=== PATIENT | male | born 1940 | race Caucasian/White ===

== ENCOUNTER 2021-11-23 08:56 | Outpatient (CLI) | payer MEDICARE, BC, SELFPAY ==
--- OUTSIDE RECORDS SUMMARY | 2021-11-23 08:58 | XMS_ITS | Clinical Summary ---
:1940 Author Organization [facility] Address [address] [place] [address] Care Team Providers Name Role Phone Unavailable Primary Care Provider Unavailable Source Comments You are receiving this document as you are listed as the primary care provider,follow-up provider, or the patient has been referred to you for consultation.This is in compliance with the Medicare and Medicaid EHR Incentive Program,which states Providers who transition their patient to another setting of careor provider of care or refers their patient to another provider of care shouldprovide summarycare record for each transition of care or referral. [facility] Resolved Problems Problem Noted Date Resolved Date Chronic low back pain 11/10/2020 05/02/2021 Muscular deconditioning 11/10/2020 05/02/2021 Immunizations Name Administration Dates Next Due DT Ped 08/21/1985 Social History Tobacco Use Types Packs/Day Years Used Date Smoking Tobacco: Never Assessed Sex Assigned at Date Recorded Not on file Plan of Treatment Health Maintenance Due Date Last Done Comments Hep C Screening (Preventive 1940 Services) Medicare Annual Wellness 1940 Visit COVID-19 Vaccine (#1) 05/11/1941 Zoster/Shingles (2 of 3) 11/05/2011 09/10/2011 Influenza (#1) 2021 01/03/2021, 12/28/2019, 12/31/2018, Additional history exists DTaP/Tdap/Td (4 - Tdap) 03/13/2022 03/13/2012, 09/20/2009, 08/21/1985 Pneumococcal 65+ Yrs Completed 03/03/2015, 09/20/2009 HepA Aged Out No longer eligib le based on patient 's age to complete this topic HepB Aged Out No longer eligib le based on patient 's age to complete this topic Hib Aged Out No longer eligib le based on patient 's age to complete this topic IPV (Polio) Aged Out No longer eligib le based on patient 's age to complete this topic MCV4 Aged Out No longer eligib le based on patient 's age to complete this topic Insurance Payer Benefit Plan / Subscriber ID Effective Dates Phone Addre ss Type Group MEDICARE MEDICARE [id number] 2007-[place] [phone] M taniahumberto [facility] CARE t 67 BCBS BCBS BCBS [place] [id number] 2020-[place] [phone] [address] [address] Medicare BLUE t [address] [place] [address] Amanda Angel Personal/Family Self 1940 [address] (Home) [address] [place] [address]
--- OUTSIDE RECORDS SUMMARY | 2021-11-23 08:58 | XMS_ITS | Encounter Summary ---
:1940 Author Organization [facility] Address [address] [place] [address] Care Team Providers Name Role Phone Unavailable Primary Care Provider Unavailable Reason for Visit Reason Comments BACK PAIN, LOW Consult/Transfer Care (Routine) - Authorized Specialty Diagnoses / Procedures Referred By Contact Refer red To Contact Physical Therapy Diagnoses Low back pain (HRC) Vilma Lawler MD [facility] [address] [address] [place] [address] [address] [place], [address] [place] [address] Phone: Fax: Referral ID Status Reason Start Date Expiration Date Visits V isits Requested Authorized [id number] Authorized 10/20/2020 01/19/2022 999 [id number] Encounter Details Date Type Department Care Team Description 01/11/2021 Therapy Physicians Neck and Stan Wynn, Rudi onic low back pain, unspecified back pain laterality, unspecified whether sciatica present (HRC) (Primary Dx); Back [facility] Muscular deconditioning [id number] [facility], [address] [address] , [address] [place] [address] [place], [place] [phone] (Wo rk) Social History Tobacco Use Types Packs/Day Years Used Date Smoking Tobacco: Never Assessed Sex Assigned at Date Recorded Not on file documented as of this encounter Progress Notes Stan Wynn, GAYE - 01/11/2021 10:15 AM CDT 01/11/2021 Visit # 15 Protocol: Back Start: 1009a End: 1047a (LOAD MANAGER Visit # 3 Subjective: Pt reports doing well and ready for discharge, no complaints of today. Cervical Not performed today. Objective Tests & Measures: Tests performed today (see reviewfloweet for score and outcomes): : Oswestry Oswestry completed today at 6 % compared to 15.55 % on initial visit. Warm Up: Movement Specific Training: Not Completed Bike: Minutes 5 Intensity mod ICE: NA Lumbar Lumbar & Torso 01/11/2021 Set 1 Ext % Max 100% Set 1 Ext ROM 0-48 Set 1 Ext Wgt 120 Set 1 Ext Reps 20 Set 1 Ext Tul 63 Set 1 Ext Rufus RPE 5 Set 2 Ext % Max 100% Set 2 Ext ROM 0-48 Set 2 Ext Wgt 120 Set 2 Ext Reps 20 Set 2 Ext Tul 75 Set 2 Rufus RPE 5 Left Rot % Max 60% Left Rot ROM 45 Left Rot Wgt 40 Left Rot Reps 25 Left Rot Betsy RPE 4 Right Rot % Max 60% Right Rot ROM 45 Right Rot Wgt 40 Right Rot Reps 25 Right Rot Rufus RPE 4 Therapeutic Exercise (28 min): Patient performed isolated lumbar extension exercise and auxillary exercises to improve muscle strength, to improve muscle endurance, increase strength and endurance levels of supporting spinal muscle groups and to strengthen postural muscles to decrease stresses on the spine to increase tolerance forstanding, lifting and work activities Verbal cues needed for proper form and control on Lumbar Extension machine with instruction to avoidsubstitution with other muscle groups and to facilitate correct muscle firing sequence and to avoid momentum, improper form and too fast with reps. Neuromuscular Re-Education (10 min): Patient performed isolated torso rotation to decrease substitution patterns present with chronic pain, to retrain muscles for proper sequencing and improve muscle recruitment patterns to increase tolerance for standing, lifting and work activities. Verbal cues for proper form and control on Thoracic Rotation with instruction on which shoulder to push with to avoid substitution on the wrong side of muscle groups. Instructed in slow reps to avoid momentum and improper form. Auxillary Auxillary 01/11/2021 Abs Wgt Set 1 85 Abs Reps Set 1 20 Abs Wgt Set 2 85 Abs Reps Set 2 20 Glute Wgt Set 1 130 Glute Reps Set 1 25 Glute Wgt Set 2 130 Glute Reps Set 2 25 Leg Press Wgt Set 1 170 Leg Press Reps Set 1 20 Leg Press Wgt Set 2 170 Leg Press Reps Set 2 20 Lats Wgt Set 1 70 Lats Reps Set 1 25 Lats Wgt Set 2 70 Lats Reps Set 2 25 Other TA with 40# crate HEP Independent Therapeutic Activities (5 min): Therapeutic Activities 01/11/2021 SITTING POSTURE - STANDING POSTURE - BASE OF SUPPORT Independent WEIGHT SHIFT Independent PIVOT VS TWIST Independent PUSH VS PULL - SQUAT Independent LIFT FROM FLOOR Independent OTHER ACTIVITY Therapeutic activities instructed in lifting, bending, squatting with 40# crate with a wide stance. Instructed the difference with pivoting vs.twisting. Coached proper form, technique and coordination for proper lifting at home. Patient Education: Patient was instructed in correlation of strength and function to increase their understanding of the benefits related to completing the [facility] Rehab program Measureful printed and reviewed. Therapeutic activities with 40# crate. See above. Pt independent. Independent with leonid chair. Assessment: Amanda Angel tolerated treatment well with increased weight on auxiliary machines and lumbar extension today. Checked ROM and unable to change today. Observed form and speed on all reps to avoid substitution, proper positioning and cues given as needed with speed and form. Gives good effort in machines. Goals: Short Term Goals (4-6 weeks): (At Eval:??4/10??pain) *1. Pt will??stand 45 min for household tasks (cooking, doing dishes etc.)??with Sx < or = to??2/10??MET 12/28/20 *2. Pt will??be able to do work in the community garden??with Sx <??or = to 2/10??MET 12/28/20 3. Pt will decrease morning stiffness by 50%??MET 12/28/20 ?? Shelter Goals (>6 weeks): 1. Patient will be independent with home exercise program after discontinued from Physical Therapy. MET 01/11/21 *1. Pt will??stand??>1 hr??for household tasks (cooking, doing dishes etc.)??with Sx < or = to??0/10 MET 01/09/21 *2. Pt will??be able to do work in the community garden??with Sx <??or = to 0/10 MET 01/09/21 3. Pt will decrease morning stiffness by 75% MET 01/09/21 4. Pt will demo independence with proper body mechanics with lift and carry of??40 lbs??from floor without increased Sx??(pt declines to test that amount of wt ) demonstrates body mechanics with some cues lifting from the floor to waist using the crate. MET 01/11/21 Initial certification period:??11/10/20 - 02/08/21 ?? Precautions/Other Information:??Direct Referral,??Follow up with??Vilma Lawler MD:??PRN, Directional Preference:??Flexion, Hx:??L achilles rupture 30 yrs ago, still some L achilles pain when walks too long,??L-Ext:??#125, [facility],??Leonid Chair or samoan ball, body weight auxs, and resistance bands at home,??11/10/20:??Recommended 8-12 weeks of therapy 2x per week (16-24 visits) Recommendations/Communication: DC to HEP with leonid chair and bands. Total timed code min: 38 Total treatment time: 38 Stan Wynn PTA 01/11/2021, 10:52 AM Vega Beltre, PT - 01/11/2021 10:15 AM CDT Physical Therapy Discharge Summary Discharge Date: 05/02/2021 Discharge type: formal Patient completed 15 sessions of physical therapy from 11/10/2020 to 01/11/2021. Goals: ?? Short Term Goals (4-6 weeks): (At Eval:??4/10??pain) *1. Pt will??stand 45 min for household tasks (cooking, doing dishes etc.)??with Sx < or = to??2/10??MET 12/28/20 *2. Pt will??be able to do work in the community garden??with Sx <??or = to 10??MET 12/28/20 3. Pt will decrease morning stiffness by 50%??MET 12/28/20 ?? Winding Lathe Operator Goals (>6 weeks): 1. Patient will be independent with home exercise program after discontinued from Physical Therapy. MET 01/11/21 *1. Pt will??stand??>1 hr??for household tasks (cooking, doing dishes etc.)??with Sx < or = to??0/10??MET 01/09/21 *2. Pt will??be able to do work in the community garden??with Sx <??or = to 0/10??MET 01/09/21 3. Pt will decrease morning stiffness by 75%?MET 01/09/21 4. Pt will demo independence with proper body mechanics with lift and carry of??40 lbs??from floor without increased Sx??(pt declines to test that amount of wt ) demonstrates body mechanics with some cues lifting from the floor to waist using the crate. MET 01/11/21 Patient has been instructed in and demonstrated proficiency and safe body mechanics with the following tasks: Neutral sitting position Standing posture Full and partial squat/half kneel/golfer's lift Wide base of support Weight shift Pivot vs twist Hold object close vs away Floor <> waist lift Lifting and reachintg overhead Push vs Pull Other status update/follow up recommendations: Patient is to F/U with his PCP regarding any additional care Discharge Plans: HEP Leonid Chair T-bands 05/02/2021, 5:47 PM R HELPER documented in this encounter Plan of Treatment Not on filedocumented as of this encounter Visit Diagnoses Diagnosis Chronic low back pain, unspecified back pain laterality, unspecified whether sciatica present - Primary Muscular deconditioning Muscular wasting and disuse atrophy, not elsewhere classified documented in this encounter
--- OUTSIDE RECORDS SUMMARY | 2021-11-23 08:59 | XMS_ITS | Encounter Summary ---
:1940 Author [facility] Address [address] [place] [address] Care Team Providers Name Role Phone Unavailable Primary Care Provider Unavailable Reason for Visit Reason Comments BACK PAIN Consult/Transfer Care (Routine) - Authorized Specialty Diagnoses / Procedures Referred By Contact Refer red To Contact Physical Therapy Diagnoses Low back pain (HRC) Vilma Lawler MD [facility] [address] [address] [place] [address] [place], [address] [place] [address] Phone: Fax: Referral ID Status Reason Start Date Expiration Date Visits V isits Requested Authorized [id number] Authorized 10/20/2020 01/19/2022 999 [id number] Encounter Details Date Type Department Care Team Description 12/30/2020 Therapy Physicians Neck and Bianka Stewart, Vikki simon low back pain, unspecified back pain laterality, unspecified whether sciatica present (HRC) (Primary Dx); Back Center [facility] sandro BLADDER TIER Muscular deconditioning [address] [facility], [address] [facility] , [address] [place] [address] [place], [place] [phone] (Wo rk) Social History Tobacco Use Types Packs/Day Years Used Date Smoking Tobacco: Never Assessed Sex Assigned at Date Recorded Not on file documented as of this encounter Progress Notes Bianka Stewart, GAYE - 12/30/2020 10:45 AM CDT 12/30/2020 Visit # 12 Protocol: Back Start: 10:45 am End: 11:15 am (BLADDER TIER Visit # 5 Subjective: Patient reports he is stiff this am. He was able to walk 4-6 miles yesterday with only min pain at the very end of the walk. Cervical Not performed today. Objective Tests & Measures: 80% of max wt on torso rotation ROM changes: no changes in ROm Tests performed today (see [facility] for score and outcomes): : None Performed Today Warm Up: Movement Specific Training: Not Completed Bike: Minutes 5 Intensity moderate ICE: N/A d/t covid Lumbar Lumbar & Torso 12/30/2020 Set 1 Ext % Max 60% Set 1 Ext ROM 0-48 Set 1 Ext Wgt 66 Set 1 Ext Reps 30 Set 1 Ext Tul 125 Set 1 Ext Rufus RPE 3/10 Set 2 Ext % Max - Set 2 Ext ROM - Set 2 Ext Wgt - Set 2 Ext Reps - Set 2 Ext Tul - Set 2 Rufus RPE - Left Rot % Max 80% Left Rot ROM 45 Left Rot Wgt 46 Left Rot Reps 25 Left Rot Betsy RPE 5/10 Right Rot % Max 80% Right Rot ROM 45 Right Rot Wgt 46 Right Rot Reps 25 Right Rot Rufus RPE 5/10 Therapeutic Exercise (15 min): Patient performed isolated torso rotation exercise and auxillary exercises to improve muscle strength, to improve muscle endurance, to improve muscle flexibility, to improve range of motion and increase strength and endurance levels of supporting spinal muscle groups to increase tolerance for standing, walking, lifting, driving, personal care tasks and household tasks Pt monitored for proper form on torso rotation exercise with emphasis to keep spine in the middle ofthe machine to avoid substitutions and engage the oblique muscles fully. Pt able to do after cues and reminders of body position. Pt educated for proper form on aux. exercises to minimize compensatory movement patterns and reminded to keep a steady rep pace on aux. exercises to maximize strengthening along the entire movement. Neuromuscular Re-Education (15 min): Patient performed isolated lumbar extension to decrease substitution patterns present with chronic pain, to retrain muscles for proper sequencing, decrease substitution patterns and normalize movement patterns, to improve self- correction of posture and to improve kinesio awareness to increase tolerance for standing, walking, lifting, driving, personal care tasks and household tasks. Pt instructed to relax legs and allow only the low back muscles to engage by pushing shoulder/arching back. Pt is monitored for correct speed and control to ensure good form and optimal muscle isolation. Auxillary Auxillary 12/30/2020 Abs Wgt Set 1 75 Abs Reps Set 1 20 Abs Wgt Set 2 75 Abs Reps Set 2 20 Glute Wgt Set 1 110 Glute Reps Set 1 20 Glute Wgt Set 2 110 Glute Reps Set 2 20 Leg Press Wgt Set 1 160 Leg Press Reps Set 1 20 Leg Press Wgt Set 2 160 Leg Press Reps Set 2 20 Lats Wgt Set 1 55 Lats Reps Set 1 20 Lats Wgt Set 2 - Lats Reps Set 2 - Other - HEP declines full lifting of 40# crate (states his knee gets sore) Therapeutic Activities (0 min): Not performed today. Brief review of good body mechanics without wt as pt didn't really want to lift a 40# crate but did demo his form. Patient Education: Patient was instructed in correlation of strength and function to increase their understanding of the benefits related to completing the [facility] Rehab program Patient demo's his lifting technique with empty crate and declines to try the 40# today. Patient responded well to the education on spine alignment today. Assessment: Patient is progressing and has met many of the goals. Patient is reaching very muscle strength levels on lumbar extension exercise. Patient did well today with good effort and only slight left shoulder discomfort and right knee pain in leg press. PATIENT was effectively challenged on all exercises to achieve good muscle fatigue levels for the optimal muscle strength and stability around the lumbar spine. Patient will benefit from skilled Physical Therapy to counteract impairments and regain function Goals: Short Term Goals (4-6 weeks): (At Eval:??4/10??pain) *1. Pt will??stand 45 min for household tasks (cooking, doing dishes etc.)??with Sx < or = to??2/10??MET 12/28/20 *2. Pt will??be able to do work in the community garden??with Sx <??or = to 210 MET 12/28/20 3. Pt will decrease morning stiffness by 50%??MET 12/28/20 ?? Director Of Pupil Personnel Program Goals (>6 weeks): 1. Patient will be independent with home exercise program after discontinued from Physical Therapy. *1. Pt will??stand??>1 hr??for household tasks (cooking, doing dishes etc.)??with Sx < or = to??010 *2. Pt will??be able to do work in the community garden??with Sx <??or = to 0/10 3. Pt will decrease morning stiffness by 75% 4. Pt will demo independence with proper body mechanics with lift and carry of??40 lbs??from floor without increased Sx (pt declines to test that amount of wt ) demonstrates body mechanics with some cues lifting from the floor to waist using the crate. Initial certification period:??11/10/20 - 02/08/21 ?? Precautions/Other Information:??Direct Referral,??Follow up with??Vilma Lawler MD:??PRN, Directional Preference:??Flexion, Hx:??L achilles rupture 30 yrs ago, still some L achilles pain when walks too long,??L-Ext:??#125, [facility],??Leonid Chair or slovenian ball, body weight auxs, and resistance bands at home,??11/10/20:??Recommended 8-12 weeks of therapy 2x per week (16-24 visits) Recommendations/Communication: 100% lumbar extension 60% torso rotation Continue treatment per PT POC with estimate of #2 more visits. HOME EXERCISE PROGRAM review Total timed code min: 30 Total treatment time: 30 Bianka Stewart PTA 12/30/2020, 11:25 AM Associated attestation - Vega Beltre, PT - 12/30/2020 1:05 PM CDT Observed treatment. Goals/Plan of Care discussed with BLADDER TIER. Treatment progressing and appropriate. Vega Beltre PT 12/30/2020, 1:05 PM documented in this encounter Plan of Treatment Not on filedocumented as of this encounter Visit Diagnoses Diagnosis Chronic low back pain, unspecified back pain laterality, unspecified whether sciatica present (HRC) - Primary Muscular deconditioning Muscular wasting and disuse atrophy, not elsewhere classified documented in this encounter
--- OUTSIDE RECORDS SUMMARY | 2021-11-23 08:59 | XMS_ITS | Encounter Summary ---
:1940 Author Organization [facility] Address [address] [place] [address] Care Team Providers Name Role Phone Unavailable Primary Care Provider Unavailable Reason for Visit Reason Comments BACK PAIN, LOW Consult/Transfer Care (Routine) - Authorized Specialty Diagnoses / Procedures Referred By Contact Refer red To Contact Physical Therapy Diagnoses Low back pain (HRC) Vilma Lawler MD [facility] [address] [address] [place] [address] [place], [address] [place] [address] Phone: Fax: Referral ID Status Reason Start Date Expiration Date Visits V isits Requested Authorized [id number] Authorized 10/20/2020 01/19/2022 999 [id number] Encounter Details Date Type Department Care Team Description 11/14/2020 Therapy Physicians Neck and Stan Wynn, Rudi onic low back pain, unspecified back pain laterality, unspecified whether sciatica present (Primary Dx); [facility] Muscular deconditioning [address] [facility], [address] [facility] , [address] [place] [address] [place], [place] [phone] (Wo rk) Social History Tobacco Use Types Packs/Day Years Used Date Smoking Tobacco: Never Assessed Sex Assigned at Date Recorded Not on file documented as of this encounter Progress Notes Stan Wynn, PRINCIPAL PROGRAMMER - 11/14/2020 10:00 AM CDT 11/14/2020 Visit # 2 Protocol: Back Start: 1000a End: 1035a (PRINCIPAL PROGRAMMER Visit # 1 Subjective: Pt reports doing stretches going well at home. Wanted to review strengthening at home ofOne legged bridging, crunches and pelvic tilts. Cervical Not performed today. Objective Tests & Measures: Tests performed today (see [facility] for score and outcomes): : None Performed Today Warm Up: Movement Specific Training: Not Completed Bike: Minutes 5 Intensity mod ICE: NA Lumbar Lumbar & Torso 11/14/2020 Set 1 Ext % Max 80% Set 1 Ext ROM 0-42 Set 1 Ext Wgt 50 Set 1 Ext Reps 20 Set 1 Ext Tul 179 Set 1 Ext Rufus RPE 7 per pt Set 2 Ext Tul 1 set due to High Rufus Left Rot % Max 60% Left Rot ROM 35 Left Rot Wgt 20 Left Rot Reps 20 Left Rot Betsy RPE 5 Right Rot % Max 60% Right Rot ROM 35 Right Rot Wgt 20 Right Rot Reps 20 Right Rot Rufus RPE 3-4 Therapeutic Exercise (25 min): Patient performed isolated lumbar extension exercise [...] avoid momentum and improper form. Auxillary Auxillary 11/14/2020 Abs Wgt Set 1 40 Abs Reps Set 1 20 Abs Wgt Set 2 40 Abs Reps Set 2 21 Glute Wgt Set 1 70 Glute Reps Set 1 20 Glute Wgt Set 2 70 Glute Reps Set 2 20 Leg Press Wgt Set 1 120 Leg Press Reps Set 1 20 Leg Press Wgt Set 2 120 Leg Press Reps Set 2 20 Other Inst to hold bridging, abs for now. Ok to cont pelvic tilts HEP - Therapeutic Activities (0 min): Not performed today. Patient Education: Patient was instructed in correlation of strength and function to increase their understanding of the benefits related to completing the [facility] Rehab program Instructed to hold one legged bridging and crunches for now. Okayed pt to continue with pelvic tilts. Assessment: Amanda Angel tolerated treatment well with adding machines. Encouraged to keep stretching twice per day and ice as needed. Checked ROM and unable to change today. Should improve as he gets stronger with less pain and more flexible with stretches. Observed form and speed on all reps to avoid substitution, proper positioning and cues given as needed with speed and form. Gives good effort in machines. Goals: Short Term Goals (4-6 weeks): (At Eval: 4/10 pain) *1. Pt will stand 45 min for household tasks (cooking, doing dishes etc.) with Sx < or = to 2/10 *2. Pt will be able to do work in the community garden with Sx < or = to 2/10 3. Pt will decrease morning stiffness by 50% ?? Longterm Goals (>6 weeks): 1. Patient will be independent with home exercise program after discontinued from Physical Therapy. *1. Pt will stand >1 hr for household tasks (cooking, doing dishes etc.) with Sx < or = to 0/10 *2. Pt will be able to do work in the community garden with Sx < or = to 0/10 3. Pt will decrease morning stiffness by 75% 4. Pt will demo independence with proper body mechanics with lift and carry of 40 lbs from floor without increased Sx Initial certification period: 11/10/20 - 02/08/21 ?? Precautions/Other Information: Direct Referral, Follow up with Vilma Lawler MD: PRN, Directional Preference: Flexion, Hx: L achilles rupture 30 yrs ago, still some L achilles pain when walks too long, L-Ext: #125, HEP: Leonid Chair or botswanan ball, body weight auxs, and resistance bands at home, 11/10/20: Recommended 8-12 weeks of therapy 2x per week (16-24 visits) Recommendations/Communication: 60% Lumbar extension and 80% thoracic rotation next. Continue treatment per PT POC. Increase abdominals 5-10# Total timed code min: 35 Total treatment time: 35 Stan Wynn PTA 11/14/2020, 10:37 AM documented in this encounter Plan of Treatment Not on filedocumented as of this encounter Visit Diagnoses Diagnosis Chronic low back pain, unspecified back pain laterality, unspecified whether sciatica present - Primary Muscular deconditioning Muscular wasting and disuse atrophy, not elsewhere classified documented in this encounter
--- OUTSIDE RECORDS SUMMARY | 2021-11-23 08:59 | XMS_ITS | Encounter Summary ---
:1940 Author Organization [employer] Address [address] [place] [address] Care Team Providers Name Role Phone Unavailable Primary Care Provider Unavailable Reason for Visit Reason Comments BACK PAIN, LOW Consult/Transfer Care (Routine) - Authorized Specialty Diagnoses / Procedures Referred By Contact Refer red To Contact Physical Therapy Diagnoses Low back pain (HRC) Vilma Lawler MD [facility] [address] [address] [place] [address] [address], [address] [place] [address] Phone: Fax: Referral ID Status Reason Start Date Expiration Date Visits V isits Requested Authorized [id number] Authorized 10/20/2020 01/19/2022 999 [id number] Encounter Details Date Type Department Care Team Description 01/09/2021 Therapy Physicians Neck and Stan Wynn, Rudi onic low back pain, unspecified back pain laterality, unspecified whether sciatica present (HRC) (Primary Dx); Back Center [facility] 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 Feeling better, stronger overall, just stiff in the morning yet. Cervical Not performed today. Objective Tests & Measures: Tests performed today (see reviewfloweet for score and outcomes): : None Performed Today Warm Up: Movement Specific Training: Not Completed Bike: Minutes 5 Intensity mod ICE: NA Lumbar Lumbar & Torso 01/09/2021 Set 1 Ext % Max 60% Set 1 Ext ROM 0-48 Set 1 Ext Wgt 70 Set 1 Ext Reps 30 Set 1 Ext Tul 160 Set 1 Ext Rufus RPE 4 Set 2 Ext % Max - Set 2 Ext ROM - Set 2 Ext Wgt - Set 2 Ext Reps - Set 2 Ext Tul - Set 2 Rufus RPE - Left Rot % Max 80% Left Rot ROM 45 Left Rot Wgt 52 Left Rot Reps 30 Left Rot Betsy RPE 6 Right Rot % Max 80% Right Rot ROM 45 Right Rot Wgt 52 Right Rot Reps 30 Right Rot Rufus RPE 6 Therapeutic Exercise (22 min): Patient performed isolated lumbar extension exercise and auxillary exercises to improve muscle strength, to improve muscle endurance, increase strength and endurance levels of supporting spinal muscle groups and to strengthen postural muscles to decrease stresses on the spine to increase tolerance forstanding, lifting, personal care tasks and household tasks Verbal cues needed for proper form and control on Lumbar Extension machine with instruction to avoidsubstitution with other muscle groups and to facilitate correct muscle firing sequence and to avoid momentum, improper form and too fast with reps. Neuromuscular Re-Education (8 min): Patient performed isolated torso rotation to decrease substitution patterns present with chronic pain, to retrain muscles for proper sequencing and improve muscle recruitment patterns to increase tolerance for standing, lifting, personal care tasks and household tasks. Verbal cues for proper form and control on Thoracic Rotation with instruction on which shoulder to push with to avoid substitution on the wrong side of muscle groups. Instructed in slow reps to avoid momentum and improper form. Auxillary Auxillary 01/09/2021 Abs Wgt Set 1 80 Abs Reps Set 1 25 Abs Wgt Set 2 80 Abs Reps Set 2 25 Glute Wgt Set 1 120 Glute Reps Set 1 25 Glute Wgt Set 2 120 Glute Reps Set 2 25 Leg Press Wgt Set 1 170 Leg Press Reps Set 1 20 Leg Press Wgt Set 2 170 Leg Press Reps Set 2 20 Lats Wgt Set 1 65 Lats Reps Set 1 21 Lats Wgt Set 2 70 Lats Reps Set 2 30 Other Goals reviewed. HEP Declined RC review today Therapeutic Activities (0 min): Not performed today. Patient Education: Patient was instructed in correlation of strength and function to increase their understanding of the benefits related to completing the [facility] Rehab program Assessment: Amanda Angel tolerated treatment well with workout, able to do 25 reps on auxiliary machines. Checked ROM and unable to change today. [...] decrease morning stiffness by 50%??MET 12/28/20 ?? Residential Goals (>6 weeks): 1. Patient will be [...] too long,??L-Ext:??#125, HEP:[facility],??Leonid Chair or nigerien ball, body weight auxs, and resistance bands at home,??11/10/20:??Recommended 8-12 weeks of therapy 2x per week (16-24 visits) ?? Recommendations/Communication: 100% Lumbar extension and 60% thoracic rotation next. Continue treatment per PT POC. Plan 1 more visits. Discharge to gym. Review lifting with 40# crate. Total timed code min: 30 Total treatment time: 30 Stan Wynn PTA 01/09/2021, 11:13 AM documented in this encounter Plan of Treatment Not on filedocumented as of this encounter Visit Diagnoses Diagnosis Chronic low back pain, unspecified back pain laterality, unspecified whether sciatica present - Primary Muscular deconditioning Muscular wasting and disuse atrophy, not elsewhere classified documented in this encounter
--- OUTSIDE RECORDS SUMMARY | 2021-11-23 08:59 | XMS_ITS | Encounter Summary ---
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
--- OUTSIDE RECORDS SUMMARY | 2021-11-23 08:59 | XMS_ITS | Encounter Summary ---
:1940 Author Organization [employer] Address [address] [facility] [place] [address] Care Team Providers Name Role Phone Unavailable Primary Care Provider Unavailable Reason for Visit Reason Comments BACK PAIN, LOW Consult/Transfer Care (Routine) - Authorized Specialty Diagnoses / Procedures Referred By Contact Refer red To Contact Physical Therapy Diagnoses Low back pain (HRC) Vilma Lawler MD [facility] [address] [address] [place] [address] [place], [address] [place] [address] Phone: Fax: Referral ID Status Reason Start Date Expiration Date Visits V isits Requested Authorized [id number] Authorized 10/20/2020 01/19/2022 999 [id number] Encounter Details Date Type Department Care Team Description 12/07/2020 Therapy Physicians Neck and Stan Wynn, Rudi onic low back pain, unspecified back pain laterality, unspecified whether sciatica present (Primary Dx); Back Center [facility] HUIZAR Muscular deconditioning [address] [facility], [address] [facility] , [address] [place] [address] [place], [place] [phone] (Wo rk) Social History Tobacco Use Types Packs/Day Years Used Date Smoking Tobacco: Never Assessed Sex Assigned at Date Recorded Not on file documented as of this encounter Progress Notes Stan Wynn, DELIVER DRIVER - 12/07/2020 12:15 PM CDT 12/07/2020 Visit # 6 Protocol: Back Start: 1209p End: 1238p (DELIVER DRIVER Visit # 4 Subjective: Pt reports walking still aggravates it yet. Sleeping and sitting in his favorite chairis fine per pt. Cervical Not performed today. Objective Tests & Measures: Tests performed today (see reviewflowsheet for score and outcomes): : None Performed Today Warm Up: Movement Specific Training: Not Completed Bike: Minutes 5 Intensity mod ICE: NA Lumbar Lumbar & Torso 12/07/2020 Set 1 Ext % Max 100% Set 1 Ext ROM 0-45 Set 1 Ext Wgt 72 Set 1 Ext Reps 20 Set 1 Ext Tul 80 Set 1 Ext Rufus RPE 4 Set 2 Ext % Max 100% Set 2 Ext ROM 0-45 Set 2 Ext Wgt 77 Set 2 Ext Reps 30 Set 2 Ext Tul 148 Set 2 Rufus RPE 5 Left Rot % Max 60% Left Rot ROM 40 Left Rot Wgt 26 Left Rot Reps 25 Left Rot Betsy RPE 3-4 Right Rot % Max 60% Right Rot ROM 40 Right Rot Wgt 26 Right Rot Reps 25 Right Rot Rufus RPE 3-4 Therapeutic Exercise (20 min): Patient performed isolated lumbar extension exercise and auxillary exercises to improve muscle strength, to improve muscle endurance, increase strength and endurance levels of supporting spinal muscle groups and to strengthen postural muscles to decrease stresses on the spine to increase tolerance forstanding, walking, lifting and work activities Verbal cues needed for proper form and control on Lumbar Extension machine with instruction to avoidsubstitution with other muscle groups and to facilitate correct muscle firing sequence and to avoid momentum, improper form and too fast with reps. Neuromuscular Re-Education (9 min): Patient performed isolated torso rotation to decrease substitution patterns present with chronic pain, to retrain muscles for proper sequencing and improve muscle recruitment patterns to increase tolerance for standing, walking, lifting and work activities. Verbal cues for proper form and control on Thoracic Rotation with instruction on which shoulder to push with to avoid substitution on the wrong side of muscle groups. Instructed in slow reps to avoid momentum and improper form. Auxillary Auxillary 12/07/2020 Abs Wgt Set 1 55 Abs Reps Set 1 25 Abs Wgt Set 2 60 Abs Reps Set 2 25 Glute Wgt Set 1 90 Glute Reps Set 1 25 Glute Wgt Set 2 90 Glute Reps Set 2 25 Leg Press Wgt Set 1 140 Leg Press Reps Set 1 25 Leg Press Wgt Set 2 140 Leg Press Reps Set 2 25 Other - HEP - Therapeutic Activities (0 min): Not performed today. Patient Education: Patient was instructed in correlation of strength and function to increase their understanding of the benefits related to completing the [facility] Rehab program Assessment: Amanda Angel tolerated treatment well with workout, good challenge on machines with more reps. Checked ROM and unable to change today. Observed form and speed on all reps to avoid substitution, proper positioning and cues given as needed with speed and form. Gives good effort in machines. Goals: Short Term Goals (4-6 weeks): (At Eval:??4/10??pain) *1. Pt will??stand 45 min for household tasks (cooking, doing dishes etc.)??with Sx < or = to??2/10??Progressing 11/22/20 *2. Pt will??be able to do work in the community garden??with Sx <??or = to 2/10 3. Pt will decrease morning stiffness by 50%??Progressing 11/22/20 ?? Alf Goals (>6 weeks): 1. Patient will be independent with home exercise program after discontinued from Physical Therapy. *1. Pt will??stand??>1 hr??for household tasks (cooking, doing dishes etc.)??with Sx < or = to??0/10 *2. Pt will??be able to do work in the community garden??with Sx <??or = to 0/10 3. Pt will decrease morning stiffness by 75% 4. Pt will demo independence with proper body mechanics with lift and carry of??40 lbs??from floor without increased Sx Initial certification period:??11/10/20 - 02/08/21 ?? 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 Continue treatment per PT POC. Plan 14-18 more visits. Start leonid chair instruct. Increase auxiliary machines as able. Total timed code min: 29 Total treatment time: 29 Stan Wynn PTA 12/07/2020, 12:39 PM documented in this encounter Plan of Treatment Not on filedocumented as of this encounter Visit Diagnoses Diagnosis Chronic low back pain, unspecified back pain laterality, unspecified whether sciatica present - Primary Muscular deconditioning Muscular wasting and disuse atrophy, not elsewhere classified documented in this encounter
--- OUTSIDE RECORDS SUMMARY | 2021-11-23 08:59 | XMS_ITS | Encounter Summary ---
:1940 Author Organization [employer] Address [address] [place] [address] Care Team Providers Name Role Phone Unavailable Primary Care Provider Unavailable Reason for Visit Reason Comments BACK PAIN, LOW Consult/Transfer Care (Routine) - Authorized Specialty Diagnoses / Procedures Referred By Contact Refer red To Contact Physical Therapy Diagnoses Low back pain (HRC) Vilma Lawler MD [facility] [address] [address] [place] [address] [place], [address] [place] [address] Phone: Fax: Referral ID Status Reason Start Date Expiration Date Visits V isits Requested Authorized [id number] Authorized 10/20/2020 01/19/2022 999 [id number] Encounter Details Date Type Department Care Team Description 01/02/2021 Therapy Physicians Neck and Stan Wynn, Rudi onic low back pain, unspecified back pain laterality, unspecified whether sciatica present (HRC) (Primary Dx); Back Center [facility] Muscular deconditioning [address] [facility], [address] [facility] , [address] [place] [address] [place], [place] [phone] (Wo rk) Social History Tobacco Use Types Packs/Day Years Used Date Smoking Tobacco: Never Assessed Sex Assigned at Date Recorded Not on file documented as of this encounter Progress Notes Stan Wynn, GAYE - 01/02/2021 10:00 AM CDT 01/02/2021 Visit # 13 Protocol: Back Start: 956a End: 1025a (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 Cervical Not performed today. Objective Tests & Measures: Tests performed today (see reviewflowsheet for score and outcomes): : None Performed Today Warm Up: Movement Specific Training: Not Completed Bike: Minutes 5 Intensity mod ICE: NA Lumbar Lumbar & Torso 01/02/2021 Set 1 Ext % Max 100% Set 1 Ext ROM 0-48 Set 1 Ext Wgt 115 Set 1 Ext Reps 20 Set 1 Ext Tul 66 Set 1 Ext Rufus RPE 5 Set 2 Ext % Max 100% Set 2 Ext ROM 0-48 Set 2 Ext Wgt 115 Set 2 Ext Reps 20 Set 2 Ext Tul 80 Set 2 Rufus RPE 6-7 Left Rot % Max 60% Left Rot ROM 45 Left Rot Wgt 36 Left Rot Reps 20 Left Rot Betsy RPE 3 Right Rot % Max 60% Right Rot ROM 45 Right Rot Wgt 36 Right Rot Reps 20 Right Rot Rufus RPE 3 Therapeutic Exercise (21 min): Patient performed isolated lumbar extension exercise [...] avoid momentum and improper form. Auxillary Auxillary 01/02/2021 Abs Wgt Set 1 80 Abs Reps Set 1 21 Abs Wgt Set 2 80 Abs Reps Set 2 20 Glute Wgt Set 1 120 Glute Reps Set 1 20 Glute Wgt Set 2 120 Glute Reps Set 2 20 Leg Press Wgt Set 1 160 Leg Press Reps Set 1 25 Leg Press Wgt Set 2 160 Leg Press Reps Set 2 25 Lats Wgt Set 1 55 Lats Reps Set 1 20 Lats Wgt Set 2 65 Lats Reps Set 2 20 Other - HEP - Therapeutic Activities (0 min): Not performed today. Patient Education: Patient was instructed in correlation of strength and function to increase their understanding of the benefits related to completing the [facility] Rehab program Cues to slow down on lumbar extension reps. Assessment: Amanda Angel tolerated treatment well with workout, good challenge on lumbar extension. Checked ROM and unable to change today. [...] decrease morning stiffness by 50%??MET 12/28/20 ?? 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 Patient will be [...] too long,??L-Ext:??#125, HEP:??[facility],??Leonid Chair or tristanian ball, body weight auxs, and resistance bands at home,??11/10/20:??Recommended 8-12 weeks of therapy 2x per week (16-24 visits) ?? Recommendations/Communication: 60% Lumbar extension and 80% thoracic rotation next. Continue treatment per PT POC. Plan 2 more visits. Plans to either get [employer] or [employer] gym membership this week. LEONID CHAIR review, goals review next. Total timed code min: 29 Total treatment time: 29 Stan Wynn PTA 01/02/2021, 10:27 AM documented in this encounter Plan of Treatment Not on filedocumented as of this encounter Visit Diagnoses Diagnosis Chronic low back pain, unspecified back pain laterality, unspecified whether sciatica present - Primary Muscular deconditioning Muscular wasting and disuse atrophy, not elsewhere classified documented in this encounter
--- OUTSIDE RECORDS SUMMARY | 2021-11-23 08:59 | XMS_ITS | Encounter Summary ---
:1940 Author [facility] Address [address] [place] [address] Care Team Providers Name Role Phone Unavailable Primary Care Provider Unavailable Reason for Visit Reason Comments BACK PAIN, LOW Consult/Transfer Care (Routine) - Authorized Specialty Diagnoses / Procedures Referred By Contact Refer red To Contact Physical Therapy Diagnoses Low back pain (HRC) Vilma Lawler MD [facility] [address] [address] [place] [address] [place], [address] [place] [address] Phone: Fax: Referral ID Status Reason Start Date Expiration Date Visits V isits Requested Authorized [id number] Authorized 10/20/2020 01/19/2022 999 [id number] Encounter Details Date Type Department Care Team Description 12/28/2020 Therapy Physicians Neck and Stan Wynn, Rudi onic low back pain, unspecified back pain laterality, unspecified whether sciatica present (HRC) (Primary Dx); Back Center [facility] Muscular deconditioning [id number] [facility], [address] [facility] , [address] [place] [address] [place], [place] [phone] (Wo rk) Social History Tobacco Use Types Packs/Day Years Used Date Smoking Tobacco: Never Assessed Sex Assigned at Date Recorded Not on file documented as of this encounter Progress Notes Stan Wynn, GAYE - 12/28/2020 10:45 AM CDT 12/28/2020 Visit # 11 Protocol: Back Start: 1034a End: 1107a (CAVALRY SCOUT Visit # 4 Subjective: Pt reports more sore with garden clean up. Iced over the weekend. Cervical Not performed today. Objective Tests & Measures: Tests performed today (see reviewfloweet for score and outcomes): : None Performed Today Warm Up: Movement Specific Training: Not Completed Bike: Minutes 5 Intensity mod ICE: NA Lumbar Lumbar & Torso 12/28/2020 Set 1 Ext % Max 100% Set 1 Ext ROM 0-48 Set 1 Ext Wgt 105 Set 1 Ext Reps 21 Set 1 Ext Tul 87 Set 1 Ext Rufus RPE 5 Set 2 Ext % Max 100% Set 2 Ext ROM 0-48 Set 2 Ext Wgt 110 Set 2 Ext Reps 18 Set 2 Ext Tul 90 Set 2 Rufus RPE self limited Left Rot % Max 60% Left Rot ROM 45 Left Rot Wgt 36 Left Rot Reps 20 Left Rot Betsy RPE - Right Rot % Max 60% Right Rot ROM 45 Right Rot Wgt 36 Right Rot Reps 20 Right Rot Rufus RPE - Therapeutic Exercise (23 min): Patient performed isolated lumbar extension exercise and auxillary exercises to improve muscle strength, to improve muscle endurance, increase strength and endurance levels of supporting spinal muscle groups and to strengthen postural muscles to decrease stresses on the spine to increase tolerance forstanding, lifting, personal care tasks and work activities Verbal cues needed for [...] for standing, lifting, personal care tasks and work activities. Verbal cues for proper form and control on Thoracic Rotation with instruction on which shoulder to push with to avoid substitution on the wrong side of muscle groups. Instructed in slow reps to avoid momentum and improper form. Auxillary Auxillary 12/28/2020 Abs Wgt Set 1 75 Abs Reps [...] of the benefits related to completing the [facility] Rehab program Goals reviewed. Assessment: Amanda Angel tolerated treatment well with workout, good challenge, making progress ongoals. Checked ROM and unable to change today. [...] community garden??with Sx <??or = to 2/10 MET 12/28/20 3. Pt will decrease morning stiffness by 50%??MET 12/28/20 ?? Turn Supervisor Goals (>6 weeks): 1. Patient will be [...] too long,??L-Ext:??#125, HEP:??[facility],??Leonid Chair or macedonian ball, body weight auxs, and resistance bands at home,??11/10/20:??Recommended 8-12 weeks of therapy 2x per week (16-24 visits) Recommendations/Communication: 60% Lumbar extension and 100% thoracic rotation next. Continue treatment per PT POC. Plan 3 more visits. Lifting 40# crate for LTG next. Watch knees. Total timed code min: 33 Total treatment time: 33 Stan Wynn, GAYE 12/28/2020, 11:13 AM Associated attestation - Vega Beltre, PT - 12/28/2020 11:21 AM CDT Observed treatment. Goals/Plan of Care discussed with CAVALRY SCOUT. Treatment progressing and appropriate. Vega Beltre, ULISES 12/28/2020, 11:20 AM documented in this encounter Plan of Treatment Not on filedocumented as of this encounter Visit Diagnoses Diagnosis Chronic low back pain, unspecified back pain laterality, unspecified whether sciatica present - Primary Muscular deconditioning Muscular wasting and disuse atrophy, not elsewhere classified documented in this encounter
--- OUTSIDE RECORDS SUMMARY | 2021-11-23 08:59 | XMS_ITS | Encounter Summary ---
:1940 Author Organization [facility] Address [address] [employer] [facility] [place] [address] Care Team Providers Name Role Phone Unavailable Primary Care Provider Unavailable Reason for Visit Reason Comments BACK PAIN, LOW Consult/Transfer Care (Routine) - Authorized Specialty Diagnoses / Procedures Referred By Contact Refer red To Contact Physical Therapy Diagnoses Low back pain (HRC) Vilma Lawler MD [facility] [address] [address] [place] [address] [place], [address] [place] [address] Phone: Fax: Referral ID Status Reason Start Date Expiration Date Visits V isits Requested Authorized [id number] Authorized 10/20/2020 01/19/2022 999 [id number] Encounter Details Date Type Department Care Team Description 11/22/2020 Therapy Physicians Neck and Luis Rush C hronic low back pain, unspecified back pain laterality, unspecified whether sciatica present (Primary Dx); Back Center [facility] PT Muscular deconditioning [id number] [facility], [address] [facility] [address] [place] [address] [place], [place] [phone] Social History Tobacco Use Types Packs/Day Years Used Date Smoking Tobacco: Never Assessed Sex Assigned at Date Recorded Not on file documented as of this encounter Progress Notes Luis Rush PT - 11/22/2020 11:15 AM CDT 11/22/2020 Visit # 4 Protocol: Back Start: 11:16 End: 11:54 (SPIKE DRIVER Visit # 2 Subjective: States he is feeling ok this morning with his back pain. Has been working on getting a better sequence of his stretches. Cervical Not performed today. Objective Tests & Measures: See flowsheet Tests performed today (see reviewflowsheet for score and outcomes): : None Performed Today Warm Up: Movement Specific Training: Completed Bike: Minutes 5 Intensity mod ICE: None Lumbar Lumbar & Torso 11/22/2020 Set 1 Ext % Max 100% Set 1 Ext ROM 0-45 Set 1 Ext Wgt 60 Set 1 Ext Reps 25 Set 1 Ext Tul 170 Set 1 Ext Rufus RPE 4 Set 2 Ext % Max 100% Set 2 Ext ROM 0-45 Set 2 Ext Wgt 66 Set 2 Ext Reps 25 Set 2 Ext Tul 145 Set 2 Rufus RPE 5 Left Rot % Max 60% Left Rot ROM 40 Left Rot Wgt 22 Left Rot Reps 25 Left Rot Betsy RPE 4 Right Rot % Max 60% Right Rot ROM 40 Right Rot Wgt 22 Right Rot Reps 25 Right Rot Rufus RPE 4-5 Therapeutic Exercise (30 min): Patient performed isolated lumbar extension exercise and auxillary exercises to increase strength and endurance levels of supporting spinal muscle groups to increase tolerance for standing, personal care tasks and household tasks. Tactile and verbal cues to achieve proper body position and alignment prior to exercise. Verbal cuesfor proper pacing and form during exercise. Verbal cues to perform proper breathing pattern during exercise. Neuromuscular Re-Education (8 min): Patient performed isolated torso rotation exercise to decrease substitution patterns present with chronic pain, improve muscle recruitment patterns, improve self-correction of posture and improve kinesio awareness, in order to increase tolerance for personal care tasks and household tasks. Verbal cues for proper pacing and form during exercise. Verbal cues to perform proper breathing pattern during exercise. Verbal cues to stop exercise when desired fatigue level reached for goal of exercise today. Auxillary Auxillary 11/22/2020 Abs Wgt Set 1 45 Abs Reps Set 1 25 Abs Wgt Set 2 50 Abs Reps Set 2 22 Glute Wgt Set 1 75 Glute Reps Set 1 25 Glute Wgt Set 2 80 Glute Reps Set 2 20 Leg Press Wgt Set 1 130 Leg Press Reps Set 1 25 Leg Press Wgt Set 2 130 Leg Press Reps Set 2 25 Other CORE HEP - Therapeutic Activities ( min): Not performed today. Patient Education: Patient was instructed in specific review of patients progress and total cost of care study to increase their understanding of the benefits related to completing the PNBC Rehab program. CORE info. Pt verbalized full understanding. Assessment: Pt continues to make objective weight gains and tolerating increased exercise intensity well without increased Sx today. Pt expected to continue to progress toward functional goals as further strength gains and spinal stability achieved. Progress toward functional goals addressed below. Goals: Short Term Goals (4-6 weeks): (At Eval:??4/10??pain) *1. Pt will??stand 45 min for household tasks (cooking, doing dishes etc.)??with Sx < or = to??2/10 Progressing 11/22/20 *2. Pt will??be able to do work in the community garden??with Sx <??or = to 05/11 3. Pt will decrease morning stiffness by 50% Progressing 11/22/20 ?? Snf Goals (>6 weeks): 1. Patient will be independent with home exercise program after discontinued from Physical Therapy. *1. Pt will??stand??>1 hr??for household tasks (cooking, doing dishes etc.)??with Sx < or = to??010 *2. Pt will??be able to do work in the community garden??with Sx <??or = to 010 3. Pt will decrease morning stiffness by 75% 4. Pt will demo independence with proper body mechanics with lift and carry of??40 lbs??from floor without increased Sx Initial certification period:??11/10/20 - 02/08/21 ?? Precautions/Other Information:??Direct Referral,??Follow up with??Vilma Lawler MD:??PRN, Directional Preference:??Flexion, Hx:??L achilles rupture 30 yrs ago, still some L achilles pain when walks too long,??L-Ext:??#125, HEP:??[facility], Leonid Chair or bermudian ball, body weight auxs, and resistance bands at home,??11/10/20:??Recommended 8-12 weeks of therapy 2x per week (16-24 visits) Recommendations/Communication: 16-20 more visits recommended at 2x per week , TA's standing, bed mobility, and gardening, L-ext 60%, T-roto 100% Total timed code min: 38 Total treatment time: 38 Luis Rush, PT 11/22/2020, 12:08 PM documented in this encounter Plan of Treatment Not on filedocumented as of this encounter Visit Diagnoses Diagnosis Chronic low back pain, unspecified back pain laterality, unspecified whether sciatica present - Primary Muscular deconditioning Muscular wasting and disuse atrophy, not elsewhere classified documented in this encounter
--- OUTSIDE RECORDS SUMMARY | 2021-11-23 08:59 | XMS_ITS | Encounter Summary ---
:1940 Author Organization [facility] Address [address] [facility] [place] [address] Care Team Providers Name Role Phone Unavailable Primary Care Provider Unavailable Reason for Visit Reason Comments BACK PAIN, LOW Consult/Transfer Care (Routine) - Authorized Specialty Diagnoses / Procedures Referred By Contact Refer red To Contact Physical Therapy Diagnoses Low back pain (HRC) Vilma Lawler MD [facility] [address] [address] [place] [address] [place], [address] [place] [address] Phone: Fax: Referral ID Status Reason Start Date Expiration Date Visits V isits Requested Authorized [id number] Authorized 10/20/2020 01/19/2022 999 999 Encounter Details Date Type Department Care Team Description 11/10/2020 Therapy Physicians Neck and Luis Rush C hronic low back pain, unspecified back pain laterality, unspecified whether sciatica present (Primary Dx); [facility] Muscular deconditioning [id number] [facility], [address] [facility] [address] [place] [address] [place], [place] [phone] Social History Tobacco Use Types Packs/Day Years Used Date Smoking Tobacco: Never Assessed Sex Assigned at Date Recorded Not on file documented as of this encounter Progress Notes Luis Rush PT - 11/10/2020 12:00 PM CDT Initial certification period: 11/10/20 - 02/08/21. Signed: Date: Provider: Vilma Lawler MD PHYSICAL THERAPY EVALUATION Referring Provider: Vilma aLwler MD Patient Report Symptoms: Low back pain Onset: Many years ago No current facility-administered medications for this visit. Medications reviewed with patient: yes No past medical history on file. No past surgical history on file. Review of systems reviewed with patients: yes Previous Treatment: (see medical history form in Media tab) Occupation: Retired Restrictions: none Exercise habits: Stretching every day, free weights strengthening, exercise bands FUNCTION Oswestry Disability Index: [id number]% Personal Care: morning stiffness Lifting: limited with heavy weights Walking: Sitting: Standing: to cook or do dishes Sleeping: Reading: Driving: Other Limitations: AngioSlide garden Pain Characteristics: See patient PAIN DIAGRAM and PAIN CHARACTERISTICS on QUESTIONNAIRE form. Pain Level: Pain at worst in the last 48 hours: 4/10 Aggravated by: (above activities) Improved by: stretching and lying down Description/Quality: Achy EXAMINATION: Tests and measures: Lumbar ROM Lumbar ROM 11/10/2020 Flexion 7 cm Extension 60% Side Bend Left 50 cm Side Bend Right 52 cm Trunk Rotation Left 100% Trunk Rotation Right 100% (If below marked not tested, then was not indicated) Neurologic Testing: Dermatomes LLE RLE L2 Intact to light touch Intact to light touch L3 Intact to light touch Intact to light touch L4 Intact to light touch Intact to light touch L5 Intact to light touch Intact to light touch S1 Intact to light touch Intact to light touch S2 Intact to light touch Intact to light touch Myotomes LLE RLE L2:Hip Flex 5/5 5/5 L3:Knee Ext 5/5 5/5 L4:Dorsiflexion 5/5 5/5 L5:Toe Ext 5/5 5/5 S1:Plantarflexion 5/5 5/5 DTR LLE RLE L3-L4:Patellar normal normal L5: Medial Hamstring Not tested Not tested S1-S2:Achilles normal normal Special Testing: Lumbar Special Test Result OMAR R:Negative L: Negative Passive SLR R: Negative L: Negative Active SLR R:Negative L: Negative Prone Instability Not Tested Slump Test R:Negative L: Negative Babinski R: Not Tested L: Not Tested Sacroilliac Special Tests Findings Distraction Negative Compression Negative Thigh Thrust L: Negative R: Negative Gaenslen's Test L: Not Tested R: Not Tested Sacral Thrust Negative Other tests: Lumbar Quadrant Test (-) Posture: slightly slumped Palpation: muscle gaurding and palpable tenderness of lumbar erector spinae muscles Mobility: Tight quadriceps, hamstrings, calves and piriformis bilaterally Gait: Normal Heel Walk: Normal Toe Walk: Normal Functional Testing: Oswestry Other: MMT Hip Abduction R: 4/5, L: 4/5 Directional Preference: Flexion P.T. DIAGNOSIS: ICD-10-CM 1. Chronic low back pain, unspecified back pain laterality, unspecified whether sciatica present ([facility]) M54.5 G89.29 2. Muscular deconditioning R29.898 PROGNOSIS: excellent Risk factors/potential barriers: None ASSESSMENT Patient is a 80 y/o male who presents today with significant functional limitations as noted due to low back pain. Patient has decreased range of motion, muscular deconditioning due to inactivity, decreased strength, muscle tightness/gaurding, and postural abnormalities. Patient will benefit from skill ed Physical Therapy to counteract impairments and regain function. PLAN OF CARE Frequency: 2 visits/week. Duration: 90 days (90 days max for [place] and [place] patients). Short Term Goals (4-6 weeks): (At Eval: 4/10 pain) *1. Pt will stand 45 min for household tasks (cooking, doing dishes etc.) with Sx < or = to 2/10 *2. Pt will be able to do work in the community garden with Sx < or = to 2/10 3. Pt will decrease morning stiffness by 50% Care Home Goals (>6 weeks): 1. Patient will be [...] Sx Initial certification period: 11/10/20 - 02/08/21 Planned Interventions: Therapeutic Exercise to improve tolerance with standing, household tasks, lifting and morning routine. Neuromuscular Re-education to improve tolerance and movement patterns/posture during ADL's Therapeutic Activities to prevent future injury/aggravation Discharge Plan: [place] in strength maintenance home exercise program TODAY'S INTERVENTIONS: Therapeutic Exercise Luis Rush, PT 11/10/2020, 4:26 PM 11/10/2020 Visit # 1 Protocol: Back Start: 12:09 End: 12:58 (MANAGING CONSULTANT Visit # 0 Subjective: see eval Cervical Not performed today. Objective Tests & Measures: See eval Tests performed today (see reviewflowsheet for score and outcomes): Oswestry Warm Up: Movement Specific Training: Completed Mat Exercises Completed ICE: none Lumbar No flowsheet data found. Therapeutic Exercise (24 min): Patient performed auxillary exercises to improve muscle strength, flexibility and to improve range of motion to increase tolerance for standing, lifting and household tasks. Tactile and verbal cues to achieve proper body position and alignment prior to exercise. Verbal cuesfor proper pacing and form during exercise. Neuromuscular Re-Education ( min): Auxillary Auxillary 11/10/2020 Other CORE HEP see below for details Therapeutic Activities ( min): Not performed today. Patient Education: Patient was instructed in pain/time scale and correlation of strength and function to increase theirunderstanding of the benefits related to completing the PNBC Rehab program POC and expected outcomes. All Pt questions answered, and HEP started with hand out given to Pt withspecific exercises to perform. Pt verbalized full understanding. Access Code: [email or web address] URL: [email or web address] Date: 11/10/2020 Prepared by: Luis Rush Exercises Supine Double Knee to Chest - 2 x daily - 7 x weekly - 5 reps - 1 sets - 5 hold Supine Lower Trunk Rotation - 2 x daily - 7 x weekly - 5 reps - 1 sets - 5 hold TL Sidebending Stretch - Single Arm Overhead - 2 x daily - 7 x weekly - 5 reps - 1 sets - 5 hold Prone Press Up on Elbows - 2 x daily - 7 x weekly - 5 reps - 1 sets - 5 hold Supine Figure 4 Piriformis Stretch - 2 x daily - 7 x weekly - 2 reps - 1 sets - 30 hold Quadricep Stretch with Chair and Counter Support - 2 x daily - 7 x weekly - 1 reps - 1 sets - 60 hold Seated Piriformis Stretch - 2 x daily - 7 x weekly - 1 reps - 1 sets - 60 hold Supine Hamstring Stretch - 2 x daily - 7 x weekly - 2 reps - 1 sets - 30 hold Gastroc Stretch on Wall - 2 x daily - 7 x weekly - 1 reps - 1 sets - 60 hold Sidelying Hip Abduction - 1 x daily - 2 x weekly - 2 sets - 2 hold Assessment: Pt verbalized full understanding of plan of care. Goals: Short Term Goals (4-6 weeks): (At Eval: 4/10 pain) *1. Pt will stand 45 min for household tasks (cooking, doing dishes etc.) with Sx < or = to 2/10 *2. Pt will be able to do work in the community garden with Sx < or = to 2/10 3. Pt will decrease morning stiffness by 50% Care Home Goals (>6 weeks): 1. Patient will be [...] Sx Initial certification period: 11/10/20 - 02/08/21 Precautions/Other Information: Direct Referral, Follow up with Vilma Lawler MD: PRN, Directional Preference: Flexion, Hx: L achilles rupture 30 yrs ago, still some L achilles pain when walks too long, L-Ext: #125, HEP: Leonid Chair or ethiopian ball, body weight auxs, and resistance bands at home, 11/10/20: Recommended 8-12 weeks of therapy 2x per week (16-24 visits) Recommendations/Communication: Start L-ext 60% = #48, Start T-roto 60% = #24, Start lumbar aux's Total timed code min: 24 Total treatment time: 49 Luis Rush, PT 11/10/2020, 4:26 PM documented in this encounter Plan of Treatment Not on filedocumented as of this encounter Visit Diagnoses Diagnosis Chronic low back pain, unspecified back pain laterality, unspecified whether sciatica present - Primary Muscular deconditioning Muscular wasting and disuse atrophy, not elsewhere classified documented in this encounter
--- OUTSIDE RECORDS SUMMARY | 2021-11-23 08:59 | XMS_ITS | Encounter Summary ---
:1940 Author Organization [facility] Address [address] [place] [address] Care Team Providers Name Role Phone Unavailable Primary Care Provider Unavailable Reason for Visit Reason Comments BACK PAIN, LOW Consult/Transfer Care (Routine) - Authorized Specialty Diagnoses / Procedures Referred By Contact Refer red To Contact Physical Therapy Diagnoses Low back pain (HRC) Vilma Lawler MD [facility] [address] [address] [place] [address] [place], [address] [place] [address] Phone: Fax: Referral ID Status Reason Start Date Expiration Date Visits V isits Requested Authorized [id number] Authorized 10/20/2020 01/19/2022 999 999 Encounter Details Date Type Department Care Team Description 11/17/2020 Therapy Physicians Neck and Neo Briones, Chr onic low back pain, unspecified back pain laterality, unspecified whether sciatica present (Primary Dx); Back Center [facility] Muscular deconditioning [id number] [facility], [address] [facility] [address] [place] [address] [place], [place] [phone] (Wo rk) Social History Tobacco Use Types Packs/Day Years Used Date Smoking Tobacco: Never Assessed Sex Assigned at Date Recorded Not on file documented as of this encounter Progress Notes Neo Briones, MOVIE CRITIC - 11/17/2020 4:30 PM CDT 11/17/2020 Visit # 3 Protocol: Back Start: 435 End: 506 (MOVIE CRITIC Visit # 2 Subjective: Pt feels ok, states this new stretching program is helping more than the old one he had been doing. Cervical Not performed today. Objective Tests & Measures: Lum ext 38#, t-roto 24# Tests performed today (see reviewfloweet for score and outcomes): : None Performed Today Warm Up: Movement Specific Training: Completed Bike: Minutes 5 Intensity mod ICE: na Lumbar Lumbar & Torso 11/17/2020 Set 1 Ext % Max 60 Set 1 Ext ROM 0-42 Set 1 Ext Wgt 38 Set 1 Ext Reps 25 Set 1 Ext Tul 145 Set 1 Ext Rufus RPE 4 Set 2 Ext Tul - Left Rot % Max 80 Left Rot ROM 35 Left Rot Wgt 24 Left Rot Reps 25 Left Rot Betsy RPE 5 Right Rot % Max 80 Right Rot ROM 35 Right Rot Wgt 24 Right Rot Reps 25 Right Rot Rufus RPE 5 Therapeutic Exercise (22 min): Patient performed isolated torso rotation exercise and auxillary exercises to improve muscle strength, to improve muscle endurance, to improve muscle flexibility and to improve range of motion to increase tolerance for sitting, standing, walking, lifting and household tasks ROM checked and adjusted as appropriate. Patient monitored for safe and effective repetitions. Resistance weights adjusted for proper form and fatigue. Cued for form on Abs and LP. Neuromuscular Re-Education (9 min): Patient performed isolated lumbar extension to decrease substitution patterns present with chronic pain, to retrain muscles for proper sequencing, to improve ability to direct and regulate movement with decreased compensation and improve muscle recruitment patterns to increase tolerance for sitting, standing, walking, lifting and household tasks. ROM checked and adjusted as appropriate. Patient monitored for safe and effective repetitions. Resistance weights adjusted for proper form and fatigue. Auxillary Auxillary 11/17/2020 Abs Wgt Set 1 45 Abs Reps Set 1 20 Abs Wgt Set 2 45 Abs Reps Set 2 20 Glute Wgt Set 1 70 Glute Reps Set 1 20 Glute Wgt Set 2 75 Glute Reps Set 2 20 Leg Press Wgt Set 1 120 Leg Press Reps Set 1 20 Leg Press Wgt Set 2 120 Leg Press Reps Set 2 20 Other - HEP - Therapeutic Activities (0 min): Not performed today. Patient Education: Patient was instructed in pain/time scale to increase their understanding of the benefits related tocompleting the PNBC Rehab program Patient educated in plan for today. Patient verbalized understanding of plan. Assessment: Patient tolerated session without adverse effects. Max fatigue on Aux. Mod fatigue on t-roto. Min fatigue on lum ext. Pt will benefit from further supervised therapy to achieve goals for increased spinal strength and daily function, continue treatment per PT POC. Goals: Short Term Goals (4-6 weeks): (At Eval:??4/10??pain) *1. Pt will??stand 45 min for household tasks (cooking, doing dishes etc.)??with Sx < or = to??2/10 *2. Pt will??be able to do work in the community garden??with Sx <??or = to 210 3. Pt will decrease morning stiffness by 50% ?? Government Guard Goals (>6 weeks): 1. Patient will be [...] L achilles pain when walks too long,??L-Ext:??#125, HEP:??Leonid Chair or latvian ball, body weight auxs, and resistance bands at home,??11/10/20:??Recommended 8-12 weeks of therapy 2x per week (16-24 visits) Recommendations/Communication: 100% Lumbar extension and 60% thoracic rotation next. Increase LP 10# ?? Total timed code min: 31 Total treatment time: 31 Neo Briones PTA 11/17/2020, 5:20 PM documented in this encounter Plan of Treatment Not on filedocumented as of this encounter Visit Diagnoses Diagnosis Chronic low back pain, unspecified back pain laterality, unspecified whether sciatica present - Primary Muscular deconditioning Muscular wasting and disuse atrophy, not elsewhere classified documented in this encounter
--- OUTSIDE RECORDS SUMMARY | 2021-11-23 08:59 | XMS_ITS | Encounter Summary ---
:1940 Author Organization [facility] Address [address] [place] [address] Care Team Providers Name Role Phone Unavailable Primary Care Provider Unavailable Reason for Visit Reason Comments BACK PAIN, LOW Consult/Transfer Care (Routine) - Authorized Specialty Diagnoses / Procedures Referred By Contact Refer red To Contact Physical Therapy Diagnoses Low back pain (HRC) Vilma Lawler MD [facility] [address] [address] [place] [address] [address], [address] [place] [address] Phone: Fax: Referral ID Status Reason Start Date Expiration Date Visits V isits Requested Authorized [id number] Authorized 10/20/2020 01/19/2022 999 [id number] Encounter Details Date Type Department Care Team Description 12/21/2020 Therapy Physicians Neck and Stan Wynn, Rudi onic low back pain, unspecified back pain laterality, unspecified whether sciatica present (HRC) (Primary Dx); Back Center [facility] Muscular deconditioning [address] [facility], [address] [facility] , [address] [place] [address] [place], [place] [phone] (Wo rk) Social History Tobacco Use Types Packs/Day Years Used Date Smoking Tobacco: Never Assessed Sex Assigned at Date Recorded Not on file documented as of this encounter Progress Notes Stan Wynn, GAYE - 12/21/2020 10:45 AM CDT 12/21/2020 Visit # 9 Protocol: Back Start: 1036a End: 1106a (A AUXILIARY Visit # 2 Subjective: Pt reports low back did well after a week between visits. Aches after longer walks, getssore after 30 minutes or 1.5 miles. Overall doing pretty good. Cervical Not performed today. Objective Tests & Measures: Tests performed today (see [facility] for score and outcomes): : None Performed Today Warm Up: Movement Specific Training: Not Completed Bike: Minutes 5 Intensity mod ICE: NA Lumbar Lumbar & Torso 12/21/2020 Set 1 Ext % Max 100% Set 1 Ext ROM 0-48 Set 1 Ext Wgt 95 Set 1 Ext Reps 20 Set 1 Ext Tul 83 Set 1 Ext Rufus RPE 4-5 Set 2 Ext % Max 100% Set 2 Ext ROM 0-48 Set 2 Ext Wgt 95 Set 2 Ext Reps 30 Set 2 Ext Tul 126 Set 2 Rufus RPE 5 Left Rot % Max 60% Left Rot ROM 45 Left Rot Wgt 36 Left Rot Reps 20 Left Rot Betsy RPE 4 Right Rot % Max 60% Right Rot ROM 45 Right Rot Wgt 36 Right Rot Reps 20 Right Rot Rufus RPE 4 Therapeutic Exercise (20 min): Patient performed isolated [...] avoid momentum and improper form. Auxillary Auxillary 12/21/2020 Abs Wgt Set 1 70 Abs Reps Set 1 20 Abs Wgt Set 2 75 Abs Reps Set 2 20 Glute Wgt Set 1 110 Glute Reps Set 1 20 Glute Wgt Set 2 110 Glute Reps Set 2 25 Leg Press Wgt Set 1 140 Leg Press Reps Set 1 25 Leg Press Wgt Set 2 140 Leg Press Reps Set 2 25 Lats Wgt Set 1 40 Lats Reps Set 1 21 Lats Wgt Set 2 50 Lats Reps Set 2 25 Other - HEP - Therapeutic Activities (0 min): Not performed today. Patient Education: Patient was instructed in correlation of strength and function to increase their understanding of the benefits related to completing the [facility] Rehab program Started lats. Assessment: Amanda Angel tolerated treatment well with workout, good challenge with workout and did well with lats start. Checked ROM and unable to change today. [...] decrease morning stiffness by 50%??Progressing 11/22/20 ?? [facility] Goals (>6 weeks): 1. Patient will be [...] too long,??L-Ext:??#125, HEP:[facility],??Leonid Chair or serbian ball, body weight auxs, and resistance bands at home,??8/12/21:??Recommended 8-12 weeks of therapy 2x per week (16-24 visits) Recommendations/Communication: 60% Lumbar extension and 80% thoracic rotation next. Continue treatment per PT POC. Plan 9-12 more visits. Lifting review. Total timed code min: 30 Total treatment time: 30 Stan Wynn PTA 12/21/2020, 11:08 AM documented in this encounter Plan of Treatment Not on filedocumented as of this encounter Visit Diagnoses Diagnosis Chronic low back pain, unspecified back pain laterality, unspecified whether sciatica present - Primary Muscular deconditioning Muscular wasting and disuse atrophy, not elsewhere classified documented in this encounter
--- OUTSIDE RECORDS SUMMARY | 2021-11-23 08:59 | XMS_ITS | Encounter Summary ---
:1940 Author Organization [facility] Address [address] [facility] [place] [address] Care Team Providers Name Role Phone Unavailable Primary Care Provider Unavailable Reason for Visit Reason Comments BACK PAIN, LOW Consult/Transfer Care (Routine) - Authorized Specialty Diagnoses / Procedures Referred By Contact Refer red To Contact Physical Therapy Diagnoses Low back pain (HRC) Vilma Lawler MD [facility] [address] [address] [place] [address] [address], [address] [place] [address] Phone: Fax: Referral ID Status Reason Start Date Expiration Date Visits V isits Requested Authorized [id number] Authorized 10/20/2020 01/19/2022 999 [id number] Encounter Details Date Type Department Care Team Description 12/12/2020 Therapy Physicians Neck and Stan Wynn, Rudi onic low back pain, unspecified back pain laterality, unspecified whether sciatica present (Primary Dx); Back Center [facility] sandro MANAGER CUSTOMER Muscular deconditioning [id number] [facility], [address] [facility] , [address] [place] [address] [place], [place] [phone] (Wo rk) Social History Tobacco Use Types Packs/Day Years Used Date Smoking Tobacco: Never Assessed Sex Assigned at Date Recorded Not on file documented as of this encounter Progress Notes Stan Wynn, MANAGER CUSTOMER - 12/12/2020 10:45 AM CDT 12/12/2020 Visit # 8 Protocol: Back Start: 1042a End: 1112a (MANAGER CUSTOMER Visit # 1 Subjective: Pt reports he was sore over the weekend, probably from last workout. Will be gone one week, back next Saturday. Cervical Not performed today. Objective Tests & Measures: Tests performed today (see [facility] for score and outcomes): : None Performed Today Warm Up: Movement Specific Training: Not Completed Bike: Minutes 5 Intensity mod ICE: NA Lumbar Lumbar & Torso 12/12/2020 Set 1 Ext % Max 100% Set 1 Ext ROM 0-48 Set 1 Ext Wgt 87 Set 1 Ext Reps 22 Set 1 Ext Tul 82 Set 1 Ext Rufus RPE 5 Set 2 Ext % Max 100% Set 2 Ext ROM 0-48 Set 2 Ext Wgt 87 Set 2 Ext Reps 25 Set 2 Ext Tul 120 Set 2 Rufus RPE 5 Left Rot % Max 60% Left Rot ROM 45 Left Rot Wgt 36 Left Rot Reps 25 Left Rot Betsy RPE 4-5 Right Rot % Max 60% Right Rot ROM 45 Right Rot Wgt 36 Right Rot Reps 25 Right Rot Rufus RPE 4-5 Therapeutic Exercise (20 min): Patient performed isolated [...] avoid momentum and improper form. Auxillary Auxillary 12/12/2020 Abs Wgt Set 1 65 Abs Reps Set 1 25 Abs Wgt Set 2 70 Abs Reps Set 2 20 Glute Wgt Set 1 100 Glute Reps Set 1 20 Glute Wgt Set 2 110 Glute Reps Set 2 25 Leg Press Wgt Set 1 140 Leg Press Reps Set 1 25 Leg Press Wgt Set 2 140 Leg Press Reps Set 2 20 Other - HEP - Therapeutic Activities (0 min): Not performed today. Patient Education: Patient was instructed in correlation of strength and function to increase their understanding of the benefits related to completing the [facility] Rehab program Assessment: Amanda Angel tolerated treatment well with workout. Good challenge but able to do wellwith increased weight. Checked ROM and unable to change today. [...] decrease morning stiffness by 50%??Progressing 11/22/20 ?? Agricultural Scientist Goals (>6 weeks): 1. Patient will be [...] too long,??L-Ext:??#125, HEP:[facility],??Leonid Chair or ivorian ball, body weight auxs, and resistance bands at home,??11/10/20:??Recommended 8-12 weeks of therapy 2x per week (16-24 visits) Recommendations/Communication: 100% Lumbar extension and 60% thoracic rotation next. Continue treatment per PT POC. Plan 10-13 more visits. Review goals. Total timed code min: 30 Total treatment time: 30 Stan Wynn PTA 12/12/2020, 11:20 AM documented in this encounter Plan of Treatment Not on filedocumented as of this encounter Visit Diagnoses Diagnosis Chronic low back pain, unspecified back pain laterality, unspecified whether sciatica present - Primary Muscular deconditioning Muscular wasting and disuse atrophy, not elsewhere classified documented in this encounter
--- OUTSIDE RECORDS SUMMARY | 2021-11-23 08:59 | XMS_ITS | Encounter Summary ---
:1940 Author Organization [email or web address] Address [address] [place] [address] Care Team Providers Name Role Phone Unavailable Primary Care Provider Unavailable Reason for Visit Reason Comments BACK PAIN Consult/Transfer Care (Routine) - Authorized Specialty Diagnoses / Procedures Referred By Contact Refer red To Contact Physical Therapy Diagnoses Low back pain (HRC) Vilma Lawler MD [facility] [address] [address] [place] [address] [place], [address] [place] [address] Phone: Fax: Referral ID Status Reason Start Date Expiration Date Visits V isits Requested Authorized [id number] Authorized 10/20/2020 01/19/2022 999 999 Encounter Details Date Type Department Care Team Description 12/09/2020 Therapy Physicians Neck and Bianka Stewart, Vikki simon low back pain, unspecified back pain laterality, unspecified whether sciatica present (Primary Dx); Back Center [facility] sandro MEDICAL APPARATUS MODEL MAKER Muscular deconditioning [address] [facility], [address] [facility] , [address] [place] [address] [place], [place] [phone] (Wo rk) Social History Tobacco Use Types Packs/Day Years Used Date Smoking Tobacco: Never Assessed Sex Assigned at Date Recorded Not on file documented as of this encounter Progress Notes Bianka Stewart, GAYE - 12/09/2020 10:45 AM CDT 12/09/2020 Visit # 7 Protocol: Back Start: 10:47 am End: 11:21 am (MEDICAL APPARATUS MODEL MAKER Visit # 5 Subjective: Patient reports increased soreness in the low back with increase walking. He also has some discomfort when transitioning from sit to stand. Overall though he can feel the difference in strength. Cervical Not performed today. Objective Tests & Measures: 90% of max wt on torso rotation ROM changes: no changes in ROM on lumbar extension or torso rotation Tests performed today (see [facility] for score and outcomes): : None Performed Today Warm Up: Movement Specific Training: Not Completed Bike: Minutes 5 Intensity moderate ICE: N/A d/t covid Lumbar Lumbar & Torso 12/09/2020 Set 1 Ext % Max 60% Set 1 Ext ROM 0-45 Set 1 Ext Wgt 50 Set 1 Ext Reps 30 Set 1 Ext Tul 112 Set 1 Ext Rufus RPE 3/10 Set 2 Ext % Max - Set 2 Ext ROM - Set 2 Ext Wgt - Set 2 Ext Reps - Set 2 Ext Tul - Set 2 Rufus RPE - Left Rot % Max 90% Left Rot ROM 40 Left Rot Wgt 38 Left Rot Reps 25 Left Rot Betsy RPE 4/10 Right Rot % Max 90% Right Rot ROM 40 Right Rot Wgt 38 Right Rot Reps 25 Right Rot Rufus RPE 4/10 Therapeutic Exercise (18 min): Patient performed isolated torso rotation exercise and auxillary exercises to improve muscle strength, to improve muscle endurance, to improve muscle flexibility, to improve range of motion and increase strength and endurance levels of supporting spinal muscle groups to increase tolerance for sitting, standing, walking, lifting, personal care tasks, household tasks and transitions from sit to stand. Pt monitored for proper form on torso [...] strengthening along the entire movement. Neuromuscular Re-Education (16 min): Patient instructed in leonid chair and performed isolated lumbar extension to decrease substitution patterns present with chronic pain, to retrain muscles for proper sequencing, decrease substitution patterns and normalize movement patterns, to improve self-correction of posture and to improve kinesio awareness to increase tolerance for sitting, standing, walking, lifting, personal care tasks, household tasks and transitions from sit to stand.. Pt instructed to relax legs and allow only the low back muscles to engage by pushing shoulder/arching back. Pt is monitored for correct speed and control to ensure good form and optimal muscle isolation. Instructed patient in leonid chair technique using cues on form/rep speed for best lumbar extensor muscle isolation/activation. Pt required cues to keep the hips firmly pressed against the pads and onlyengage the lower back muscle to lead up with the head and lift the shoulders towards the ceiling. Patient should not have glut or hamstring activation. Pt educated on expected rep count and frequency to perform once fully into the HEP. Auxillary Auxillary 12/09/2020 Abs Wgt Set 1 60 Abs Reps Set 1 25 Abs Wgt Set 2 65 Abs Reps Set 2 25 Glute Wgt Set 1 90 Glute Reps Set 1 25 Glute Wgt Set 2 90 Glute Reps Set 2 25 Leg Press Wgt Set 1 140 Leg Press Reps Set 1 20 Leg Press Wgt Set 2 140 Leg Press Reps Set 2 20 Other leg press makes pts knees hurt a little but tolerable. HEP Leonid chair instruction Therapeutic Activities (0 min): Not performed today. Patient Education: Patient was instructed in correlation of strength and function to increase their understanding of the benefits related to completing the [facility] Rehab program Leonid chair instruction (lumbar extension only) Patient responded well to the education on HEP today. Assessment: PATIENT is progressing objectively but subjectively it is slower. Overall pt is tolerating each tx session with only the normal soreness expected. Pt tolerated the treatment fine with good effort and form on all exercises. PATIENT was effectively challenged on all exercises to achieve goodmuscle fatigue levels for the optimal muscle strength and stability around the lumbar spine. Patientwill benefit from skilled Physical Therapy to counteract impairments and regain function. Goals: Short Term Goals (4-6 weeks): (At Eval:??4/10??pain) *1. Pt will??stand 45 min for household tasks (cooking, doing dishes etc.)??with Sx < or = to??2/10??Progressing 11/22/20 *2. Pt will??be able to do work in the community garden??with Sx <??or = to 10 3. Pt will decrease morning stiffness by 50%??Progressing 11/22/20 ?? Residential Goals (>6 weeks): 1. Patient [...] too long,??L-Ext:??#125, HEP:[facility],??Leonid Chair or liberian ball, body weight auxs, and resistance bands at home,??11/10/20:??Recommended 8-12 weeks of therapy 2x per week (16-24 visits) Recommendations/Communication: 100% lumbar extension 60% torso rotation Continue treatment per PT POC with estimate of #13-17 more visits. Crate lifting 20-30#. Keep leg press wt low 140-150#. Total timed code min: 34 Total treatment time: 34 Bianka Stewart PTA 12/09/2020, 11:32 AM Associated attestation - Vega Beltre, PT - 12/09/2020 12:36 PM CDT Observed treatment. Goals/Plan of Care discussed with MEDICAL APPARATUS MODEL MAKER. Treatment progressing and appropriate. Vega Beltre, ULISES 12/09/2020, 12:36 PM documented in this encounter Plan of Treatment Not on filedocumented as of this encounter Visit Diagnoses Diagnosis Chronic low back pain, unspecified back pain laterality, unspecified whether sciatica present - Primary Muscular deconditioning Muscular wasting and disuse atrophy, not elsewhere classified documented in this encounter
--- OUTSIDE RECORDS SUMMARY | 2021-11-23 08:59 | XMS_ITS | Encounter Summary ---
:1940 Author [facility] Address [address] [place] [address] Care Team Providers Name Role Phone Unavailable Primary Care Provider Unavailable Reason for Visit Reason Comments BACK PAIN Consult/Transfer Care (Routine) - Authorized Specialty Diagnoses / Procedures Referred By Contact Refer red To Contact Physical Therapy Diagnoses Low back pain (HRC) Vilma Lawler MD [facility] [address] [address] [place] [address] [place], [address] [place] [address] Phone: Fax: Referral ID Status Reason Start Date Expiration Date Visits V isits Requested Authorized [id number] Authorized 10/20/2020 01/19/2022 999 [id number] Encounter Details Date Type Department Care Team Description 12/23/2020 Therapy Physicians Neck and Bianka Stewart, Vikki simon low back pain, unspecified back pain laterality, unspecified whether sciatica present (HRC) (Primary Dx); Back Center [facility] TECHNICAL SALES ASSOCIATE Muscular deconditioning [address] [facility], [address] [facility] , [address] [place] [address] [place], [place] [phone] (Wo rk) Social History Tobacco Use Types Packs/Day Years Used Date Smoking Tobacco: Never Assessed Sex Assigned at Date Recorded Not on file documented as of this encounter Progress Notes Bianka Stewart, GAYE - 12/23/2020 10:45 AM CDT 12/23/2020 Visit # 10 Protocol: Back Start: 10:50 am End: 11:22 am (TECHNICAL SALES ASSOCIATE Visit # 3 Subjective: PATIENT reports he is looking at joining the fitness center that do not cost him anything. ([place]) He has considered joining the [facility] but it would be such a long drive to do the exercises. Patient does have some sharp pains into the right low back/hip area and this can last about 30 min. But goes away. This is a good improvement from always painful everyday all day long to now intermittent and brief periods. Cervical Not performed today. Objective Tests & Measures: 10% wt increase on torso rotation ROM changes: no changes in ROM on exercises Tests performed today (see [facility] for score and outcomes): : None Performed Today Warm Up: Movement Specific Training: Not Completed Bike: Minutes 5 Intensity moderate ICE: N/A d/t covid Lumbar Lumbar & Torso 12/23/2020 Set 1 Ext % Max 60% Set 1 Ext ROM 0-48 Set 1 Ext Wgt 60 Set 1 Ext Reps 30 Set 1 Ext Tul 120 Set 1 Ext Rufus RPE 3/10 Set 2 Ext % Max - Set 2 Ext ROM - Set 2 Ext Wgt - Set 2 Ext Reps - Set 2 Ext Tul - Set 2 Rufus RPE - Left Rot % Max 80% Left Rot ROM 45 Left Rot Wgt 40 Left Rot Reps 25 Left Rot Betsy RPE 4/10 Right Rot % Max 80% Right Rot ROM 45 Right Rot Wgt 40 Right Rot Reps 25 Right Rot Rufus RPE 4/10 Therapeutic Exercise (23 min): Patient performed isolated torso rotation exercise and auxillary exercises to improve muscle strength, to improve muscle endurance, to improve muscle flexibility, to improve range of motion and increase strength and endurance levels of supporting spinal muscle groups to increase tolerance for sitting, standing, lifting, household tasks and transitions. Pt monitored for proper form on torso [...] strengthening along the entire movement. Neuromuscular Re-Education (9 min): Patient performed leonid chair technique and isolated lumbar extension to decrease substitution patterns present with chronic pain, to retrain muscles for proper sequencing, decrease substitution patterns and normalize movement patterns, to improve self-correction of posture and to improve kinesio awareness to increase tolerance for sitting, standing, lifting, household tasks and transitions.. Pt instructed to relax legs and allow only the low back muscles to engage by pushing shoulder/arching back. Pt is monitored for correct speed and control to ensure good form and optimal muscle isolation. Reviewed leonid chair techniques to improve proper form/rep speed and ensure a successful HEP upon d/c. Pt required reminders of proper pad ht and keeping the hips firmly planted on the pads for the entire exercise. Pt also encouraged to make a plan for either purchasing a leonid chair, joining a gym orfind where the leonid chair is in their gym. Auxillary Auxillary 12/23/2020 Abs Wgt Set 1 75 Abs Reps Set 1 20 Abs Wgt Set 2 75 Abs Reps Set 2 20 Glute Wgt Set 1 110 Glute Reps Set 1 20 Glute Wgt Set 2 110 Glute Reps Set 2 25 Leg Press Wgt Set 1 150 Leg Press Reps Set 1 20 Leg Press Wgt Set 2 150 Leg Press Reps Set 2 20 Lats Wgt Set 1 55 Lats Reps Set 1 22 Lats Wgt Set 2 55 Lats Reps Set 2 20 Other - HEP Leonid chair review. Therapeutic Activities (0 min): Not performed today. Held today as pt had many questions about when he would d/c and exercises he would do at the gym. Notime to do the lifting task with him. Patient Education: Patient was instructed in correlation of strength and function to increase their understanding of the benefits related to completing the [facility] Re[facility] program Leonid chair technique. Patient responded well to the education on HEP today. Assessment: Patient is progressing both subjectively and objectively towards goals. Patient has remaining sx into the right side/low back that can be sharp.Pt tolerated the treatment finewith good effort and form on all exercises and no report of increased sx during or after the treatment session. PATIENT was effectively challenged on all exercises [...] decrease morning stiffness by 50%??Progressing 11/22/20 ?? [facility] Goals (>6 weeks): 1. Patient will be [...] too long,??L-Ext:??#125, [facility]:??[facility],??Leonid Chair or russian ball, body weight auxs, and resistance bands at home,??11/10/20:??Recommended 8-12 weeks of therapy 2x per week (16-24 visits) ?? Recommendations/Communication: 100% lumbar extension (try #110) 60% torso rotation Continue treatment per PT POC with estimate of #(pt would like to possible be done quicker so 4 more visits (but may change his mind and do more) Total timed code min: 32 Total treatment time: 32 Bianka Stewart PTA 12/23/2020, 11:32 AM documented in this encounter Plan of Treatment Not on filedocumented as of this encounter Visit Diagnoses Diagnosis Chronic low back pain, unspecified back pain laterality, unspecified whether sciatica present - Primary Muscular deconditioning Muscular wasting and disuse atrophy, not elsewhere classified documented in this encounter
--- OUTSIDE RECORDS SUMMARY | 2021-11-23 08:59 | XMS_ITS | Encounter Summary ---
:1940 Author Organization [facility] Address [address] [place] [address] Care Team Providers Name Role Phone Unavailable Primary Care Provider Unavailable Reason for Visit Reason Comments Patient Care Coordination Encounter Details Date Type Department Care Team Description 11/10/2020 Telephone Physicians Lela and Luis Rush P [facility] PT Coordination [address] [facility], [address] [facility] [address] [place] [address] [place], [place] [phone] Social History Tobacco Use Types Packs/Day Years Used Date Smoking Tobacco: Never Assessed Sex Assigned at Date Recorded Not on file documented as of this encounter Nursing Notes Yanira Roa - 11/15/2020 10:35 AM CDT Signed plan of care received from Dr Vilma Lawler. Scanned to media tab. Yanira Roa 11/15/2020, 10:36 AM Yanira Roa - 11/14/2020 8:20 AM CDT Called [facility] & spoke with staff regarding plan of care. Message taken by staff - will be sent to Dr Lawler's team. Will follow up again later in the week if no response is received. Yanira Roa 11/14/2020, 8:23 AM Yanira Roa - 11/10/2020 4:38 PM CDT Plan of care faxed to Vilma Lawler MD at [facility]. P: [phone] F: [phone] Yanira Roa 11/10/2020, 4:41 PM documented in this encounter Plan of Treatment Not on filedocumented as of this encounter Visit Diagnoses Not on filedocumented in this encounter
--- OUTSIDE RECORDS SUMMARY | 2021-11-23 08:59 | XMS_ITS | Encounter Summary ---
:1940 Author Organization [facility] Address [address] [place] [address] Care Team Providers Name Role Phone Unavailable Primary Care Provider Unavailable Reason for Visit Reason Comments BACK PAIN Consult/Transfer Care (Routine) - Authorized Specialty Diagnoses / Procedures Referred By Contact Refer red To Contact Physical Therapy Diagnoses Low back pain (HRC) Vilma Lawler MD [facility] [address] [address] [place] [address] [place], [address] [place] [address] Phone: Fax: Referral ID Status Reason Start Date Expiration Date Visits V isits Requested Authorized [id number] Authorized 10/20/2020 01/19/2022 999 999 Encounter Details Date Type Department Care Team Description 12/02/2020 Therapy Physicians Neck and Bianka Stewart, Vikki simon low back pain, unspecified back pain laterality, unspecified whether sciatica present (Primary Dx); Back Center [facility] sandro LEADERSHIP PROGRAM ASSOCIATE Muscular deconditioning [address] [facility], [address] [facility] , [address] [place] [address] [place], [place] [phone] (Wo rk) Social History Tobacco Use Types Packs/Day Years Used Date Smoking Tobacco: Never Assessed Sex Assigned at Date Recorded Not on file documented as of this encounter Progress Notes Bianka Stewart, GAYE - 12/02/2020 7:00 AM CDT 12/02/2020 Visit # 5 Protocol: Back Start: 7:00 am End: 7:35 am (LEADERSHIP PROGRAM ASSOCIATE Visit # 3 Subjective: PATIENT had a slight soreness in the back after the last session but the ice really helps. Cervical Not performed today. Objective Tests & Measures: 80% Of max wt on torso rotation ROM changes: ROM on lumbar extension and torso rotation remain appropriate. Tests performed today (see reviewflowsheet for score and outcomes): : None Performed Today Warm Up: Movement Specific Training: Not Completed Bike: Minutes 5 Intensity moderate ICE: N/A d/t covid Lumbar Lumbar & Torso 12/02/2020 Set 1 Ext % Max 60% Set 1 Ext ROM 0-45 Set 1 Ext Wgt 45 Set 1 Ext Reps 30 Set 1 Ext Tul 125 Set 1 Ext Rufus RPE 3/10 Set 2 Ext % Max - Set 2 Ext ROM - Set 2 Ext Wgt - Set 2 Ext Reps - Set 2 Ext Tul - Set 2 Rufus RPE - Left Rot % Max 80% Left Rot ROM 40 Left Rot Wgt 28 Left Rot Reps 20 Left Rot Betsy RPE 4/10 Right Rot % Max 80% Right Rot ROM 40 Right Rot Wgt 28 Right Rot Reps 20 Right Rot Rufus RPE 4/10 Therapeutic Exercise (15 min): Patient performed isolated torso rotation exercise and auxillary exercises to improve muscle strength, to improve muscle endurance, to improve muscle flexibility, to improve range of motion and increase strength and endurance levels of supporting spinal muscle groups to increase tolerance for standing, household tasks and gardening and decrease stiffness in the mornings. Pt monitored for proper form on torso [...] strengthening along the entire movement. Neuromuscular Re-Education (5 min): Patient performed isolated lumbar extension to decrease substitution patterns present with chronic pain, to retrain muscles for proper sequencing, decrease substitution patterns and normalize movement patterns, to improve self- correction of posture and to improve kinesio awareness to increase tolerance for standing, household tasks and gardening and decrease stiffness in the mornings.. Pt instructed to relax legs and allow only the low back muscles to engage by pushing shoulder/arching back. Pt is monitored for correct speed and control to ensure good form and optimal muscle isolation. Auxillary Auxillary 12/02/2020 Abs Wgt Set 1 50 Abs Reps Set 1 25 Abs Wgt Set 2 55 Abs Reps Set 2 25 Glute Wgt Set 1 80 Glute Reps Set 1 25 Glute Wgt Set 2 90 Glute Reps Set 2 25 Leg Press Wgt Set 1 140 Leg Press Reps Set 1 20 Leg Press Wgt Set 2 140 Leg Press Reps Set 2 23 Other Body mechanics 10# crate HEP - Therapeutic Activities (15 min): Therapeutic Activities 12/02/2020 SITTING POSTURE Needs further training STANDING POSTURE Needs further training BASE OF SUPPORT Needs further training PIVOT VS TWIST Needs further training PUSH VS PULL Needs further training SQUAT Needs further training LIFT FROM FLOOR Needs further training OTHER ACTIVITY Initiated the crate program with 10# to promote life long habits of using correct body mechanics when lifting objects or doing household tasks/work tasks. Pt educated on always engaging the abdominals and use the legs to do the lifting, avoiding the bending at the waist. Pt educated on the maintaining the correct curves in the spine during the entire lift. Pt reminded to keep the wt close to the body and use a wide base of support when removing the crate off the shelf and lifting from the floor. Educated on household body mechanics for loading and unloading the electric range preparer, vacuuming and laundry. Patient Education: Patient was instructed in correlation of strength and function to increase their understanding of the benefits related to completing the [facility] Rehab program Crate 10#, body mechanics, spine alignment Patient responded well to the education on Spine alignment today. Assessment: Patient did well today and gives good effort and required cues on form on glut/ham and torso rotation exercises and no report of increased sx during or after the treatment session. PATIENT was effectively challenged on all exercises to achieve good muscle fatigue levels for the optimal muscle strength and stability around the lumbar spine. Patient will benefit from skilled Physical Therapy to counteract impairments and regain function Goals: Short Term Goals (4-6 weeks): (At Eval:??07/09??pain) *1. Pt will??stand 45 min for household tasks (cooking, doing dishes etc.)??with Sx < or = to??05/11 Progressing 11/22/20 *2. Pt will??be able to do work in the community garden??with Sx <??or = to 05/11 3. Pt will decrease morning stiffness by 50% Progressing 11/22/20 ?? Malt House Loader Goals (>6 weeks): 1. Patient will be [...] long,??L-Ext:??#125, HEP:??[facility], Leonid Chair or turkmen ball, body weight auxs, and resistance bands at home,??11/10/20:??Recommended 8-12 weeks of therapy 2x per week (16-24 visits) Recommendations/Communication: 100% lumbar extension 60% torso rotation Continue treatment per PT POC with estimate of #15-19 more visits. Start HOME EXERCISE PROGRAM instruction/RC. Total timed code min: 35 Total treatment time: 35 Bianka Stewart PTA 12/02/2020, 7:41 AM documented in this encounter Plan of Treatment Not on filedocumented as of this encounter Visit Diagnoses Diagnosis Chronic low back pain, unspecified back pain laterality, unspecified whether sciatica present - Primary Muscular deconditioning Muscular wasting and disuse atrophy, not elsewhere classified documented in this encounter
--- NOTE | 2021-11-23 09:15 | CRLHL7_ITS ---
For Patients: As a result of the Century Cures Act, medical imaging exams and procedure reports are released immediately into your electronic medical record. You may view this report before your referring provider. If you have questions, please contact your health care provider. INDICATION: 1 year f/u right thyroid lobe nodule COMPARISON: 12/08/2020, 11/19/2019 TECHNIQUE: Stewart scale and color Doppler images were acquired of the thyroid gland. FINDINGS: The thyroid gland demonstrates heterogeneous echogenicity and has a smooth outer contour. The right lobe measures 4.2 x 1.9 x 2.5 cm and the left lobe measures 4.8 x 1.3 x 1.5 cm in size. The isthmus measures 5 millimeters. Similar size and morphology of the nodule within the midportion of the right thyroid lobe with heterogeneous internal echotexture. This measures 2.5 x 1.4 x 1.6 cm, previously measuring 2.6 x 1.5 x 1.8 cm. A spongiform nodule lower pole right thyroid lobe is also similar in size and morphology measuring 8 x 6 x 6 millimeters, previously measuring 6 x 5 x 7 millimeters. A small cyst within the midportion of the left thyroid lobe is present measuring 3 millimeters. The color Doppler images demonstrate normal vascularity. There is no evidence of cervical lymphadenopathy or parathyroid mass. IMPRESSION: Stable right-sided thyroid nodules. Dictated by Casper Sequeira MD @ 11/23/2021 10:13:40 AM (Electronically Signed)
== END 2021-11-23 08:57 | disposition home or self-care (01) ==
LOC: US 08:57
PROVIDERS: PCP Internal Medicine; Visit Provider Surgery
DX: E04.1 Nontoxic single thyroid nodule (principal)
CPT/HCPCS: 76536

== ENCOUNTER 2021-12-15 07:47 | Outpatient (CLI) | payer MEDICARE, BC, SELFPAY ==
--- OUTSIDE RECORDS SUMMARY | 2021-12-15 07:50 | XMS_ITS | Encounter Summary ---
:1940 Author Organization [facility] Address [address] [facility] [place] [address] Care Team Providers Name Role Phone Unavailable Primary Care Provider Unavailable Reason for Visit Reason Comments BACK PAIN, LOW Consult/Transfer Care (Routine) - Authorized Specialty Diagnoses / Procedures Referred By Contact Refer red To Contact Physical Therapy Diagnoses Low back pain (HRC) Vilma Lawler MD [facility] [address] [address] [place] [address] [place], [address] [place] [address] Phone: Fax: Referral ID Status Reason Start Date Expiration Date Visits V isits Requested Authorized [id number] Authorized 10/20/2020 01/19/2022 999 999 Encounter Details Date Type Department Care Team Description 11/10/2020 Therapy Physicians Neck and Luis Rush C hronic low back pain, unspecified back pain laterality, unspecified whether sciatica present (Primary Dx); Back Center [facility] PT Muscular deconditioning [address] [facility], [address] [facility] [address] [place] [address] [place], [place] [phone] Social History Tobacco Use Types Packs/Day Years Used Date Smoking Tobacco: Never Assessed Sex Assigned at Date Recorded Not on file documented as of this encounter Progress Notes Luis Rush PT - 11/10/2020 12:00 PM CDT Initial certification period: 11/10/20 - 02/08/21. Signed: Date: Provider: Vilma Lawler MD PHYSICAL THERAPY EVALUATION Referring Provider: Vilma Lawler MD Patient Report Symptoms: Low back pain [...] strengthening, exercise bands FUNCTION Oswestry Disability Index: [id number]% Personal Care: morning stiffness Lifting: limited with heavy weights Walking: Sitting: Standing: to cook or do dishes Sleeping: Reading: Driving: Other Limitations: [employer] garden Pain Characteristics: See patient PAIN DIAGRAM [...] days (90 days max for Medicare and [place] patients). Short Term Goals (4-6 weeks): (At Eval: 4/10 pain) *1. Pt will stand 45 min for household tasks (cooking, doing dishes etc.) with Sx < or = to 2/10 *2. Pt will be able to do work in the community garden with Sx < or = to 2/10 3. Pt will decrease morning stiffness by 50% Long-Term Goals (>6 weeks): 1. Patient will be [...] Activities to prevent future injury/aggravation Discharge Plan: [place] in strength maintenance home exercise program TODAY'S INTERVENTIONS: Therapeutic Exercise Luis Rush, PT 11/10/2020, 4:26 PM 11/10/2020 Visit # 1 Protocol: Back Start: 12:09 End: 12:58 (CHORUS DANCER Visit # 0 Subjective: see eval Cervical [...] perform. Pt verbalized full understanding. Access Code: [email or web address] URL: [email or web address] Date: 11/10/2020 Prepared by: Luis Rush Exercises [...] Pt will decrease morning stiffness by 50% Long-Term Goals (>6 weeks): 1. Patient will be [...] long, L-Ext: #125, HEP: Leonid Chair or malawian ball, body weight auxs, and resistance bands [...]
--- OUTSIDE RECORDS SUMMARY | 2021-12-15 07:50 | XMS_ITS | Encounter Summary ---
:1940 Author Organization [facility] Address [address] [place] [address] Care Team Providers Name Role Phone Unavailable Primary Care Provider Unavailable Reason for Visit Reason Comments BACK PAIN Consult/Transfer Care (Routine) - Authorized Specialty Diagnoses / Procedures Referred By Contact Refer red To Contact Physical Therapy Diagnoses Low back pain (HRC) Vilma Lawler MD [facility] [address] [address] [place] [address] [place], [address] [place] [address] Phone: Fax: Referral ID Status Reason Start Date Expiration Date Visits V isits Requested Authorized [id number] Authorized 10/20/2020 01/19/2022 999 999 Encounter Details Date Type Department Care Team Description 12/02/2020 Therapy Physicians Neck and Bianka Stewart, Vikki simon low back pain, unspecified back pain laterality, unspecified whether sciatica present (Primary Dx); Back Center [facility] sandro ADVERTISING DISPATCH CLERKS SUPERVISOR Muscular deconditioning [address] [facility], [address] [facility] , [address] [place] [address] [place], [place] [phone] (Wo rk) Social History Tobacco Use Types Packs/Day Years Used Date Smoking Tobacco: Never Assessed Sex Assigned at Date Recorded Not on file documented as of this encounter Progress Notes Bianka Stewart, GAYE - 12/02/2020 7:00 AM CDT 12/02/2020 Visit # 5 Protocol: Back Start: 7:00 am End: 7:35 am (ADVERTISING DISPATCH CLERKS SUPERVISOR Visit # 3 Subjective: PATIENT had a [...] body mechanics for loading and unloading the lace tearing supervisor, vacuuming and laundry. Patient Education: Patient was instructed in correlation of strength and function to increase their understanding of the benefits related to completing the [facility] Rehab program Crate 10#, body mechanics, [...] morning stiffness by 50% Progressing 11/22/20 ?? Computer Operations Analyst Goals (>6 weeks): 1. Patient will be [...] long,??L-Ext:??#125, HEP:??[facility], Leonid Chair or scottish ball, body weight auxs, and resistance bands [...]
--- OUTSIDE RECORDS SUMMARY | 2021-12-15 07:50 | XMS_ITS | Encounter Summary ---
:1940 Author Organization [facility] Address [address] [place] [address] Care Team Providers Name Role Phone Unavailable Primary Care Provider Unavailable Reason for Visit Reason Comments BACK PAIN Consult/Transfer Care (Routine) - Authorized Specialty Diagnoses / Procedures Referred By Contact Refer red To Contact Physical Therapy Diagnoses Low back pain (HRC) Vilma Lawler MD [facility] [address] [address] [place] [address] [place], [address] [place] [address] Phone: Fax: Referral ID Status Reason Start Date Expiration Date Visits V isits Requested Authorized [id number] Authorized 10/20/2020 01/19/2022 999 999 Encounter Details Date Type Department Care Team Description 12/23/2020 Therapy Physicians Neck and Bianka Stewart, Vikki simon low back pain, unspecified back pain laterality, unspecified whether sciatica present (HRC) (Primary Dx); Back Center [facility] CLINICAL ADVISOR Muscular deconditioning [address] [facility], [address] [facility] , [address] [place] [address] [place], [place] [phone] (Wo rk) Social History Tobacco Use Types Packs/Day Years Used Date Smoking Tobacco: Never Assessed Sex Assigned at Date Recorded Not on file documented as of this encounter Progress Notes Bianka Stewart, GAYE - 12/23/2020 10:45 AM CDT 12/23/2020 Visit # 10 Protocol: Back Start: 10:50 am End: 11:22 am (CLINICAL ADVISOR Visit # 3 Subjective: PATIENT reports he is looking at joining the fitness center that do not cost him anything. ([place]) He has considered joining the [facility] but [...] decrease morning stiffness by 50%??Progressing 11/22/20 ?? [facility] Goals (>6 weeks): 1. Patient will be [...] too long,??L-Ext:??#125, HEP:??[facility],??Leonid Chair or argentine ball, body weight auxs, and resistance bands [...]
--- OUTSIDE RECORDS SUMMARY | 2021-12-15 07:50 | XMS_ITS | Encounter Summary ---
:1940 Author Organization [facility] Address [address] [place] [address] Care Team Providers Name Role Phone Unavailable Primary Care Provider Unavailable Encounter Details Date Type Department Care Team Description 04/01/1989 PN Conversion Only NET SOFTWARE ENGINEER [address] [place] [address] Social History Tobacco Use Types Packs/Day Years Used Date Smoking Tobacco: Never Assessed Sex Assigned at Date Recorded Not on file documented as of this encounter Plan of Treatment Not on filedocumented as of this encounter Visit Diagnoses Not on filedocumented in this encounter
--- OUTSIDE RECORDS SUMMARY | 2021-12-15 07:50 | XMS_ITS | Encounter Summary ---
:1940 [address] [address] Address [address] [facility] [place] [address] Care Team Providers Name Role Phone Unavailable Primary Care Provider Unavailable Reason for Visit Reason Comments BACK PAIN, LOW Consult/Transfer Care (Routine) - Authorized Specialty Diagnoses / Procedures Referred By Contact Refer red To Contact Physical Therapy Diagnoses Low back pain (HRC) Vilma Lawler MD [facility] [address] [address] [place] [address] [place], [address] [place] [address] Phone: Fax: Referral ID Status Reason Start Date Expiration Date Visits V isits Requested Authorized [id number] Authorized 10/20/2020 01/19/2022 999 999 Encounter Details Date Type Department Care Team Description 11/22/2020 Therapy Physicians Neck and Luis Rush C hronic low back pain, unspecified back pain laterality, unspecified whether sciatica present (Primary Dx); Back Center [facility] PT Muscular deconditioning [address] [facility], [address] [facility] [address] [place] [address] [place], [place] [phone] Social History Tobacco Use Types Packs/Day Years Used Date Smoking Tobacco: Never Assessed Sex Assigned at Date Recorded Not on file documented as of this encounter Progress Notes Luis Rush PT - 11/22/2020 11:15 AM CDT 11/22/2020 Visit # 4 Protocol: Back Start: 11:16 End: 11:54 (PROGRAM SCHEDULER Visit # 2 Subjective: States he is [...] morning stiffness by 50% Progressing 11/22/20 ?? [facility] Goals (>6 weeks): 1. Patient will be [...] long,??L-Ext:??#125, HEP:??[facility], Leonid Chair or nigerian ball, body weight auxs, [...]
--- OUTSIDE RECORDS SUMMARY | 2021-12-15 07:50 | XMS_ITS | Encounter Summary ---
:1940 Author Organization [email or web address] Address [address] [place] [address] Care Team Providers Name Role Phone Unavailable Primary Care Provider Unavailable Reason for Visit Reason Comments BACK PAIN, LOW Consult/Transfer Care (Routine) - Authorized Specialty Diagnoses / Procedures Referred By Contact Refer red To Contact Physical Therapy Diagnoses Low back pain (HRC) Vilma Lawler MD [facility] [address] [address] [place] [address] [place], [address] [place] [address] Phone: Fax: Referral ID Status Reason Start Date Expiration Date Visits V isits Requested Authorized [id number] Authorized 10/20/2020 01/19/2022 999 999 Encounter Details Date Type Department Care Team Description 11/17/2020 Therapy Physicians Neck and Neo Briones, Chr onic low back pain, unspecified back pain laterality, unspecified whether sciatica present (Primary Dx); Back Center [facility] sandro [facility] Muscular deconditioning [address] [facility], [address] [facility] [address] [place] [address] [place], [place] [phone] (Wo rk) Social History Tobacco Use Types Packs/Day Years Used Date Smoking Tobacco: Never Assessed Sex Assigned at Date Recorded Not on file documented as of this encounter Progress Notes Neo Briones, DOCUMENT ANALYST - 11/17/2020 4:30 PM CDT 11/17/2020 Visit # 3 Protocol: Back Start: 435 End: 506 (DOCUMENT ANALYST Visit # 2 Subjective: Pt feels ok, [...] will decrease morning stiffness by 50% ?? Rehabilitation Program Manager Goals (>6 weeks): 1. Patient will be [...] when walks too long,??L-Ext:??#125, HEP:??Leonid Chair or dutch ball, body weight auxs, and resistance bands [...]
--- OUTSIDE RECORDS SUMMARY | 2021-12-15 07:50 | XMS_ITS | Encounter Summary ---
:1940 Author Organization [employer] Address [address] [facility] [place] [address] Care Team Providers Name Role Phone Unavailable Primary Care Provider Unavailable Reason for Visit Reason Comments BACK PAIN, LOW Consult/Transfer Care (Routine) - Authorized Specialty Diagnoses / Procedures Referred By Contact Refer red To Contact Physical Therapy Diagnoses Low back pain (HRC) Vilma Lawler MD [facility] [address] [address] [place] [address] [place], [address] [place] [address] Phone: Fax: Referral ID Status Reason Start Date Expiration Date Visits V isits Requested Authorized [id number] Authorized 10/20/2020 01/19/2022 999 999 Encounter Details Date Type Department Care Team Description 12/07/2020 Therapy Physicians Neck and Stan Wynn, Rudi onic low back pain, unspecified back pain laterality, unspecified whether sciatica present (Primary Dx); Back Center [facility] sandro HUIZAR Muscular deconditioning [address] [facility], [address] [facility] , [address] [place] [address] [place], [place] [phone] (Wo rk) Social History Tobacco Use Types Packs/Day Years Used Date Smoking Tobacco: Never Assessed Sex Assigned at Date Recorded Not on file documented as of this encounter Progress Notes Stan Wynn, HOIST CYLINDER LOADER - 12/07/2020 12:15 PM CDT 12/07/2020 Visit # 6 Protocol: Back Start: 1209p End: 1238p (HOIST CYLINDER LOADER Visit # 4 Subjective: Pt reports walking [...] of the benefits related to completing the [facility] Rehab program Assessment: Amanda Angel tolerated [...] decrease morning stiffness by 50%??Progressing 11/22/20 ?? [facility] Goals (>6 weeks): 1. Patient will be [...] too long,??L-Ext:??#125, HEP:??[facility],??Leonid Chair or peruvian ball, body weight auxs, and resistance bands [...]
--- OUTSIDE RECORDS SUMMARY | 2021-12-15 07:50 | XMS_ITS | Encounter Summary ---
:1940 Author Organization [facility] Address [address] [place] [address] Care Team Providers Name Role Phone Unavailable Primary Care Provider Unavailable Reason for Visit Reason Comments Patient Care Coordination Encounter Details Date Type Department Care Team Description 11/10/2020 Telephone Physicians Lela and Luis Rush [facility] PT Coordination [address] [facility], [address] [facility] [address] [place] [address] [place], [place] [phone] Social History Tobacco Use Types Packs/Day Years Used Date Smoking Tobacco: Never Assessed Sex Assigned at Date Recorded Not on file documented as of this encounter Nursing Notes Yanira Roa - 11/15/2020 10:35 AM CDT Signed plan of care received from Dr Vilma Lawler. Scanned to media tab. Yanira Roa 11/15/2020, 10:36 AM Yanira Roa - 11/14/2020 8:20 AM CDT Called [facility] & spoke with staff regarding plan of care. Message taken by staff - will be sent to Dr Lawler's team. Will follow up again later in the week if no response is received. Yanira Roa 11/14/2020, 8:23 AM Yanira Roa - 11/10/2020 4:38 PM CDT Plan of care faxed to Vilma Lawler MD at [facility]. P: [phone] F: [phone] Yanira Roa 11/10/2020, 4:41 PM documented in this encounter Plan of Treatment Not on filedocumented as of this encounter Visit Diagnoses Not on filedocumented in this encounter
--- OUTSIDE RECORDS SUMMARY | 2021-12-15 07:50 | XMS_ITS | Encounter Summary ---
:1940 Author Organization [facility] Address [address] [place] [address] Care Team Providers Name Role Phone Unavailable Primary Care Provider Unavailable Reason for Visit Reason Comments BACK PAIN Consult/Transfer Care (Routine) - Authorized Specialty Diagnoses / Procedures Referred By Contact Refer red To Contact Physical Therapy Diagnoses Low back pain (HRC) Vilma Lawler MD [facility] [address] [address] [place] [address] [place], [address] [place] [address] Phone: Fax: Referral ID Status Reason Start Date Expiration Date Visits V isits Requested Authorized [id number] Authorized 10/20/2020 01/19/2022 999 [id number] Encounter Details Date Type Department Care Team Description 12/09/2020 Therapy Physicians Neck and Bianka Stewart, Vikki simon low back pain, unspecified back pain laterality, unspecified whether sciatica present (Primary Dx); Back Center [facility] sandro DEATH CLAIM EXAMINER Muscular deconditioning [address] [facility], [address] [facility] , [address] [place] [address] [place], [place] [phone] (Wo rk) Social History Tobacco Use Types Packs/Day Years Used Date Smoking Tobacco: Never Assessed Sex Assigned at Date Recorded Not on file documented as of this encounter Progress Notes Bianka Stewart, GAYE - 12/09/2020 10:45 AM CDT 12/09/2020 Visit # 7 Protocol: Back Start: 10:47 am End: 11:21 am (DEATH CLAIM EXAMINER Visit # 5 Subjective: Patient reports increased [...] or torso rotation Tests performed today ([facility] for score and outcomes): : None [...] decrease morning stiffness by 50%??Progressing 11/22/20 ?? Skilled Nursing Goals (>6 weeks): 1. Patient will be [...] too long,??L-Ext:??#125, HEP:??[facility],??Leonid Chair or south african ball, body weight auxs, and resistance bands [...] Observed treatment. Goals/Plan of Care discussed with DEATH CLAIM EXAMINER. Treatment progressing and appropriate. Vega Beltre, ULISES 12/09/2020, 12:36 PM documented in this encounter Plan of Treatment Not on filedocumented as of this encounter Visit Diagnoses Diagnosis Chronic low back pain, unspecified back pain laterality, unspecified whether sciatica present - Primary Muscular deconditioning Muscular wasting and disuse atrophy, not elsewhere classified documented in this encounter
--- OUTSIDE RECORDS SUMMARY | 2021-12-15 07:50 | XMS_ITS | Encounter Summary ---
:1940 Author Organization [employer] Address [address] [place] [address] Care Team Providers Name Role Phone Unavailable Primary Care Provider Unavailable Reason for Visit Reason Comments BACK PAIN, LOW Consult/Transfer Care (Routine) - Authorized Specialty Diagnoses / Procedures Referred By Contact Refer red To Contact Physical Therapy Diagnoses Low back pain (HRC) Vilma Lawler MD [facility] [address] [address] [place] [address] [place], [address] [place] [address] Phone: Fax: Referral ID Status Reason Start Date Expiration Date Visits V isits Requested Authorized [id number] Authorized 10/20/2020 01/19/2022 999 [id number] Encounter Details Date Type Department Care Team Description 11/14/2020 Therapy Physicians Neck and Stan Wynn, Rudi onic low back pain, unspecified back pain laterality, unspecified whether sciatica present (Primary Dx); [facility] Muscular deconditioning [address] [facility], [address] [facility] , [address] [place] [address] [place], [place] [phone] (Wo rk) Social History Tobacco Use Types Packs/Day Years Used Date Smoking Tobacco: Never Assessed Sex Assigned at Date Recorded Not on file documented as of this encounter Progress Notes Stan Wynn, BIGHT MAKER - 11/14/2020 10:00 AM CDT 11/14/2020 Visit # 2 Protocol: Back Start: 1000a End: 1035a (BIGHT MAKER Visit # 1 Subjective: Pt reports doing stretches going well at home. Wanted to review strengthening at home ofOne legged bridging, crunches and pelvic tilts. Cervical Not performed today. Objective Tests & Measures: Tests performed today (see [facility] for score and outcomes): : None [...] will decrease morning stiffness by 50% ?? Mcc Goals (>6 weeks): 1. Patient will be [...] long, L-Ext: #125, HEP: Leonid Chair or comoran ball, body weight auxs, and resistance bands [...]
--- OUTSIDE RECORDS SUMMARY | 2021-12-15 07:50 | XMS_ITS | Encounter Summary ---
:1940 Author Organization [facility] Address [address] [place] [address] Care Team Providers Name Role Phone Unavailable Primary Care Provider Unavailable Reason for Visit Reason Comments BACK PAIN, LOW Consult/Transfer Care (Routine) - Authorized Specialty Diagnoses / Procedures Referred By Contact Refer red To Contact Physical Therapy Diagnoses Low back pain (HRC) Vilma Lawler MD [facility] [address] [address] [place] [address] [place], [address] [place] [address] Phone: Fax: Referral ID Status Reason Start Date Expiration Date Visits V isits Requested Authorized [id number] Authorized 10/20/2020 01/19/2022 999 [id number] Encounter Details Date Type Department Care Team Description 12/28/2020 Therapy Physicians Neck and Stan Wynn, Rudi onic low back pain, unspecified back pain laterality, unspecified whether sciatica present (HRC) (Primary Dx); Back Center [facility] Muscular deconditioning [address] [facility], [address] [facility] , [address] [place] [address] [place], [place] [phone] (Wo rk) Social History Tobacco Use Types Packs/Day Years Used Date Smoking Tobacco: Never Assessed Sex Assigned at Date Recorded Not on file documented as of this encounter Progress Notes Stan Wynn, GAYE - 12/28/2020 10:45 AM CDT 12/28/2020 Visit # 11 Protocol: Back Start: 1034a End: 1107a (SHANK MAKER Visit # 4 Subjective: Pt reports more [...] the benefits related to completing the [facility] Rehab program Goals reviewed. Assessment: Amanda Angel [...] decrease morning stiffness by 50%??MET 12/28/20 ?? Counseling Services Manager Goals (>6 weeks): 1. Patient will [...] too long,??L-Ext:??#125, HEP:??[facility],??Leonid Chair or belizean ball, body weight auxs, and resistance bands [...] Observed treatment. Goals/Plan of Care discussed with SHANK MAKER. Treatment progressing and appropriate. Vega Beltre, ULISES 12/28/2020, 11:20 AM documented in this encounter Plan of Treatment Not on filedocumented as of this encounter Visit Diagnoses Diagnosis Chronic low back pain, unspecified back pain laterality, unspecified whether sciatica present - Primary Muscular deconditioning Muscular wasting and disuse atrophy, not elsewhere classified documented in this encounter
--- OUTSIDE RECORDS SUMMARY | 2021-12-15 07:50 | XMS_ITS | Clinical Summary ---
:1940 Author Organization [employer] [facility] Address [place] [address] Care Team Providers Name Role Phone Vilma Lawler MD Primary Care Provider Allergies No known active allergies Medications Medication Sig Dispensed Refills Start Date End Date Status losartan (COZAAR) 100 mg tablet 0 05/02/19 18 Active scopolamine 1mg over 3 days 0 06/02/2017 Active (TRANSDERM SCOP) patch simvastatin (ZOCOR) 20 mg tablet 0 018 Active ipratropium (ATROVENT NASAL) 0.03 % 0 05/31 Active nasal spray Active Problems No known active problems Immunizations Name Administration Dates Next Due COVID-19 vaccine (Moderna 100mcg/0.5mL) MERY RAMIRES 06/04/2020 Social History Tobacco Use Types Packs/Day Years Used Date Never Smoker Smokeless Tobacco: Never Used Tobacco Cessation: Counseling Given: Yes Sex Assigned at Date Recorded Not on file Obstetrics History Last Filed Vital Signs Vital Sign Reading Time Taken Comments Blood Pressure 137/77 05/01/2019 10:28 AM AUTOMOTIVE CENTER MANAGER Pulse 63 05/01/2019 10:28 AM AUTOMOTIVE CENTER MANAGER Temperature 36.4 ??C (97.6 ??F) 05/01/2019 10:28 AM AUTOMOTIVE CENTER MANAGER Respiratory Rate - - Oxygen Saturation 98% 05/01/2019 10:28 AM AUTOMOTIVE CENTER MANAGER Inhaled Oxygen Concentration - - Weight 92.3 kg (203 lb 6.4 oz) 05/01/2019 10:28 AM AUTOMOTIVE CENTER MANAGER shoes on Height - - Body Mass Index - - Plan of Treatment Upcoming Encounters Date Type Specialty Care Team Description 12/15/2021 Orders Only Health Maintenance Due Date Last Done Comments Tdap 1953 Depression screening for age 12+ 1954 BMI (ht and wt on same day) for age 18+ 1960 Hepatitis C screening for age 18-79 1960 Tetanus booster 1962 Zoster (shingles) series for age 50+ (1 of 2) 1992 Medicare Wellness for age 65+ 11/09/2007 Pneumococcal series for age 65+ (1 - PCV) 11/09/2007 COVID-19 vaccine series (2 - Moderna series) 07/02/202008/2020 Influenza for age 65+ 11/30/2021 Results Not on filefrom Last 3 Months Insurance Payer Benefit Plan / Subscriber ID Effective Dates Phone Addre ss Type Group MEDICARE PART A MEDICARE PART A [id number] 2007-Presen ATTN: CLAIMS - HB USE ONLY HB ONLY t [address] [place] [address] [address] [place] BLUE CROSS [id number] 2020-Presen [address] [place] [address], [place] [id number] BLUE CROSS BLUE CROSS [id number] 2020-Presen [address] [address] [place] [address] [place], [place] ONLY [phone] (Home) [place] [address] Care Teams Club Concierge Relationship Specialty Start Date End Date Vilma Lawler MD PCP - General Internal Medicine 10/30/161999 [place] [address]
--- OUTSIDE RECORDS SUMMARY | 2021-12-15 07:50 | XMS_ITS | Encounter Summary ---
:1940 Author Organization [employer] Address [address] [place] [address] Care Team Providers Name Role Phone Unavailable Primary Care Provider Unavailable Reason for Visit Reason Comments BACK PAIN, LOW Consult/Transfer Care (Routine) - Authorized Specialty Diagnoses / Procedures Referred By Contact Refer red To Contact Physical Therapy Diagnoses Low back pain (HRC) Vilma Lawler MD [facility] [address] [address] [place] [address] [place], [address] [place] [address] Phone: Fax: Referral ID Status Reason Start Date Expiration Date Visits V isits Requested Authorized [id number] Authorized 10/20/2020 01/19/2022 999 999 Encounter Details Date Type Department Care Team Description 01/09/2021 Therapy Physicians Neck and Stan Wynn, Rudi onic low back pain, unspecified back pain laterality, unspecified whether sciatica present (HRC) (Primary Dx); Back Center [facility] DRYWALL WORKER Muscular deconditioning [address] [facility], [address] [facility] , [address] [place] [address] [place], [place] [phone] (Wo rk) Social History Tobacco Use Types Packs/Day Years Used Date Smoking Tobacco: Never Assessed Sex Assigned at Date Recorded Not on file documented as of this encounter Progress Notes Stan Wynn, GAYE - 01/09/2021 10:45 AM CDT 01/09/2021 Visit # 14 Protocol: Back Start: 1042a End: 1112a (DRYWALL WORKER Visit # 2 Subjective: Pt reports next [...] of the benefits related to completing the [facility] Rehab program Assessment: Amanda Angel tolerated [...] decrease morning stiffness by 50%??MET 12/28/20 ?? Mcfp Goals (>6 weeks): 1. Patient will be [...] too long,??L-Ext:??#125, HEP:??[facility],??Leonid Chair or tanzanian ball, body weight auxs, and resistance bands [...]
--- OUTSIDE RECORDS SUMMARY | 2021-12-15 07:50 | XMS_ITS | Encounter Summary ---
:1940 Author Organization [employer] Address [address] [place] [address] Care Team Providers Name Role Phone Unavailable Primary Care Provider Unavailable Reason for Visit Reason Comments BACK PAIN, LOW Consult/Transfer Care (Routine) - Authorized Specialty Diagnoses / Procedures Referred By Contact Refer red To Contact Physical Therapy Diagnoses Low back pain (HRC) Vilma Lawler MD [facility] [address] [address] [place] [address] [place], [address] [place] [address] Phone: Fax: Referral ID Status Reason Start Date Expiration Date Visits V isits Requested Authorized [id number] Authorized 10/20/2020 01/19/2022 999 999 Encounter Details Date Type Department Care Team Description 01/02/2021 Therapy Physicians Neck and Stan Wynn, Rudi onic low back pain, unspecified back pain laterality, unspecified whether sciatica present (HRC) (Primary Dx); Back Center [facility] Muscular deconditioning [address] [facility], [address] [facility] , [address] [place] [address] [place], [place] [phone] (Wo rk) Social History Tobacco Use Types Packs/Day Years Used Date Smoking Tobacco: Never Assessed Sex Assigned at Date Recorded Not on file documented as of this encounter Progress Notes Stan Wynn, GAYE - 01/02/2021 10:00 AM CDT 01/02/2021 Visit # 13 Protocol: Back Start: 956a End: 1025a (BRIM IRONER HAND Visit # 1 Subjective: Pt reports less [...] the benefits related to completing the [facility] Rehab program Cues to slow down on [...] decrease morning stiffness by 50%??MET 12/28/20 ?? Retail Assistant Manager Goals (>6 weeks): 1. Patient will [...] too long,??L-Ext:??#125, HEP:??[facility],??Leonid Chair or malian ball, body weight auxs, and resistance bands at home,??11/10/20:??Recommended 8-12 weeks of therapy 2x per week (16-24 visits) ?? Recommendations/Communication: 60% Lumbar extension and 80% thoracic rotation next. Continue treatment per PT POC. Plan 2 more visits. Plans to either get Tier 3 or Community [employer] membership this week. LEONID CHAIR review, [...]
--- OUTSIDE RECORDS SUMMARY | 2021-12-15 07:50 | XMS_ITS | Encounter Summary ---
:1940 Author Organization [facility] Address [address] [place] [address] Care Team Providers Name Role Phone Unavailable Primary Care Provider Unavailable Reason for Visit Reason Comments BACK PAIN Consult/Transfer Care (Routine) - Authorized Specialty Diagnoses / Procedures Referred By Contact Refer red To Contact Physical Therapy Diagnoses Low back pain (HRC) Vilma Lawler MD [facility] [address] [address] [place] [address] [place], [address] [place] [address] Phone: Fax: Referral ID Status Reason Start Date Expiration Date Visits V isits Requested Authorized [id number] Authorized 10/20/2020 01/19/2022 999 999 Encounter Details Date Type Department Care Team Description 12/30/2020 Therapy Physicians Neck and Bianka Stewart, Vikki simon low back pain, unspecified back pain laterality, unspecified whether sciatica present (HRC) (Primary Dx); Back Center [facility] sandro HEAD GRINDER Muscular deconditioning [address] [facility], [address] [facility] , [address] [place] [address] [place], [place] [phone] (Wo rk) Social History Tobacco Use Types Packs/Day Years Used Date Smoking Tobacco: Never Assessed Sex Assigned at Date Recorded Not on file documented as of this encounter Progress Notes Bianka Stewart, GAYE - 12/30/2020 10:45 AM CDT 12/30/2020 Visit # 12 Protocol: Back Start: 10:45 am End: 11:15 am (HEAD GRINDER Visit # 5 Subjective: Patient reports he is stiff this am. He was able to walk 4-6 miles yesterday with only min pain at the very end of the walk. Cervical Not performed today. Objective Tests & Measures: 80% of max wt on torso rotation ROM changes: no changes in ROm Tests performed today (see [facility] for score and outcomes): : None Performed [...] the benefits related to completing the [facility] Rehab program Patient demo's his lifting technique [...] decrease morning stiffness by 50%??MET 12/28/20 ?? Practice Billing Associate Goals (>6 weeks): 1. Patient will be [...] too long,??L-Ext:??#125, HEP:??[facility],??Leonid Chair or uruguayan ball, body weight auxs, and resistance bands [...] Observed treatment. Goals/Plan of Care discussed with HEAD GRINDER. Treatment progressing and appropriate. Vega Beltre PT 12/30/2020, 1:05 PM documented in this encounter Plan of Treatment Not on filedocumented as of this encounter Visit Diagnoses Diagnosis Chronic low back pain, unspecified back pain laterality, unspecified whether sciatica present (HRC) - Primary Muscular deconditioning Muscular wasting and disuse atrophy, not elsewhere classified documented in this encounter
--- OUTSIDE RECORDS SUMMARY | 2021-12-15 07:50 | XMS_ITS | Clinical Summary ---
:1940 Author Organization [facility] Address [address] [place] [address] Care Team Providers Name Role Phone Unavailable [...] Phone Addre ss Type Group MEDICARE MEDICARE [id number] 2007-[employer] [phone] M taniahumberto [facility] CARE t 67 BCBS BCBS BCBS [place] [id number] 2020-[employer] [phone] [address] [address] Medicare BLUE t [address] [place] [address] Amanda Angel Personal/Family Self 1940 [address] (Home) [address] [place] [address]
--- OUTSIDE RECORDS SUMMARY | 2021-12-15 07:50 | XMS_ITS | Encounter Summary ---
:1940 Author Organization [facility] Address [address] [facility] [place] [address] Care Team Providers Name Role Phone Unavailable Primary Care Provider Unavailable Reason for Visit Reason Comments BACK PAIN, LOW Consult/Transfer Care (Routine) - Authorized Specialty Diagnoses / Procedures Referred By Contact Refer red To Contact Physical Therapy Diagnoses Low back pain (HRC) Vilma Lawler MD [facility] [address] [address] [place] [address] [place], [address] [place] [address] Phone: Fax: Referral ID Status Reason Start Date Expiration Date Visits V isits Requested Authorized [id number] Authorized 10/20/2020 01/19/2022 999 999 Encounter Details Date Type Department Care Team Description 12/12/2020 Therapy Physicians Neck and Stan Wynn, Rudi onic low back pain, unspecified back pain laterality, unspecified whether sciatica present (Primary Dx); Back Center [facility] sandro NUTRITIONAL ASSISTANT Muscular deconditioning [address] [facility], [address] [facility] , [address] [place] [address] [place], [place] [phone] (Wo rk) Social History Tobacco Use Types Packs/Day Years Used Date Smoking Tobacco: Never Assessed Sex Assigned at Date Recorded Not on file documented as of this encounter Progress Notes Stan Wynn, NUTRITIONAL ASSISTANT - 12/12/2020 10:45 AM CDT 12/12/2020 Visit # 8 Protocol: Back Start: 1042a End: 1112a (NUTRITIONAL ASSISTANT Visit # 1 Subjective: Pt reports he was sore over the weekend, probably from last workout. Will be gone one week, back next Saturday. Cervical Not performed today. Objective Tests & Measures: Tests performed today (see [facility] for score and outcomes): : None [...] of the benefits related to completing the [facility] Rehab program Assessment: Amanda Angel tolerated [...] decrease morning stiffness by 50%??Progressing 11/22/20 ?? Jack Tamp Operator Goals (>6 weeks): 1. Patient will [...] too long,??L-Ext:??#125, HEP:??[facility],??Leonid Chair or jamaican ball, body weight auxs, and resistance bands [...]
--- OUTSIDE RECORDS SUMMARY | 2021-12-15 07:50 | XMS_ITS | Encounter Summary ---
:1940 Author Organization [employer] Address [address] [place] [address] Care Team Providers Name Role Phone Unavailable Primary Care Provider Unavailable Reason for Visit Reason Comments BACK PAIN, LOW Consult/Transfer Care (Routine) - Authorized Specialty Diagnoses / Procedures Referred By Contact Refer red To Contact Physical Therapy Diagnoses Low back pain (HRC) Vilma Lawler MD [facility] [address] [address] [place] [address] [place], [address] [place] [address] Phone: Fax: Referral ID Status Reason Start Date Expiration Date Visits V isits Requested Authorized [id number] Authorized 10/20/2020 01/19/2022 999 999 Encounter Details Date Type Department Care Team Description 12/21/2020 Therapy Physicians Neck and Stan Wynn, Rudi onic low back pain, unspecified back pain laterality, unspecified whether sciatica present (HRC) (Primary Dx); Back Center [facility] Muscular deconditioning [address] [facility], [address] [facility] , [address] [place] [address] [place], [place] [phone] (Wo rk) Social History Tobacco Use Types Packs/Day Years Used Date Smoking Tobacco: Never Assessed Sex Assigned at Date Recorded Not on file documented as of this encounter Progress Notes Stan Wynn, GAYE - 12/21/2020 10:45 AM CDT 12/21/2020 Visit # 9 Protocol: Back Start: 1036a End: 1106a (YEAST STACKER Visit # 2 Subjective: Pt reports low back did well after a week between visits. Aches after longer walks, getssore after 30 minutes or 1.5 miles. Overall doing pretty good. Cervical Not performed today. Objective Tests & Measures: Tests performed today (see [facility] for score and outcomes): : None Performed [...] decrease morning stiffness by 50%??Progressing 11/22/20 ?? Nursing Home Goals (>6 weeks): 1. Patient will [...] too long,??L-Ext:??#125, HEP:??[facility],??Leonid Chair or niuean ball, body weight auxs, and resistance bands [...]
--- OUTSIDE RECORDS SUMMARY | 2021-12-15 07:50 | XMS_ITS | Encounter Summary ---
:1940 Author Organization [email or web address] Address [address] [place] [address] Care Team Providers Name Role Phone Unavailable Primary Care Provider Unavailable Reason for Visit Reason Comments BACK PAIN, LOW Consult/Transfer Care (Routine) - Authorized Specialty Diagnoses / Procedures Referred By Contact Refer red To Contact Physical Therapy Diagnoses Low back pain (HRC) Vilma Lawler MD [facility] [address] [address] [place] [address] [place], [address] [place] [address] Phone: Fax: Referral ID Status Reason Start Date Expiration Date Visits V isits Requested Authorized [id number] Authorized 10/20/2020 01/19/2022 999 999 Encounter Details Date Type Department Care Team Description 01/11/2021 Therapy Physicians Neck and Stan Wynn, Rudi onic low back pain, unspecified back pain laterality, unspecified whether sciatica present (HRC) (Primary Dx); Back Center [facility] Muscular deconditioning [address] [facility], [address] [facility] , [address] [place] [address] [place], [place] [phone] (Wo rk) Social History Tobacco Use Types Packs/Day Years Used Date Smoking Tobacco: Never Assessed Sex Assigned at Date Recorded Not on file documented as of this encounter Progress Notes Stan Wynn, GAYE - 01/11/2021 10:15 AM CDT 01/11/2021 Visit # 15 Protocol: Back Start: 1009a End: 1047a (ROLLER PRINT TENDER Visit # 3 Subjective: Pt reports doing [...] of the benefits related to completing the [facility] Rehab program [employer] printed and reviewed. Therapeutic activities with 40# [...] decrease morning stiffness by 50%??MET 12/28/20 ?? Detention Goals (>6 weeks): 1. Patient will be [...] too long,??L-Ext:??#125, HEP:??[facility],??Leonid Chair or nauruan ball, body weight auxs, and resistance bands [...] decrease morning stiffness by 50%??MET 12/28/20 ?? Wood Lathe Operator Goals (>6 weeks): 1. Patient [...] HEP Leonid Chair T-bands 05/02/2021, 5:47 PM ACE INSTALLER documented in this encounter Plan of Treatment Not on filedocumented as of this encounter Visit Diagnoses Diagnosis Chronic low back pain, unspecified back pain laterality, unspecified whether sciatica present - Primary Muscular deconditioning Muscular wasting and disuse atrophy, not elsewhere classified documented in this encounter
== END 2021-12-15 07:48 | disposition home or self-care (01) ==
LOC: RAD 07:48
PROVIDERS: PCP Internal Medicine; Visit Provider Internal Medicine
DX: I35.1 Nonrheumatic aortic (valve) insufficiency (principal); I34.0 Nonrheumatic mitral (valve) insufficiency; I07.1 Rheumatic tricuspid insufficiency
CPT/HCPCS: 93306

== ENCOUNTER 2022-01-16 13:56 | Outpatient (RCR) | payer MEDICARE, BC, SELFPAY | END 2022-10-18 23:59 | disposition home or self-care (01) | PROVIDERS: PCP Internal Medicine; Visit Provider Family Medicine | DX: M54.50 Low back pain, unspecified (principal); Z51.89 Encounter for other specified aftercare | CPT/HCPCS: 97110; 97162 ==

== ENCOUNTER 2022-02-14 10:09 | Outpatient (CLI) | payer MEDICARE, BC, SELFPAY ==
--- OUTSIDE RECORDS SUMMARY | 2022-02-14 10:19 | XMS_ITS | Encounter Summary ---
:1940 Author Organization [facility] Address [address] [place] [address] Care Team Providers Name Role Phone Unavailable Primary Care Provider Unavailable Reason for Visit Reason Comments BACK PAIN Consult/Transfer Care (Routine) - Closed Specialty Diagnoses / Procedures Referred By Contact Refer red To Contact Physical Therapy Diagnoses Low back pain (HRC) Vilma Lawler MD [facility] [address] [address] [place] [address] [address], [address] [place] [address] Phone: Fax: Referral ID Status Reason Start Date Expiration Date Visits Requ ested Visits Authorized [id number] Closed 10/20/2020 01/19/[phone] Encounter Details Date Type Department Care Team Description 12/30/2020 Therapy Physicians Neck and Bianka Stewart Chro simon low back pain, unspecified back pain laterality, unspecified whether sciatica present (HRC) (Primary Dx); Back Center [facility] Muscular deconditioning [address] [facility], [address] [facility] , [address] [place] [address] [place], [place] [phone] (Wo rk) Social History Tobacco Use Types Packs/Day Years Used Date Smoking Tobacco: Never Assessed Sex Assigned at Date Recorded Not on file documented as of this encounter Progress Notes Bianka Stewart, GAYE - 12/30/2020 10:45 AM CDT 12/30/2020 Visit # 12 Protocol: Back Start: 10:45 am End: 11:15 am (DIRECTOR VACCINE Visit # 5 Subjective: Patient reports he is stiff this am. He was able to walk 4-6 miles yesterday with only min pain at the very end of the walk. Cervical Not performed today. Objective Tests & Measures: 80% of max wt on torso rotation ROM changes: no changes in ROm Tests performed today ([facility] for score and outcomes): : None [...] of the benefits related to completing the [facility] Rehab program Patient demo's his lifting [...] decrease morning stiffness by 50%??MET 12/28/20 ?? Senior Care Goals (>6 weeks): 1. Patient will be [...] too long,??L-Ext:??#125, HEP:??[facility],??Leonid Chair or yemeni ball, body weight auxs, and resistance bands [...] Observed treatment. Goals/Plan of Care discussed with DIRECTOR VACCINE. Treatment progressing and appropriate. Vega Beltre PT 12/30/2020, 1:05 PM documented in this encounter Plan of Treatment Not on filedocumented as of this encounter Visit Diagnoses Diagnosis Chronic low back pain, unspecified back pain laterality, unspecified whether sciatica present (HRC) - Primary Muscular deconditioning Muscular wasting and disuse atrophy, not elsewhere classified documented in this encounter
--- OUTSIDE RECORDS SUMMARY | 2022-02-14 10:19 | XMS_ITS | Encounter Summary ---
:1940 Author Organization [facility] Address [address] [facility] [place] [address] Care Team Providers Name Role Phone Unavailable Primary Care Provider Unavailable Reason for Visit Reason Comments BACK PAIN Consult/Transfer Care (Routine) - Closed Specialty Diagnoses / Procedures Referred By Contact Refer red To Contact Physical Therapy Diagnoses Low back pain (HRC) Vilma Lawler MD [facility] [address] [address] [place] [address] [place], [address] [place] [address] Phone: Fax: Referral ID Status Reason Start Date Expiration Date Visits Requ ested Visits Authorized [id number] Closed 10/20/2020 01/19/[phone] Encounter Details Date Type Department Care Team Description 12/02/2020 Therapy Physicians Lela and Bianka Stewart Chro simon low back pain, unspecified back pain laterality, unspecified whether sciatica present (Primary Dx); Back Center [facility] sandro WOOL PRESSER Muscular deconditioning [address] [facility], [address] [facility] , [address] [place] [address] [place], [place] [phone] (Wo rk) Social History Tobacco Use Types Packs/Day Years Used Date Smoking Tobacco: Never Assessed Sex Assigned at Date Recorded Not on file documented as of this encounter Progress Notes Bianka Stewart, GAYE - 12/02/2020 7:00 AM CDT 12/02/2020 Visit # 5 Protocol: Back Start: 7:00 am End: 7:35 am (WOOL PRESSER Visit # 3 Subjective: PATIENT had a slight soreness in the back after the last session but the ice really helps. Cervical Not performed today. Objective Tests & Measures: 80% Of max wt on torso rotation ROM changes: ROM on lumbar extension and torso rotation remain appropriate. Tests performed today ([facility] for score and outcomes): : None [...] body mechanics for loading and unloading the stone mason, vacuuming and laundry. Patient Education: Patient was instructed in correlation of strength and function to increase their understanding of the benefits related to completing the [facility] Rehab program Crate 10#, body mechanics, spine [...] doing dishes etc.)??with Sx < or = to??2 Progressing 11/22/20 *2. Pt will??be able to do work in the community garden??with Sx <??or = to 05/11 3. Pt will decrease morning stiffness by 50% Progressing 11/22/20 ?? Charge Account Identification Clerk Goals (>6 weeks): 1. Patient will be [...] long,??L-Ext:??#125, HEP:??[facility], Leonid Chair or panamanian ball, body weight auxs, and resistance bands [...]
--- OUTSIDE RECORDS SUMMARY | 2022-02-14 10:19 | XMS_ITS | Encounter Summary ---
:1940 Author Organization [facility] Address [address] [place] [address] Care Team Providers Name Role Phone Unavailable Primary Care Provider Unavailable Reason for Visit Reason Comments BACK PAIN Consult/Transfer Care (Routine) - Closed Specialty Diagnoses / Procedures Referred By Contact Refer red To Contact Physical Therapy Diagnoses Low back pain (HRC) Vilma Lawler MD [facility] [address] [address] [place] [address] [place], [address] [place] [address] Phone: Fax: Referral ID Status Reason Start Date Expiration Date Visits Requ ested Visits Authorized [id number] Closed 10/20/2020 01/19/[phone] Encounter Details Date Type Department Care Team Description 12/09/2020 Therapy Physicians Neck and Bianka Stewart Chro simon low back pain, unspecified back pain laterality, unspecified whether sciatica present (Primary Dx); Back Center [facility] sandro READING RECOVERY TEACHER Muscular deconditioning [address] [facility], [address] [facility] , [address] [place] [address] [place], [place] [phone] (Wo rk) Social History Tobacco Use Types Packs/Day Years Used Date Smoking Tobacco: Never Assessed Sex Assigned at Date Recorded Not on file documented as of this encounter Progress Notes Bianka Stewart, GAYE - 12/09/2020 10:45 AM CDT 12/09/2020 Visit # 7 Protocol: Back Start: 10:47 am End: 11:21 am (READING RECOVERY TEACHER Visit # 5 Subjective: Patient reports increased [...] or torso rotation Tests performed today ([facility] for score and outcomes): : None Performed [...] doing dishes etc.)??with Sx < or = to??210??Progressing 11/22/20 *2. Pt will??be able to do work in the community garden??with Sx <??or = to 10 3. Pt will decrease morning stiffness by 50%??Progressing 11/22/20 ?? Hat Presser Goals (>6 weeks): 1. Patient will be [...] too long,??L-Ext:??#125, HEP:??[facility],??Leonid Chair or saudi arabian ball, body weight auxs, and resistance bands [...] Observed treatment. Goals/Plan of Care discussed with READING RECOVERY TEACHER. Treatment progressing and appropriate. Vega Beltre, ULISES 12/09/2020, 12:36 PM documented in this encounter Plan of Treatment Not on filedocumented as of this encounter Visit Diagnoses Diagnosis Chronic low back pain, unspecified back pain laterality, unspecified whether sciatica present - Primary Muscular deconditioning Muscular wasting and disuse atrophy, not elsewhere classified documented in this encounter
--- OUTSIDE RECORDS SUMMARY | 2022-02-14 10:19 | XMS_ITS | Encounter Summary ---
:1940 Author Organization [facility] Address [address] [place] [address] Care Team Providers Name Role Phone Unavailable Primary Care Provider Unavailable Reason for Visit Reason Comments BACK PAIN, LOW Consult/Transfer Care (Routine) - Closed Specialty Diagnoses / Procedures Referred By Contact Refer red To Contact Physical Therapy Diagnoses Low back pain (HRC) Vilma Lawler MD [facility] [address] [address] [place] [address] [address], [address] [place] [address] Phone: Fax: Referral ID Status Reason Start Date Expiration Date Visits Requ ested Visits Authorized [id number] Closed 10/20/2020 01/19/[phone] Encounter Details Date Type Department Care Team Description 01/02/2021 Therapy Physicians Neck and Stan Wynn, Rudi onic low back pain, unspecified back pain laterality, unspecified whether sciatica present (HRC) (Primary Dx); Back Center [facility] Muscular deconditioning [address] [facility], [address] [facility] , [address] [place] [address] [place], [place] [phone] (Wo rk) Social History Tobacco Use Types Packs/Day Years Used Date Smoking Tobacco: Never Assessed Sex Assigned at Date Recorded Not on file documented as of this encounter Progress Notes Stan Wynn, GAYE - 01/02/2021 10:00 AM CDT 01/02/2021 Visit # 13 Protocol: Back Start: 956a End: 1025a (DROP TESTER Visit # 1 Subjective: Pt reports less [...] of the benefits related to completing the [facility] Rehab program Cues to slow [...] decrease morning stiffness by 50%??MET 12/28/20 ?? Correction Goals (>6 weeks): 1. Patient will be [...] too long,??L-Ext:??#125, HEP:??[facility],??Leonid Chair or sierra leonean ball, body weight auxs, and resistance bands at home,??11/10/20:??Recommended 8-12 weeks of therapy 2x per week (16-24 visits) ?? Recommendations/Communication: 60% Lumbar extension and 80% thoracic rotation next. Continue treatment per PT POC. Plan 2 more visits. Plans to either get [employer] or Community [employer] gym membership this week. LEONID CHAIR review, [...]
--- OUTSIDE RECORDS SUMMARY | 2022-02-14 10:19 | XMS_ITS | Clinical Summary ---
:1940 Author Organization [facility] [place] [address] Care Team Providers Name Role Phone Vilma [...] spray Active Problems No known active problems Encounters Date Type Specialty Care Team Description 12/15/2021 Orders Only <No scans attac hed> from Last 3 Months Immunizations Name Administration Dates Next Due COVID-19 vaccine (Moderna 100mcg/0.5mL) MERY RAMIRES 06/04/2020 Social History Tobacco Use Types Packs/Day Years Used Date Never Smoker Smokeless Tobacco: Never Used Tobacco Cessation: Counseling Given: Yes Sex Assigned at Date Recorded Not on file Obstetrics History Last Filed Vital Signs Vital Sign Reading Time Taken Comments Blood Pressure 137/77 05/01/2019 10:28 AM COPY READER Pulse 63 05/01/2019 10:28 AM COPY READER Temperature 36.4 ??C (97.6 ??F) 05/01/2019 10:28 AM COPY READER Respiratory Rate - - Oxygen Saturation 98% 05/01/2019 10:28 AM COPY READER Inhaled Oxygen Concentration - - Weight 92.3 kg (203 lb 6.4 oz) 05/01/2019 10:28 AM COPY READER shoes on Height - - Body Mass Index - - Plan of Treatment Health Maintenance Due Date Last Done Comments Tdap 1953 Depression screening for age 12+ 1954 BMI (ht and wt on same day) for age 0811/08/1960 18+ Hepatitis C screening for age 18-79 1960 Tetanus booster 1962 Zoster (shingles) series for age 50+ 1992 (1 of 2) Medicare Wellness for age 65+ 11/09/2007 Pneumococcal series for age 65+ (1 - 11/09/2007 PCV) COVID-19 vaccine series (4 - Booster 09/05/2021 07/11/2021, 01/20/2021, for Moderna series) 06/04/2020 Influenza for age 65+ 11/30/2021 Procedures Procedure Name Priority Date/Time Associated Diagnosis Comme nts ECHO COMPLETE WO Routine 12/15/2021 8:48 AM Nonrheumatic aorti c Results for this CONTRAST CDT (valve) insufficiency proced ure are in the results section. from Last 3 Months Results ECHO COMPLETE WO CONTRAST (12/15/2021 8:48 AM CDT) P athologist Signature AORTIC VALVE 5 mmHg MEAN PG EJECTION 63 % FRACTION PEAK TR 2.6 m/s VELOCITY LVEDD 5.0 cm MITRAL VALVE MR 16 mm2 ERO Anatomical Region Laterality Modality HEART Ultrasound Specimen (Source) Anatomical Collection Method Collection Time Re ceived Time Location / / Volume Laterality 12/15/2021 8:02 AM CDT Narrative 12/15/2021 9:31 AM CDT ECHOCARDIOGRAM JAMIL ANGEL ? Accessi on#: ?? [id number] : ?1940 81 years Study Date: ?? 12/15/2021 8:02:36 AM Gender: M ?BP: ? 148/71 mmHg Height: 188.00 cm ?BSA: ?2.12 m? ?? Weight: 86.00 kg ? Tech: ? MJJ ? Referring MD: VILMA LAWLER Site: ? [facility] Reading Location: MOBILE-OP Procedure: 2D, Color Doppler and Spectra l Doppler. Indication for study: Nonrheumatic aorti c (valve) insufficiency Cardiac Rhythm: Regular.Study quality: F air. Final Impressions: 1. Normal left ventricular size, modera tely increased wall thickness in a concentric pattern, normal global and regional systolic function, calculated EF of 63 %. 2. Right ventricular cavity size is mil dly enlarged, global systolic RV function is borderline reduced. 3. The aortic valve is trileaflet and s clerotic, no stenosis and mild regurgitation. 4. The mitral valve is abnormal with mi ld posterior leaflet prolapse, mild mitral regurgitation. 5. 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 Mild-moderate tricuspid regurgitation. 6. 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 Comparison Compared to prior exam report of 12/18/19 20: - Tricuspid regurgitation has increased. Chamber Sizes and Function Normal left ventricular size, moderately increased wall thickness, normal global systolic function, calculated EF of 63 %. Moderate concentric left ventricular hypertrophy. No definite resting regional wall motion abnormality seen. Left atria l size is normal. Right ventricular cavity size is mildly enlarged, global systolic RV function is borderline reduced. The right atrium is mildly enlarged. Right atrial volume index is 44 ml/m? ??. Right atrial area is 26 cm? ??. The pulmonary artery is of normal size and origin. The sinus of Valsalva is dilated. The ascending aorta is normal for age/sex/bsa. Valves, RV Pressures and Diastolic Funct ion The aortic valve is trileaflet and scler otic, no stenosis and mild regurgitation. The mitral valve is abnormal with mild posterior leaflet prolapse, mild mitral regurgitation. Spectral Doppler shows Gra de 1 pattern of LV diastolic filling. Th e tricuspid valve is abnormal with tricuspid valve prolapse. Tricuspid regurgitation is mild-moderate. The tricuspid regurgitant velocity is 2.6 m/s, the estimate d right ventricular systolic pressure is 26 mmHg plus right atrial pressure. There is normal estimated pulmonary pressure by tricuspid regurgitation velocity and right atrial pressure. The pulmonic valv e is normal. Mild pulmonary regurgitatio n. Pulmonary veins show a normal flow pattern. Masses, Effusion, Shunts There is no pericardial effusion. The in ferior vena cava is normal sized, respiratory size variation greater than 50%. No left to right shunting was detected by limited color flow Doppler interrogation of the interatrial septum. MEASUREMENTS AND CALCULATIONS 2-D Measurements and LV Function: LVID (d) 5.0 cm Planimetered EF 63 % LVID (s) 2.4 cm LV FS% (2D) ? 53 % IVS (d) ??1.4 cm LVOT diameter ?? 2.0 cm LVPW (d) 1.3 cm HR ?5 6 bpm Ao Sinus 3.9 cm LA Vol index ?25 ml/ m2 Asc Ao ?? 3.9 cm RA Vol index ?44 ml /m2 LA ? 3.7 cm RA area ? 2 6 cm?RV Max 4C (d) ?? 3.8 cm Diastology: Mitral ?Tissue Doppler ?Pulmonary veins E Peak 0.6 m/s ??e', Septum ? 0.05 m /s Pulm s ?47.2 cm/s A Peak 0.7 m/s ??e', Lateral ?0.08 m /s Pulm d ?45.4 cm/s E/A ?0.9 ?E/e' Average ?? 8.6 6 ? Pulm s/d ratio ??1.04 DT ? 450 msec IVRT ?? 90 msec Aortic Valve: Vmax ? 1.6 m/s ??CHACORTA (V) ?? 1.49 cm? AI P 1/2 639 msec VTI ?0.30 m ?? CHACORTA (I) ?? 1.75 cm? AI Vol ?? 92 ml LVOT V max 0.8 m/s ??Max PG ?10 mmHg LVOT VTI ?? 0.17 m ?? Mean PG ?? 5 mmHg SV ? 52 ml ?Dim Index 0.57 SV index ?? 25 ml/m? ?? CO ?2.9 l/min ?CI ?1.4 l/min/m? ?? Mitral Valve: MVA ? 1.7 cm?MR ERO ??0.16 cm? ?? MV P 1/2 ??131 msec MR Vol. 29 ml MV Mean G 1 mmHg ?? MR TVI ??1.85 m MV VTI ?0.30 m Tricuspid Valve and estimated PA pressur es: TR Vmax 2.6 m/s TAPSE 1.8 cm TR maxG 26 mmHg Pulmonic Valve: PIEDV 1.2 m/s . This study was interpreted by an [facility]. CC: [facility]. ??Final ?? Procedure Note Jesus Jeffries MD - 2 ECHOCARDIOGRAM JAMIL ANGEL : 1940 81 years Study Date: 12/15 8:02:36 AM Gender: M BP: 148/71 mmHg Height: 188.00 cm BSA: 2.12 m? ?? Weight: 86.00 kg Tech: KIMANI Referring MD: VILMA LAWLER Site: [facility] Reading Location: MOBILE-OP Procedure: 2D, Color Doppler and Spectra l Doppler. Indication for study: Nonrheumatic aorti c (valve) insufficiency Cardiac Rhythm: Regular.Study quality: F air. Final Impressions: 1. Normal left ventricular size, modera tely increased wall thickness in a concentric pattern, normal global and regional systolic function, calculated EF of 63 %. 2. Right ventricular cavity size is mil dly enlarged, global systolic RV function is borderline reduced. 3. The aortic valve is trileaflet and s clerotic, no stenosis and mild regurgitation. 4. The mitral valve is abnormal with mi ld posterior leaflet prolapse, mild mitral regurgitation. 5. 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 Mild-moderate tricuspid regurgitation. 6. 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 Comparison Compared to prior exam report of 12/18/19 20: - Tricuspid regurgitation has increased. Chamber Sizes and Function Normal left ventricular size, moderately increased wall thickness, normal global systolic function, calculated EF of 63 %. Moderate concentric left ventricular hypertrophy. No definite resting regional wall motion abnormality seen. Left atrial size is no rmal. Right ventricular cavity size is mildly enlarged, global systolic RV function is borderline reduced. The right atrium is mildly enlarged. Right atrial volume index is 44 ml/m? ??. Right atrial area is 26 cm? ??. The pulmonary artery is of normal size and origin. The sinus of Valsalva is dilated. The ascending aorta is normal for age/sex/bsa. Valves, RV Pressures and Diastolic Funct ion The aortic valve is trileaflet and scler otic, no stenosis and mild regurgitation. The mitral valve is abnormal with mild posterior leaflet prolapse, mild mitral regurgitation. Spectral Doppler shows Grade 1 pattern of LV diastolic filling. 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 Tricuspid regurgitation is mild-moderate. The tricuspid regurgitant velocity is 2.6 m/s, the estimated right ventricular systolic pressure is 26 mmHg plus right atrial pressure. There is normal estimated pulmonary pressure by tricuspid regurgitation velocity and right atrial pressure. The pulmonic valve is normal. Mild pulmonary regurgitation. Pulmonary veins show a no rmal flow pattern. Masses, Effusion, Shunts There is no pericardial effusion. The in ferior vena cava is normal sized, respiratory size variation greater than 50%. No left to right shunting was detected by limited color flow Doppler interrogation of the interatrial septum. MEASUREMENTS AND CALCULATIONS 2-D Measurements and LV Function: LVID (d) 5.0 cm Planimetered EF 63 % LVID (s) 2.4 cm LV FS% (2D) 53 % IVS (d) 1.4 cm LVOT diameter 2.0 cm LVPW (d) 1.3 cm HR 56 bpm Ao Sinus 3.9 cm LA Vol index 25 ml/m2 Asc Ao 3.9 cm RA Vol index 44 ml/m2 LA 3.7 cm RA area 26 cm? ?? RV Max 4C (d) 3.8 cm Diastology: Mitral Tissue Doppler Pulmonary veins E Peak 0.6 m/s e', Septum 0.05 m/s Pulm s 47.2 cm/s A Peak 0.7 m/s e', Lateral 0.08 m/s Pulm d 45.4 cm/s E/A 0.9 E/e' Average 8.66 Pulm s/d ratio 1.04 DT 450 msec IVRT 90 msec Aortic Valve: Vmax 1.6 m/s CHACORTA (V) 1.49 cm? ?? AI P 1/2 639 msec VTI 0.30 m CHACORTA (I) 1.75 cm? ?? AI Vol 92 ml LVOT V max 0.8 m/s Max PG 10 mmHg LVOT VTI 0.17 m Mean PG 5 mmHg SV 52 ml Dim Index 0.57 SV index 25 ml/m? ?? CO 2.9 l/min CI 1.4 l/min/m? ?? Mitral Valve: MVA 1.7 cm? ?? MR ERO 0.16 cm? ?? MV P 1/2 131 msec MR Vol. 29 ml MV Mean G 1 mmHg MR TVI 1.85 m MV VTI 0.30 m Tricuspid Valve and estimated PA pressur es: TR Vmax 2.6 m/s TAPSE 1.8 cm TR maxG 26 mmHg Pulmonic Valve: PIEDV 1.2 m/s . This study was interpreted by an [facility] facility. CC: [facility]. Final Vilma Lawler MD ECHO ORD from Last 3 Months Insurance Payer Benefit Plan / Subscriber ID Effective Dates Phone Addre ss Type Group MEDICARE PART A MEDICARE PART A [id number] 2007-[employer]en ATTN: CLAIMS - HB USE ONLY HB ONLY t [address] [place] [address] BLUE CROSS MR BLUE CROSS [id number] 2020-Presen [address] [address] [place] [address] [place], [place] ONLY [id number] JYOTI MONTES CROSS [id number] 2020-[employer]en [address] [address] [address] [place], [place] [id number] Guarantor Name Account Type Relation to Date of Phone Billing Address Patient Jamil Angel Personal/Family Self 1940 [address] (Home) [address] [place] [id number] Jamil Angel Personal/Family Self [address] [place] [address] (Home) [place] [address] Care Teams Endodontist Relationship Specialty Start Date End Date Vilma Lawler MD PCP - General Internal Medicine 10/30/161999 [place] [address]
--- OUTSIDE RECORDS SUMMARY | 2022-02-14 10:19 | XMS_ITS | Encounter Summary ---
:1940 Author Organization [facility] Address [address] [place] [address] Care Team Providers Name Role Phone Unavailable Primary Care Provider Unavailable Reason for Visit Reason Comments Patient Care Coordination Encounter Details Date Type Department Care Team Description 11/10/2020 Telephone Physicians Lela and Luis Rush P [facility] PT Coordination [address] [facility], [address] [facility] [address] [place] [address] [place], [place] [phone] Social History Tobacco Use Types Packs/Day Years Used Date Smoking Tobacco: Never Assessed Sex Assigned at Date Recorded Not on file documented as of this encounter Nursing Notes Yanira Roa - 11/15/2020 10:35 AM CDT Signed plan of care received from Dr Vilma Lawler. Scanned to media tab. Yanira Roa 11/15/2020, 10:36 AM Yanira Roa - 11/14/2020 8:20 AM CDT Called [facility] & spoke with staff regarding plan of care. Message taken by staff - will be sent to Dr Lawler's team. Will follow up again later in the week if no response is received. Yanira Roa 11/14/2020, 8:23 AM Yanira Roa - 11/10/2020 4:38 PM CDT Plan of care faxed to Vilma Lawler MD at [facility]. P: [phone] F: [phone] Yanira Roa 11/10/2020, 4:41 PM documented in this encounter Plan of Treatment Not on filedocumented as of this encounter Visit Diagnoses Not on filedocumented in this encounter
--- OUTSIDE RECORDS SUMMARY | 2022-02-14 10:19 | XMS_ITS | Encounter Summary ---
:1940 Author Organization [facility] Address [address] [place] [address] Care Team Providers Name Role Phone Unavailable Primary Care Provider Unavailable Reason for Visit Reason Comments BACK PAIN, LOW Consult/Transfer Care (Routine) - Closed Specialty Diagnoses / Procedures Referred By Contact Refer red To Contact Physical Therapy Diagnoses Low back pain (HRC) Vilma Lawler MD [facility] [address] [address] [place] [address] [place], [address] [place] [address] Phone: Fax: Referral ID Status Reason Start Date Expiration Date Visits Requ ested Visits Authorized [id number] Closed 10/20/2020 01/19/[phone] Encounter Details Date Type Department Care Team Description 12/21/2020 Therapy Physicians Neck and Stan Wynn Chr onic low back pain, unspecified back pain laterality, unspecified whether sciatica present (HRC) (Primary Dx); Back Center [facility] Muscular deconditioning [address] [facility], [address] [facility] , [address] [place] [address] [place], [place] [phone] (Wo rk) Social History Tobacco Use Types Packs/Day Years Used Date Smoking Tobacco: Never Assessed Sex Assigned at Date Recorded Not on file documented as of this encounter Progress Notes Stan Wynn, GAYE - 12/21/2020 10:45 AM CDT 12/21/2020 Visit # 9 Protocol: Back Start: 1036a End: 1106a (VICTIM ADVOCATE Visit # 2 Subjective: Pt reports low back did well after a week between visits. Aches after longer walks, getssore after 30 minutes or 1.5 miles. Overall doing pretty good. Cervical Not performed today. Objective Tests & Measures: Tests performed today (see [facility]flowok[facility]mond[facility] for score and outcomes): : None Performed [...] decrease morning stiffness by 50%??Progressing 11/22/20 ?? Intermediate Goals (>6 weeks): 1. Patient will be [...]
--- OUTSIDE RECORDS SUMMARY | 2022-02-14 10:19 | XMS_ITS | Encounter Summary ---
:1940 Author Organization [facility] Address [address] [place] [address] Care Team Providers Name Role Phone Unavailable Primary Care Provider Unavailable Reason for Visit Reason Comments BACK PAIN, LOW Consult/Transfer Care (Routine) - Closed Specialty Diagnoses / Procedures Referred By Contact Refer red To Contact Physical Therapy Diagnoses Low back pain (HRC) Vilma Lawler MD [facility] [address] [address] [place] [address] [place], [address] [place] [address] Phone: Fax: Referral ID Status Reason Start Date Expiration Date Visits Requ ested Visits Authorized [id number] Closed 10/20/2020 01/19/[phone] Encounter Details Date Type Department Care Team Description 01/11/2021 Therapy Physicians Neck and Stan Wynn, Rudi onic low back pain, unspecified back pain laterality, unspecified whether sciatica present (HRC) (Primary Dx); Back Center [facility] Muscular deconditioning [address] [facility], [address] [facility] , [address] [place] [address] [place], [place] [phone] (Wo rk) Social History Tobacco Use Types Packs/Day Years Used Date Smoking Tobacco: Never Assessed Sex Assigned at Date Recorded Not on file documented as of this encounter Progress Notes Stan Wynn, GAYE - 01/11/2021 10:15 AM CDT 01/11/2021 Visit # 15 Protocol: Back Start: 1009a End: 1047a (ROBOTIC WELDER Visit # 3 Subjective: Pt reports doing well and ready for discharge, no complaints of today. Cervical Not performed today. Objective Tests & Measures: Tests performed today (see reviewflowsheet for score and outcomes): : Oswestry Oswestry [...] of the benefits related to completing the [facility] Rehab program Domee printed and reviewed. Therapeutic activities with 40# [...] decrease morning stiffness by 50%??MET 12/28/20 ?? Fpc Goals (>6 weeks): 1. Patient will be [...] too long,??L-Ext:??#125, HEP:??[facility],??Leonid Chair or [place] citizen ball, body weight auxs, and resistance bands [...] decrease morning stiffness by 50%??MET 12/28/20 ?? Registered Client Associate Goals (>6 weeks): 1. Patient will [...] HEP Leonid Chair T-bands 05/02/2021, 5:47 PM UMER SERVICES ADVISOR documented in this encounter Plan of Treatment Not on filedocumented as of this encounter Visit Diagnoses Diagnosis Chronic low back pain, unspecified back pain laterality, unspecified whether sciatica present - Primary Muscular deconditioning Muscular wasting and disuse atrophy, not elsewhere classified documented in this encounter
--- OUTSIDE RECORDS SUMMARY | 2022-02-14 10:19 | XMS_ITS | Encounter Summary ---
:1940 Author Organization [facility] Address [address] [place] [address] Care Team Providers Name Role Phone Unavailable Primary Care Provider Unavailable Reason for Visit Reason Comments BACK PAIN, LOW Consult/Transfer Care (Routine) - Closed Specialty Diagnoses / Procedures Referred By Contact Refer red To Contact Physical Therapy Diagnoses Low back pain (HRC) Vilma Lawler MD [facility] [address] [address] [place] [address] [place], [address] [place] [address] Phone: Fax: Referral ID Status Reason Start Date Expiration Date Visits Requ ested Visits Authorized [id number] Closed 10/20/2020 01/19/[phone] Encounter Details Date Type Department Care Team Description 12/07/2020 Therapy Physicians Neck and Stan Wynn, Rudi onic low back pain, unspecified back pain laterality, unspecified whether sciatica present (Primary Dx); Back Center [facility] Muscular deconditioning [address] [facility], [address] [facility] , [address] [place] [address] [place], [place] [phone] (Wo rk) Social History Tobacco Use Types Packs/Day Years Used Date Smoking Tobacco: Never Assessed Sex Assigned at Date Recorded Not on file documented as of this encounter Progress Notes Stan Wynn, GLOBAL CMO - 12/07/2020 12:15 PM CDT 12/07/2020 Visit # 6 Protocol: Back Start: 1209p End: 1238p (GLOBAL CMO Visit # 4 Subjective: Pt reports walking still aggravates it yet. Sleeping and sitting in his favorite chairis fine per pt. Cervical Not performed today. Objective Tests & Measures: Tests performed today (see reviewst. vincent[facility] for score and outcomes): : None Performed [...] of the benefits related to completing the [facility] Rehab program Assessment: Amanda Angel tolerated [...] decrease morning stiffness by 50%??Progressing 11/22/20 ?? Custodial Goals (>6 weeks): 1. Patient will be [...]
--- OUTSIDE RECORDS SUMMARY | 2022-02-14 10:19 | XMS_ITS | Encounter Summary ---
:1940 Author Organization [facility] Address [address] [place] [address] Care Team Providers Name Role Phone Unavailable Primary Care Provider Unavailable Reason for Visit Reason Comments BACK PAIN, LOW Consult/Transfer Care (Routine) - Closed Specialty Diagnoses / Procedures Referred By Contact Refer red To Contact Physical Therapy Diagnoses Low back pain (HRC) Vilma Lawler MD [facility] [address] [address] [place] [address] [place], [address] [place] [address] Phone: Fax: Referral ID Status Reason Start Date Expiration Date Visits Requ ested Visits Authorized [id number] Closed 10/20/2020 01/19/[phone] Encounter Details Date Type Department Care Team Description 12/28/2020 Therapy Physicians Neck and Stan Wynn, Rudi onic low back pain, unspecified back pain laterality, unspecified whether sciatica present (HRC) (Primary Dx); Back Center [facility] Muscular deconditioning [address] [facility], [address] [facility] , [address] [place] [address] [place], [place] [phone] (Wo rk) Social History Tobacco Use Types Packs/Day Years Used Date Smoking Tobacco: Never Assessed Sex Assigned at Date Recorded Not on file documented as of this encounter Progress Notes Stan Wynn, GAYE - 12/28/2020 10:45 AM CDT 12/28/2020 Visit # 11 Protocol: Back Start: 1034a End: 1107a (REMANUFACTURING TECHNICIAN Visit # 4 Subjective: Pt reports more [...] of the benefits related to completing the [facility] Rehab program Goals reviewed. Assessment: Amanda Angel [...] decrease morning stiffness by 50%??MET 12/28/20 ?? Skilled Nursing Goals (>6 weeks): 1. [...] too long,??L-Ext:??#125, HEP:??[facility],??Leonid Chair or thai ball, body weight auxs, and resistance bands [...] Observed treatment. Goals/Plan of Care discussed with REMANUFACTURING TECHNICIAN. Treatment progressing and appropriate. Vega Beltre, ULISES 12/28/2020, 11:20 AM documented in this encounter Plan of Treatment Not on filedocumented as of this encounter Visit Diagnoses Diagnosis Chronic low back pain, unspecified back pain laterality, unspecified whether sciatica present - Primary Muscular deconditioning Muscular wasting and disuse atrophy, not elsewhere classified documented in this encounter
--- OUTSIDE RECORDS SUMMARY | 2022-02-14 10:19 | XMS_ITS | Encounter Summary ---
:1940 Author Organization [facility] Address [address] [place] [address] Care Team Providers Name Role Phone Unavailable Primary Care Provider Unavailable Reason for Visit Reason Comments BACK PAIN, LOW Consult/Transfer Care (Routine) - Closed Specialty Diagnoses / Procedures Referred By Contact Refer red To Contact Physical Therapy Diagnoses Low back pain (HRC) Vilma Lawler MD [facility] [address] [address] [place] [address] [place], [address] [place] [address] Phone: Fax: Referral ID Status Reason Start Date Expiration Date Visits Requ ested Visits Authorized [id number] Closed 10/20/2020 01/19/[phone] Encounter Details Date Type Department Care Team Description 11/17/2020 Therapy Physicians Neck and Neo Briones, Rudi onic low back pain, unspecified back pain laterality, unspecified whether sciatica present (Primary Dx); Back Center [facility] Muscular deconditioning [address] [facility], [address] [facility] [address] [place] [address] [place], [place] [phone] (Wo rk) Social History Tobacco Use Types Packs/Day Years Used Date Smoking Tobacco: Never Assessed Sex Assigned at Date Recorded Not on file documented as of this encounter Progress Notes Neo Briones, GAYE - 11/17/2020 4:30 PM CDT 11/17/2020 Visit # 3 Protocol: Back Start: 435 End: 506 (WARP TENSION TESTER Visit # 2 Subjective: Pt feels ok, states this new stretching program is helping more than the old one he had been doing. Cervical Not performed today. Objective Tests & Measures: Lum ext 38#, t-roto 24# Tests performed today (see reviewflowsheet for score [...] will decrease morning stiffness by 50% ?? Chcf Goals (>6 weeks): 1. Patient [...] when walks too long,??L-Ext:??#125, HEP:??Leonid Chair or italian ball, body weight auxs, and resistance bands [...]
--- OUTSIDE RECORDS SUMMARY | 2022-02-14 10:19 | XMS_ITS | Encounter Summary ---
:1940 Author Organization [facility] Address [address] [facility] [place] [address] Care Team Providers Name Role Phone Unavailable Primary Care Provider Unavailable Reason for Visit Reason Comments BACK PAIN, LOW Consult/Transfer Care (Routine) - Closed Specialty Diagnoses / Procedures Referred By Contact Refer red To Contact Physical Therapy Diagnoses Low back pain (HRC) Vilma Lawler MD [facility] [address] [address] [place] [address] [place], [address] [place] [address] Phone: Fax: Referral ID Status Reason Start Date Expiration Date Visits Requ ested Visits Authorized [id number] Closed 10/20/2020 01/19/[phone] Encounter Details Date Type Department Care Team Description 11/10/2020 Therapy Physicians Neck and Luis Rush C hronic low back pain, unspecified back pain laterality, unspecified whether sciatica present (Primary Dx); Back Center [facility] PT Muscular deconditioning [address] [facility], [address] [facility] [address] [place] [address] [place], [place] [phone] [id number] Social History Tobacco Use Types Packs/Day Years [...] strengthening, exercise bands FUNCTION Oswestry Disability Index: [id number]% Personal Care: morning stiffness Lifting: limited with heavy weights Walking: Sitting: Standing: to cook or do dishes Sleeping: Reading: Driving: Other Limitations: [employer] Pain Characteristics: See patient PAIN DIAGRAM and [...] back pain laterality, unspecified whether sciatica present ([facility]) M54.5 G89.29 2. Muscular deconditioning R29.898 [...] days (90 days max for [place] and [place] patients). Short Term Goals (4-6 weeks): (At Eval: 4/10 pain) *1. Pt will stand 45 min for household tasks (cooking, doing dishes etc.) with Sx < or = to 2/10 *2. Pt will be able to do work in the community garden with Sx < or = to 2/10 3. Pt will decrease morning stiffness by 50% Sports Clerk Goals (>6 weeks): 1. Patient will [...] Activities to prevent future injury/aggravation Discharge Plan: [place] in strength maintenance home exercise program TODAY'S INTERVENTIONS: Therapeutic Exercise Luis Rush, PT 11/10/2020, 4:26 PM 11/10/2020 Visit # 1 Protocol: Back Start: 12:09 End: 12:58 (MANAGER ENT Visit # 0 Subjective: see eval Cervical [...] perform. Pt verbalized full understanding. Access Code: [email or web address] URL: [email or web address] Date: 11/10/2020 Prepared by: Luis Rush Exercises [...] Pt will decrease morning stiffness by 50% Mcc Goals (>6 weeks): 1. Patient will [...] long, L-Ext: #125, HEP: Leonid Chair or cuban ball, body weight auxs, and resistance bands [...]
--- OUTSIDE RECORDS SUMMARY | 2022-02-14 10:19 | XMS_ITS | Clinical Summary ---
:1940 Author Organization [facility] Address [address] [place] [address] Care Team Providers Name Role Phone Unavailable [...] Phone Addre ss Type Group MEDICARE MEDICARE [id number] 2007-Presen [phone] M edicare MANAGED CARE t 67 BCBS BCBS BCBS TRIBE [id number] 2020-Presen [phone] [address] [id number] Medicare BLUE t 65 [place] [address] Amanda Angel Personal/Family Self 1940 [address] (Home) [address] [place] [address]
--- OUTSIDE RECORDS SUMMARY | 2022-02-14 10:19 | XMS_ITS | Encounter Summary ---
:1940 Author Organization [facility] Address [address] [address] Care Team Providers Name Role Phone Unavailable Primary Care Provider Unavailable Encounter Details Date Type Department Care Team Description 04/01/1989 PN Conversion Only PAYROLL ADMINISTRATIVE ASSISTANT [address] [place] [address] Social History Tobacco Use Types Packs/Day Years Used Date Smoking Tobacco: Never Assessed Sex Assigned at Date Recorded Not on file documented as of this encounter Plan of Treatment Not on filedocumented as of this encounter Visit Diagnoses Not on filedocumented in this encounter
--- OUTSIDE RECORDS SUMMARY | 2022-02-14 10:19 | XMS_ITS | Encounter Summary ---
:1940 Author Organization [facility] Address [address] [place] [address] Care Team Providers Name Role Phone Unavailable Primary Care Provider Unavailable Reason for Visit Reason Comments BACK PAIN, LOW Consult/Transfer Care (Routine) - Closed Specialty Diagnoses / Procedures Referred By Contact Refer red To Contact Physical Therapy Diagnoses Low back pain (HRC) Vilma Lawler MD [facility] [address] [address] [place] [address] [place], [address] [place] [address] Phone: Fax: Referral ID Status Reason Start Date Expiration Date Visits Requ ested Visits Authorized [id number] Closed 10/20/2020 01/19/[phone] Encounter Details Date Type Department Care Team Description 12/12/2020 Therapy Physicians Neck and Stan Wynn, Rudi onic low back pain, unspecified back pain laterality, unspecified whether sciatica present (Primary Dx); Back Center [facility] HUMAN SERVICES WORKER Muscular deconditioning [address] [facility], [address] [facility] , [address] [place] [address] [place], [place] [phone] (Wo rk) Social History Tobacco Use Types Packs/Day Years Used Date Smoking Tobacco: Never Assessed Sex Assigned at Date Recorded Not on file documented as of this encounter Progress Notes Stan Wynn, HUMAN SERVICES WORKER - 12/12/2020 10:45 AM CDT 12/12/2020 Visit # 8 Protocol: Back Start: 1042a End: 1112a (HUMAN SERVICES WORKER Visit # 1 Subjective: Pt reports he was sore over the weekend, probably from last workout. Will be gone one week, back next Saturday. Cervical Not performed today. Objective Tests & Measures: Tests performed today (see reviewflowcimar[facility] cityt for score and outcomes): : None Performed [...] of the benefits related to completing the [facility]hab program Assessment: Amanda Angel tolerated [...] decrease morning stiffness by 50%??Progressing 11/22/20 ?? Photographic Machine Operator Goals (>6 weeks): 1. Patient will [...] too long,??L-Ext:??#125, HEP:??[facility],??Leonid Chair or guamanian ball, body weight auxs, and resistance bands at home,??11/10/20:??Recommended 8-12 weeks of therapy 2x per week (16-24 visits) Recommendations/Communication: 100% Lumbar extension and 60% thoracic rotation next. Continue treatment per PT POC. Plan - more visits. Review goals. Total timed code [...]
--- OUTSIDE RECORDS SUMMARY | 2022-02-14 10:19 | XMS_ITS | Encounter Summary ---
:1940 Author Organization [facility] [employer] Address [address] [place] [address] Care Team Providers Name Role Phone Unavailable Primary Care Provider Unavailable Reason for Visit Reason Comments BACK PAIN, LOW Consult/Transfer Care (Routine) - Closed Specialty Diagnoses / Procedures Referred By Contact Refer red To Contact Physical Therapy Diagnoses Low back pain (HRC) Vilma Lawler MD [facility] [address] [address] [place] [address] [place], [address] [place] [address] Phone: Fax: Referral ID Status Reason Start Date Expiration Date Visits Requ ested Visits Authorized [id number] Closed 10/20/2020 01/19/[phone] Encounter Details Date Type Department Care Team Description 11/22/2020 Therapy Physicians Neck and Luis Rush C hronic low back pain, unspecified back pain laterality, unspecified whether sciatica present (Primary Dx); Back Center [facility] PT Muscular deconditioning [address] [facility], [address] [facility] [address] [place] [address] [place], [place] [phone] Social History Tobacco Use Types Packs/Day Years Used Date Smoking Tobacco: Never Assessed Sex Assigned at Date Recorded Not on file documented as of this encounter Progress Notes Luis Rush PT - 11/22/2020 11:15 AM CDT 11/22/2020 Visit # 4 Protocol: Back Start: 11:16 End: 11:54 (TRAVELING SECRETARY Visit # 2 Subjective: States he is [...] of the benefits related to completing the [facility] Rehab program. CORE info. Pt verbalized full [...] morning stiffness by 50% Progressing 11/22/20 ?? Barge Pilot Goals (>6 weeks): 1. Patient will be [...] long,??L-Ext:??#125, HEP:??[facility], Leonid Chair or ukrainian ball, body weight auxs, and resistance bands [...]
--- OUTSIDE RECORDS SUMMARY | 2022-02-14 10:19 | XMS_ITS | Encounter Summary ---
:1940 Author Organization [facility] Address [address] [place] [address] Care Team Providers Name Role Phone Unavailable Primary Care Provider Unavailable Reason for Visit Reason Comments BACK PAIN, LOW Consult/Transfer Care (Routine) - Closed Specialty Diagnoses / Procedures Referred By Contact Refer red To Contact Physical Therapy Diagnoses Low back pain (HRC) Vilma Lawler MD [facility] [address] [address] [place] [address] [place], [address] [place] [address] Phone: Fax: Referral ID Status Reason Start Date Expiration Date Visits Requ ested Visits Authorized [id number] Closed 10/20/2020 01/19/[phone] Encounter Details Date Type Department Care Team Description 01/09/2021 Therapy Physicians Neck and Stan Wynn, Rudi onic low back pain, unspecified back pain laterality, unspecified whether sciatica present (HRC) (Primary Dx); Back Center [facility] Muscular deconditioning [address] [facility], [address] [facility] , [address] [place] [address] [place], [place] [phone] (Wo rk) Social History Tobacco Use Types Packs/Day Years Used Date Smoking Tobacco: Never Assessed Sex Assigned at Date Recorded Not on file documented as of this encounter Progress Notes Stan Wynn, GAYE - 01/09/2021 10:45 AM CDT 01/09/2021 Visit # 14 Protocol: Back Start: 1042a End: 1112a (CRUDE TESTER Visit # 2 Subjective: Pt reports next [...] of the benefits related to completing the [facility] Rehab program Assessment: Amanda Angel tolerated [...] decrease morning stiffness by 50%??MET 12/28/20 ?? Insurance Account Specialist Goals (>6 weeks): 1. Patient will be [...] too long,??L-Ext:??#125, HEP:??[facility],??Leonid Chair or greenlandic ball, body weight auxs, and resistance bands [...]
--- OUTSIDE RECORDS SUMMARY | 2022-02-14 10:19 | XMS_ITS | Encounter Summary ---
:1940 Author Organization [employer] Address [address] [place] [address] Care Team Providers Name Role Phone Unavailable Primary Care Provider Unavailable Reason for Visit Reason Comments BACK PAIN Consult/Transfer Care (Routine) - Closed Specialty Diagnoses / Procedures Referred By Contact Refer red To Contact Physical Therapy Diagnoses Low back pain (HRC) Vilma Lawler MD [facility] [address] [address] [place] [address] [place], [address] [place] [address] Phone: Fax: Referral ID Status Reason Start Date Expiration Date Visits Requ ested Visits Authorized [id number] Closed 10/20/2020 01/19/[phone] Encounter Details Date Type Department Care Team Description 12/23/2020 Therapy Physicians Neck and Bianka Stewart Chro simon low back pain, unspecified back pain laterality, unspecified whether sciatica present (HRC) (Primary Dx); Back Center [facility] TELECOM SPECIALIST Muscular deconditioning [address] [facility], [address] [facility] , [address] [place] [address] [place], [place] [phone] (Wo rk) Social History Tobacco Use Types Packs/Day Years Used Date Smoking Tobacco: Never Assessed Sex Assigned at Date Recorded Not on file documented as of this encounter Progress Notes Bianka Stewart, GAYE - 12/23/2020 10:45 AM CDT 12/23/2020 Visit # 10 Protocol: Back Start: 10:50 am End: 11:22 am (TELECOM SPECIALIST Visit # 3 Subjective: PATIENT reports he is looking at joining the fitness center that do not cost him anything. ([place]) He has considered joining the Core but [...] ROM on exercises Tests performed today (see [facility] for score and outcomes): : [...] doing dishes etc.)??with Sx < or = to??/10??Progressing 11/22/20 *2. Pt will??be able to do work in the community garden??with Sx <??or = to 10 3. Pt will decrease morning stiffness by 50%??Progressing 11/22/20 ?? Joint Terminal Attack Controller Goals (>6 weeks): 1. Patient will be [...] too long,??L-Ext:??#125, HEP:??[facility],??Leonid Chair or andorran ball, body weight auxs, and resistance bands [...]
--- OUTSIDE RECORDS SUMMARY | 2022-02-14 10:19 | XMS_ITS | Encounter Summary ---
:1940 Author Organization [facility] Address [address] [place] [address] Care Team Providers Name Role Phone Unavailable Primary Care Provider Unavailable Reason for Visit Reason Comments BACK PAIN, LOW Consult/Transfer Care (Routine) - Closed Specialty Diagnoses / Procedures Referred By Contact Refer red To Contact Physical Therapy Diagnoses Low back pain (HRC) Vilma Lawler MD [facility] [address] [address] [place] [address] [place], [address] [place] [address] Phone: Fax: Referral ID Status Reason Start Date Expiration Date Visits Requ ested Visits Authorized [id number] Closed 10/20/2020 01/19/[phone] Encounter Details Date Type Department Care Team Description 11/14/2020 Therapy Physicians Neck and Stan Wynn, Rudi onic low back pain, unspecified back pain laterality, unspecified whether sciatica present (Primary Dx); Back Center [facility] BIOCHEMISTRY TECHNOLOGIST Muscular deconditioning [address] [facility], [address] [facility] , [address] [place] [address] [place], [place] [phone] (Wo rk) Social History Tobacco Use Types Packs/Day Years Used Date Smoking Tobacco: Never Assessed Sex Assigned at Date Recorded Not on file documented as of this encounter Progress Notes Stan Wynn, BIOCHEMISTRY TECHNOLOGIST - 11/14/2020 10:00 AM CDT 11/14/2020 Visit # 2 Protocol: Back Start: 1000a End: 1035a (BIOCHEMISTRY TECHNOLOGIST Visit # 1 Subjective: Pt reports doing [...] will decrease morning stiffness by 50% ?? Snf Goals (>6 weeks): 1. Patient [...] long, L-Ext: #125, HEP: Leonid Chair or namibian ball, body weight auxs, and resistance bands [...]
[2022-02-14 12:11] LABS: Chloride* 110 mmol/L (96-114); Potassium* 4.6 mmol/L (3.6-5.1); Sodium* 141 mmol/L (135-149)
[2022-02-14 12:13] LABS: Creatinine* 1.1 mg/dL (0.5-1.5); Estimated Glomerular Filt Rate 68 ml/min
[2022-02-14 12:14] LABS: Blood Urea Nitrogen* 22 mg/dL (7-30); Calcium* 9.7 mg/dL (8.4-10.6); Carbon Dioxide* 27 mmol/L (20-32)
[2022-02-14 13:41] LABS: Glucose* 96 mg/dL (60-115)
[2022-02-19 11:16] LABS: Cholesterol* 153 mg/dL (90-199)
[2022-02-19 11:17] LABS: HDL Cholesterol* 68 mg/dL (>=40); LDL Cholesterol Calculated 76 mg/dL (<100); Triglycerides* 46 mg/dL (40-149)
== END 2022-02-14 10:10 | disposition home or self-care (01) ==
LOC: NFLDREF 10:09
PROVIDERS: PCP Internal Medicine; Visit Provider Internal Medicine
DX: I10 Essential (primary) hypertension (principal); E78.5 Hyperlipidemia, unspecified
CPT/HCPCS: 80048; 80061

== ENCOUNTER 2022-02-15 11:00 | Outpatient (CLI) | payer MEDICARE, SELFPAY ==
--- OUTSIDE RECORDS SUMMARY | 2022-02-28 14:07 | XMS_ITS | Clinical Summary ---
:1940 Author Organization [employer] [place] [address] Care Team Providers Name Role Phone Vilma [...] Comments Blood Pressure 137/77 05/01/2019 10:28 AM OFFICE SUPPORT SPECIALIST Pulse 63 05/01/2019 10:28 AM OFFICE SUPPORT SPECIALIST Temperature 36.4 ??C (97.6 ??F) 05/01/2019 10:28 AM OFFICE SUPPORT SPECIALIST Respiratory Rate - - Oxygen Saturation 98% 05/01/2019 10:28 AM OFFICE SUPPORT SPECIALIST Inhaled Oxygen Concentration - - Weight 92.3 kg (203 lb 6.4 oz) 05/01/2019 10:28 AM OFFICE SUPPORT SPECIALIST shoes on Height - - Body Mass [...] ECHOCARDIOGRAM JAMIL ANGEL ? Accessi on#: ?? [id number] : ?1940 81 years Study Date: ?? 12/15/2021 8:02:36 AM Gender: M ?BP: ? 148/71 mmHg Height: 188.00 cm ?BSA: ?2.12 m? ?? Weight: 86.00 kg ? Tech: ? MJJ ? Referring MD: VILMA LAWLER Site: ? [facility] Reading Location: MOBILE-OP Procedure: [...] . This study was interpreted [facility] CC: [facility]. ??Final ?? Procedure Note Jesus Jeffries MD - 2 ECHOCARDIOGRAM JAMIL ANGEL : 1940 81 years Study Date: 12/15 8:02:36 AM Gender: M BP: 148/71 mmHg Height: 188.00 cm BSA: 2.12 m? ?? Weight: 86.00 kg Tech: KIMANI Referring MD: VILMA LAWLER Site: [facility] Reading Location: MOBILE-OP Procedure: 2D, Color [...] . This study was interpreted by an [facility] facility. CC: [facility] [place]. Final Vilma Lawler MD ECHO ORD from Last 3 Months Insurance Payer Benefit Plan / Subscriber ID Effective Dates Phone Addre ss Type Group MEDICARE PART A MEDICARE PART A [id number] 2007-Presen ATTN: CLAIMS - HB USE ONLY HB ONLY t [address] [place] [address] [place]UE CROSS [place] BLUE CROSS [id number] 2020-Presen [address] [address] [place] [place], [place] [id number] JYOTI MONTES CROSS [id number] 2020-Presen [address] [address] [place] [id number] Guarantor Name Account Type Relation to Date of Phone Billing Address Patient Jamil Angel Personal/Family Self 1940 [address] (Home) [address] [place] [id number] Jamil Angel Personal/Family Self [address] [place] [address] (Home) [place] [address] Care Teams Admission Nurse Relationship Specialty Start Date End Date Vilma Lawler MD PCP - General Internal Medicine 10/30/161999 [place] [address]
--- OUTSIDE RECORDS SUMMARY | 2022-02-28 14:07 | XMS_ITS | Encounter Summary ---
:1940 Author Organization [facility] Address [address] [place] [address] Care Team Providers Name Role Phone Unavailable Primary Care Provider Unavailable Reason for Visit Reason Comments BACK PAIN, LOW Consult/Transfer Care (Routine) - Closed Specialty Diagnoses / Procedures Referred By Contact Refer red To Contact Physical Therapy Diagnoses Low back pain (HRC) Vilma Lawler MD [facility] [address] [address] [place] [address] [place], [address] [place] [address] Phone: Fax: Referral ID Status Reason Start Date Expiration Date Visits Requ ested Visits Authorized [id number] Closed 10/20/2020 01/19/[phone] Encounter Details Date Type Department Care Team Description 12/07/2020 Therapy Physicians Neck and Stan Wynn, Rudi onic low back pain, unspecified back pain laterality, unspecified whether sciatica present (Primary Dx); Back Center [facility] Muscular deconditioning [address] [facility], [address] [facility] , [address] [place] [address] [place], [place] [phone] (Wo rk) Social History Tobacco Use Types Packs/Day Years Used Date Smoking Tobacco: Never Assessed Sex Assigned at Date Recorded Not on file documented as of this encounter Progress Notes Stan Wynn, STAGE ELECTRICIAN - 12/07/2020 12:15 PM CDT 12/07/2020 Visit # 6 Protocol: Back Start: 1209p End: 1238p (STAGE ELECTRICIAN Visit # 4 Subjective: Pt reports walking still aggravates it yet. Sleeping and sitting in his favorite chairis fine per pt. Cervical Not performed today. Objective Tests & Measures: Tests performed today (see [facility] for score and outcomes): : [...] of the benefits related to completing the [facility] Rehab program Assessment: Amanda Angel [...] decrease morning stiffness by 50%??Progressing 11/22/20 ?? Halfway Goals (>6 weeks): 1. Patient will be [...] too long,??L-Ext:??#125, HEP:??[facility],??Leonid Chair or french ball, body weight auxs, and resistance bands [...]
--- OUTSIDE RECORDS SUMMARY | 2022-02-28 14:07 | XMS_ITS | Encounter Summary ---
:1940 Author Organization [facility] Address [address] [place] [address] Care Team Providers Name Role Phone Unavailable Primary Care Provider Unavailable Reason for Visit Reason Comments BACK PAIN Consult/Transfer Care (Routine) - Closed Specialty Diagnoses / Procedures Referred By Contact Refer red To Contact Physical Therapy Diagnoses Low back pain (HRC) Vilma Lawler MD [facility] [address] [address] [place] [address] [place], [address] [place] [address] Phone: Fax: Referral ID Status Reason Start Date Expiration Date Visits Requ ested Visits Authorized [id number] Closed 10/20/2020 01/19/[phone] Encounter Details Date Type Department Care Team Description 12/09/2020 Therapy Physicians Neck and Bianka Stewart Chro simon low back pain, unspecified back pain laterality, unspecified whether sciatica present (Primary Dx); Back Center [facility] sandro IGNITION MECHANIC Muscular deconditioning [address] [facility], [address] [facility] , [address] [place] [address] [place], [place] [phone] (Wo rk) Social History Tobacco Use Types Packs/Day Years Used Date Smoking Tobacco: Never Assessed Sex Assigned at Date Recorded Not on file documented as of this encounter Progress Notes Bianka Stewart, GAYE - 12/09/2020 10:45 AM CDT 12/09/2020 Visit # 7 Protocol: Back Start: 10:47 am End: 11:21 am (IGNITION MECHANIC Visit # 5 Subjective: Patient reports increased [...] or torso rotation Tests performed today (see [facility] for score and outcomes): : None [...] decrease morning stiffness by 50%??Progressing 11/22/20 ?? Phlebotomist Goals (>6 weeks): 1. Patient will be [...] too long,??L-Ext:??#125, HEP:??[facility],??Leonid Chair or mozambican ball, body weight auxs, and resistance bands [...] Observed treatment. Goals/Plan of Care discussed with IGNITION MECHANIC. Treatment progressing and appropriate. Vega Beltre, ULISES 12/09/2020, 12:36 PM documented in this encounter Plan of Treatment Not on filedocumented as of this encounter Visit Diagnoses Diagnosis Chronic low back pain, unspecified back pain laterality, unspecified whether sciatica present - Primary Muscular deconditioning Muscular wasting and disuse atrophy, not elsewhere classified documented in this encounter
--- OUTSIDE RECORDS SUMMARY | 2022-02-28 14:07 | XMS_ITS | Clinical Summary ---
:1940 Author Organization [facility] Address [address] [place] [address] Care Team Providers Name Role Phone Unavailable [...] Phone Addre ss Type Group MEDICARE MEDICARE [id number] 2007-Presen [phone] M edicare MANAGED CARE t 67 BCBS BCBS BCBS SUN'AQ [id number] 2020-Presen [phone] [address] [address] Medicare BLUE t 67 [place] [address] Amanda Angel Personal/Family Self 1940 [address] (Home) [address] [place] [address]
--- OUTSIDE RECORDS SUMMARY | 2022-02-28 14:07 | XMS_ITS | Encounter Summary ---
:1940 Author Organization [facility] Address [address] [place] [address] Care Team Providers Name Role Phone Unavailable Primary Care Provider Unavailable Reason for Visit Reason Comments Patient Care Coordination Encounter Details Date Type Department Care Team Description 11/10/2020 Telephone Physicians Lela and Luis Rush P [facility] PT Coordination [address] [facility], [address] [facility] [address] [place] [address] [place], [place] [phone] Social History Tobacco Use Types Packs/Day Years Used Date Smoking Tobacco: Never Assessed Sex Assigned at Date Recorded Not on file documented as of this encounter Nursing Notes Yanira Roa - 11/15/2020 10:35 AM CDT Signed plan of care received from Dr Vilma Lawler. Scanned to media tab. Yanira Roa 11/15/2020, 10:36 AM Yanira Roa - 11/14/2020 8:20 AM CDT Called [facility] & spoke with staff regarding plan of care. Message taken by staff - will be sent to Dr Lawler's team. Will follow up again later in the week if no response is received. Yanira Roa 11/14/2020, 8:23 AM Yanira Roa - 11/10/2020 4:38 PM CDT Plan of care faxed to Vilma Lawler MD at [facility]. P: [phone] F: [phone] Yanira Roa 11/10/2020, 4:41 PM documented in this encounter Plan of Treatment Not on filedocumented as of this encounter Visit Diagnoses Not on filedocumented in this encounter
--- OUTSIDE RECORDS SUMMARY | 2022-02-28 14:07 | XMS_ITS | Encounter Summary ---
:1940 Author Organization [facility] Address [address] [place] [address] Care Team Providers Name Role Phone Unavailable Primary Care Provider Unavailable Reason for Visit Reason Comments BACK PAIN, LOW Consult/Transfer Care (Routine) - Closed Specialty Diagnoses / Procedures Referred By Contact Refer red To Contact Physical Therapy Diagnoses Low back pain (HRC) Vilma Lawler MD [facility] [address] [address] [place] [address] [place], [address] [place] [address] Phone: Fax: Referral ID Status Reason Start Date Expiration Date Visits Requ ested Visits Authorized [id number] Closed 10/20/2020 01/19/[phone] Encounter Details Date Type Department Care Team Description 01/09/2021 Therapy Physicians Neck and Stan Wynn, Rudi onic low back pain, unspecified back pain laterality, unspecified whether sciatica present (HRC) (Primary Dx); Back Center [facility] Muscular deconditioning [address] [facility] [place], [address] [facility] , [address] [place] [address] [place], [place] [phone] (Wo rk) Social History Tobacco Use Types Packs/Day Years Used Date Smoking Tobacco: Never Assessed Sex Assigned at Date Recorded Not on file documented as of this encounter Progress Notes Stan Wynn, GAYE - 01/09/2021 10:45 AM CDT 01/09/2021 Visit # 14 Protocol: Back Start: 1042a End: 1112a (ASSOCIATE JUSTICE Visit # 2 Subjective: Pt reports next [...] of the benefits related to completing the [facility] Rehab program Assessment: Amanda Angel tolerated [...] decrease morning stiffness by 50%??MET 12/28/20 ?? Office Systems Technology Instructor Goals (>6 weeks): 1. Patient will be [...]
--- OUTSIDE RECORDS SUMMARY | 2022-02-28 14:07 | XMS_ITS | Encounter Summary ---
:1940 Author Organization [facility] Address [address] [place] [address] Care Team Providers Name Role Phone Unavailable Primary Care Provider Unavailable Reason for Visit Reason Comments BACK PAIN, LOW Consult/Transfer Care (Routine) - Closed Specialty Diagnoses / Procedures Referred By Contact Refer red To Contact Physical Therapy Diagnoses Low back pain (HRC) Vilma Lawler MD [facility] [address] [address] [place] [address] [place], [address] [place] [address] Phone: Fax: Referral ID Status Reason Start Date Expiration Date Visits Requ ested Visits Authorized [id number] Closed 10/20/2020 01/19/[phone] Encounter Details Date Type Department Care Team Description 11/17/2020 Therapy Physicians Neck and Neo Briones, Rudi onic low back pain, unspecified back pain laterality, unspecified whether sciatica present (Primary Dx); Back Center [facility] Muscular deconditioning [address] [facility], [address] [facility] [address] [place] [address] [place], [place] [phone] (Wo rk) Social History Tobacco Use Types Packs/Day Years Used Date Smoking Tobacco: Never Assessed Sex Assigned at Date Recorded Not on file documented as of this encounter Progress Notes Neo Briones, GAYE - 11/17/2020 4:30 PM CDT 11/17/2020 Visit # 3 Protocol: Back Start: 435 End: 506 (SLAG MIXER Visit # 2 Subjective: Pt feels ok, [...] will decrease morning stiffness by 50% ?? Halfway Goals (>6 weeks): 1. Patient [...] when walks too long,??L-Ext:??#125, HEP:??Leonid Chair or somali ball, body weight auxs, and resistance bands [...]
--- OUTSIDE RECORDS SUMMARY | 2022-02-28 14:07 | XMS_ITS | Encounter Summary ---
:1940 Author Organization [facility] Address [address] [facility] [place] [address] Care Team Providers Name Role Phone Unavailable Primary Care Provider Unavailable Reason for Visit Reason Comments BACK PAIN Consult/Transfer Care (Routine) - Closed Specialty Diagnoses / Procedures Referred By Contact Refer red To Contact Physical Therapy Diagnoses Low back pain (HRC) Vilma Lawler MD [facility] [address] [address] [place] [address] [place], [address] [place] [address] Phone: Fax: Referral ID Status Reason Start Date Expiration Date Visits Requ ested Visits Authorized [id number] Closed 10/20/2020 01/19/[phone] Encounter Details Date Type Department Care Team Description 12/02/2020 Therapy Physicians Lela and Bianka Stewart Chro simon low back pain, unspecified back pain laterality, unspecified whether sciatica present (Primary Dx); Back Center [facility] sandro MINERAL SURVEYOR Muscular deconditioning [address] [facility], [address] [facility] , [address] [place] [address] [place], [place] [phone] (Wo rk) Social History Tobacco Use Types Packs/Day Years Used Date Smoking Tobacco: Never Assessed Sex Assigned at Date Recorded Not on file documented as of this encounter Progress Notes Bianka Stewart, GAYE - 12/02/2020 7:00 AM CDT 12/02/2020 Visit # 5 Protocol: Back Start: 7:00 am End: 7:35 am (MINERAL SURVEYOR Visit # 3 Subjective: PATIENT had a slight soreness in the back after the last session but the ice really helps. Cervical Not performed today. Objective Tests & Measures: 80% Of max wt on torso rotation ROM changes: ROM on lumbar extension and torso rotation remain appropriate. Tests performed today (see [facility] for score and outcomes): : None Performed [...] body mechanics for loading and unloading the adjunct instructor of women's studies, vacuuming and laundry. Patient Education: Patient was [...] morning stiffness by 50% Progressing 11/22/20 ?? Harpsichord Maker Goals (>6 weeks): 1. Patient will be [...] long,??L-Ext:??#125, HEP:??[facility], Leonid Chair or peruvian ball, body weight auxs, [...]
--- OUTSIDE RECORDS SUMMARY | 2022-02-28 14:07 | XMS_ITS | Encounter Summary ---
:1940 Author Organization [facility] [employer] Address [address] [place] [address] Care Team Providers Name Role Phone Unavailable Primary Care Provider Unavailable Reason for Visit Reason Comments BACK PAIN Consult/Transfer Care (Routine) - Closed Specialty Diagnoses / Procedures Referred By Contact Refer red To Contact Physical Therapy Diagnoses Low back pain (HRC) Vilma Lawler MD [facility] [address] [address] [place] [address] [place], [address] [place] [address] Phone: Fax: Referral ID Status Reason Start Date Expiration Date Visits Requ ested Visits Authorized [id number] Closed 10/20/2020 01/19/[phone] Encounter Details Date Type Department Care Team Description 12/30/2020 Therapy Physicians Neck and Bianka Stewart Chro simon low back pain, unspecified back pain laterality, unspecified whether sciatica present (HRC) (Primary Dx); Back Center [facility] Muscular deconditioning [address] [facility], [address] [facility] , [address] [place] [address] [place], [place] [phone] (Wo rk) Social History Tobacco Use Types Packs/Day Years Used Date Smoking Tobacco: Never Assessed Sex Assigned at Date Recorded Not on file documented as of this encounter Progress Notes Bianka Stewart, GAYE - 12/30/2020 10:45 AM CDT 12/30/2020 Visit # 12 Protocol: Back Start: 10:45 am End: 11:15 am (FURNACE FIRER Visit # 5 Subjective: Patient reports he is stiff this am. He was able to walk 4-6 miles yesterday with only min pain at the very end of the walk. Cervical Not performed today. Objective Tests & Measures: 80% of max wt on torso rotation ROM changes: no changes in ROm Tests performed today (see [facility] for score and outcomes): : [...] of the benefits related to completing the [facility] Rehab program Patient demo's his lifting technique [...] too long,??L-Ext:??#125, HEP:??[facility],??Leonid Chair or namibian ball, body weight auxs, [...] Observed treatment. Goals/Plan of Care discussed with FURNACE FIRER. Treatment progressing and appropriate. Vega Beltre PT 12/30/2020, 1:05 PM documented in this encounter Plan of Treatment Not on filedocumented as of this encounter Visit Diagnoses Diagnosis Chronic low back pain, unspecified back pain laterality, unspecified whether sciatica present (HRC) - Primary Muscular deconditioning Muscular wasting and disuse atrophy, not elsewhere classified documented in this encounter
--- OUTSIDE RECORDS SUMMARY | 2022-02-28 14:07 | XMS_ITS | Encounter Summary ---
:1940 Author Organization [facility] Address [address] [place] [address] Care Team Providers Name Role Phone Unavailable Primary Care Provider Unavailable Reason for Visit Reason Comments BACK PAIN, LOW Consult/Transfer Care (Routine) - Closed Specialty Diagnoses / Procedures Referred By Contact Refer red To Contact Physical Therapy Diagnoses Low back pain (HRC) Vilma Lawler MD [facility] [address] [address] [place] [address] [place], [address] [place] [address] Phone: Fax: Referral ID Status Reason Start Date Expiration Date Visits Requ ested Visits Authorized [id number] Closed 10/20/2020 01/19/[phone] Encounter Details Date Type Department Care Team Description 11/14/2020 Therapy Physicians Neck and Stan Wynn, Rudi onic low back pain, unspecified back pain laterality, unspecified whether sciatica present (Primary Dx); Back Center [facility] MAINTENANCE SHOP TECHNICIAN Muscular deconditioning [address] [facility], [address] [facility] , [address] [place] [address] [place], [place] [phone] (Wo rk) Social History Tobacco Use Types Packs/Day Years Used Date Smoking Tobacco: Never Assessed Sex Assigned at Date Recorded Not on file documented as of this encounter Progress Notes Stan Wynn, MAINTENANCE SHOP TECHNICIAN - 11/14/2020 10:00 AM CDT 11/14/2020 Visit # 2 Protocol: Back Start: 1000a End: 1035a (MAINTENANCE SHOP TECHNICIAN Visit # 1 Subjective: Pt reports doing [...] will decrease morning stiffness by 50% ?? Nursing Home Goals (>6 weeks): 1. [...] long, L-Ext: #125, HEP: Leonid Chair or montserratian ball, body weight auxs, and resistance bands [...]
--- OUTSIDE RECORDS SUMMARY | 2022-02-28 14:07 | XMS_ITS | Encounter Summary ---
:1940 Author Organization [facility] Address [address] [place] [address] Care Team Providers Name Role Phone Unavailable Primary Care Provider Unavailable Reason for Visit Reason Comments BACK PAIN, LOW Consult/Transfer Care (Routine) - Closed Specialty Diagnoses / Procedures Referred By Contact Refer red To Contact Physical Therapy Diagnoses Low back pain (HRC) Vilma Lawler MD [facility] [address] [address] [place] [address] [place], [address] [place] [address] Phone: Fax: Referral ID Status Reason Start Date Expiration Date Visits Requ ested Visits Authorized [id number] Closed 10/20/2020 01/19/[phone] Encounter Details Date Type Department Care Team Description 11/22/2020 Therapy Physicians Neck and Luis Rush C hronic low back pain, unspecified back pain laterality, unspecified whether sciatica present (Primary Dx); Back Center [facility] PT Muscular deconditioning [address] [facility], [address] [facility] [address] [place] [address] [place], [place] [phone] Social History Tobacco Use Types Packs/Day Years Used Date Smoking Tobacco: Never Assessed Sex Assigned at Date Recorded Not on file documented as of this encounter Progress Notes Luis Rush PT - 11/22/2020 11:15 AM CDT 11/22/2020 Visit # 4 Protocol: Back Start: 11:16 End: 11:54 (SACK SEWER Visit # 2 Subjective: States he is [...] of the benefits related to completing the [facility] Rehab program. CORE info. Pt verbalized [...] morning stiffness by 50% Progressing 11/22/20 ?? Cut Off Saw Operator Metal Goals (>6 weeks): 1. Patient will be [...] long,??L-Ext:??#125, HEP:??[facility], Leonid Chair or tuvaluan ball, body weight auxs, and resistance bands [...]
--- OUTSIDE RECORDS SUMMARY | 2022-02-28 14:07 | XMS_ITS | Encounter Summary ---
:1940 Author Organization [facility] Address [address] [place] [address] Care Team Providers Name Role Phone Unavailable Primary Care Provider Unavailable Reason for Visit Reason Comments BACK PAIN Consult/Transfer Care (Routine) - Closed Specialty Diagnoses / Procedures Referred By Contact Refer red To Contact Physical Therapy Diagnoses Low back pain (HRC) Vilma Lawler MD [facility] [address] [address] [place] [address] [place], [address] [place] [address] Phone: Fax: Referral ID Status Reason Start Date Expiration Date Visits Requ ested Visits Authorized [id number] Closed 10/20/2020 01/19/[phone] Encounter Details Date Type Department Care Team Description 12/23/2020 Therapy Physicians Neck and Bianka Stewart Chro simon low back pain, unspecified back pain laterality, unspecified whether sciatica present (HRC) (Primary Dx); Back Center [facility] GLACIOLOGIST Muscular deconditioning [address] [facility], [address] [facility] , [address] [place] [address] [place], [place] [phone] (Wo rk) Social History Tobacco Use Types Packs/Day Years Used Date Smoking Tobacco: Never Assessed Sex Assigned at Date Recorded Not on file documented as of this encounter Progress Notes Bianka Stewart, GAYE - 12/23/2020 10:45 AM CDT 12/23/2020 Visit # 10 Protocol: Back Start: 10:50 am End: 11:22 am (GLACIOLOGIST Visit # 3 Subjective: PATIENT reports he is looking at joining the fitness center that do not cost him anything. ([place]) He has considered joining the Core but [...] ROM on exercises Tests performed today ([facility] and outcomes): : None [...] decrease morning stiffness by 50%??Progressing 11/22/20 ?? Chemical Handler Goals (>6 weeks): 1. Patient will be [...] too long,??L-Ext:??#125, HEP:??[facility],??Leonid Chair or british virgin islander ball, body weight auxs, and resistance bands [...]
--- OUTSIDE RECORDS SUMMARY | 2022-02-28 14:07 | XMS_ITS | Encounter Summary ---
:1940 Author Organization [facility] Address [address] [place] [address] Care Team Providers Name Role Phone Unavailable Primary Care Provider Unavailable Reason for Visit Reason Comments BACK PAIN, LOW Consult/Transfer Care (Routine) - Closed Specialty Diagnoses / Procedures Referred By Contact Refer red To Contact Physical Therapy Diagnoses Low back pain (HRC) Vilma Lawler MD [facility] [address] [address] [place] [address] [place], [address] [place] [address] Phone: Fax: Referral ID Status Reason Start Date Expiration Date Visits Requ ested Visits Authorized [id number] Closed 10/20/2020 01/19/[phone] Encounter Details Date Type Department Care Team Description 12/28/2020 Therapy Physicians Neck and Stan Wynn, Rudi onic low back pain, unspecified back pain laterality, unspecified whether sciatica present (HRC) (Primary Dx); Back Center [facility] Muscular deconditioning [address] [facility], [address] [facility] , [address] [place] [address] [place], [place] [phone] (Wo rk) Social History Tobacco Use Types Packs/Day Years Used Date Smoking Tobacco: Never Assessed Sex Assigned at Date Recorded Not on file documented as of this encounter Progress Notes Stan Wynn, GAYE - 12/28/2020 10:45 AM CDT 12/28/2020 Visit # 11 Protocol: Back Start: 1034a End: 1107a (FLYER REPAIRER Visit # 4 Subjective: Pt reports more [...] the benefits related to completing the [facility] Rehab program Goals reviewed. Assessment: Amanda [...] decrease morning stiffness by 50%??MET 12/28/20 ?? [facility] Goals (>6 [...] too long,??L-Ext:??#125, HEP:??[facility],??Leonid Chair or moldovan ball, body weight auxs, and resistance bands [...] Observed treatment. Goals/Plan of Care discussed with FLYER REPAIRER. Treatment progressing and appropriate. Vega Beltre, ULISES 12/28/2020, 11:20 AM documented in this encounter Plan of Treatment Not on filedocumented as of this encounter Visit Diagnoses Diagnosis Chronic low back pain, unspecified back pain laterality, unspecified whether sciatica present - Primary Muscular deconditioning Muscular wasting and disuse atrophy, not elsewhere classified documented in this encounter
--- OUTSIDE RECORDS SUMMARY | 2022-02-28 14:07 | XMS_ITS | Encounter Summary ---
:1940 Author Organization [facility] Address [address] [place] [address] Care Team Providers Name Role Phone Unavailable Primary Care Provider Unavailable Reason for Visit Reason Comments BACK PAIN, LOW Consult/Transfer Care (Routine) - Closed Specialty Diagnoses / Procedures Referred By Contact Refer red To Contact Physical Therapy Diagnoses Low back pain (HRC) Vilma Lawler MD [facility] [address] [address] [place] [address] [place], [address] [place] [address] Phone: Fax: Referral ID Status Reason Start Date Expiration Date Visits Requ ested Visits Authorized [id number] Closed 10/20/2020 01/19/[phone] Encounter Details Date Type Department Care Team Description 12/12/2020 Therapy Physicians Neck and Stan Wynn, Rudi onic low back pain, unspecified back pain laterality, unspecified whether sciatica present (Primary Dx); Back Center [facility] JEWELRY STORE MANAGER Muscular deconditioning [address] [facility], [address] [facility] , [address] [place] [address] [place], [place] [phone] (Wo rk) Social History Tobacco Use Types Packs/Day Years Used Date Smoking Tobacco: Never Assessed Sex Assigned at Date Recorded Not on file documented as of this encounter Progress Notes Stan Wynn, JEWELRY STORE MANAGER - 12/12/2020 10:45 AM CDT 12/12/2020 Visit # 8 Protocol: Back Start: 1042a End: 1112a (JEWELRY STORE MANAGER Visit # 1 Subjective: Pt reports he was sore over the weekend, probably from last workout. Will be gone one week, back next Saturday. Cervical Not performed today. Objective Tests & Measures: Tests performed today (see [facility] for score and outcomes): : None Performed [...] of the benefits related to completing the [facility] Rehab program Assessment: Amanda Angel tolerated [...] decrease morning stiffness by 50%??Progressing 11/22/20 ?? Sewage Reticulation Drafting Officer Goals (>6 weeks): 1. Patient will be [...] too long,??L-Ext:??#125, HEP:??[facility],??Leonid Chair or honduran ball, body weight auxs, and resistance bands [...]
--- OUTSIDE RECORDS SUMMARY | 2022-02-28 14:07 | XMS_ITS | Encounter Summary ---
:1940 Author Organization [facility] Address [address] [place] [address] Care Team Providers Name Role Phone Unavailable Primary Care Provider Unavailable Reason for Visit Reason Comments BACK PAIN, LOW Consult/Transfer Care (Routine) - Closed Specialty Diagnoses / Procedures Referred By Contact Refer red To Contact Physical Therapy Diagnoses Low back pain (HRC) Vilma Lawler MD [facility] [address] [address] [place] [address] [place], [address] [place] [address] Phone: Fax: Referral ID Status Reason Start Date Expiration Date Visits Requ ested Visits Authorized [id number] Closed 10/20/2020 01/19/[phone] Encounter Details Date Type Department Care Team Description 01/11/2021 Therapy Physicians Neck and Stan Wynn, Rudi onic low back pain, unspecified back pain laterality, unspecified whether sciatica present (HRC) (Primary Dx); Back Center [facility] Muscular deconditioning [address] [facility], [address] [facility] , [address] [place] [address] [place], [place] [phone] (Wo rk) Social History Tobacco Use Types Packs/Day Years Used Date Smoking Tobacco: Never Assessed Sex Assigned at Date Recorded Not on file documented as of this encounter Progress Notes Stan Wynn, GAYE - 01/11/2021 10:15 AM CDT 01/11/2021 Visit # 15 Protocol: Back Start: 1009a End: 1047a (TRUCK DRIVING INSTRUCTOR Visit # 3 Subjective: Pt reports doing [...] of the benefits related to completing the [facility] Rehab program Benchling printed and reviewed. Therapeutic activities with 40# [...] too long,??L-Ext:??#125, HEP:??[facility],??Leonid Chair or botswanan ball, body weight auxs, [...] decrease morning stiffness by 50%??MET 12/28/20 ?? Insulation Power Unit Tender Goals (>6 weeks): 1. Patient will be [...] HEP Leonid Chair T-bands 05/02/2021, 5:47 PM CTOR BUILDING documented in this encounter Plan of Treatment Not on filedocumented as of this encounter Visit Diagnoses Diagnosis Chronic low back pain, unspecified back pain laterality, unspecified whether sciatica present - Primary Muscular deconditioning Muscular wasting and disuse atrophy, not elsewhere classified documented in this encounter
--- OUTSIDE RECORDS SUMMARY | 2022-02-28 14:07 | XMS_ITS | Encounter Summary ---
:1940 Author Organization [facility] Address [address] [place] [address] Care Team Providers Name Role Phone Unavailable Primary Care Provider Unavailable Reason for Visit Reason Comments BACK PAIN, LOW Consult/Transfer Care (Routine) - Closed Specialty Diagnoses / Procedures Referred By Contact Refer red To Contact Physical Therapy Diagnoses Low back pain (HRC) Vilma Lawler MD [facility] [address] [address] [place] [address] [place], [address] [place] [address] Phone: Fax: Referral ID Status Reason Start Date Expiration Date Visits Requ ested Visits Authorized [id number] Closed 10/20/2020 01/19/[phone] Encounter Details Date Type Department Care Team Description 12/21/2020 Therapy Physicians Neck and Stan Wynn Chr onic low back pain, unspecified back pain laterality, unspecified whether sciatica present (HRC) (Primary Dx); Back Center [facility] Muscular deconditioning [address] [facility], [address] [facility] , [address] [place] [address] [place], [place] [phone] (Wo rk) Social History Tobacco Use Types Packs/Day Years Used Date Smoking Tobacco: Never Assessed Sex Assigned at Date Recorded Not on file documented as of this encounter Progress Notes Stan Wynn, GAYE - 12/21/2020 10:45 AM CDT 12/21/2020 Visit # 9 Protocol: Back Start: 1036a End: 1106a (RETAIL VISUAL MERCHANDISER Visit # 2 Subjective: Pt reports low back did well after a week between visits. Aches after longer walks, getssore after 30 minutes or 1.5 miles. Overall doing pretty good. Cervical Not performed today. Objective Tests & Measures: Tests performed today (see [facility] for score and outcomes): : None Performed [...]
--- OUTSIDE RECORDS SUMMARY | 2022-02-28 14:07 | XMS_ITS | Encounter Summary ---
:1940 Author Organization [facility] Address [address] [place] [address] Care Team Providers Name Role Phone Unavailable Primary Care Provider Unavailable Reason for Visit Reason Comments BACK PAIN, LOW Consult/Transfer Care (Routine) - Closed Specialty Diagnoses / Procedures Referred By Contact Refer red To Contact Physical Therapy Diagnoses Low back pain (HRC) Vilma Lawler MD [facility] [address] [address] [place] [address] [address], [address] [place] [address] Phone: Fax: Referral ID Status Reason Start Date Expiration Date Visits Requ ested Visits Authorized [id number] Closed 10/20/2020 01/19/[phone] Encounter Details Date Type Department Care Team Description 01/02/2021 Therapy Physicians Neck and Stan Wynn, Rudi onic low back pain, unspecified back pain laterality, unspecified whether sciatica present (HRC) (Primary Dx); Back Center [facility] Muscular deconditioning [address] [facility], [address] [facility] , [address] [place] [address] [place], [place] [phone] (Wo rk) Social History Tobacco Use Types Packs/Day Years Used Date Smoking Tobacco: Never Assessed Sex Assigned at Date Recorded Not on file documented as of this encounter Progress Notes Stan Wynn, GAYE - 01/02/2021 10:00 AM CDT 01/02/2021 Visit # 13 Protocol: Back Start: 956a End: 1025a (DIVORCE ATTORNEY Visit # 1 Subjective: Pt reports less [...] of the benefits related to completing the [facility] Rehab program Cues to slow down [...] too long,??L-Ext:??#125, HEP:??[facility],??Leonid Chair or uzbek ball, body weight auxs, and resistance bands at home,??11/10/20:??Recommended 8-12 weeks of therapy 2x per week (16-24 visits) ?? Recommendations/Communication: 60% Lumbar extension and 80% thoracic rotation next. Continue treatment per PT POC. Plan 2 more visits. Plans to either get [employer] or Community [employer] gym membership this week. LEONID CHAIR review, [...]
--- OUTSIDE RECORDS SUMMARY | 2022-02-28 14:08 | XMS_ITS | Encounter Summary ---
:1940 Author Organization [facility] Address [address] [facility] [place] [address] Care Team Providers Name Role Phone Unavailable Primary Care Provider Unavailable Reason for Visit Reason Comments BACK PAIN, LOW Consult/Transfer Care (Routine) - Closed Specialty Diagnoses / Procedures Referred By Contact Refer red To Contact Physical Therapy Diagnoses Low back pain (HRC) Vilma Lawler MD [facility] [address] [address] [place] [address] [place], [address] [place] [address] Phone: Fax: Referral ID Status Reason Start Date Expiration Date Visits Requ ested Visits Authorized [id number] Closed 10/20/2020 01/19/[phone] Encounter Details Date Type Department Care Team Description 11/10/2020 Therapy Physicians Neck and Luis Rush C hronic low back pain, unspecified back pain laterality, unspecified whether sciatica present (Primary Dx); Back Center [facility] Muscular deconditioning [address] [facility], [address] [facility] [address] [place] [address] [place], [place] [phone] [phone] Social History Tobacco Use Types Packs/Day Years [...] strengthening, exercise bands FUNCTION Oswestry Disability Index: [id number]% Personal Care: morning stiffness Lifting: limited with heavy weights Walking: Sitting: Standing: to cook or do dishes Sleeping: Reading: Driving: Other Limitations: [employer] Pain Characteristics: See patient PAIN DIAGRAM and [...] back pain laterality, unspecified whether sciatica present ([facility]) M54.5 G89.29 2. Muscular deconditioning R29.898 PROGNOSIS: [...] days (90 days max for [place] and [place] patients). Short Term Goals (4-6 weeks): (At Eval: 4/10 pain) *1. Pt will stand 45 min for household tasks (cooking, doing dishes etc.) with Sx < or = to 2/10 *2. Pt will be able to do work in the community garden with Sx < or = to 2/10 3. Pt will decrease morning stiffness by 50% Stoner Hand Goals (>6 weeks): 1. Patient will be [...] Activities to prevent future injury/aggravation Discharge Plan: [place] in strength maintenance home exercise program TODAY'S INTERVENTIONS: Therapeutic Exercise Luis Rush, PT 11/10/2020, 4:26 PM 11/10/2020 Visit # 1 Protocol: Back Start: 12:09 End: 12:58 (SCALEMAKER Visit # 0 Subjective: see eval Cervical [...] perform. Pt verbalized full understanding. Access Code: [email or web address] URL: [email or web address] App Review Source/ Date: 11/10/2020 Prepared by: Luis Rush Exercises [...] Pt will decrease morning stiffness by 50% Halfway Goals (>6 weeks): 1. Patient will [...] long, L-Ext: #125, HEP: Leonid Chair or spanish ball, body weight auxs, and resistance bands [...]
--- OUTSIDE RECORDS SUMMARY | 2022-02-28 14:08 | XMS_ITS | Encounter Summary ---
:1940 Author Organization [facility] Address [address] [address] Care Team Providers Name Role Phone Unavailable Primary Care Provider Unavailable Encounter Details Date Type Department Care Team Description 04/01/1989 PN Conversion Only RUBBER GRINDER [address] [place] [address] Social History Tobacco Use Types Packs/Day Years Used Date Smoking Tobacco: Never Assessed Sex Assigned at Date Recorded Not on file documented as of this encounter Plan of Treatment Not on filedocumented as of this encounter Visit Diagnoses Not on filedocumented in this encounter
== END 2022-02-15 11:01 | disposition home or self-care (01) ==
LOC: NFLDREF 02-28 13:04
PROVIDERS: PCP Internal Medicine; Visit Provider Internal Medicine
DX: N20.0 Calculus of kidney (principal)
CPT/HCPCS: 81001; 87086

== ENCOUNTER 2022-10-19 08:15 | Outpatient (CLI) | payer MEDICARE, BC, SELFPAY | END 2022-10-19 08:16 | disposition home or self-care (01) | LOC: NFLDREF 15:10 | PROVIDERS: PCP Internal Medicine; Referring Provider Internal Medicine; Visit Provider Internal Medicine | DX: E78.5 Hyperlipidemia, unspecified (principal); I10 Essential (primary) hypertension | CPT/HCPCS: 80048; 80061 ==

== ENCOUNTER 2023-02-19 08:03 | Outpatient (CLI) | payer MEDICARE, BC, SELFPAY | END 2023-02-19 08:04 | disposition home or self-care (01) | LOC: NFLDREF 02-22 18:41 | PROVIDERS: PCP Internal Medicine; Referring Provider Internal Medicine; Visit Provider Internal Medicine | DX: E78.5 Hyperlipidemia, unspecified (principal); I10 Essential (primary) hypertension | CPT/HCPCS: 80048; 80061 ==

== ENCOUNTER 2023-04-10 12:45 | Outpatient (CLI) | payer MEDICARE, BC, SELFPAY ==
--- OUTSIDE RECORDS SUMMARY | 2023-04-10 12:53 | XMS_ITS | Clinical Summary ---
Author Name Unknown Organization [facility] Address [address] [place] [address] Care Team Providers Care Doctor Of Chiropractic Name Role Phone Unavailable Primary Care Provider Unavailabl e Source Comments You are receiving this document as you are listed as the primary care provider,follow-up provider, or the patient has been referred to you for consultation.This is in compliance with the Medicare andMedicaid EHR Incentive Program,which states Providers who transition their patient to another setting of careor provider of care or refers their patient to another provider of care shouldprovide summary care record for each transition of care or referral. [facility] Resolved Problems Problem Noted Date Diagnosed Date Resolved Date Chronic low back pain 11/10/20202021 Muscular deconditioning 11/10/2020 02/0 04/2021 Immunizations Name Administration Dates Next Due DT Ped 08/21/1985 Social History Tobacco Use Types Packs/Day Years Used Date Smoking Tobacco: Never Assessed Sex and Gender Information Value Date Recorded Sex Assigned at Not on file Gender Identity Not on file Sexual Orientation Not on file Plan of Treatment Health Maintenance Due Date Last Done Comments Medicare Annual Wellness Visit 1940 COVID-19 Vaccine (#1) 05/11/1941 Zoster/Shingles (2 of 3) 11/05/2011 09/10/2011 DTaP/Tdap/Td (4 - Tdap) 03/13/2022 03/13/20 12, 09/20/2009, 08/21/1985 Influenza (#1) 2022 01/03/2021, 12/01, 12/31/2018, Additional history exists Pneumococcal 65+ Yrs Completed 03/03/2015, 09/21/19 10 HepA Aged Out No longer eligi ble based on patient's age to complete this topic HepB Aged Out No longer eligi ble based on patient's age to complete this topic Hib Aged Out No longer eligi ble based on patient's age to complete this topic IPV (Polio) Aged Out No longer eligi ble based on patient's age to complete this topic MCV4 Aged Out No longer eligi ble based on patient's age to complete this topic Amanda Angel Personal/Family Self 1940 [address] [place] [address]
--- OUTSIDE RECORDS SUMMARY | 2023-04-10 12:53 | XMS_ITS | Clinical Summary ---
Author Name Unknown Organization [facility] Address [place], [place] [address] Care Team Providers Care Director Search Marketing Strategies Name Role Phone Vilma Lawler MD Primary Care Provider [phone] Allergies No known active allergies Medications Medication Sig Dispensed Refills Start Date End Date Status losartan (COZAAR) 100 mg tablet 0 05/02/2017 Active scopolamine 1mg over 3 days (TRANSDERM SCOP) patch 0 06/02/2017 Ac tive simvastatin (ZOCOR) 20 mg tablet 0 06/02/2017 Active ipratropium (ATROVENT NASAL) 0.03 % nasal spray 0 06/27/2017 Active Active Problems No known active problems Immunizations Name Administration Dates Next Due COVID-19 vaccine (Moderna 100mcg/0.5mL) MERY RAMIRES 06/04/2020 Social History Tobacco Use Types Packs/Day Years Used Date Smoking Tobacco: Never Smokeless Tobacco: Never Tobacco Cessation:Counseling Given: Yes Social Connections Answer Date Recorded Frequency of Communication with Friends and Fami ly Not on file 04/01/2021 Financial Resource Strain Answer Date R ecorded Difficulty of Paying Living Expenses Not on file 04/01/2021 Difficulty of Paying Living Expenses Not on file 04/01/2021 Sex and Gender Information Value Date Recorded Sex Assigned at Not on file Gender Identity Not on file Sexual Orientation Not on file Obstetrics History Last Filed Vital Signs Vital Sign Reading Time Taken Comments Blood Pressure 137/77 05/01/2019 10:28 AM ENTERTAINMENT REPORTER Pulse 63 05/01/2019 10:28 AM ENTERTAINMENT REPORTER Temperature 36.4 ??C (97.6 ??F) 05/01/2019 10:[address] Respiratory Rate - - Oxygen Saturation 98% 05/01/2019 10:28 AM ENTERTAINMENT REPORTER Inhaled Oxygen Concentration - - Weight 92.3 kg (203 lb 6.4 oz) 05/01/2019 10:28 AM ENTERTAINMENT REPORTER shoes on Height - - Body Mass Index - - Plan of Treatment Health Maintenance Due Date Last Done Comments Tdap 1953 Depression screening for age 12+ 1954 BMI (ht and wt on same day) for age 18+ 1960 Tetanus booster 1962 Zoster (shingles) series for age 50+ (1 of 2) 1992 Medicare Wellness for age 65+ 11/09/2007 Pneumococcal series for age 65+ (1 of 1 - PCV) 11/09/2007 COVID-19 vaccine series (2022- season) 2022 07/11/2021, 01/20/2021, 06/04/2020 Influenza for age 65+ 11/30/2022 Care Teams Director Search Marketing Strategies Relationship Specialty Start Date End Date Vilma Lawler MD [address] [place] [address] PCP - General Internal Medicine 10/30/16
--- NOTE | 2023-04-10 13:00 | CRLHL7_ITS ---
For Patients: As a result of the Century Cures Act, medical imaging exams and procedure reports are released immediately into your electronic medical record. You may view this report before your referring provider. If you have questions, please contact your health care provider. Indication: Unspecified disorientation. Technique: T1 sagittal as well as diffusion, FLAIR and T2 axial images were obtained. No IV contrast. Comparison : None available. Findings : Several tiny foci of T2 signal abnormality are scattered in the cerebral white matter typical for mild small vessel ischemic change. 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 No evidence for acute infarct. No mass lesion or ventricular obstruction. No evidence for recent or remote intracranial hemorrhage. There is moderate symmetric cerebral atrophy, and minor atrophy of the cerebellum. Grossly normal flow voids are maintained in the intracranial vascular structures. The craniovertebral junction is unremarkable, with a patent foramen magnum. Both temporal bones are well aerated. Slight membrane thickening in the ethmoid labyrinth. Impression: 1. No acute intracranial pathology identified. 2. Mild presumed chronic microvascular ischemic changes. 3. Moderate cerebral atrophy. Dictated by Vivek Castaneda MD @ 04/10/2023 2:10:27 PM (Electronically Signed)
== END 2023-04-10 12:46 | disposition home or self-care (01) ==
LOC: MRI 12:46
PROVIDERS: PCP Internal Medicine; Visit Provider Internal Medicine
DX: R41.0 Disorientation, unspecified (principal); I67.82 Cerebral ischemia
CPT/HCPCS: 70551

== ENCOUNTER 2023-06-11 12:32 | Outpatient (CLI) | payer MEDICARE, BC, SELFPAY | END 2023-06-11 12:33 | disposition home or self-care (01) | LOC: NFLDREF 06-12 06:25 | PROVIDERS: PCP Internal Medicine; Referring Provider Internal Medicine; Visit Provider Registered Nurse | DX: R41.82 Altered mental status, unspecified (principal) | CPT/HCPCS: 87086 ==

== ENCOUNTER 2023-06-27 13:58 | Outpatient (CLI) | payer MEDICARE, BC, SELFPAY | END 2023-06-27 13:59 | disposition home or self-care (01) | LOC: NFLDREF 13:59 | PROVIDERS: PCP Internal Medicine; Visit Provider Internal Medicine | DX: Z01.818 Encounter for other preprocedural examination (principal) | CPT/HCPCS: 80048 ==

== ENCOUNTER 2023-07-09 09:52 | Outpatient (REF) | payer MEDICARE, BC, SELFPAY ==
--- OUTSIDE RECORDS SUMMARY | 2023-07-09 09:55 | XMS_ITS | Clinical Summary ---
Author Name Unknown Organization [facility] Address [address] [facility] [place] [address] Care Team Providers Care Shirt Cleaner Name Role Phone Janki Pace Primary Care Provider Leland Linton MD Unavailable Unavailable Yobani Rodriguez MD Unavailable Yael Milton Unavailable Justus Reina MD Unavailable Justus Reina MD Unavailable Allergies Active Allergy Reactions Criticality Noted Date Comments Lisinopril Cough 03/02/2008 ASHLEY cough Seasonal Allergies 11/14/2012 Medications Medication Sig Dispensed Refills Start Date End Date Status magnesium 250 MG tablet Take 1 tablet by mouth daily. 0 Active simvastatin (ZOCOR) 20 MG tabletIndications :Hyperlipidaemia LDL goal <100 Take 1 tablet (20 mg) by mouth every evening 90 tablet 3 11/14/2012 Active losartan (COZAAR) 100 MG tabletIndications :Essential hypertension, benign Take 1 tablet (100 mg) by mouth daily 90 tablet 3 01/15/2013 Active tamsulosin (FLOMAX) 0.4 MG capsule Take 1 capsule by mouth daily 0 Active Multiple Vitamins-Minerals (ONCOVITE) TABS Take 1 tablet by mouth daily 0 Active acetaminophen (TYLENOL) 325 MG tabletIndications :Microscopic hematuria Take 2 tablets (650 mg) by mouth every 4 hours as needed for mild pain 50 tablet 0 07/04/2023 Active senna-docusate (SENOKOT-S/ADRIAN LACE) 8.6-50 MG tabletIndications :Microscopic hematuria Take 1-2 tablets by mouth 2 times daily 30 tablet 0 07/04/2023 Active ondansetron (ZOFRAN ODT) 4 MG ODT tabIndications:Mi croscopic hematuria Take 1 tablet (4 mg) by mouth every 8 hours as needed for nausea 4 tablet 0 07/04/2023 Active oxyBUTYnin ER (DITROPAN XL) 5 MG 24 hr tabletIndications :Microscopic hematuria Take 1 tablet (5 mg) by mouth daily for 14 days 14 tablet 0 07/04/2023 07/18/2023 Active losartan (COZAAR) 50 MG tablet 0 07/03/2023 Active IBU OR PRN for hand pain 0 07/01/2023 Discontinued (Med Rec(No AVS / No eCancel)) ASPIRIN 81 MG PO CHEW 1 TABLET DAILY 0 07/01/2023 Discontinu ed (Med Rec(No AVS / No eCancel)) METAMUCIL SUNRISE OR 1 tsp in liquid daily 0 07/01/2023 Discontinued (Med Rec(No AVS / No eCancel)) FISH OIL 1000 MG PO CAPS 1 tablet daily 0 07/01/2023 Discontinu ed (Med Rec(No AVS / No eCancel)) sildenafil (VIAGRA) 100 MG tabletIndications :Erectile dysfunction Take 1 tablet by mouth daily as needed for erectile dysfunction. 20 tablet 5 01/03/2011 07/01/2023 Discontinued (Med Rec(No AVS / No eCancel)) cholecalciferol (VITAMIN D) 400 UNIT TABS Take 400 Units by mouth daily. 0 07/01/2023 Discontinued (Med Rec(No AVS / No eCancel)) Glucosamine-Chond roit-Vit C-Mn (GLUCOSAMINE CHONDROITIN 1500 COMPLEX) CAPS Take 1 tablet by mouth daily. 0 02/15/2012 07/01/2023 Discontinued (Med Rec(No AVS / No eCancel)) finasteride (PROSCAR) 5 MG tabletIndications :Benign prostatic hyperplasia with incomplete bladder emptying Take 1 tablet (5 mg) by mouth daily for 360 days 90 tablet 3 05/20/2023 07/01/2023 Discontinued (Med Rec(No AVS / No eCancel)) dutasteride (AVODART) 0.5 MG capsuleIndication s:Benign prostatic hyperplasia with incomplete bladder emptying Take 1 capsule (0.5 mg) by mouth daily 90 capsule 3 05/29/2023 07/01/2023 Discontinued (Med Rec(No AVS / No eCancel)) Hospital, Clinic, or Other Facility Administered Medication Ordered Dose Route Frequency Start Date End Date Status lidocaine (XYLOCAINE) 2 % external gelIndications:Microscopic hematuria UR ONCE 06/24/2023 06/24/2023 Ended Active Problems Problem Noted Date Diagnosed Date Advanced directives, counseling/discussion 06/04 Overview: [employer] [place] document received 06/03/12 and scanned under Media Tab Adjustment disorder with anxiety 03/13/2011 Hyperlipidemia with target LDL less than 100 Overview: Diagnosis updated by automated process. Provider to review and confirm. Essential hypertension, benign 08/15/2009 Tinnitus 08/15/2009 Resolved Problems Problem Noted Date Diagnosed Date Resolved Date Prostate cancer 08/15/2009 08/18/2010 Encounters Date Type Department Care Team Description 07/04/2023 9:45 AM CDT - 07/04/2023 11:[address] [facility] PeriOp Services [address] [place] [phone] Justus Reina MD Cystourethroscopy, left ureteroscopy, left ureteral washing, left retrograde pyelogram with interpretation of intraoperative fluoroscopic imaging, dilatation of the ureter with serial ureteral dilators/calibrators, left ureteral stent placement, laser on stand-by 07/04/2023 9:35 AM CDT Anesthesia Event [facility] PeriOp Services [address] [phone] Bailee Camacho MD 07/04/2023 7:50 AM CDT - 07/04/2023 1:04 PM CDT Hospital Encounter [facility] PreOP/PostOP [address] [address] Justus Reina MD Microscopic hematuria (Primary Dx) Discharge Disposition: Home or Self Care 07/04/[address] 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 [address] [phone] Microscopic hematuria (Primary Dx) 06/28/2023 Travel 06/24/2023 2:30 PM CDT Office Visit [facility] [address] [phone] Justus Reina MD Microscopic hematuria (Primary Dx); Urothelial carcinoma of kidney, left (H); Right renal stone 06/24/2023 Travel 06/21/2023 Travel 06/20/2023 9:39 AM CDT - 06/20/2023 11:59 PM CDT Hospital Encounter [facility] Imaging [address] [facility] [address] [place] [phone] Justus Reina MD Microscopic hematuria Discharge Disposition: Home or Self Care 06/20/2023 Travel 05/29/[address] [facility] [address] [place] [phone] Justus Reina MD 05/28/[address] [facility] [address] [place] [phone] Justus Reina MD 05/27/[address] [facility] [address] [facility] [address] [place] [phone] Justus Reina MD Appointment (Patient calling to schedule Cysto in [place] location per the request of Dr. Reina. ) 05/27/[address] [facility] [address] [place] [phone] Justus Reina MD Clinic Care Coordination - Follow-up 05/27/[address] [facility] [address] [place] [phone] Justus Reina MD Microscopic hematuria (Primary Dx) 05/24/2023 11:15 AM ROUGH PATCHER Lab [facility] [address] [facility] [address] [place] [phone] Microscopic hematuria 05/24/2023 Travel 05/21/[address] [facility] [address] [place] [phone] Justus Reina MD Call Back (Patient is calling the clinic back) 05/21/[address] [facility] [address] [place] [phone] Justus Reina MD Microscopic hematuria (Primary Dx) 05/20/2023 9:00 AM ROUGH PATCHER Office Visit [facility] [address] [place] [phone] Justus Reina MD Benign prostatic hyperplasia with incomplete bladder emptying (Primary Dx); Microscopic hematuria 05/20/2023 Travel from Last 3 Months Immunizations Name Administration Dates Next Due HepB 03/13/2012,10/12/2011,09/10/2011 Influenza (IIV3) PF 01/01/2012,01/10/2011,2009 Pneumococcal 23 valent 09/20/2009 TD,PF 7+ (Tenivac) 09/20/2009 TDAP Vaccine (Boostrix) 03/13/2012 Zoster vaccine, live 09/10/2011 Family History Medical History Relation Comments Neurologic Disorder Brother 2 parkinsons Cancer Brother 3 prostate Parkinsonism Brother 4 Arthritis Father Eye Disorder Father glaucoma Heart Disease Father congestive heart failure Hypertension Father Neurologic Disorder Father Parkinsons Parkinsonism Father Heart Disease Mother Hypertension Mother Relation Status Comments Brother 1 Alive x3 Brother 2 Brother 3 Brother 4 Brother 5 Father Mother Alive Social History Tobacco Use Types Packs/Day Years Used Date Smoking Tobacco: Never Tobacco Cessation:Counseling Given: Not Answered Alcohol Use Standard Drinks/Week Comments No 0.8 (1 standard drink = 0.6 oz p ure alcohol) Adolescent Education Answer Date Record ed Getting School Help Needed Not on file 12/29 Sex and Gender Information Value Date Recorded Sex Assigned at Male 06/24/2023 3:44 PM CDT Gender Identity Male 06/24/2023 3:44 PM CDT Sexual Orientation Straight 06/24/2023 3: 44 PM CDT Last Filed Vital Signs Vital Sign Reading Time Taken Comments Blood Pressure 150/77 07/04/2023 12:45 PM CDT Pulse 62 07/04/2023 12:45 PM CDT Temperature 36.1 ??C (97 ??F) 07/04/2023 12:45 PM CDT Respiratory Rate 15 07/04/2023 12:45 PM CDT Oxygen Saturation 96% 07/04/2023 12:45 PM CDT Inhaled Oxygen Concentration - - Weight 93.6 kg (206 lb 6.4 oz) 07/04/2023 8:03 A M CDT Height 188 cm (6' 2.02) 07/04/2023 8:03 AM CDT Body Mass Index 26.49 07/04/2023 8:03 AM CDT Plan of Treatment Upcoming Encounters Date Type Department Care Team (Latest Contact Info) Description 07/11/2023 11:00 AM CDT Hospital Encounter [facility] PeriOp Services [address] [place] [phone] Justus Reina MD [address] [place] [id number] 07/11/2023 11:00 AM CDT - 07/11/2023 12:[address] 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 07/11/2023 11:00 AM CDT Health Maintenance Due Date Last Done Comments ANNUAL REVIEW OF HM ORDERS 1942 CT COLONOGRAPHY 1942 FIT 1942 FLEX SIG 1942 sDNA (Cologuard) 1942 RSV VACCINE ( & 60+) (1 - 1-dose 60+ series) 2002 FALL RISK ASSESSMENT 11/09/2007 LIPID 11/14/2013 11/14/2012, 09/29, 08/30/2010, Additional history exists MEDICARE ANNUAL WELLNESS VISIT 11/14/2013 11/14/2012, 09/10/2011, 09/04/2010, Additional history exists GLUCOSE 11/15/2015 11/14/2012, 09/29, 08/30/2010, Additional history exists ADVANCE CARE PLANNING 06/04/2017 06/04/2012, 012 COLONOSCOPY 05/07/2022 05/07/2012, 06/30, 09/18/1999, Additional history exists COLORECTAL CANCER SCREENING 05/07/2022 PHQ-2 (once per calendar year) 2023 DTAP/TDAP/TD IMMUNIZATION (3 - Td or Tdap) 03/08/2032 03/08/2022, 03/13/2012, 09/20/2009 Pneumococcal Vaccine: 65+ Years Completed 03/03/2015, 09/20/2009 ZOSTER IMMUNIZATION Completed 08/15/2021, 04/03/2021, 09/10/2011, Additional history exists COVID-19 Vaccine Completed 01/29/2023, 12/2022, 01/04/2022, Additional history exists INFLUENZA VACCINE Completed 01/29/2023, , 01/03/2021, Additional history exists HPV IMMUNIZATION Aged Out No longer e ligible based on patient's age to complete this topic IPV IMMUNIZATION Aged Out No longer e ligible based on patient's age to complete this topic MENINGITIS IMMUNIZATION Aged Out No l onger eligible based on patient's age to complete this topic RSV MONOCLONAL ANTIBODY Aged Out No l onger eligible based on patient's age to complete this topic Goals Goal Patient Goal Type Associated Problems Recent Progress Patient-Stated? Author MYC ECC SURG ENROLL Care Plan MyC ECC SURG ENROLL No Ann Palma Care pathway for general surgery Care Plan Care pathway for general surgery No Radames Sanchez MYC ECC SURG DAY 10 MED Care Plan Care pathway for general surgery No Radames Sanchez Medical Devices Implanted Type Area Medical Legal Investigator Device Identifier Shelf Expiration Date Model / Serial / Lot Lens Intraocular Lens/Eye Implant Description:Cataract lens re placement done in [place] approx 2012. Stent Ureteral Polaris Ultra [id number] - [id number] Implanted:Qty: 1 on 07/04/2023 by Justus Reina MD at [facility] Stent Left: Abdomen [employer] [id number] 02/12/2026 [id number] / / [id number] Procedures Procedure Name Priority Date/Time Associated Diagnosis Comments XR SURGERY ARPITA FLUORO LESS THAN 5 MIN W STILLS Routine 07/04/2023 10:27 AM CDT NON-GYNECOLOGIC CYTOLOGY Routine 9:53 AM CDT ANE AIRWAY SUPRAGLOTTIC PERFORMABLE Routine 07/04/2023 9:43 AM CDT CYSTOSCOPY, WITH RETROGRADE PYELOGRAM AND URETERAL STENT INSERTION 07/04/2023 9:35 AM CDT Microscopic hematuria NON-GYNECOLOGIC CYTOLOGY Routine 12:12 PM CDT Microscopic hematuria LAB RESULT - HIM SCAN 06/27/2023 12:00 AM CDT EKG CARDIAC - HIM SCAN 4 12:00 AM CDT OH CYSTOURETHROSCOPY Routine 06/24/2023 3:04 PM CDT Microscopic hematuria CT UROGRAM WO & W CONTRAST Routine 06/20/2023 10:32 AM CDT Microscopic hematuria ISTAT CREATININE POCT Routine 06/20/2023 10:04 AM CDT URINE MICROSCOPIC EXAM Routine 4 11:11 AM ROUGH PATCHER Microscopic hematuria URINE MICROSCOPIC EXAM Routine 4 10:32 AM ROUGH PATCHER Microscopic hematuria URINALYSIS MACROSCOPIC Routine 4 8:44 AM ROUGH PATCHER Benign prostatic hyperplasia with incomplete bladder emptying OH MEASURE POST-VOID RESIDUAL URINE/BLADDER CAPACITY, US NON-IMAGING Routine 05/20/2023 Benign prostatic hyperplasia with incomplete bladder emptying from Last 3 Months Results * XR Surgery ARPITA L/T 5 Min Fluoro w Stills (07/04/2023 10:27 AM CDT) Narrative RADIANT - 07/04/2023 10:29 AM CDT This exam was marked as non-reportable because it will not be read by a radiologist or a [facility] non-radiologist provider. Justus Reina MD IMG DIAGNOSTIC ALEX GING ORDERABLES RADIANT * Cytology, non-gynecologic (07/04/2023 9:53 AM CDT) Only the most recent of2 resultswithin the time period is included. Final Diagnosis Specimen A Interpretation: Negative for High Grade Urothelial Carcinoma Adequacy: Satisfactory for evaluation 07/05/2023 11:17 AM CDT [facility] LABORATORY Gross Description A(1). Ureter, Left, left uretreral washings:A. Ureter, Left, left uretreral washings, Ureter Washing: Received 5 ml of clear, colorless fluid, processed as 1 Pap stained [employer]. 07/05/2023 11:17 AM CDT SPECIALTY LABS Performing Labs The technical component of this testing was completed at [facility] 07/05/2023 11:17 AM CDT SPECIALTY LABS [place] STRUCTURE OF LEFT URETER / Unknown 07/04/2023 9:53 AM CDT 07/04/2023 10:31 AM CDT Justus BYNUM [facility] Lab [address] [facility] Lab (1st floor, no room number) [place] [address], [facility] [address] [facility] [place] [address] * ANE AIRWAY SUPRAGLOTTIC PERFORMABLE (07/04/2023 9:43 AM CDT) Narrative Jesus Johnson APRN PROGRAMMABLE LOGIC CONTROLLER ASSEMBLER - 07/04/2023 9:43 AM CDT Jesus Johnson APRN PROGRAMMABLE LOGIC CONTROLLER ASSEMBLER ? 07/04/2023 ??9:44 AM Airway ? Patient location during procedure: OR ? Procedure Start/Stop Times: 07/04/2023 9:43 AM Staff - ? PROGRAMMABLE LOGIC CONTROLLER ASSEMBLER: Jesus Johnson APRN PROGRAMMABLE LOGIC CONTROLLER ASSEMBLER ? Performed By: CRNAIndications and Patient Condition ? Indications for airway management: bill-procedural and airway protection ? Induction type:intravenous ? Mask difficulty assessment: 0 - not attempted Final Airway Details ? Final airway type: supraglottic airway Supraglottic Airway Details ? Type: LMA ? Brand: I-Gel ? LMA size: 5 Post intubation assessment ? Placement verified by: capnometry, equal breath sounds and chest rise ? Number of attempts at approach: 1 ? Secured with: commercial tube tyler ? Ease of procedure: easy ? Dentition: Intact Medication(s) Administered Medication Administration Time: 07/04/2023 9:43 AM Bailee Camacho MD OH ANESTHESIA * LAB RESULT - HIM SCAN (06/27/2023 12:00 AM CDT) 06/27/2023 Provider Outside NON-BEAKER LAB TE STING * EKG CARDIAC - HIM SCAN (06/27/2023 12:00 AM CDT) 06/27/2023 Provider Outside ECG ORDERABLES * CT Urogram wo & w Contrast (06/20/2023 10:32 AM CDT) Anatomical Region Laterality Modality Abdomen/Pelvis, SUBRAD CT TIFFANIE DY, UMP CT ABDOMEN PELVIS, RAD CT Computed Tomography Impressions 06/20/2023 10:52 AM CDT IMPRESSION: 1. ??Large right renal calculus measuring up to 19 mm. A few small left renal calculi measuring up to 4 mm. 2. ??A 4 mm filling defect in the left renal pelvis may be a small stone, clot, debris, artifact or a small urothelial mass. Consider ureteroscopic visualization or a short interval follow-up CT urogram in about 3 months. No hydronephrosis. 3. ??Mild urinary bladder wall trabeculations, likely due to chronic bladder obstruction. 4. ??Mild prostatomegaly. CORINNA ANDERSON MD Narrative 06/20/2023 10:[address] UROGRAM WO & W CONTRAST 06/20/2023 10:32 AM CLINICAL HISTORY: Microscopic hematuria TECHNIQUE: CT urogram was performed without and following injection of IV contrast. Multiplanar reformats were obtained. Dose reduction techniques were used. CONTRAST: 100mL Isovue-370 COMPARISON: Ultrasound of the aorta on 09/27/2009 FINDINGS: LOWER CHEST: Small hiatal hernia. Mild bibasilar atelectasis. HEPATOBILIARY: A few subcentimeter hypodense lesions in the liver likely cysts. Cholecystectomy. PANCREAS: Normal. SPLEEN: Normal. ADRENAL GLANDS: Normal. KIDNEYS/BLADDER: RIGHT KIDNEY AND URETER: Nonobstructing calculus at the upper pole of the right kidney measuring 19 x 10 x 12 mm. Parapelvic cysts requiring no specific follow-up. No suspicious renal cortical masses. No hydronephrosis. No abnormal urothelial enhancement or filling defects in the renal collecting system and ureter. LEFT KIDNEY AND URETER: A few small nonobstructing calculi measuring up to 4 mm. Few cortical and parapelvic cysts requiring no specific follow-up. No abnormal urothelial enhancement in the renal collecting system and ureter. A tiny filling defect in the left renal pelvis measuring 4 mm (series 22, image 74), indeterminate. No hydroureteronephrosis. URINARY BLADDER: No urinary bladder calculi. Mild bladder wall trabeculations. Partially opacified urinary bladder without focal wall thickening or masses. BOWEL: No small bowel or colonic obstruction or inflammatory changes. Normal appendix. PELVIC ORGANS: Mild prostatomegaly with the median lobe indenting the bladder base. 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 No abdominal aortic aneurysm. No lymphadenopathy in the abdomen and pelvis. No free fluid or fluid collections. MUSCULOSKELETAL: Unremarkable. Procedure Note Corinna Anderson MD - 06/20/2023 CT UROGRAM WO & W CONTRAST 06/20/2023 10:32 AM CLINICAL HISTORY: Microscopic hematuria TECHNIQUE: CT urogram was performed without and following injection of IV contrast. Multiplanar reformats were obtained. Dose reduction techniques were used. CONTRAST: 100mL Isovue-370 COMPARISON: Ultrasound of the aorta on 09/27/2009 FINDINGS: LOWER CHEST: Small hiatal hernia. Mild bibasilar atelectasis. HEPATOBILIARY: A few subcentimeter hypodense lesions in the liver likely cysts. Cholecystectomy. PANCREAS: Normal. SPLEEN: Normal. ADRENAL GLANDS: Normal. KIDNEYS/BLADDER: RIGHT KIDNEY AND URETER: Nonobstructing calculus at the upper pole of the right kidney measuring 19 x 10 x 12 mm. Parapelvic cysts requiring no specific follow-up. No suspicious renal cortical masses. No hydronephrosis. No abnormal urothelial enhancement or filling defects in the renal collecting system and ureter. LEFT KIDNEY AND URETER: A few small nonobstructing calculi measuring up to 4 mm. Few cortical and parapelvic cysts requiring no specific follow-up. No abnormal urothelial enhancement in the renal collecting system and ureter. A tiny filling defect in the left renal pelvis measuring 4 mm (series 22, image 74), indeterminate. No hydroureteronephrosis. URINARY BLADDER: No urinary bladder calculi. Mild bladder wall trabeculations. Partially opacified urinary bladder without focal wall thickening or masses. BOWEL: No small bowel or colonic obstruction or inflammatory changes. Normal appendix. PELVIC ORGANS: Mild prostatomegaly with the median lobe indenting the bladder base. 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 No abdominal aortic aneurysm. No lymphadenopathy in the abdomen and pelvis. No free fluid or fluid collections. MUSCULOSKELETAL: Unremarkable. IMPRESSION: 1. Large right renal calculus measuring up to 19 mm. A few small left renal calculi measuring up to 4 mm. 2. A 4 mm filling defect in the left renal pelvis may be a small stone, clot, debris, artifact or a small urothelial mass. Consider ureteroscopic visualization or a short interval follow-up CT urogram in about 3 months. No hydronephrosis. 3. Mild urinary bladder wall trabeculations, likely due to chronic bladder obstruction. 4. Mild prostatomegaly. CORINNA ANDERSON MD Justus Reina MD [facility] CT ORDERABLES * Creatinine POCT (06/20/2023 10:04 AM CDT) Creatinine POCT 1.2 0.7 - 1.3 mg/dL 06/20/2023 10:08 AM CDT LABORATORY POC GFR, ESTIMATED POCT >60 >60 mL/min/1.7 3m2 06/20/2023 10:08 AM CDT [facility] LABORATORY POC Blood BLOOD SPECIMEN / Unknown 06/20/2023 10:04 AM CDT 06/20/2023 10:08 AM CDT Justus Reina MD LAB - BEAKER POCT [facility] LABORATORY POC [facility] Lab [address] Lab (1st floor, no room number) [place] [address] * (ABNORMAL) UMIC - Urine Micro Only (05/24/2023 11:11 AM ROUGH PATCHER) Only the most recent of2 resultswithin the time period is included. Bacteria Urine Moderate(A ) None Seen /HPF JONE 05/24/2023 11:23 AM ROUGH PATCHER RI LABORATORY RBC Urine 5-10(A) 0-2 /HPF /HPF JONE 05/24/2023 11:23 AM ROUGH PATCHER RI LABORATORY WBC Urine 0-5 0-5 /HPF /HPF JONE 05/24/2023 11:23 AM ROUGH PATCHER RI LABORATORY Urine URINE SPECIMEN OBTAINED BY CLEAN CATCH PROCEDURE / Unknown Non-blood Collection / Unknown 05/24/2023 11:11 AM ROUGH PATCHER 05/24/2023 11:11 AM ROUGH PATCHER Justus Reina MD LAB - URINE ORDERA BLES RI LABORATORY [facility] [address] [facility], [address] [place] [address], [facility] [phone] * (ABNORMAL) UA without Microscopic [[id number]] (05/20/2023 8:44 AM ROUGH PATCHER) Color Urine Yellow Colorless, Straw, Light Yellow, Yellow 05/20/2023 9:23 AM ROUGH PATCHER [facility] Appearance Urine Clear Clear 05/20/19 9:23 AM ROUGH PATCHER [facility] Glucose Urine Negative Negative mg/dL 05/20/2023 9:23 AM ROUGH PATCHER [facility] Bilirubin Urine Negative Negative 9:23 AM ROUGH PATCHER [facility] Ketones Urine Negative Negative mg/dL 05/20/2023 9:23 AM ROUGH PATCHER [facility] Specific [place] Urine 1.020 1.003 - 1.035 05/20/2023 9:23 AM ROUGH PATCHER [facility] Blood Urine Small(A) Negative 05/20/2023 9:23 AM ROUGH PATCHER [facility] pH Urine 6.0 5.0 - 7.0 05/20/2023 9:23 AM ROUGH PATCHER [facility] Protein Albumin Urine Trace(A) Negative mg/dL 05/20/2023 9:23 AM ROUGH PATCHER [facility] Urobilinogen Urine 0.2 0.2, 1.0 E.U./dL 05/20/2023 9:23 AM ROUGH PATCHER [facility] Nitrite Urine Negative Negative 05/20/2023 9:23 AM ROUGH PATCHER [facility] Leukocyte Esterase Urine Trace(A) Negative 05/20/2023 9:23 AM ROUGH PATCHER [facility] Urine MID-STREAM URINE SPECIMEN / Unknown Non-blood Collection / Unknown 05/20/2023 8:44 AM ROUGH PATCHER 05/20/2023 8:44 AM ROUGH PATCHER Justus Reina MD LAB - URINE ORDERA BLES [facility] [address] 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
--- OUTSIDE RECORDS SUMMARY | 2023-07-09 09:55 | XMS_ITS | Encounter Summary ---
Author Name Unknown Organization [place] Address [address] [place] [address]. 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) Social History Tobacco Use Types Packs/Day Years Used Date Smoking Tobacco: Never Alcohol Use Standard Drinks/Week Comments No 0.8 (1 standard drink = 0.6 oz p ure alcohol) Adolescent Education Answer Date Record ed Getting School Help Needed Not on file 12/29 Sex and Gender Information Value Date Recorded Sex Assigned at Male 06/24/2023 3:44 PM CDT Gender Identity Male 06/24/2023 3:44 PM CDT Sexual Orientation Straight 06/24/2023 3: 44 PM CDT documented as of this encounter Plan of Treatment Upcoming Encounters Date Type Department Care Team (Latest Contact Info) Description 07/11/2023 11:00 AM CDT Hospital Encounter [facility] [address] [place] [address] Justus Reina MD [address] [place], [place] [address] 07/11/2023 11:00 AM CDT - 07/11/2023 12:30 PM CDT Surgery [facility] [address] [place] [phone] Justus Reina MD [address] [place] [address] Cystoureteroscopy with left retrograde pyelogram, possible renal pelvis biopsy possible laser fulguration with stent exchange Scheduled Procedures Name Priority Associated Diagnoses Date/Ti la CYSTOURETEROSCOPY, WITH RETROGRADE PYELOGRAM, HOLMIUM LASER LITHOTRIPSY OF URETERAL CALCULUS, AND STENT INSERTION 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 documented in this encounter Additional Health Concerns Problem Noted Date Diagnosed Date MyC ECC SURG ENROLL 06/24/2023 Care pathway for general surgery 06/25/2023 documented as of this encounter Care Teams Finance Attorney Relationship Specialty Start Date End Date Janki Pace DO PCP - General Family Practice 06/19/10 Leland Linton MD RETIRED PCP - Orthopaedics Orthopedics 07/06/10 Yobani Rodriguez MD [address] [address] PCP - Ophthalmology Ophthalmology 11/02/10 Yael Milton [address] [address] PCP - Audiology Audiology 11/14/10 Justus Reina MD [address] [address] Urology 03/01/23 Justus Reina MD [address] [place] [address] [phone] Assigned Surgical Provider 06/14/23 documented as of this encounter
--- OUTSIDE RECORDS SUMMARY | 2023-07-09 09:55 | XMS_ITS | Encounter Summary ---
Author Name Unknown Organization [place] Address [address] [facility] [place] [address] Care Team Providers Care Motorcycle Police Name Role Phone Janki Pace Primary Care Provider Leland Linton MD Unavailable Unavailable Yobani Rodriguez MD Unavailable Yael Milton Unavailable Justus Reina MD Unavailable [phone] Justus Reina MD Unavailable [phone] Encounter Details Date Type Department Care Team (Latest Contact Info) Description 07/04/2023 Travel Social History Tobacco Use Types Packs/Day Years [...] Description 07/11/2023 11:00 AM CDT Hospital Encounter [facility] [address] [place] [phone] Justus Reina MD [address] [place] [address] 07/11/2023 11:00 AM CDT - 07/11/2023 12:30 PM CDT Surgery [facility] [address] [place] [address] Justus Reina MD [address] [place] [address] Cystoureteroscopy with left retrograde pyelogram, possible renal [...] documented as of this encounter Visit Diagnoses Not on filedocumented in this encounter Additional Health Concerns Problem Noted Date Diagnosed Date MyC ECC SURG ENROLL 06/24/2023 Care pathway for general surgery 06/25/2023 documented as of this encounter Care Teams Motorcycle Police Relationship Specialty Start Date End Date Janki Pace DO PCP - General Family Practice 06/19/10 Leland Linton MD RETIRED PCP - Orthopaedics Orthopedics 07/06/10 Yobani Rodriguez MD [address] [address] PCP - Ophthalmology Ophthalmology 11/02/10 Yael Milton [facility] [address] [place] [address] PCP - Audiology Audiology 11/14/10 Justus Reina MD [address] [address] Urology 03/01/23 Justus Reina MD [address] [place] [phone] Assigned Surgical Provider 06/14/23 documented as of this encounter
--- OUTSIDE RECORDS SUMMARY | 2023-07-09 09:55 | XMS_ITS | Encounter Summary ---
Author Name Unknown Organization [place] Address [address] [facility] [place] [address] Care Team Providers Care High School Music Director Name Role Phone DavonJanki porter Heidi SAUL Primary Care Provider Leland Linton MD Unavailable Unavailable Yobani Rodriguez MD Unavailable Yael Milton Unavailable Justus Reina MD Unavailable Justus Reina MD Unavailable [phone] Encounter Details Date Type Department Care Team (Late st Contact Info) Description 07/04/2023 MyC Medical Advice [facility] [address] [place] [address] Aniyah Anderson Social History Tobacco Use Types Packs/Day Years [...] 07/11/2023 11:00 AM CDT Hospital Encounter [facility]iOp [facility] [address] [place] [address] Justus Reina MD [address] [place] [address] 07/11/2023 11:00 AM CDT - 07/11/2023 12:[address] [facility] [address] [place] [address] Justus Reina MD [address] [place], [place] [address] Cystoureteroscopy with left retrograde pyelogram, possible renal pelvis biopsy possible laser fulguration with stent exchange Scheduled Procedures Name Priority Associated Diagnoses Date/Ti nj CYSTOURETEROSCOPY, WITH RETROGRADE PYELOGRAM, HOLMIUM LASER LITHOTRIPSY [...] documented as of this encounter Care Teams High School Music Director Relationship Specialty Start Date End Date Janki Pace DO PCP - General Family Practice 06/19/10 Leland Linton MD RETIRED PCP - Orthopaedics Orthopedics 07/06/10 Yobani Rodriguez MD [facility] [address] [place] [address] PCP - Ophthalmology Ophthalmology 11/02/10 Yael Milton [address] [address] PCP - Audiology Audiology 11/14/10 Justus Reina MD [address] [address] Urology 03/01/23 Justus Reina MD [address] [place] [address] Assigned Surgical Provider 06/14/23 documented as of this encounter
--- OUTSIDE RECORDS SUMMARY | 2023-07-09 09:55 | XMS_ITS | Clinical Summary ---
Author Name Unknown Organization [facility] Address [place], [place] [address] Care Team Providers Care Electrical Tests Supervisor Name Role Phone Vilma Lawler MD Primary Care Provider [phone] Allergies No known active allergies Medications Medication Sig Dispensed Refills Start Date End Date Status losartan (COZAAR) 100 mg tablet 05/02/2017 Active scopolamine 1mg over 3 days (TRANSDERM SCOP) patch 06/02/2017 Ac tive simvastatin (ZOCOR) 20 mg tablet 06/02/2017 Active ipratropium (ATROVENT NASAL) 0.03 % nasal spray 06/27/2017 Active Active Problems No known active [...] Comments Blood Pressure 137/77 05/01/2019 10:28 AM PIN PUSHER Pulse 63 05/01/2019 10:28 AM PIN PUSHER Temperature 36.4 ??C (97.6 ??F) 05/01/2019 10:[address] Respiratory Rate - - Oxygen Saturation 98% 05/01/2019 10:28 AM PIN PUSHER Inhaled Oxygen Concentration - - Weight 92.3 kg (203 lb 6.4 oz) 05/01/2019 10:28 AM PIN PUSHER shoes on Height - - Body Mass [...] 07/11/2021, 01/20/2021, 06/04/2020 Influenza for age 65+ 12/01/2023 Care Teams Electrical Tests Supervisor Relationship Specialty Start Date End Date Vilma Lawler MD [address] [place] [address] PCP - General Internal Medicine 10/30/16
--- OUTSIDE RECORDS SUMMARY | 2023-07-09 09:55 | XMS_ITS | Referral Summary ---
Author Name Unknown Organization [place] Address [address] [place] [address]. [place] [address] Care Team Providers Care Mental Health Consultant Name Role Phone Janki Pace Primary Care Provider Leland Linton MD Unavailable Unavailable Yobani Rodriguez MD Unavailable Yael Milton Unavailable Justus Reina MD Unavailable Justus Reina MD Unavailable Encounters Date Type Department Care Team Description 07/04/2023 MyC Medical Advice [facility] [address] [place] [address] Aniyah Anderson 07/04/2023 Prep for Procedure [facility] - Surgical Specialties Service Line [address] [place] [address] Justus Reina MD 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 [address] [place] [address] Bailee Camacho MD 07/04/2023 9:45 AM CDT - 07/04/2023 11:[address] [facility] [address] [place] [address] Justus Reina MD Cystourethroscopy, left ureteroscopy, left ureteral washing, left retrograde pyelogram with interpretation of intraoperative fluoroscopic imaging, dilatation of the ureter with serial ureteral dilators/calibrators, left ureteral stent placement, laser on stand-by 07/04/2023 7:50 AM CDT - 07/04/2023 1:04 PM CDT Hospital Encounter [facility] PreOP/PostOP [address] [place] [address] Justus Reina MD Microscopic hematuria (Primary Dx) Discharge Disposition: Home or Self Care 07/01/2023 Travel 06/28/2023 Travel 06/28/2023 10:30 AM CDT Lab [facility] Urology [facility] [address] [facility] [address] [place] [address] Microscopic hematuria (Primary Dx) 06/24/2023 Travel 06/24/2023 2:30 PM CDT Office Visit [facility] Urology [address] [place] [address] Justus Reina MD Microscopic hematuria (Primary Dx); Urothelial carcinoma of kidney, left (H); Right renal stone 06/21/2023 Travel 06/20/2023 Travel 06/20/2023 9:39 AM CDT - 06/20/2023 11:59 PM CDT Hospital Encounter [facility] [address] [place] [address] [place] [address] Justus Reina MD Microscopic hematuria Discharge Disposition: Home or Self Care 05/29/2023 Refill [facility] Urology [address] [place] [address] Justus Reina MD 05/28/2023 MyC Medical Advice [facility] Urology [address] [place] [phone] Justus Reina MD 05/27/2023 Telephone [facility] Urology [address] [place] [phone] Justus Reina MD Appointment (Patient calling to schedule Cysto in [place] location per the request of Dr. Reina. ) 05/27/2023 Telephone [facility] Urology [address] [place] [phone] Justus Reina MD Clinic Care Coordination - Follow-up 05/27/2023 Orders Only [facility] Urology [facility] [address] [place] [phone] Justus Reina MD Microscopic hematuria (Primary Dx) 05/24/2023 Travel 05/24/2023 11:15 AM SALT CUTTER Lab [facility] [address] [facility] [address] [place] [phone] Microscopic hematuria 05/21/[address] [phone] Justus Reina MD Call Back (Patient is calling the clinic back) 05/21/2023 Orders Only [facility] [address] [place] [phone] Justus Reina MD Microscopic hematuria (Primary Dx) 05/20/2023 Travel 05/20/2023 9:00 AM SALT CUTTER Office Visit [address] [place] [phone] Justus Reina MD Benign prostatic hyperplasia with incomplete bladder emptying (Primary Dx); Microscopic hematuria from Last 3 Months Allergies Active Allergy Reactions Criticality Noted Date [...] Date Resolved Date Prostate cancer 08/15/2009 08/18/2010 Immunizations Name Administration Dates Next Due HepB 03/13/2012,10/12/2011,09/10/2011 Influenza (IIV3) PF 01/01/2012,01/10/2011,2009 Pneumococcal 23 valent 09/20/2009 TD,PF 7+ (Tenivac) 09/20/2009 TDAP Vaccine (Boostrix) 03/13/2012 Zoster vaccine, live 09/10/2011 Social History Tobacco Use Types Packs/Day Years [...] 07/11/2023 11:00 AM CDT Hospital Encounter [facility] [address] [place] [address] Justus Reina MD [address] [place] [address] 07/11/2023 11:00 AM CDT - 07/11/2023 12:[address] 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 Author MYC ECC SURG ENROLL Care Plan MyC ECC SURG ENROLL No Ann Palma Care pathway for general surgery Care Plan Care pathway for general surgery No Radames Sanchez MYC ECC SURG DAY 10 MED Care Plan Care pathway for general surgery No Radames Sanchez Medical Devices Implanted Type Area Delicatessen Department Manager Device Identifier Shelf Expiration Date Model / Serial / Lot Lens Intraocular Lens/Eye Implant Description:Cataract lens re placement done in [place] approx 2012. Stent Ureteral Polaris Ultra [id number] - [id number] Implanted:Qty: 1 on 07/04/2023 by Justus Reina MD at [facility] Stent Left: Abdomen [employer] [place] [id number] 02/12/2026 [id number] / / [id number] Procedures Procedure Name Priority Date/Time Associated Diagnosis [...] AM CDT EKG CARDIAC - HIM SCAN 12:00 AM CDT MD CYSTOURETHROSCOPY Routine 06/24/2023 3:04 PM CDT Microscopic hematuria CT UROGRAM WO & W CONTRAST Routine 06/20/2023 10:32 AM CDT Microscopic hematuria ISTAT CREATININE POCT Routine 06/20/2023 10:04 AM CDT URINE MICROSCOPIC EXAM Routine 4 11:11 AM SALT CUTTER Microscopic hematuria URINE MICROSCOPIC EXAM Routine 4 10:32 AM SALT CUTTER Microscopic hematuria URINALYSIS MACROSCOPIC Routine 4 8:44 AM SALT CUTTER Benign prostatic hyperplasia with incomplete bladder emptying MD MEASURE POST-VOID RESIDUAL URINE/BLADDER CAPACITY, US NON-IMAGING Routine 05/20/2023 Benign prostatic hyperplasia with incomplete bladder emptying from Last 3 Months Results * XR Surgery ARPITA L/T 5 Min Fluoro w Stills (07/04/2023 10:27 AM CDT) Narrative RADIANT - 07/04/2023 10:29 AM CDT This exam was marked as non-reportable because it will not be read by a radiologist or a [place] non-radiologist provider. Justus Reina MD IMG DIAGNOSTIC ALEX GING ORDERABLES RADIANT * Cytology, non-gynecologic (07/04/2023 9:53 AM CDT) Only the most recent of2 resultswithin the time period is included. Final Diagnosis Specimen A Interpretation: Negative for High Grade Urothelial Carcinoma Adequacy: Satisfactory for evaluation 07/05/2023 11:17 AM CDT LABORATORY Gross Description A(1). Ureter, Left, left uretreral washings:A. Ureter, Left, left uretreral washings, Ureter Washing: Received 5 ml of clear, colorless fluid, processed as 1 Pap stained Autocyte. 07/05/2023 11:17 AM CDT SPECIALTY LABS Performing Labs The technical component of this testing was completed at [facility] 07/05/2023 11:17 AM CDT SPECIALTY LABS [place] STRUCTURE OF LEFT URETER / Unknown 07/04/2023 9:53 AM CDT 07/04/2023 10:31 AM CDT Justus BYNUM [facility] [address] [facility]1st floor, no room number) [place] [address], [facility] SPECIALTY LABS [facility] [address] [facility], [address] [place] [address] * ANE AIRWAY SUPRAGLOTTIC PERFORMABLE (07/04/2023 9:43 AM CDT) Narrative Jesus Johnson APRN ENGINEERING ANALYST - 07/04/2023 9:43 AM CDT Jesus Johnson APRN ENGINEERING ANALYST ? 07/04/2023 ??9:44 AM Airway ? Patient location during procedure: OR ? Procedure Start/Stop Times: 07/04/2023 9:43 AM Staff - ? ENGINEERING ANALYST: Jesus Johnson APRN ENGINEERING ANALYST ? Performed By: CRNAIndications and Patient Condition [...] Time: 07/04/2023 9:43 AM Bailee Camacho MD MD ANESTHESIA * LAB RESULT - HIM SCAN [...] prostatomegaly. CORINNA ANDERSON MD Justus Reina MD IMG CT ORDERABLES * Creatinine POCT (06/20/2023 10:04 AM CDT) Creatinine POCT 1.2 0.7 - 1.3 mg/dL 06/20/2023 10:08 AM CDT LABORATORY POC GFR, ESTIMATED POCT >60 >60 mL/min/1.7 3m2 06/20/2023 10:08 AM CDT LABORATORY POC Blood BLOOD SPECIMEN / Unknown 06/20/2023 10:04 AM CDT 06/20/2023 10:08 AM CDT Justus Reina MD LAB - BEAKER POCT LABORATORY [facility] Acute Care Lab [address] Lab (1st floor, no room number) [place] [address], [facility] * (ABNORMAL) UMIC - Urine Micro Only (05/24/2023 11:11 AM SALT CUTTER) Only the most recent of2 resultswithin the time period is included. Bacteria Urine Moderate(A ) None Seen /HPF JONE 05/24/2023 11:23 AM SALT CUTTER RI LABORATORY RBC Urine 5-10(A) 0-2 /HPF /HPF JONE 05/24/2023 11:23 AM SALT CUTTER RI LABORATORY WBC Urine 0-5 0-5 /HPF /HPF JONE 05/24/2023 11:23 AM SALT CUTTER RI LABORATORY Urine URINE SPECIMEN OBTAINED BY CLEAN CATCH PROCEDURE / Unknown Non-blood Collection / Unknown 05/24/2023 11:11 AM SALT CUTTER 05/24/2023 11:11 AM SALT CUTTER Justus Reina MD LAB - URINE ORDERA BLES RI LABORATORY [facility] [address] [facility], [address] [place] [address] [phone] * (ABNORMAL) UA without Microscopic [[id number]] (05/20/2023 8:44 AM SALT CUTTER) Color Urine Yellow Colorless, Straw, Light Yellow, Yellow 05/20/2023 9:23 AM SALT CUTTER UB LABORATORY [facility] Appearance Urine Clear Clear 05/20/19 24 9:23 AM SALT CUTTER [facility] Glucose Urine Negative Negative mg/dL 05/20/2023 9:23 AM SALT CUTTER [facility] Bilirubin Urine Negative Negative 9:23 AM SALT CUTTER [facility] [place] Ketones Urine Negative Negative mg/dL 05/20/2023 9:23 AM SALT CUTTER [facility]B [facility] Specific [place] Urine 1.020 1.003 - 1.035 05/20/2023 9:23 AM SALT CUTTER [facility] Blood Urine Small(A) Negative 05/20/2023 9:23 AM SALT CUTTER [facility] [place] pH Urine 6.0 5.0 - 7.0 05/20/2023 9:23 AM SALT CUTTER [facility] Protein Albumin Urine Trace(A) Negative mg/dL 05/20/2023 9:23 AM SALT CUTTER [facility] [place] Urobilinogen Urine 0.2 0.2, 1.0 E.U./dL 05/20/2023 9:23 AM SALT CUTTER [facility] [place] Nitrite Urine Negative Negative 05/20/2023 9:23 AM SALT CUTTER [facility]B [facility] Leukocyte Esterase Urine Trace(A) Negative 05/20/2023 9:23 AM SALT CUTTER [facility]B [facility] [place] Urine MID-STREAM URINE SPECIMEN / Unknown Non-blood Collection / Unknown 05/20/2023 8:44 AM SALT CUTTER 05/20/2023 8:44 AM SALT CUTTER Justus Reina MD LAB - URINE ORDERA BLES UB LABORATORY [place] [address] [facility]. [address] [place] [id number] [phone] * MEASURE POST-VOID RESIDUAL URINE/BLADDER CAPACITY, US NON-IMAGING (05/20/2023) Residual Volume (RV) (External) 213 Justus Reina MD PROCEDURES from Last 3 Months Additional Health Concerns Problem Noted Date Diagnosed Date MyC ECC SURG ENROLL 06/24/2023 Care pathway for general surgery 06/25/2023 Advance Directives For more information, please contact: [phone] Documents on File Type Date Recorded Patient Dramatic Teacher Expl anation Advance Directives and Living Will 06/04/2012 8:15 AM [employer] [place] - 05/26/12 Care Teams Mental Health Consultant Relationship Specialty Start Date End Date Sanjeev Janki Heidi PCP - General Family Practice 06/19/10 Leland Linton MD RETIRED PCP - Orthopaedics Orthopedics 07/06/10 Yobani Rodriguez MD [address] [address] PCP - Ophthalmology Ophthalmology 11/02/10 Yael Milton [address] [address] PCP - Audiology Audiology 11/14/10 Justus Reina MD [address] [id number] Urology 03/01/23 Justus Reina MD [address] [place] [address] Assigned Surgical Provider 06/14/23
--- OUTSIDE RECORDS SUMMARY | 2023-07-09 09:55 | XMS_ITS | Encounter Summary ---
Author Name Unknown Organization [place] Address [address] [facility] [place]. [address] Care Team Providers Care Gas Manager Name Role Phone Janki Pace DO Primary Care Provider Leland Linton MD Unavailable Unavailable Yobani Rodriguez MD Unavailable Yael Milton Unavailable Justus Reina MD Unavailable Justus Reina MD Unavailable [phone] Reason for Visit * Auth/Cert (Routine) Specialty Diagnoses / Procedures Referred By Radha maddox Referred To Contact Surgery Diagnoses Microscopic hematuria Microscopic hematuria [R31.29] Procedures [place] CYSTO/URETERO W/LITHOTRIPSY &INDWELL STENT INSRT [place] UROGRAPHY, RETROGRADE W/WO KUB Cystoureteroscopy with left retrograde pyelogram, biopsy of the renal pelvis and fulguration, possible ureteral stent placement, possible laser [facility] Services [address] [place] [address] Referral ID Status Reason Start Date Expiration Date Visits Re quested Visits Authorized [id number] 1 1 Encounter Details Date Type Department Care Team (Late st Contact Info) Description 07/04/2023 9:35 AM CDT Anesthesia Event [facility] PeriOp Services [address] [place] [address] Bailee Camacho MD [facility] [place] [address] [place] [address] Anesthesia Record Procedure Summary Procedure Name Responsible Anesthesiologist Anesthesia Start Time Anesthesia Stop Time Cystourethroscopy, left ureteroscopy, left ureteral washing, left retrograde pyelogram with interpretation of intraoperative fluoroscopic imaging, dilatation of the ureter with serial ureteral dilators/calibrators, left ureteral stent placement, laser on stand-by (Left: Flank) Bailee Camacho MD 07/04/23 0935 07/04/23 10 37 Events Date Time Event Comment 07/04/2023 0907 AGRICULTURE INSPECTOR Ready for Procedure 0917 0935 An Start 0935 An Start Data 0938 An Induction 0942 MD Present 0943 An LMA 0943 Anesthesia Ready for Procedu re 1031 LMA Removed 1032 an stop data 1037 An Stop Electronically signed by Jesus Johnson APRN CRNA on July 04, 2023 10:37 AM Meds Name Total fentaNYL 50 mcg/mL 100 mcg lidocaine 2% 50 mg propofol 10 mg/mL 200 mg dexamethasone (DECADRON) 4 mg/mL 4 mg ondansetron 2 mg/mL 4 mg ceFAZolin Sodium (ANCEF) injection 2 g 2 g lactated ringers infusion 800 mL * Agents Name NO HELIOX O2 N2O Air Exp Sevoflurane Exp Isoflurane Exp Desflurane Exp N2O Ins Sevoflurane Ins Isoflurane Ins Desflurane O2 Auxiliary * Blood No blood administrations on file. Lines, Drains, and Airways Type Details Placement Removal Incision/Surgical Site 07/04/23; 1000; P samuel; cystoureteroscopy only - no skin incisions 07/04/23 1000 by Júnior Sands RN Peripheral IV 07/04/23; 0914; 20 G ; Left, Posterior; Hand; Chlorhexidine; Tolerated well 07/04/23 0914 by Alee Hewitt RN 07/04/23 1304 by Jose Milian RN Supraglottic Airway Placement Date: 07/23; Placement Time: 0943 (created via procedure documentation); Mask Ventilation: 0; LMA Size: 5; Airway Brand: I-Gel; Attempts: 1 07/04/23 0943 by Jesus Johnson APRN CRNA 07/04/23 1031 by Jesus Johnson APRN CRNA documented in this encounter Social History Tobacco Use Types Packs/Day Years [...] PM CDT documented as of this encounter OR Notes * Anesthesia Postprocedure Evaluation - Bailee Camacho MD - 07/04/2023 3:59 PM CDT Patient: Amanda Angel Procedure: Procedure(s): Cystoureteroscopy with left retrograde pyelogram, lef tureteral dilation, ureteral stent placement Anesthesia Type: General Note: Disposition: Outpatient Postop Pain Control: PONV: No Neuro/Psych: Uneventful Sign Out: Acceptable/Baseline neuro status Airway/Respiratory: Uneventful Sign Out: Acceptable/Baseline resp. status CV/Hemodynamics: Uneventful Sign Out: Acceptable CV status; No obvious hypovolemia; No obvious fluid overload Other NRE: DID A NON-ROUTINE EVENT OCCUR? No Last vitals: Vitals Value Taken Time BP 157/87 07/04/23 1105 Temp 97.6 ??F (36.4 ??C) 07/04/23 1100 Pulse 56 07/04/23 1115 Resp 21 07/04/23 1115 SpO2 98 % 07/04/23 1116 Vitals shown include unfiled device data. Electronically Signed By: Bailee Camacho MD July 04, 2023 3:59 PM * Anesthesia Procedure Notes - Jesus Johnson APRN CRNA - 07/04/2023 9:44 AM CDTAssociated Order(s): Airway Airway Patient location during procedure: OR Procedure Start/Stop Times: 07/04/2023 9:43 AM Staff - AGRICULTURE INSPECTOR: Jesus Johnson APRN AGRICULTURE INSPECTOR Performed By: CRNAIndications and Patient Condition Indications for airway management: bill-procedural and airway protection Induction type:intravenous Mask difficulty assessment: 0 - not attempted Final Airway Details Final airway type: supraglottic airway Supraglottic Airway Details Type: LMA Brand: I-Gel LMA size: 5 Post intubation assessment Placement verified by: capnometry, equal breath sounds and chest rise Number of attempts at approach: 1 Secured with: commercial tube tyler Ease of procedure: easy Dentition: Intact Medication(s) Administered Medication Administration Time: 07/04/2023 9:43 AM * Anesthesia Preprocedure Evaluation - Bailee Camacho MD - 07/04/2023 7:21 AM CDT Anesthesia Pre-Procedure Evaluation Patient: Amanda Angel : 1940 Procedure : Procedure(s): Cystoureteroscopy with left retrograde pyelogram, biopsy of the renal pelvis and fulguration, possible ureteral stent placement, possible laser Past Medical History: Diagnosis Date Benign neoplasm of colon BPH (benign prostatic hyperplasia) Essential hypertension, benign 08/15/2009 Heart murmur HTN (hypertension) Hyperlipidaemia Hyperlipidaemia LDL goal <100 08/15/2009 IGT (impair glucose tolerance) Murmur, heart TONIA (obstructive sleep apnea) Senile cataract 10/30/2010 Tinnitus 08/15/2009 Unspecified adjustment reaction 03/13/2011 Past Surgical History: Procedure Laterality Date CHOLECYSTECTOMY CHOLECYSTECTOMY, LAPOROSCOPIC 12/01/2007 CYSTOSCOPY CYSTOSCOPY, TRANSURETHRAL RESECTION (TUR) PROSTATE, COMBINED 04/01/2005 CYSTOSCOPY, TRANSURETHRAL RESECTION (TUR) PROSTATE, COMBINED 04/01/2005 HC REMV CATARACT EXTRACAP,INSERT LENS, W/O ECP 07/09/2012 right eye TRANSRECTAL ULTRASONIC, TRANSURETHRAL RESECTION (TUR) OF PROSTATE CYST UVULECTOMY UVULECTOMY ZZHC COLONOSCOPY W SNARE REMOVAL TUMOR/POLYP/LESION 05/07/2012 Allergies Allergen Reactions Lisinopril Cough ASHLEY cough Seasonal Allergies Social History Tobacco Use Smoking status: Never Smokeless tobacco: Not on file Substance Use Topics Alcohol use: No Alcohol/week: 0.8 - 1.7 standard drinks of alcohol Types: 1 - 2 drink(s) per week Wt Readings from Last 1 Encounters: 06/24/23 90.7 kg (200 lb) Anesthesia Evaluation Pt has had prior anesthetic. Type: General. No history of anesthetic complications ROS/MED HX ENT/Pulmonary: (+) sleep apnea, doesn't use CPAP, (-) asthma and recent URI Neurologic: - neg neurologic ROS Cardiovascular: (+) Dyslipidemia hypertension- - - - - valvular problems/murmurs Previous cardiac testing Echo: Date: 2021 Results: Final Impressions: 1. Normal left ventricular size, moderately increased wall thickness in a concentric pattern, normal global and regional systolic function, calculated EF of 63 %. 2. Right ventricular cavity size is mildly enlarged, global systolic RV function is borderline reduced. 3. The aortic valve is trileaflet and sclerotic, no stenosis and mild regurgitation. 4. The mitral valve is abnormal with mild posterior leaflet prolapse, mild mitral regurgitation. 5. 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 Mild-moderate tricuspid regurgitation. 6. 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 Stress Test: Date: Results: ECG Reviewed: Date: Results: Cath: Date: Results: METS/Exercise Tolerance: Hematologic: Musculoskeletal: GI/Hepatic: - neg GI/hepatic ROS (-) GERD Renal/Genitourinary: Comment: hematuria Endo: - neg endo ROS Psychiatric/Substance Use: Infectious Disease: Malignancy: Other: Physical Exam Airway Mallampati: III TM distance: > 3 FB Neck ROM: full Mouth opening: > 3 cm Respiratory Devices and Support Dental (+) Minor Abnormalities - some fillings, tiny chips Cardiovascular cardiovascular exam normal Rhythm and rate: regular and normal (+) murmur Pulmonary pulmonary exam normal breath sounds clear to auscultation OUTSIDE LABS: CBC: Lab Results Component Value Date WBC 5.0 08/30/2010 HGB 15.4 02/11/2012 HGB 15.8 04/24/2011 HCT 48.3 08/30/2010 PLT 164 08/30/2010 BMP: Lab Results Component Value Date NA 143 11/14/2012 NA 142 10/10/2010 POTASSIUM 4.3 11/14/2012 POTASSIUM 4.7 10/10/2010 CHLORIDE 109 11/14/2012 CHLORIDE 107 08/30/2010 CO2 25 11/14/2012 CO2 29 08/30/2010 BUN 21 11/14/2012 BUN 23 08/30/2010 CR 1.2 06/20/2023 CR 1.20 11/14/2012 GLC 92 11/14/2012 GLC 81 10/11/2011 COAGS: No results found for: PTT, INR, FIBR POC: No results found for: BGM, HCG, HCGS HEPATIC: Lab Results Component Value Date ALT 35 11/14/2012 AST 29 08/30/2010 OTHER: Lab Results Component Value Date MALU 9.3 11/14/2012 TSH 1.45 06/27/2010 Anesthesia Plan ASA Status: 2 NPO Status: NPO Appropriate Anesthesia Type: General. - Airway: LMA Induction: Intravenous. Maintenance: Balanced. Consents Anesthesia Plan(s) and associated risks, benefits, and realistic alternatives discussed. Questions answered and patient/entry level account representative(s) expressed understanding. - Discussed: - Discussed with: Patient - Extended Intubation/Ventilatory Support Discussed: No. - Patient is DNR/DNI Status: No Use of blood products discussed: No . Postoperative Care Pain management: IV analgesics, Oral pain medications, Multi-modal analgesia. PONV prophylaxis: Ondansetron (or other 5HT-3), Dexamethasone or Solumedrol Comments: Bailee Camacho MD I have reviewed the pertinent notes and labs in the chart from the past 30 days and (re)examined the patient. Any updates or changes from those notes are reflected in this note. # Overweight: Estimated body mass index is 25.68 kg/m?? as calculated from the following: Height as of 06/24/23: 1.88 m (6' 2). Weight as of 06/24/23: 90.7 kg (200 lb). documented in this encounter Miscellaneous Notes * Anesthesia Care Transfer Note - Jesus Johnson APRN AGRICULTURE INSPECTOR - 07/04/2023 10:37 AM CDT Patient: Amanda Angel Procedure: Procedure(s): Cystoureteroscopy with left retrograde pyelogram, lef tureteral dilation, ureteral stent placement Diagnosis: Microscopic hematuria [R31.29] Diagnosis Additional Information: No value filed. Anesthesia Type: General Note: Oropharynx: oropharynx clear of all foreign objects and spontaneously breathing Level of Consciousness: drowsy Oxygen Supplementation: face mask Level of Supplemental Oxygen (L/min / FiO2): 10 Independent Airway: airway patency satisfactory and stable Dentition: dentition unchanged Vital Signs Stable: post-procedure vital signs reviewed and stable Report to RN Given: handoff report given Patient transferred to: PACU Handoff Report: Identifed the Patient, Identified the Reponsible Provider, Reviewed the pertinent medical history, Discussed the surgical course, Reviewed Intra-OP anesthesia mangement and issues during anesthesia, Set expectations for post-procedure period and Allowed opportunity for questions andacknowledgement of understanding Vitals: Vitals Value Taken Time BP 162/86 07/04/23 1033 Temp Pulse 62 07/04/23 1036 Resp 11 07/04/23 1036 SpO2 99 % 07/04/23 1036 Vitals shown include unfiled device data. Electronically Signed By: Jesus Johnson APRN AGRICULTURE INSPECTOR July 04, 2023 10:37 AM documented in this encounter Plan of Treatment Upcoming Encounters Date Type Department Care Team (Latest Contact Info) Description 07/11/2023 11:00 AM CDT Hospital Encounter [facility] PeriOp Services [address] [place] [address] Justus Reina MD [address] [place] [address] 07/11/2023 11:00 AM CDT - 07/11/2023 12:30 PM [facility] [address] [place] [address] Justus Reina MD [address] [place] [address] Cystoureteroscopy with left retrograde pyelogram, possible renal [...] Radames Sanchez documented as of this encounter Procedures Procedure Name Priority Date/Time Associated Diagnosis Comments ANE AIRWAY SUPRAGLOTTIC PERFORMABLE Routine 07/04/2023 9:43 AM CDT documented in this encounter Results * ANE AIRWAY SUPRAGLOTTIC PERFORMABLE (07/04/2023 9:43 AM CDT) Narrative Jesus Johnson APRN AGRICULTURE INSPECTOR - 07/04/2023 9:43 AM CDT Jesus Johnson APRN CRNA ? 07/04/2023 ??9:44 AM Airway ? Patient location during procedure: OR ? Procedure Start/Stop Times: 07/04/2023 9:43 AM Staff - ? AGRICULTURE INSPECTOR: Jesus Johnson APRN CRNA ? Performed By: CRNAIndications and Patient Condition [...] Time: 07/04/2023 9:43 AM Bailee Camacho MD [place] ANESTHESIA documented in this encounter Visit Diagnoses Not on filedocumented in this encounter Administered Medications Inactive Administered Medications - up to 3 most recent administrations Medication Order MAR Action Action Date Dose Rate Site ceFAZolin Sodium (ANCEF) injection 2 g Routine, 2 g, Intravenous, PRE-OP/PRE-PROCEDURE, Starting on Maryam 07/04/23 at 0812, For 1 dose, Give first dose within 1 hour PRIOR to incision. If patient weight is greater than or equal to 120 kg increase dose to 3 g., Indications: Perioperative Pharmacoprophylaxis, Pre-procedure $Given 07/04/2023 9:35 AM CDT 2 g dexAMETHasone (DECADRON) injection Intravenous, PRN, Administer over 1 Minutes, Starting on Maryam 07/04/23 at 0942, Anesthesia Intra-op $Given 07/04/2023 9:42 AM CDT 4 mg fentaNYL (PF) (SUBLIMAZE) injection Intravenous, PRN, Administer over 3-5 Minutes, Starting on Maryam 07/04/23 at 0942, Anesthesia Intra-op $Given 07/04/2023 9:58 AM CDT 50 mcg $Given 07/04/2023 9:42 AM CDT 50 mcg lactated ringers infusion at 10 mL/hr, Intravenous, CONTINUOUS, IF patient NOT on dialysis., Pre-procedure, Starting on Maryam 07/04/23 at 0830, Until Maryam 07/04/23 at 1033 $New Bag 07/04/2023 9:35 AM CDT lidocaine 2% injection (MDV) Intravenous, PRN, Starting on Maryam 07/04/23 at 0942, Anesthesia Intra-op $Given 07/04/2023 9:42 AM CDT 50 mg ondansetron (ZOFRAN) injection Intravenous, PRN, Administer over 2-5 Minutes, Starting on Maryam 07/04/23 at 1024, Anesthesia Intra-op $Given 07/04/2023 10:24 AM CDT 4 mg propofol (DIPRIVAN) injection 10 mg/mL vial Intravenous, PRN, Starting on Maryam 07/04/23 at 0942, Anesthesia Intra-op $Given 07/04/2023 9:42 AM CDT 200 mg documented in this encounter Additional Health Concerns Problem Noted Date Diagnosed Date MyC ECC SURG ENROLL 06/24/2023 Care pathway for general surgery 06/25/2023 documented as of this encounter Care Teams Gas Manager Relationship Specialty Start Date End Date Sanjeev Jnaki HeidiDO PCP - General Family Practice 06/19/10 Leland Linton MD RETIRED PCP - Orthopaedics Orthopedics 07/06/10 Yobani Rodriguez MD [address] [address] PCP - Ophthalmology Ophthalmology 11/02/10 Yael Milton [address] [address] PCP - Audiology Audiology 11/14/10 Justus Reina MD [address] [address] Urology 03/01/23 Justus Reina MD [address] [place] [address] Assigned Surgical Provider 06/14/23 documented as of this encounter
--- OUTSIDE RECORDS SUMMARY | 2023-07-09 09:55 | XMS_ITS | Clinical Summary ---
Author Name Unknown Organization [facility] Address [address] [place] [address] Care Team Providers Care Technology Manager Name Role Phone Unavailable Primary Care Provider Unavailabl e Source Comments You are receiving this document as you are listed as the primary care provider,follow-up provider, or the patient has been referred to you for consultation.This is in compliance with the Medicare and[facility] Cent[facility] EHR Incentive Program,which states Providers who transition [...] Done Comments Medicare Annual Wellness Visit 1940 Zoster/Shingles (2 of 3) 11/05/2011 09/10/2011 DTaP/Tdap/Td (4 - Tdap) 03/13/2022 03/13/20 12, 09/20/2009, 08/21/1985 COVID-19 Vaccine (4 - 2022- season) 2022 01/20/2021, 06/04/2020, 05/06/2020 Influenza (#1) 2022 01/03/2021, 12/01, 12/31/2018, Additional [...] Amanda Angel Personal/Family Self 1940 [address] [place] [address]
--- OUTSIDE RECORDS SUMMARY | 2023-07-09 09:56 | XMS_ITS | Encounter Summary ---
Author Name Unknown Organization [place] Address [address] [facility] [place] [address] Care Team Providers Care Field Assessor Name Role Phone DavonJanki porter Primary Care Provider [phone] Leland Linton MD Unavailable Unavailable Yobani Rodriguez MD Unavailable Yael Milton Unavailable Justus Reina MD Unavailable Justus Reina MD Unavailable Encounter Details Date Type Department Care Team (Late st Contact Info) Description 05/28/2023 MyC Medical Advice [facility] [address] [place] [address] Justus Reina MD [address] [place], [place] [address] Social History Tobacco Use Types Packs/Day Years [...] Description 07/11/2023 11:00 AM CDT Hospital Encounter [facility] PeriOp Services [address] [place] [address] Justus Reina MD [address] [place], [place] [address] 07/11/2023 11:00 AM CDT - 07/11/2023 12:30 PM CDT Surgery [facility]iOp Services [address] [place] [phone] Justus Reina MD [address] [place], [place] [address] Cystoureteroscopy with left retrograde pyelogram, possible renal pelvis biopsy possible laser fulguration with stent exchange Scheduled Procedures Name Priority Associated Diagnoses Date/Ti me CYSTOURETEROSCOPY, WITH RETROGRADE PYELOGRAM, HOLMIUM LASER LITHOTRIPSY OF URETERAL CALCULUS, AND STENT INSERTION 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 07/11/2023 11:00 AM CDT documented as of this encounter Visit Diagnoses Not on filedocumented in this encounter Care Teams Field Assessor Relationship Specialty Start Date End Date Janki Pace DO PCP - General Family Practice 06/19/10 Leland Linton MD RETIRED PCP - Orthopaedics Orthopedics 07/06/10 Yobani Rodriguez MD [address] [address] PCP - Ophthalmology Ophthalmology 11/02/10 Yael Milton [address] [place] [address] PCP - Audiology Audiology 11/14/10 Justus Reina MD [address] [facility] [address] [place] [address] Urology 03/01/23 Justus Reina MD [address] [place] [address] Assigned Surgical Provider 06/14/23 documented as of this encounter
--- OUTSIDE RECORDS SUMMARY | 2023-07-09 09:56 | XMS_ITS | Encounter Summary ---
Author Name Unknown Organization [facility] Address [address] [place] [address] Care Team Providers Care Magazine Designer Name Role Phone Janki Pace Primary Care Provider Leland Linton MD Unavailable Unavailable Yobani Rodriguez MD Unavailable Yael Milton Unavailable Justus Reina MD Unavailable [phone] Reason for Visit * Reason Onset Date Comments Clinic Care Coordination - Follow-up 05/27/2023 Encounter Details Date Type Department Care Team (Late st Contact Info) Description 05/27/2023 Telephone [facility] [address] [place] [address] Justus Reina MD [address] [place], [place] [address] Clinic Care Coordination - Follow-up Social History Tobacco Use Types Packs/Day Years [...] PM CDT documented as of this encounter Miscellaneous Notes * Telephone Encounter - Aniyah Anderson - 05/27/2023 1:12 PM CST ----- Message from Apoorva De La Rosa LPN sent at 05/27/2023 12:35 PM SENIOR CORPORATE RECRUITER ----- Can you please set-up for Cysto and CT? Order for CT placed. Thanks! ~Apoorva ----- Message ----- From: Justus Reina MD Sent: 05/27/2023 12:20 PM SENIOR CORPORATE RECRUITER To: [facility] Nurse-Mireya Magana can you set him up for a follow-up with cystoscopy and CT urogram In view of his microscopic hematuria Thank you OR CORPORATE RECRUITER documented in this encounter Plan of Treatment Upcoming Encounters Date Type Department Care Team (Latest Contact Info) Description 07/11/2023 11:00 AM CDT Hospital Encounter [facility] PeriOp Services [address] [place] [address] Justus Reina MD [address] [place] [phone] 07/11/2023 11:00 AM CDT - 07/11/2023 12:[address] 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
--- OUTSIDE RECORDS SUMMARY | 2023-07-09 09:56 | XMS_ITS | Encounter Summary ---
Author Name Unknown Organization [facility] Address [address] [facility] [place] [address] Care Team Providers Care Relations Mgr Name Role Phone Janki Pace Primary Care Provider Leland Linton MD Unavailable Unavailable Yobani Rodriguez MD Unavailable Yael Milton Unavailable Justus Reina MD Unavailable [phone] Justus Reina MD Unavailable [phone] Encounter Details Date Type Department Care Team (Latest Contact Info) Description 06/21/2023 Travel Social History Tobacco Use Types Packs/Day [...] Description 07/11/2023 11:00 AM CDT Hospital Encounter [facility] Services [address] [place] [address] Justus Reina MD [address] [place] [address] 07/11/2023 11:00 AM CDT - 07/11/2023 12:30 PM CDT Surgery [facility] Peri Services [address] [place] [address] Justus Reina MD [address] [place] [address] Cystoureteroscopy with left retrograde pyelogram, possible renal pelvis biopsy possible laser fulguration with stent exchange Scheduled Procedures Name Priority Associated Diagnoses Date/Ti me CYSTOURETEROSCOPY, WITH RETROGRADE PYELOGRAM, HOLMIUM LASER LITHOTRIPSY OF URETERAL CALCULUS, AND STENT INSERTION 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 07/11/2023 11:00 AM CDT documented as of this encounter Visit Diagnoses Not on filedocumented in this encounter Care Teams Relations Mgr Relationship Specialty Start Date End Date Janki Pace DO PCP - General Family Practice 06/19/10 Leland Linton MD RETIRED PCP - Orthopaedics Orthopedics 07/06/10 Yobani Rodriguez MD [address] [address] PCP - Ophthalmology Ophthalmology 11/02/10 Yael Milton [address] [address] PCP - Audiology Audiology 11/14/10 Justus Reina MD [address] [address] Urology 03/01/23 Justus Reina MD [address] [place] [address] Assigned Surgical Provider 06/14/23 documented as of this encounter
--- OUTSIDE RECORDS SUMMARY | 2023-07-09 09:56 | XMS_ITS | Encounter Summary ---
Author Name Unknown Organization [place] Address [address] [facility] [place] [address] Care Team Providers Care Mold Runner Name Role Phone Janki Pace DO Primary Care Provider Leland Linton MD Unavailable Unavailable Yobani Rodriguez MD Unavailable Yael Milton Unavailable Oswald Hartley MD Unavailable Oswald Hartley MD Unavailable [phone] Reason for Visit * Auth/Cert (Routine) Specialty Diagnoses / Procedures Referred By Radha maddox Referred To Contact Surgery Diagnoses Microscopic hematuria Microscopic hematuria [R31.29] Procedures MA CYSTO/URETERO W/LITHOTRIPSY &INDWELL STENT INSRT MA UROGRAPHY, RETROGRADE W/WO KUB Cystoureteroscopy with left retrograde pyelogram, biopsy of the renal pelvis and fulguration, possible ureteral stent placement, possible laser [facility] Periop Services [address] [place] [address] Referral ID Status Reason Start Date Expiration Date Visits Re quested Visits Authorized [id number] 1 1 Encounter Details Date Type Department Care Team (Late st Contact Info) Description 07/04/2023 9:45 AM CDT - 07/04/2023 11:20 AM CDT Surgery [facility] PeriOp Services [address] [place] [address] Oswald Hartley MD [address] [place] [address] Cystourethroscopy, left ureteroscopy, left ureteral washing, left retrograde pyelogram with interpretation of intraoperative fluoroscopic imaging, dilatation of the ureter with serial ureteral dilators/calibrators, left ureteral stent placement, laser on stand-by Surgery Details Date/Time Status Location OR Service Patient Class Case Class Case Type Trauma Case? 07/04/23 9:45 AM Posted [facility] OR OR 14 Urology Same Day Surgery Elective Panel 1 Procedure LRB Anes Op Region Wound Class Comments Cystourethroscopy, left ureteroscopy, left ureteral washing, left retrograde pyelogram with interpretation of intraoperative fluoroscopic imaging, dilatation of the ureter with serial ureteral dilators/calibrators, left ureteral stent placement, laser on stand-by Left General Flank II-Clean Contaminated Surgeon Surgeon Role Service Panel Oswald Hartley MD Primary Urology 1 documented in this encounter Social History Tobacco [...] PM CDT documented as of this encounter Last Filed Vital Signs Vital Sign Reading Time Taken Comments Blood Pressure 157/87 07/04/2023 11:05 AM CDT Pulse 58 07/04/2023 11:15 AM CDT Temperature 36.4 ??C (97.6 ??F) 07/04/2023 11:00 AM C DT Respiratory Rate 26 07/04/2023 11:15 AM CDT Oxygen Saturation 97% 07/04/2023 11:00 AM CDT Inhaled Oxygen Concentration - - Weight 93.6 kg (206 lb 6.4 oz) 07/04/2023 8:03 A M CDT Height 188 cm (6' 2.02) 07/04/2023 8:03 AM CDT Body Mass Index 26.49 07/04/2023 8:03 AM CDT documented in this encounter Discharge Instructions * Discharge Instructions* Colette Mcgee RN - 07/04/2023 11:[address] [facility]WALD [facility] M[facility] CLIN[facility] PHONE NUMBER: [phone] [facility] UROLOGY * Attachments The following attachments cannot be sent through Care Everywhere. * (s) After Anesthesia (Sleep Medicine) (Georgian) documented in this encounter Medications at Time of Discharge Medication Sig Dispensed Refills Start Date End Date acetaminophen (TYLENOL) 325 MG tabletIndications:Micro scopic hematuria Take 2 tablets (650 mg) by mouth every 4 hours as needed for mild pain 50 tablet 0 07/04/2023 losartan (COZAAR) 100 MG tabletIndications:Essen tial hypertension, benign Take 1 tablet (100 mg) by mouth daily 90 tablet 3 01/15/2013 losartan (COZAAR) 50 MG tablet 0 07/03/2023 magnesium 250 MG tablet Take 1 tablet by mouth daily. 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 Cystourethroscopy 2. Left ureteroscopy, left ureteral washing 3. Left retrograde pyelogram with interpretation of intraoperative fluoroscopic imaging 4. Dilatation of the ureter with serial ureteral dilators/calibrators 5. Left ureteral stent placement STAFF SURGEON: Dr. Oswald Hartley MD, present for the entire case. ANESTHESIA: General ESTIMATED BLOOD LOSS: 1 cc DRAINS/TUBES: 6 British x 26 cm double-J ureteral stent IV FLUIDS: Please see dictated anesthesia record COMPLICATIONS: None. SPECIMEN: Ureteral washing SIGNIFICANT FINDINGS: Very narrow and tight upper ureter/UPJ area. Could not be calibrated beyond 10 British and the flexible ureteroscope could not be negotiated beyond this point. There was an area of filling defect in the renal pelvis. Proximal curl of the ureteral stent seen in the renal pelvis under fluoroscopy and distal curl seen in the bladder fluoroscopically and under direct vision. 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 After a discussion of all risks, benefits, and alternatives, the patient elected to proceed with definitive stone management. The patient understands the potential need for more than one procedure toeliminate all stone burden. DESCRIPTION OF PROCEDURE: After informed consent was obtained, the patient was transported to the operating room & placed supine on the table. Pneumoboots were applied. After adequate anesthesia was induced, he was placed in lithotomy and prepped and draped in the usual sterile fashion. A timeout was taken to confirm correct patient, procedure and laterality. Pre-operative IV antibiotics were administered. A 22-British rigid cystoscope was inserted into a well-lubricated urethra. The anterior urethra was unremarkable, prostate was enlarged with bilateral lateral lobes enlargement. The left ureteral orifice was identified and cannulated with a Sensor wire and 5 British open-ended catheter. The wire passed without resistance into the upper pole and the 5-British open ended catheter was removed after performing a ureteral washing. A dual-lumen catheter was used to perform a retrograde pyelogram and to establish access with a second, sensor wire. A 11/13 British 36-cm ureteral access sheath was advanced up to the proximal ureter and a retrograde pyelogram was performed to serve as a roadmap. The flexible ureteroscope was used to perform ureteroscopy however, I was not able to negotiate it between the proximalmost portion of the left ureter/UPJ area. I tried multiple times and was not successful. I then remove the access sheath and subsequently I used the ureteral calibrators/dilators and calibrated the ureter up to 10 British. However the 10 British calibrator was negotiated with significant difficulty into the pelvis. Subsequent to dilators were not negotiable into the pelvis. We therefore abandoned further calibration dilatation proceeded with stent placement for passive ureteraldilatation. A 6 British 26-cm double-J stent was advanced over the Sensor wire, and a good proximal curl was seen in the renal pelvis fluoroscopically and the distal curl was seen in the bladder fluoroscopically and under direct vision. The bladder was drained. The patient tolerated the procedure well and there were no apparent complications. The patient was transported to the postanesthesia care unit in stable condition. POST-OPERATIVE PLAN: Following recovery in the PACU, the patient can be discharged. He needs to follow-up for repeat ureteroscopy in 1 to 2 weeks. Oswald Hartley MD [facility], Urology documented in this encounter Plan of Treatment Upcoming Encounters Date Type Department Care Team (Latest Contact Info) Description 07/11/2023 11:00 AM CDT Hospital Encounter [facility] PeriOp Services [address] [place] [address] Oswald Hartley MD [address] [place] [id number] 07/11/2023 11:00 AM CDT - 07/11/2023 12:30 PM CDT Surgery [facility] PeriOp Services [address] [place] [address] Oswald Hartley MD [address] [place] [address] Cystoureteroscopy with left retrograde pyelogram, possible renal [...] MyC ECC SURG ENROLL No Ann Palma documented as of this encounter Procedures Procedure Name Priority Date/Time Associated Diagnosis Comments XR SURGERY ARPITA FLUORO LESS THAN 5 MIN W STILLS Routine 07/04/2023 10:27 AM CDT NON-GYNECOLOGIC CYTOLOGY Routine 07/04/2023 9:53 AM CDT CYSTOSCOPY, WITH RETROGRADE PYELOGRAM AND URETERAL STENT INSERTION 07/04/2023 9:35 AM CDT Microscopic hematuria LAB RESULT - HIM SCAN 06/27/2023 12:00 AM CDT EKG CARDIAC - HIM SCAN 06/27/2023 12:00 AM CDT documented in this encounter Results * XR Surgery ARPITA L/T 5 Min Fluoro w Stills (07/04/2023 10:27 AM CDT) Narrative [facility] - 07/04/2023 10:29 AM CDT This exam was marked as non-reportable because it will not be read by a radiologist or a [place] non-radiologist provider. Oswald Hartley MD IMG DIAGNOSTIC ALEX GING ORDERABLES RADI[facility] * Cytology, non-gynecologic (07/04/2023 9:53 AM CDT) Final Diagnosis Specimen A Interpretation: Negative for [...] component of this testing was completed at [facility] 07/05/2023 11:17 AM CDT SPECIALTY LABS [place] STRUCTURE OF LEFT URETER / Unknown 07/04/2023 9:53 AM CDT 07/04/2023 10:31 AM CDT Oswald Hartley MD LAB - [facility] Acute Care Lab [address] [facility] (1st floor, no room number) [place] [address] Specialty Lab [address] [facility], [address] [place] [address] * LAB RESULT - HIM SCAN (06/27/2023 12:00 AM CDT) 06/27/2023 Provider Outside NON-BEAKER LAB TE STING * EKG CARDIAC - HIM SCAN (06/27/2023 12:00 AM CDT) 06/27/2023 Provider Outside ECG ORDERABLES documented in this encounter Visit Diagnoses Diagnosis Microscopic hematuria- Primary Microscopic hematuria 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 Use as a short acting IV agent for acute pain control. Patient must be monitored a minimum of 30 minutes before leaving the facility and meet all Phase II discharge criteria., Phase ll iopamidol 61% (ISOVUE 300) 50 mL + sterile water for irrigation 50 mL PRN, Starting on Maryam 07/04/23 at 1020, Intra-procedure $Given 07/04/2023 10:20 AM CDT 14 ml given Operative Site/Surgical Site naloxone (NARCAN) injection 0.1 mg 0.1 mg, Intravenous, EVERY 2 MIN PRN, opioid reversal, Starting on Maryam 07/04/23 at 1047, Notify Anesthesia Provider when administering naloxone (NARCAN) for unintended sedation or respiratory depression IF all three of the following criteria are met: 1. Respiratory rate LESS than or EQUAL to 8. 2. SaO2 is LESS than 92% and/or end-tidal CO2 is GREATER than 50. 3. Patient is receiving an opioid, has unintended sedation assessed as RASS (-4) or (-5) and patient is NOT currently on mechanical ventilation. RASS scale (-4) is deep sedation with no response to voice but movement or eye opening to physical stimulation. RASS scale (-5) is unarousable. Notify Anesthesia Provider PRIOR to administering additional opioids if naloxone (NARCAN) given. Once patient has demonstrated a response to naloxone (NARCAN), continue to monitor respiratory rate, depth, oxygen saturation EVERY 15 minutes x 2, then EVERY 30 minutes x 2, then EVERY hour x 1 after each naloxone (NARCAN) dose. Monitor in Phase II for 2 hours after last naloxone (NARCAN) dose PRIOR to discharge., Phase ll ondansetron (ZOFRAN ODT) ODT tab 4 mg 4 mg, Oral, EVERY 30 MIN PRN, nausea, Starting on Maryam 07/04/23 at 1047, For 2 doses, MAX total dose = 8 mg, including OR dosing. If not resolved in 15 minutes, then go to step 2 [prochlorperazine (COMPAZINE), if ordered]. With dry hands, peel back foil backing and gently remove tablet. Do not push oral disintegrating tablet through foil backing. Administer immediately on tongue and oral disintegrating tablet dissolves in seconds, then swallow with saliva. Liquid not required., Phase ll ondansetron (ZOFRAN) injection 4 mg 4 mg, Intravenous, EVERY 30 MIN PRN, nausea, Administer over 2-5 Minutes, Starting on Maryam 07/04/23 at 1047, For 2 doses, MAX total dose = 8 mg, including OR dosing. If not resolved in 15 minutes, then go to step 2 [prochlorperazine (COMPAZINE), if ordered]. Irritant., Phase ll oxyCODONE (ROXICODONE) tablet 5 mg 5 mg, Oral, ONCE PRN, moderate pain, other, or is unable to participate in post op recovery due to pain., Starting on Maryam 07/04/23 at 1047, For 1 dose, Max: 5 mg for opioid-na??ve patient., Phase ll prochlorperazine (COMPAZINE) injection 5 mg 5 mg, Intravenous, EVERY 6 HOURS PRN, nausea, vomiting, Administer over 1-2 Minutes, Starting on Maryam 07/04/23 at 1047, Phase ll sodium chloride 0.9% irrigation (bag) PRN, Starting on Maryam 07/04/23 at 1020, Intra-procedure $Given 07/04/2023 10:20 AM CDT 2,000 mLs Operative Site/Surgical Site documented in this encounter Active and Recently Administered Medications Times are shown in CDT. Scheduled Medication Order 07/02/2023 07/03/2023 07/04/2023 ceFAZolin Sodium (ANCEF) injection 2 g (COMPLETED) Routine, 2 g, Intravenous, PRE-OP/PRE-PROCEDURE, Starting on Maryam 07/04/23 at 0812, For 1 dose, Give first dose within 1 hour PRIOR to incision. If patient weight is greater than or equal to 120 kg increase dose to 3 g., Indications: Perioperative Pharmacoprophylaxis, Pre-procedure 0935 ($Given - Provi tanya: Jesus Johnson, ENTRY LEVEL AUTOMOTIVE TECHNICIAN PADDLE DYEING MACHINE OPERATOR) cloNIDine injection 100 mcg (COMPLETED) 100 mcg, Intravenous, ONCE, On Maryam 07/04/23 at 1230, For 1 dose 1214 ($New Bag - Pro vider: Colette Mcgee RN) Continuous Medication Order 07/02/2023 07/03/2023 07/04/2023 lactated ringers infusion (CANCELED) at 10 mL/hr, Intravenous, CONTINUOUS, IF patient NOT on dialysis., Pre-procedure, Starting on Maryam 07/04/23 at 0830, Until Maryam 07/04/23 at 1033 0935 ($New Bag - Pro vider: Jesus Johnson APRN PADDLE DYEING MACHINE OPERATOR)1037 (Stopped - Provider: Jesus Johnson APRN CRNA) PRN Medication Order 07/02/2023 07/03/2023 07/04/2023 fentaNYL (PF) (SUBLIMAZE) injection 25 mcg 25 mcg, Intravenous, EVERY 15 MIN PRN, other, acute pain while in Phase II, Starting on Maryam 07/04/23 at 1047, Up to a total of 100 mcg. Use as a short acting IV agent for acute pain control. Patient must be monitored a minimum of 30 minutes before leaving the facility and meet all Phase II discharge criteria., Phase ll iopamidol 61% (ISOVUE 300) 50 mL + sterile water for irrigation 50 mL (CANCELED) PRN, Starting on Maryam 07/04/23 at 1020, Intra-procedure 1020 ($Given - Provi tanya: Oswald Hartley MD) naloxone (NARCAN) injection 0.1 mg 0.1 mg, Intravenous, EVERY 2 MIN PRN, opioid reversal, Starting on Maryam 07/04/23 at 1047, Notify Anesthesia Provider when administering naloxone (NARCAN) for unintended sedation or respiratory depression IF all three of the following criteria are met: 1. Respiratory rate LESS than or EQUAL to 8. 2. SaO2 is LESS than 92% and/or end-tidal CO2 is GREATER than 50. 3. Patient is receiving an opioid, has unintended sedation assessed as RASS (-4) or (-5) and patient is NOT currently on mechanical ventilation. RASS scale (-4) is deep sedation with no response to voice but movement or eye opening to physical stimulation. RASS scale (-5) is unarousable. Notify Anesthesia Provider PRIOR to administering additional opioids if naloxone (NARCAN) given. Once patient has demonstrated a response to naloxone (NARCAN), continue to monitor respiratory rate, depth, oxygen saturation EVERY 15 minutes x 2, then EVERY 30 minutes x 2, then EVERY hour x 1 after each naloxone (NARCAN) dose. Monitor in Phase II for 2 hours after last naloxone (NARCAN) dose PRIOR to discharge., Phase ll ondansetron (ZOFRAN ODT) ODT tab 4 mg(Linked Group 1) 4 mg, Oral, EVERY 30 MIN PRN, nausea, Starting on Maryam 07/04/23 at 1047, For 2 doses, MAX total dose = 8 mg, including OR dosing. If not resolved in 15 minutes, then go to step 2 [prochlorperazine (COMPAZINE), if ordered]. With dry hands, peel back foil backing and gently remove tablet. Do not push oral disintegrating tablet through foil backing. Administer immediately on tongue and oral disintegrating tablet dissolves in seconds, then swallow with saliva. Liquid not required., Phase ll ondansetron (ZOFRAN) injection 4 mg(Linked Group 1) 4 mg, Intravenous, EVERY 30 MIN PRN, nausea, Administer over 2-5 Minutes, Starting on Maryam 07/04/23 at 1047, For 2 doses, MAX total dose = 8 mg, including OR dosing. If not resolved in 15 minutes, then go to step 2 [prochlorperazine (COMPAZINE), if ordered]. Irritant., Phase ll oxyCODONE (ROXICODONE) tablet 5 mg 5 mg, Oral, ONCE PRN, moderate pain, other, or is unable to participate in post op recovery due to pain., Starting on Maryam 07/04/23 at 1047, For 1 dose, Max: 5 mg for opioid-na??ve patient., Phase ll prochlorperazine (COMPAZINE) injection 5 mg 5 mg, Intravenous, EVERY 6 HOURS PRN, nausea, vomiting, Administer over 1-2 Minutes, Starting on Maryam 07/04/23 at 1047, Phase ll sodium chloride 0.9% irrigation (bag) (CANCELED) PRN, Starting on Maryam 07/04/23 at 1020, Intra-procedure 1020 ($Given - Provi tanya: Oswald Hartley MD) Linked Groups Order Group 1: ondansetron (ZOFRAN ODT) ODT tab 4 mgJump to med 4 mg, Oral, EVERY 30 MIN PRN, nausea, Starting on Maryam 07/04/23 at 1047, For 2 doses, MAX total dose = 8 mg, including OR dosing. If not resolved in 15 minutes, then go to step 2 [prochlorperazine (COMPAZINE), if ordered]. With dry hands, peel back foil backing and gently remove tablet. Do not push oral disintegrating tablet through foil backing. Administer immediately on tongue and oral disintegrating tablet dissolves in seconds, then swallow with saliva. Liquid not required., Phase ll Or ondansetron (ZOFRAN) injection 4 mgJump to med 4 mg, Intravenous, EVERY 30 MIN PRN, nausea, Administer over 2-5 Minutes, Starting on Maryam 07/04/23 at 1047, For 2 doses, MAX total dose = 8 mg, including OR dosing. If not resolved in 15 minutes, then go to step 2 [prochlorperazine (COMPAZINE), if ordered]. Irritant., Phase ll documented in this encounter Additional Health Concerns Problem Noted Date Diagnosed Date MyC ECC SURG ENROLL 06/24/2023 documented as of this encounter Care Teams Mold Runner Relationship Specialty Start Date End Date Janki Pace DO PCP - General Family Practice 06/19/10 Leland Linton MD RETIRED PCP - Orthopaedics Orthopedics 07/06/10 Yobani Rodriguez MD [address] [address] PCP - Ophthalmology Ophthalmology 11/02/10 Yael Milton [address] [address] PCP - Audiology Audiology 11/14/10 Oswald Hartley MD [facility] [address] [address] Urology 03/01/23 Oswald Hartley MD [address] [place] [id number] Assigned Surgical Provider 06/14/23 documented as of this encounter
--- OUTSIDE RECORDS SUMMARY | 2023-07-09 09:56 | XMS_ITS | Encounter Summary ---
Author Name Unknown Organization [place] Address [address] [facility] [place] [address] Care Team Providers Care Wet End Helper Name Role Phone DavongermanEbJanki Heidi SAUL Primary Care Provider [phone] Leland Linton MD Unavailable Unavailable Yobani Rodriguez MD Unavailable Yael Milton Unavailable Justus Reina MD Unavailable Justus Reina MD Unavailable [phone] Reason for Visit * Reason Onset Date Comments Appointment 05/27/2023 Patient calling to schedule Cysto in [place] location per the request of Dr. Reina. Encounter Details Date Type Department Care Team (Late st Contact Info) Description 05/27/2023 Telephone [facility] [address] [place] [address] Justus Reina MD [address] [place], [place] [phone] Appointment (Patient calling to schedule Cysto in [place] location per the request of Dr. Reina. ) Social History Tobacco Use Types Packs/Day Years [...] encounter Miscellaneous Notes * Telephone Encounter - Carley Almendarez - 05/27/2023 4:08 PM [facility] Phone Message May a detailed message be left on voicemail: yes Reason for Call: Other: Patient calling to schedule Cysto in [facility] per the request ofDr. Reina. Sending encounter message per guideline instructions. Action Taken: Message routed to: Other: UB Uro Travel Screening: Not Applicable OSOFT DYNAMICS DEVELOPER documented in this encounter Plan of Treatment Upcoming Encounters Date Type Department Care Team (Latest Contact Info) Description 07/11/2023 11:00 AM CDT Hospital Encounter [facility] PeriOp Services [address] [place] [address] Justus Reina MD [address] [place] [phone] 07/11/2023 11:00 AM CDT - 07/11/2023 12:30 PM CDT Surgery [facility] Services [address] [place] [address] Justus Reina MD [address] [place] [id number] Cystoureteroscopy with left retrograde pyelogram, possible renal pelvis biopsy possible laser fulguration with stent exchange Scheduled Procedures Name Priority Associated Diagnoses Date/Ti or CYSTOURETEROSCOPY, WITH RETROGRADE PYELOGRAM, HOLMIUM LASER LITHOTRIPSY OF URETERAL CALCULUS, AND STENT INSERTION 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 07/11/2023 11:00 AM CDT documented as of this encounter Visit Diagnoses Not on filedocumented in this encounter Care Teams Wet End Helper Relationship Specialty Start Date End Date Sanjeev Janki HeidiDO PCP - General Family Practice 06/19/10 Leland Linton MD RETIRED PCP - Orthopaedics Orthopedics 07/06/10 Yobani Rodriguez MD [address] [address] PCP - Ophthalmology Ophthalmology 11/02/10 Yael Milton [address] [address] PCP - Audiology Audiology 11/14/10 Justus Reina MD [address] [place] [phone] Urology 03/01/23 Justus Reina MD [address] [place] [phone] Assigned Surgical Provider 06/14/23 documented as of this encounter
--- OUTSIDE RECORDS SUMMARY | 2023-07-09 09:56 | XMS_ITS | Encounter Summary ---
Author Name Unknown Organization [place] Address [address] [facility] [place] [address] Care Team Providers Care Machine Umbrella Tipper Name Role Phone DavondhavalJanki randall DO Primary Care Provider Leland Linton MD Unavailable Unavailable Yobani Rodriguez MD Unavailable Yael Milton Unavailable Oswald Hartley MD Unavailable Oswald Hartley MD Unavailable [phone] Reason for Visit * Auth/Cert (Routine) Specialty Diagnoses / Procedures Referred By Radha maddox Referred To Contact Surgery Diagnoses Microscopic hematuria Microscopic hematuria [R31.29] Procedures CT CYSTO/URETERO W/LITHOTRIPSY &INDWELL STENT INSRT CT UROGRAPHY, RETROGRADE W/WO KUB Cystoureteroscopy with left retrograde pyelogram, biopsy of the renal pelvis and fulguration, possible ureteral stent placement, possible laser [facility] Per[facility] Services [address] [place] [address] Referral ID Status Reason Start Date Expiration Date Visits Re quested Visits Authorized [id number] 1 1 Encounter Details Date Type Department Care Team (Latest Contact Info) Description 07/04/2023 7:50 AM CDT - 07/04/2023 1:04 PM CDT Hospital Encounter [facility] PreOP/PostOP [address] [place] [address] Oswald Hartley MD [address] [place] [phone] Microscopic hematuria (Primary Dx) Discharge Disposition: Home or Self Care Social History Tobacco Use Types Packs/Day Years [...] DR. OSWALD HARTLEY M.D. CLINIC PHONE NUMBER: [phone] [facility] * Attachments The following attachments cannot be sent through Care Everywhere. * (s) After Anesthesia (Sleep Medicine) ([place]) documented in this encounter Medications at Time of Discharge Medication Sig Dispensed Refills Start Date End Date acetaminophen (TYLENOL) 325 MG tabletIndications:Micro scopic hematuria Take 2 tablets (650 mg) by mouth every 4 hours as needed for mild pain 50 tablet 0 07/04/2023 losartan (COZAAR) 100 MG tabletIndications:Inna vyas hypertension, benign Take 1 tablet (100 mg) [...] ESTIMATED BLOOD LOSS: 1 cc DRAINS/TUBES: 6 Bulgarian x 26 cm double-J ureteral stent IV FLUIDS: Please see dictated anesthesia record COMPLICATIONS: None. SPECIMEN: Ureteral washing SIGNIFICANT FINDINGS: Very narrow and tight upper ureter/UPJ area. Could not be calibrated beyond 10 Bulgarian and the flexible ureteroscope could not be [...] laterality. Pre-operative IV antibiotics were administered. A 22-Bulgarian rigid cystoscope was inserted into a well-lubricated urethra. The anterior urethra was unremarkable, prostate was enlarged with bilateral lateral lobes enlargement. The left ureteral orifice was identified and cannulated with a Sensor wire and 5 Bulgarian open-ended catheter. The wire passed without resistance into the upper pole and the 5-Bulgarian open ended catheter was removed after performing a ureteral washing. A dual-lumen catheter was used to perform a retrograde pyelogram and to establish access with a second, sensor wire. A 11/13 Bulgarian 36-cm ureteral access sheath was advanced up [...] and calibrated the ureter up to 10 Bulgarian. However the 10 Bulgarian calibrator was negotiated with significant difficulty into the pelvis. Subsequent to dilators were not negotiable into the pelvis. We therefore abandoned further calibration dilatation proceeded with stent placement for passive ureteraldilatation. A 6 Bulgarian 26-cm double-J stent was advanced over the [...] 1 to 2 weeks. Oswald Hartley MD [facility], Urology documented in this encounter Plan of Treatment Upcoming Encounters Date Type Department Care Team (Latest Contact Info) Description 07/11/2023 11:00 AM CDT Hospital Encounter [facility] PeriOp Services [address] [place] [address] Oswald Hartley MD [address] [place], [place] [id number] 07/11/2023 11:00 AM CDT - 07/11/2023 12:30 PM [facility]T [facility] [address] [place] [address] Oswald Hartley MD [address] [place], [place] [address] Cystoureteroscopy with left retrograde pyelogram, possible renal [...] be read by a radiologist or a [place] non-radiologist provider. Oswald Hartley MD IMG DIAGNOSTIC [...] component of this testing was completed at [facility] 07/05/2023 11:17 AM CDT SPECIALTY LABS [place] STRUCTURE OF LEFT URETER / Unknown 07/04/2023 9:53 AM CDT 07/04/2023 10:31 AM CDT Oswald Hartley MD [facility] Acute [facility] Lab [address] Lab (1st floor, no room number) [place] [address], [facility] Specialty Lab [address] [facility], [address] [place] [address], [facility] * LAB RESULT - HIM SCAN (06/27/2023 12:00 AM CDT) 06/27/2023 Provider Outside NON-BEAKER LAB TE STING * EKG CARDIAC - HIM SCAN (06/27/2023 12:00 AM CDT) 06/27/2023 Provider Outside ECG ORDERABLES documented in this encounter Visit Diagnoses Diagnosis Microscopic hematuria- Primary Neoplasm of uncertain behavior of left renal [...] all Phase II discharge criteria., Phase ll naloxone (NARCAN) injection 0.1 mg 0.1 mg, [...] on Maryam 07/04/23 at 1047, Phase ll documented in this encounter Active and Recently [...] Pre-procedure 0935 ($Given - Provi tanya: Jesus Johnson APRN CRNA) cloNIDine injection 100 mcg (COMPLETED) 100 mcg, [...] Bag - Pro vider: Jesus Johnson APRN CRNA)1037 (Stopped - Provider: Jesus Johnson APRN CRNA) [...] documented as of this encounter Care Teams Machine Umbrella Tipper Relationship Specialty Start Date End Date Janki Pace DO PCP - General Family Practice 06/19/10 Leland Linton MD RETIRED PCP - Orthopaedics Orthopedics 07/06/10 Yobani Rodriguez MD [address] [address] PCP - Ophthalmology Ophthalmology 11/02/10 Yale Milton [address] [address] PCP - Audiology Audiology 11/14/10 Oswald Hartley MD [address] [id number] Urology 03/01/23 Oswald Hartley MD [address] [place] [phone] Assigned Surgical Provider 06/14/23 documented as of this encounter
--- OUTSIDE RECORDS SUMMARY | 2023-07-09 09:56 | XMS_ITS | Encounter Summary ---
Author Name Unknown Organization [place] Address [address] [facility] [place] [address] Care Team Providers Care Vending Stand Supervisor Name Role Phone Janki Pace Heidi SAUL Primary Care Provider Leland Linton MD Unavailable Unavailable Yobani Rodriguez MD Unavailable Yael Milton Unavailable Justus Reina MD Unavailable Justus Reina MD Unavailable Reason for Visit * Reason Comments Hematuria Cystoscopy Encounter Details Date Type Department Care Team (Late st Contact Info) Description 06/24/2023 2:30 PM CDT Office Visit [facility] [address] [place] [address] Justus Reina MD [address] [place], [place] [address] Microscopic hematuria (Primary Dx); Urothelial carcinoma of kidney, left (H); Right renal stone Social History Tobacco Use Types Packs/Day Years [...] Sign Reading Time Taken Comments Blood Pressure 150/86 06/24/2023 2:17 PM CDT Pulse - - Temperature - - Respiratory Rate - - Oxygen Saturation - - Inhaled Oxygen Concentration - - Weight 90.7 kg (200 lb) 06/24/2023 2:17 PM CDT Height 188 cm (6' 2) 06/24/2023 2:17 PM CDT Body Mass Index 25.68 06/24/2023 2:17 PM CDT documented in this encounter Patient Instructions * Patient Instructions* Jsutus Reina MD - 06/24/2023 2:30 PM CDT AFTER YOUR CYSTOSCOPY ? ? You have just completed a cystoscopy, or cysto, which allowed your physician to learn more about your bladder (or to remove a stent placed after surgery). We suggest that you continue to avoid caffeine, fruit juice, and alcohol for the next 24 hours, however, you are encouraged to return to your normal activities. ? ? A few things that are considered normal after your cystoscopy: ? * small amount of bleeding (or spotting) that clears within the next 24 hours ? * slight burning sensation with urination ? * sensation of needing to void (urinate) more frequently ? * the feeling of air in your urine ? * mild discomfort that is relieved with Tylenol * bladder spasms ? ? ? Please contact our office promptly if you: ? * develop a fever above 101 degrees ? * are unable to urinate ? * develop bright red blood that does not stop ? * experience severe pain or swelling ? ? ? And of course, please contact our office with any concerns or questions [phone]. Please schedule for ureteroscopy on the left Plan to do ureteroscopic biopsy and fulguration with stent placement Following this he can see Dr. Melgoza to discuss possible PCNL on the right documented in this encounter Progress Notes * Justus Reina MD - 06/24/2023 2:30 PM CDT CHIEF COMPLAINT It was my pleasure to see Amanda Angle who is a 82 year old male for follow-up of microscopic hematuria. HPI: Amanda Angel is a 82 year old male being seen for follow-up. Duration of problem: Few weeks Previous treatments: None yet accompanied by his spouse Reviewed previous notes Is here to review the results of his recent CT imaging with cystoscopy today Exam: BP (!) 150/86 Ht 1.88 m (6' 2) Wt 90.7 kg (200 lb) BMI 25.68 kg/m?? General: age-appropriate appearing male in NAD sitting in an exam chair Resp: no respiratory distress CV: heart rate regular Abdomen: Degree of obesity is mild. Abdomen is soft and nontender. No organomegaly. : not performed Neuro: grossly non focal. Normal reflexes Motor: excellent strength throughout CYSTOSCOPY Pre-procedure diagnosis: Microscopic hematuria, BPH Post procedure diagnosis: Enlarged prostate, normal bladder Procedure performed: cystoscopy Surgeon: Justus Reina MD Anesthesia: local Indications for procedure: Patient is a 82 year old year old male with a history of microscopic hematuria. Here today for cysto Description of procedure: After fully informed voluntary consent was obtained patient was brought into the procedure room, identified and placed in a supine position on the cysto table. The groin/scrotum were prepped and draped in a sterile fashion with betadine. A 15F flexible cystoscope was inserted into the urethra and the bladder and urethra examined in a systematic manner. There were no tumor stones or diverticula. Ureteric orifices were normal in position and number and effluxing clear urine. The prostate was 6 cm long and a defect of prior TURP and no evidence of median lobe but and bilateral lateral lobes residual tissue/regrowth with significant occlusion. Distal urethra was normal. The patient tolerated the procedure well and there were no complications. Assessment/Plan: Patient with a history of hematuria with large residual/regrowth of prostate tissue otherwise negative cystoscopy. Please review the Detailed notes. Review of Imaging: The following imaging exams were independently viewed and interpreted by me and discussed with patient: CT Scan Abd/Pelvis: CT urogram Abnormal: CT UROGRAM WO & W CONTRAST 06/20/2023 [...] chronic bladder obstruction. 4. Mild prostatomegaly. CORINNA ARRIAGA MD Review of Labs: The following labs were reviewed by me and discussed with the patient: Creatinine: Normal Assessment & Plan Microscopic hematuria Urothelial carcinoma of kidney, left (H) Microscopic hematuria with normal cystoscopy CT picture suggestive of a large right renal calculus and a concern for a possible filling defect in the left renal pelvis. I discussed with him in about the significance of these findings and the need to have a direct visualization of the lesion in the renal pelvis on the left. He also would qualify for a kidney stone procedure considering the large size of the stone. I discussed with one of my partners Dr. Melgoza if you would be able to consider for bilateral procedures left ureteroscopy for ureteral mass evaluation with biopsy and right PCNL. Based on my discussion it seems that Dr. Melgoza's wait list for PCNL is significantly low and therefore may delay evaluation for the ureteral/renal pelvic filling defect/mass. Therefore I discussed with the Amanda and his that we would proceed ahead with ureteroscopy and visualization of the mass with a biopsy and fulguration. He understands that he may need a ureteral stent after the procedure and we discussed in details about the stent symptoms. We also talked about hematuria, urinary tract infections and possible second procedures that we may need to do to completely take care of this filling defect concerning for a urothelial mass. I will have him scheduled for ureteroscopy and then follow-up with Dr. Melgoza for discussions regarding PCNL - UA without Microscopic [[id number]]; Future - lidocaine (XYLOCAINE) 2 % external gel - Case Request: CYSTOURETEROSCOPY, WITH RETROGRADE PYELOGRAM, Biopsy of the renal pelvis and fulguration, possible ureteral stent placement, possible laser; Standing - Case Request: CYSTOURETEROSCOPY, WITH RETROGRADE PYELOGRAM, Biopsy of the renal pelvis and fulguration, possible ureteral stent placement, possible laser - CYSTOURETHROSCOPY Right renal stone About 22 mm size kidney stone. Not amenable to ureteroscopic approach Would recommend PCNL and discussions regarding the same. He is not currently symptomatic so can be considered for PCNL with Dr. Melgoza after resolution of this concern with filling defect on the left renal pelvis. Justus Reina MD [facility] Additional Billing and Coding Information: Review of external notes as documented above Review of the result(s) of each unique test - CT abdomen pelvis/urogram, creatinine Discussion of management or test interpretation with external physician/other qualified healthcare professional/appropriate source -discussed with medical partners for concomitant management of kidney stones by PCNL 25 minutes spent by me on the date of the encounter doing chart review, review of test results, interpretation of tests, patient visit, documentation, discussion with other provider(s), and discussion with family part from time spent at cystoscopy documented in this encounter Nursing Notes * Edith Elias EMT - 06/24/2023 2:30 PM CDT Chief Complaint Patient presents with Hematuria Cystoscopy Prior to the start of the procedure and with procedural staff participation, I verbally confirmed the patient???s identity using two indicators, relevant allergies, that the procedure was appropriateand matched the consent or emergent situation, and that the correct equipment/implants were available. Immediately prior to starting the procedure I conducted the Time Out with the procedural staff and re-confirmed the patient???s name, procedure, and site/side. I have wiped the patient off with the povidone-Iodine solution, draped them, and used Lidocaine hydrochloride jelly. (The Joint Commission universal protocol was followed.) Yes Sedation (Moderate or Deep): None' 5mL 2% lidocaine hydrochloride Urojet instilled into urethra. [facility]# [id number] Lot #: [id number] Expiration Date: 12/24 MARIE Álvarez documented in this encounter Plan of Treatment Upcoming Encounters Date Type Department Care Team (Latest Contact Info) Description 07/11/2023 11:00 AM CDT Hospital Encounter [facility] Services [address] [place] [address] Justus Reina MD [address] [place] [address] 07/11/2023 11:00 AM CDT - 07/11/2023 12:30 PM CDT Surgery [facility] Peri Services [address] [place] [address] Justus Reina MD [address] [place] [address] Cystoureteroscopy with left retrograde pyelogram, possible renal [...] Procedure Name Priority Date/Time Associated Diagnosis Comments ID CYSTOURETHROSCOPY Routine 06/24/2023 3:04 PM C DT Microscopic hematuria documented in this encounter Visit Diagnoses Diagnosis Microscopic hematuria- Primary Urothelial carcinoma of kidney, left (H) Right renal stone 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 documented in this encounter Administered Medications Inactive Administered Medications - up to 3 most recent administrations Medication Order MAR Action Action Date Dose Rate Site lidocaine (XYLOCAINE) 2 % external gel Urethral, ONCE, On 06/24/23 at 1430, For 1 dose $Given 06/24/2023 2:26 PM CDT documented in this encounter Additional Health Concerns Problem Noted Date Diagnosed Date MyC ECC SURG ENROLL 06/24/2023 documented as of this encounter Care Teams Vending Stand Supervisor Relationship Specialty Start Date End Date Janki Pace DO PCP - General Family Practice 06/19/10 Leland Linton MD RETIRED PCP - Orthopaedics Orthopedics 07/06/10 Yobani Rodriguez MD [address] [address] PCP - Ophthalmology Ophthalmology 11/02/10 Yael Milton [address] [address] PCP - Audiology Audiology 11/14/10 Justus Reina MD [address] [place] [address] Urology 03/01/23 Justus Reina MD [address] [place] [address] Assigned Surgical Provider 06/14/23 documented as of this encounter
--- OUTSIDE RECORDS SUMMARY | 2023-07-09 09:56 | XMS_ITS | Encounter Summary ---
Author Name Unknown Organization [place] Address [address] [place] [address]. [place] [address] Care Team Providers Care Maintenance Of Way Superintendent Name Role Phone Janki Pace Heidi SAUL Primary Care Provider Leland Linton MD Unavailable Unavailable Yobani Rodriguez MD Unavailable Yael Milton Unavailable Justus Reina MD Unavailable [phone] Justus Reina MD Unavailable Reason for Referral * Diagnostic Imaging CT Scan (Routine) - Closed Specialty Diagnoses / Procedures Referred By Radha maddox Referred To Contact Radiology. Diagnoses Microscopic hematuria Procedures CT Urogram wo & w Contrast Justsu Reina MD [address] [place] [address] Referral ID Status Reason Start Date Expiration Date Visits Re quested Visits Authorized [id number] Closed 05/27/2023 05/26/2024 1 1 Reason for Visit * Diagnostic Imaging CT Scan (Routine) - Closed Specialty Diagnoses / Procedures Referred By Radha maddox Referred To Contact Radiology. Diagnoses Microscopic hematuria Procedures CT Urogram wo & w Contrast Justus Reina MD [address] [place] [address] Referral ID Status Reason Start Date Expiration Date Visits Re quested Visits Authorized [id number] Closed 05/27/2023 05/26/2024 1 1 Encounter Details Date Type Department Care Team (Latest Contact Info) Description 06/20/2023 9:39 AM CDT - 06/20/2023 11:59 PM CDT Hospital Encounter [facility] Imaging [address] [facility] [address] [place] [address] Jsutus Reina MD [address] [place] [address] Microscopic hematuria Discharge Disposition: Home or Self Care Social [...] PM CDT documented as of this encounter Medications at Time of Discharge Medication Sig Dispensed Refills Start Date End Date losartan (COZAAR) 100 MG tabletIndications:Essen tial hypertension, benign Take 1 tablet (100 mg) by mouth daily 90 tablet 3 01/15/2013 magnesium 250 MG tablet Take 1 tablet by mouth daily. 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 0 07/01/2023 dutasteride (AVODART) 0.5 MG capsuleIndications:Han gn prostatic hyperplasia with incomplete bladder emptying Take 1 capsule (0.5 mg) by mouth daily 90 capsule 3 05/29/2023 07/01/2023 finasteride (PROSCAR) 5 MG tabletIndications:Benstanislaw n prostatic hyperplasia with incomplete bladder emptying Take 1 tablet (5 mg) by mouth daily for 360 days 90 tablet 3 05/20/2023 07/01/2023 FISH OIL 1000 MG PO CAPS 1 tablet daily 0 07/01/2023 Wzuzvmojjee-Sruabcecn-L it C-Mn (GLUCOSAMINE CHONDROITIN 1500 COMPLEX) CAPS Take 1 tablet by mouth daily. 0 02/15/2012 07/01/2023 IBU OR PRN for hand pain 0 07/01/2023 METAMUCIL SUNRISE OR 1 tsp in liquid daily 0 07/01/2023 sildenafil (VIAGRA) 100 MG tabletIndications:Erect ile dysfunction Take 1 tablet by mouth daily as needed for erectile dysfunction. 20 tablet 5 01/03/2011 07/01/2023 documented as of this encounter Plan of Treatment Upcoming Encounters Date Type Department Care Team (Latest Contact Info) Description 07/11/2023 11:00 AM CDT Hospital Encounter [facility] PeriOp Services [address] [place] [address] Justus Reina MD [address] [place] [phone] 07/11/2023 11:00 AM CDT - 07/11/2023 12:30 PM CDT Surgery [facility] Services [address] [place] [address] Justus Reina MD [address] [place] [phone] Cystoureteroscopy with left retrograde pyelogram, possible renal pelvis biopsy possible laser fulguration with stent exchange Scheduled Procedures Name Priority Associated Diagnoses Date/Ti me CYSTOURETEROSCOPY, WITH RETROGRADE PYELOGRAM, HOLMIUM LASER LITHOTRIPSY OF URETERAL CALCULUS, AND STENT INSERTION 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 4. ??Mild prostatomegaly. CORINNA ARRIAGA MD Narrative 06/20/2023 10:[address] [...] fluid collections. MUSCULOSKELETAL: Unremarkable. Procedure Note Corinna Arriaga MD - 06/20/2023 CT UROGRAM WO & [...] obstruction. 4. Mild prostatomegaly. CORINNA ARRIAGA MD Justus Reina MD IMG CT ORDERABLES * Creatinine POCT (06/20/2023 10:04 AM CDT) Creatinine POCT 1.2 0.7 - 1.3 mg/dL 06/20/2023 10:08 AM CDT [facility] P[facility] GFR, ESTIMATED POCT >60 >60 mL/min/1.7 3m2 06/20/2023 10:08 AM CDT [facility] Blood BLOOD SPECIMEN / Unknown 06/20/2023 10:04 AM CDT 06/20/2023 10:08 AM CDT Justus Reina MD LAB - BEAKER POCT [facility] P[facility] Acute Care Lab [address] Lab (1st floor, no room number) [place] [address], [facility] documented in this encounter Visit Diagnoses Diagnosis Microscopic hematuria 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 $Given 06/20/2023 10:08 AM CDT 95 mLs iopamidol (ISOVUE-370) solution 500 mL 500 mL, Intravenous, ONCE, On Maryam 06/20/23 at 1000, For 1 dose $Given 06/20/2023 10:08 AM CDT 100 mLs documented in this encounter Care Teams Maintenance Of Way Superintendent Relationship Specialty Start Date End Date Janki Pace DO PCP - General Family Practice 06/19/10 Leland Linton MD RETIRED PCP - Orthopaedics Orthopedics 07/06/10 Yobani Rodriguez MD [address] [address] PCP - Ophthalmology Ophthalmology 11/02/10 Yael Milton [address] [address] PCP - Audiology Audiology 11/14/10 Justus Reina MD [address] [address] Urology 03/01/23 Justus Reina MD [address] [place] [address] Assigned Surgical Provider 06/14/23 documented as of this encounter
--- OUTSIDE RECORDS SUMMARY | 2023-07-09 09:56 | XMS_ITS | Encounter Summary ---
Author Name Unknown Organization [place] Address [address] [facility] [place] [address] Care Team Providers Care Manufacturing Management Associate Name Role Phone Janki Pace Primary Care Provider [phone] Leland Linton MD Unavailable Unavailable Yobani Rodriguez MD Unavailable Yael Milton Unavailable Justus Reina MD Unavailable [phone] Justus Reina MD Unavailable [phone] Encounter Details Date Type Department Care Team (Latest Contact Info) Description 06/28/2023 Travel Social History Tobacco Use Types Packs/Day [...] 07/11/2023 11:00 AM CDT Hospital Encounter [facility] [address] [place] [address] Justus Reina MD [address] [place] [address] 07/11/2023 11:00 AM CDT - 07/11/2023 12:[address] [facility] [address] [place] [address] Justus Reina MD [address] [place] [address] Cystoureteroscopy with left retrograde pyelogram, possible renal [...] documented as of this encounter Care Teams Manufacturing Management Associate Relationship Specialty Start Date End Date Janki Pace DO PCP - General Family Practice 06/19/10 Leland Linton MD RETIRED PCP - Orthopaedics Orthopedics 07/06/10 Yobani Rodriguez MD [address] [address] PCP - Ophthalmology Ophthalmology 11/02/10 Yael Milton [facility] [address] [place] [address] PCP - Audiology Audiology 11/14/10 Justus Reina MD [address] [address] Urology 03/01/23 Justus Reina MD [address] [place] [address] [phone] Assigned Surgical Provider 06/14/23 documented as of this encounter
--- OUTSIDE RECORDS SUMMARY | 2023-07-09 09:56 | XMS_ITS | Encounter Summary ---
Author Name Unknown Organization [place] Address [address] [facility] [place] [address] Care Team Providers Care Perennial House Manager Name Role Phone DavonJanki porter Heidi SAUL Primary Care Provider Leland Linton MD Unavailable Unavailable Yobani Rodriguez MD Unavailable Yael Milton Unavailable Justus Reina MD Unavailable [phone] Encounter Details Date Type Department Care Team (Late st Contact Info) Description 05/29/2023 Tiana Gordon [facility] [address] [place] [address] Justus Reina MD [address] [place], [place] [address] Social History Tobacco Use Types Packs/Day Years [...] encounter Miscellaneous Notes * Telephone Encounter - Apoorva De La Rosa LPN - 05/29/2023 10:54 AM ROLLER PRINT TENDER Returned phone call and spoke with patient. He mentioned that a few weeks ago when starting finasteride he was having some dizziness and Dr. Reina recommended that patient take prescription at night.His PCP is now concerned that the patient may get up in the middle of the night and fall. Will sendmessage to Dr. Reina as patient is looking for another recommendation. Apoorva De La Rosa LPN ER PRINT TENDER * Telephone Encounter - Susi Terry - 05/29/2023 10:36 AM CST [facility] Phone Message May a detailed message be left on voicemail: yes Reason for Call: Other: Patient is calling to speak with care team regarding Finasteride medication. Patients pcp disagrees with the medication choice. Please reach out. Thank you Action Taken: Message routed to: [facility] URO Travel Screening: Not Applicable ER PRINT TENDER documented in this encounter Plan of Treatment Upcoming Encounters Date Type Department Care Team (Latest Contact Info) Description 07/11/2023 11:00 AM CDT Hospital Encounter [facility] PeriOp Services [address] [place] [address] Justus Reina MD [address] [place] [address] 07/11/2023 11:00 AM CDT - 07/11/2023 12:30 PM CDT Surgery [facility] [address] [place] [address] Justus Reina MD [address] [place] [address] Cystoureteroscopy with left retrograde pyelogram, possible renal pelvis biopsy possible laser fulguration with stent exchange Scheduled Procedures Name Priority Associated Diagnoses Date/Ti mn CYSTOURETEROSCOPY, WITH RETROGRADE PYELOGRAM, HOLMIUM LASER LITHOTRIPSY OF URETERAL CALCULUS, AND STENT INSERTION 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 07/11/2023 11:00 AM CDT documented as of this encounter Visit Diagnoses Diagnosis Benign prostatic hyperplasia with incomplete bladder emptying- 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
--- OUTSIDE RECORDS SUMMARY | 2023-07-09 09:56 | XMS_ITS | Encounter Summary ---
Author Name Unknown Organization [place] Address [address] [place] [address] Care Team Providers Care Manager Change Name Role Phone Davongerman Janki Heidi SAUL Primary Care Provider [phone] Leland Linton MD Unavailable Unavailable Yobani Rodriguez MD Unavailable Yael Milton Unavailable Justus Reina MD Unavailable [phone] Encounter Details Date Type Department Care Team (Late st Contact Info) Description 05/24/2023 11:15 AM BINDERY MACHINE SETTER Lab [facility] [address] [place] [address] Microscopic hematuria Social History Tobacco Use Types Packs/Day Years [...] Description 07/11/2023 11:00 AM CDT Hospital Encounter [facility] PeriOp Services [address] [place] [address] Justus Reina MD [address] [place], [place] [address] 07/11/2023 11:00 AM CDT - 07/11/2023 12:30 PM CDT Surgery [facility]iOp Services [address] [place] [phone] Justus Reina MD [address] [place], [place] [address] Cystoureteroscopy with left retrograde pyelogram, possible renal pelvis biopsy possible laser fulguration with stent exchange Scheduled Procedures Name Priority Associated Diagnoses Date/Ti me CYSTOURETEROSCOPY, WITH RETROGRADE PYELOGRAM, HOLMIUM LASER LITHOTRIPSY OF URETERAL CALCULUS, AND STENT INSERTION 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 07/11/2023 11:00 AM CDT documented as of this encounter Procedures Procedure Name Priority Date/Time Associated Diagnosis Comments URINE MICROSCOPIC EXAM Routine 05/24/2023 11:11 AM BINDERY MACHINE SETTER Microscopic hematuria documented in this encounter Results * (ABNORMAL) [facility] - Urine Micro Only (05/24/2023 11:11 AM BINDERY MACHINE SETTER) Bacteria Urine Moderate(A ) None Seen /HPF JONE 05/24/2023 11:23 AM BINDERY MACHINE SETTER [facility] RBC Urine 5-10(A) 0-2 /HPF /HPF JONE 05/24/2023 11:23 AM BINDERY MACHINE SETTER [facility] WBC Urine 0-5 0-5 /HPF /HPF JONE 05/24/2023 11:23 AM BINDERY MACHINE SETTER [facility] Urine URINE SPECIMEN OBTAINED BY CLEAN CATCH PROCEDURE / Unknown Non-blood Collection / Unknown 05/24/2023 11:11 AM BINDERY MACHINE SETTER 05/24/2023 11:11 AM BINDERY MACHINE SETTER Justus Reina MD LAB - URINE ORDERA BLES [facility] [address], [address] [place] [address], [facility] [phone] documented in this encounter Visit Diagnoses Diagnosis Microscopic hematuria 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
--- OUTSIDE RECORDS SUMMARY | 2023-07-09 09:56 | XMS_ITS | Encounter Summary ---
Author Name Unknown Organization [place] Address [address] [place] [address] Care Team Providers Care Assembler Plastic Boat Name Role Phone Janki Pace Primary Care Provider Leland Linton MD Unavailable Unavailable Yobani Rodriguez MD Unavailable Yael Milton Unavailable Justus Reina MD Unavailable [phone] Justus Reina MD Unavailable [phone] Encounter Details Date Type Department Care Team (Latest Contact Info) Description 07/01/2023 Travel Social History Tobacco Use Types Packs/Day [...] 07/11/2023 11:00 AM CDT Hospital Encounter [facility] [address] [place] [address] Justus Reina MD [address] [place] [address] 07/11/2023 11:00 AM CDT - 07/11/2023 12:[address] [facility] [address] [place] [address] Justus Reina MD [address] [place] [address] Cystoureteroscopy with left retrograde pyelogram, possible renal [...] documented as of this encounter Care Teams Assembler Plastic Boat Relationship Specialty Start Date End Date Janki Pace DO PCP - General Family Practice 06/19/10 Leland Linton MD RETIRED PCP - Orthopaedics Orthopedics 07/06/10 Yobani Rodriguez MD [address] [address] PCP - Ophthalmology Ophthalmology 11/02/10 Yael Milton [facility] [address] [place] [address] PCP - Audiology Audiology 11/14/10 Justus Reina MD [address] [address] Urology 03/01/23 Justus Reina MD [address] [place] [phone] Assigned Surgical Provider 06/14/23 documented as of this encounter
--- OUTSIDE RECORDS SUMMARY | 2023-07-09 09:56 | XMS_ITS | Encounter Summary ---
Author Name Unknown Organization [place] Address [address] [facility] [place] [address] Care Team Providers Care Assembler Convertible Top Name Role Phone Janki Pace Primary Care Provider [phone] Leland Linton MD Unavailable Unavailable Yobani Rodriguez MD Unavailable Yael Milton Unavailable Justus Reina MD Unavailable [phone] Encounter Details Date Type Department Care Team (Latest Contact Info) Description 05/24/2023 Travel Social History Tobacco Use Types Packs/Day [...] 11:00 AM CDT Hospital Encounter [facility] [address] [place] [address] Justus Reina MD [address] [place] [address] 07/11/2023 11:00 AM CDT - 07/11/2023 12:[address] 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
--- OUTSIDE RECORDS SUMMARY | 2023-07-09 09:56 | XMS_ITS | Encounter Summary ---
Author Name Unknown Organization [place] Address [address] [facility] [place] [address] Care Team Providers Care Ramp Lead Name Role Phone DavonJanki porter Primary Care Provider Leland Linton MD Unavailable Unavailable Yobani Rodriguez MD Unavailable Yael Milton Unavailable Justus Reina MD Unavailable Justus Reina MD Unavailable [phone] Encounter Details Date Type Department Care Team (Late st Contact Info) Description 06/28/2023 10:30 AM CDT Lab [facility] Urology [facility] [address] [place] [address] [address] [place] [address] Microscopic hematuria (Primary Dx) Social History Tobacco Use Types [...] Description 07/11/2023 11:00 AM CDT Hospital Encounter [facility] PeriOp Services [address] [place] [address] Justus Reina MD [address] [place] [address] 07/11/2023 11:00 AM CDT - 07/11/2023 12:30 PM CDT Surgery [facility]Op Services [address] [place] [address] Justus Reina MD [address] [place] [address] Cystoureteroscopy with left retrograde pyelogram, possible renal pelvis biopsy possible laser fulguration with stent exchange Scheduled Procedures Name Priority Associated Diagnoses Date/Ti ky CYSTOURETEROSCOPY, WITH RETROGRADE PYELOGRAM, HOLMIUM LASER LITHOTRIPSY [...] Care Plan Care pathway for general surgery Radames Penny documented as of this encounter Procedures Procedure Name Priority Date/Time Associated Diagnosis Comments NON-GYNECOLOGIC CYTOLOGY Routine 06/28/2023 12:12 PM CDT Microscopic hematuria documented in this encounter Results * Cytology non emergency vehicle operator [[id number]] (06/28/2023 12:12 PM CDT) Final Diagnosis Specimen A Interpretation: Negative for High Grade Urothelial Carcinoma Other Findings: Crystals present. Adequacy: Satisfactory for evaluation 07/02/2023 9:08 AM CDT [facility] Clinical Information Microhematuria 07/02/2023 9:08 AM CDT [facility] Gross Description A(A). Urine, Midstream, :A. Urine, Midstream, , Urine Cytology: Received 20 ml of clear, yellow fluid, processed as 1 Pap stained [employer]. 07/02/2023 9:08 AM CDT [facility] Microscopic Description A formal microscopic exam is performed. 07/02/2023 9:08 AM CDT LABORATORY Performing Labs The technical component of this testing was completed at [facility] 07/02/2023 9:08 AM CDT [facility] Urine MID-STREAM URINE SPECIMEN / Unknown Non-blood Collection / Unknown 06/28/2023 12:12 PM CDT 06/28/2023 12:12 PM CDT Justus Reina MD LAB - [facility] [address] [facility] (1st floor, no room number) [place] [address], [facility] Specialty Lab [address] [facility], Room [address] [place] [address], [facility] documented in this encounter Visit Diagnoses Diagnosis Microscopic hematuria- Primary 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 [address] [place] [address] PCP - Audiology Audiology 11/14/10 Justus Reina MD [address] [id number] Urology 03/01/23 Justus Reina MD [address] [place] [phone] Assigned Surgical Provider 06/14/23 documented as of this encounter
--- OUTSIDE RECORDS SUMMARY | 2023-07-09 09:56 | XMS_ITS | Encounter Summary ---
Author Name Unknown Organization [place] Address [address] [facility] [place] [address] Care Team Providers Care High Pressure Boiler Operator Name Role Phone Janki Pace Heidi SAUL Primary Care Provider Leland Linton MD Unavailable Unavailable Yobani Rodriguez MD Unavailable Yael Milton Unavailable Justus Reina MD Unavailable [phone] Reason for Referral * Diagnostic Imaging CT Scan (Routine) - Closed Specialty Diagnoses / Procedures Referred By Radha maddox Referred To Contact Radiology. Diagnoses Microscopic hematuria Procedures CT Urogram wo & w Contrast Justus Reina MD [address] [place] [address] Referral ID Status Reason Start Date Expiration Date Visits Re quested Visits Authorized [id number] Closed 05/27/2023 05/26/2024 1 1 ORDER EXPEDITER Encounter Details Date Type Department Care Team (Late st Contact Info) Description 05/27/[address] [facility] [place] [address] [place] [address] Justus Reina MD [address] [place] [address] Microscopic hematuria (Primary Dx) Social History Tobacco [...] Description 07/11/2023 11:00 AM CDT Hospital Encounter [facility] PeriOp Services [address] [place] [address] Justus Reina MD [address] [place] [address] 07/11/2023 11:00 AM CDT - 07/11/2023 12:30 PM CDT Surgery [facility] PeriOp Services [address] [place] [address] Justus Reina MD [address] [place], [place] [address] Cystoureteroscopy with left retrograde pyelogram, possible renal pelvis biopsy possible laser fulguration with stent exchange Scheduled Procedures Name Priority Associated Diagnoses Date/Ti me CYSTOURETEROSCOPY, WITH RETROGRADE PYELOGRAM, HOLMIUM LASER LITHOTRIPSY OF URETERAL CALCULUS, AND STENT INSERTION 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 07/11/2023 11:00 AM CDT documented as of this encounter Results * CT Urogram wo [...] MD Justus Reina MD IMG CT ORDERABLES documented in this encounter Visit Diagnoses Diagnosis Microscopic hematuria- Primary Microscopic hematuria 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
--- OUTSIDE RECORDS SUMMARY | 2023-07-09 09:56 | XMS_ITS | Encounter Summary ---
Author Name Unknown Organization [place] Address [address] [facility] [place] [address] Care Team Providers Care Provider Enrollment Specialist Name Role Phone Janki Pace Primary Care Provider Leland Linton MD Unavailable Unavailable Yobani Rodriguez MD Unavailable Yael Milton Unavailable Justus Reina MD Unavailable [phone] Justus Reina MD Unavailable [phone] Encounter Details Date Type Department Care Team (Latest Contact Info) Description 06/20/2023 Travel Social History Tobacco Use Types Packs/Day [...] Description 07/11/2023 11:00 AM CDT Hospital Encounter [facility] [address] [place] [address] Justus Reina MD [address] [place] [address] 07/11/2023 11:00 AM CDT - 07/11/2023 12:30 PM CDT Surgery [facility] Peri Services [address] [place] [address] Justus Reina MD [address] [place] [address] Cystoureteroscopy with left retrograde pyelogram, possible renal pelvis biopsy possible laser fulguration with stent exchange Scheduled Procedures Name Priority Associated Diagnoses Date/Ti me CYSTOURETEROSCOPY, WITH RETROGRADE PYELOGRAM, HOLMIUM LASER LITHOTRIPSY OF URETERAL CALCULUS, AND STENT INSERTION 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 07/11/2023 11:00 AM CDT documented as of this encounter Visit Diagnoses Not on filedocumented in this encounter Care Teams Provider Enrollment Specialist Relationship Specialty Start Date End Date Janki Pace DO PCP - General Family Practice 06/19/10 Leland Linton MD RETIRED PCP - Orthopaedics Orthopedics 07/06/10 Yobani Rodriguez MD [address] [address] PCP - Ophthalmology Ophthalmology 11/02/10 Yael Milton [address] [address] PCP - Audiology Audiology 11/14/10 Justus Reina MD [address] [address] Urology 03/01/23 Justus Reina MD [address] [place] [address] Assigned Surgical Provider 06/14/23 documented as of this encounter
--- OUTSIDE RECORDS SUMMARY | 2023-07-09 09:56 | XMS_ITS | Encounter Summary ---
Author Name Unknown Organization [place] Address [address] [facility] [place] [address] Care Team Providers Care Billet Grinder Name Role Phone Janki Pace Primary Care Provider Leland Linton MD Unavailable Unavailable Yobani Rodriguez MD Unavailable Yael Milton Unavailable Justus Reina MD Unavailable [phone] Justus Reina MD Unavailable [phone] Encounter Details Date Type Department Care Team (Latest Contact Info) Description 06/24/2023 Travel Social History Tobacco Use Types Packs/Day [...] Description 07/11/2023 11:00 AM CDT Hospital Encounter [facility] Services [address] [place] [address] Justus Reina MD [address] [place] [address] 07/11/2023 11:00 AM CDT - 07/11/2023 12:30 PM CDT Surgery [facility] PeriOp Services [address] [place] [address] Justus Reina MD [address] [place] [address] Cystoureteroscopy with left retrograde pyelogram, possible renal [...] Ann Palma documented as of this encounter Visit Diagnoses Not on filedocumented in this encounter Additional Health Concerns Problem Noted Date Diagnosed Date MyC ECC SURG ENROLL 06/24/2023 documented as of this encounter Care Teams Billet Grinder Relationship Specialty Start Date End Date Janki Pace DO PCP - General Family Practice 06/19/10 Leland Linton MD RETIRED PCP - Orthopaedics Orthopedics 07/06/10 Yobani Rodriguez MD [address] [id number] PCP - Ophthalmology Ophthalmology 11/02/10 Yael Milton [address] [address] PCP - Audiology Audiology 11/14/10 Justus Reina MD [address] [place] [address] Urology 03/01/23 Justus Reina MD [address] [place] [address] Assigned Surgical Provider 06/14/23 documented as of this encounter
--- OUTSIDE RECORDS SUMMARY | 2023-07-09 09:57 | XMS_ITS | Encounter Summary ---
Author Name Unknown Organization [place] Address [address] [place] [address] Care Team Providers Care Canine Deputy Name Role Phone ClaudetteLuis Armando villanueva MD Unavailable Janki Pace DO Primary Care Provider Leland Linton MD Unavailable Unavailable Yobani Rodriguez MD Unavailable Yael Milton Unavailable Justus Reina MD Unavailable Justus Reina MD Unavailable Encounter Details Date Type Department Care Team (Late st Contact Info) Description 10/10/2010 MyC Medical Advice [facility] [address] [place] [address] Janki Pace DO [facility] [address] [facility] [address] [place] [address] Social History Tobacco Use Types Packs/Day Years Used Date Smoking Tobacco: Never Smokeless Tobacco: Never Alcohol Use Standard Drinks/Week Comments Yes 0.8 (1 standard drink = 0.6 oz p ure alcohol) Sex and Gender Information Value Date Recorded Sex Assigned at Male 06/24/2023 3:44 PM CDT Gender Identity Male 06/24/2023 3:44 PM CDT Sexual Orientation Straight 06/24/2023 3: 44 PM CDT documented as of this encounter Plan of Treatment Upcoming Encounters Date Type Department Care Team (Latest Contact Info) Description 07/11/2023 11:00 AM CDT Hospital Encounter [facility]Op Services [address] [place] [address] Justus Reina MD [address] [place], [place] [address] 07/11/2023 11:00 AM CDT - 07/11/2023 12:30 PM CDT Surgery [facility] Services [address] [place] [address] Justus Reina MD [address] [place], [place] [address] Cystoureteroscopy with left retrograde pyelogram, possible renal pelvis biopsy possible laser fulguration with stent exchange Scheduled Procedures Name Priority Associated Diagnoses Date/Ti me CYSTOURETEROSCOPY, WITH RETROGRADE PYELOGRAM, HOLMIUM LASER LITHOTRIPSY OF URETERAL CALCULUS, AND STENT INSERTION 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 07/11/2023 11:00 AM CDT documented as of this encounter Visit Diagnoses Not on filedocumented in this encounter Care Teams Canine Deputy Relationship Specialty Start Date End Date Luis Armando Wilkins MD XXX NO INFO [place]OUND [place] [address] PCP - Surgery Surgery 08/23/09 02/25/17 Janki Pace DO XXX [place] [address] PCP - General Family Practice 06/19/10 Leland Linton MD RETIRED PCP - Orthopaedics Orthopedics 07/06/10 Yobani Rodriguez MD [address] [address] PCP - Ophthalmology Ophthalmology 11/02/10 Yael Milton [address] [address] PCP - Audiology Audiology 11/14/10 Justus Reina MD [address] 9[address] Urology 03/01/23 Justus Reina MD [address] [place] [address] [id number] Assigned Surgical Provider 06/14/23 documented as of this encounter
--- OUTSIDE RECORDS SUMMARY | 2023-07-09 09:57 | XMS_ITS | Encounter Summary ---
Author Name Unknown Organization [place] Address [address] [facility] [place] [address] Care Team Providers Care Geriatric Physical Therapist Name Role Phone ClaudetteLuis Armando villanueva MD Unavailable Janki Pace DO Primary Care Provider Leland Linton MD Unavailable Unavailable Yobani Rodriguez MD Unavailable Yael Milton Unavailable Justus Reina MD Unavailable Justus Reina MD Unavailable Reason for Visit * Reason Onset Date Comments MyChart Communication 08/14/2012 medication request Encounter Details Date Type Department Care Team (Late st Contact Info) Description 08/14/2012 MyC Medical Advice [facility] [address] [place] [address] Janki Pace DO [facility] [address] [facility] [address] [place] [address] MyChart Communication (medication request) Social History Tobacco Use Types Packs/Day Years [...] encounter Miscellaneous Notes * Telephone Encounter - Kimberli Glasgow RN - 08/15/2012 10:[address] Pace please advise as the medication has not been ordered, profile only documented in this encounter Plan of Treatment Upcoming Encounters Date Type Department Care Team (Latest Contact Info) Description 07/11/2023 11:00 AM CDT Hospital Encounter 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 07/11/2023 11:00 AM CDT documented as of this encounter Visit Diagnoses Diagnosis Insomnia- Primary Insomnia, unspecified 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 documented in this encounter Care Teams Geriatric Physical Therapist Relationship Specialty Start Date End Date Luis Armando Wilkins MD XXX [place] [address] PCP - Surgery Surgery 08/23/09 02/25/17 Janki Pace DO XXX [place] [address] PCP - General Family Practice 06/19/10 Leland Linton MD RETIRED PCP - Orthopaedics Orthopedics 07/06/10 Yobani Rodriguez MD [address] [address] PCP - Ophthalmology Ophthalmology 11/02/10 Yael Milton [address] [address] PCP - Audiology Audiology 11/14/10 Justus Reina MD [address] 100[address] Urology 03/01/23 Justus Reina MD [address] [place] [address] [id number] Assigned Surgical Provider 06/14/23 documented as of this encounter
--- OUTSIDE RECORDS SUMMARY | 2023-07-09 09:57 | XMS_ITS | Encounter Summary ---
Author Name Unknown Organization [place] Address [address] [facility] [place] [address] Care Team Providers Care Double End Tenoner Setter Name Role Phone Janki Pace Primary Care Provider Leland Linton MD Unavailable Unavailable Yobani Rodriguez MD Unavailable Yael Milton Unavailable Justus Reina MD Unavailable [phone] Encounter Details Date Type Department Care Team (Late st Contact Info) Description 05/21/2023 Orders Only [facility] [address] [place] [address] Justus Reina MD [address] [place] [address] Microscopic hematuria (Primary Dx) Social [...] Description 07/11/2023 11:00 AM CDT Hospital Encounter [facility] PeriOp Services [address] [place] [phone] Justus Reina MD [address] [place], [place] [address] 07/11/2023 11:00 AM CDT - 07/11/2023 12:30 PM CDT Surgery [facility] PeriOp Services [address] [place] [address] Justsu Reina MD [address] [place], [place] [address] Cystoureteroscopy with left retrograde pyelogram, possible renal pelvis biopsy possible laser fulguration with stent exchange Scheduled Procedures Name Priority Associated Diagnoses Date/Ti me CYSTOURETEROSCOPY, WITH RETROGRADE PYELOGRAM, HOLMIUM LASER LITHOTRIPSY OF URETERAL CALCULUS, AND STENT INSERTION 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 07/11/2023 11:00 AM CDT documented as of this encounter Results * (ABNORMAL) [facility] - Urine Micro Only (05/24/2023 11:11 AM CONTINUING EDUCATION DEAN) Bacteria Urine Moderate(A ) None Seen /HPF JONE 05/24/2023 11:23 AM [facility] RBC Urine 5-10(A) 0-2 /HPF /HPF JONE 05/24/2023 11:23 AM CONTINU[facility] WBC Urine 0-5 0-5 /HPF /HPF JONE 05/24/2023 11:23 AM CONTINUING [facility] Urine URINE SPECIMEN OBTAINED BY CLEAN CATCH PROCEDURE / Unknown Non-blood Collection / Unknown 05/24/2023 11:11 AM CONTINUING EDUCATION DEAN 05/24/2023 11:11 AM CONTINUING EDUCATION DEAN Justus Reina MD LAB - URINE ORDERA [facility] [address], [address] [place] [address], [facility] [phone] documented in this encounter Visit Diagnoses Diagnosis Microscopic hematuria- Primary 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 [address] [place] [address] Urology 03/01/23 documented as of this encounter
--- OUTSIDE RECORDS SUMMARY | 2023-07-09 09:57 | XMS_ITS | Encounter Summary ---
Author Name Unknown Organization [place] Address [address] [facility] [place] [address] Care Team Providers Care Analytics Intern Name Role Phone Luis Armando Wilkins MD Unavailable Janki Pace DO Primary Care Provider Leland Linton MD Unavailable Unavailable Encounter Details Date Type Department Care Team (Late st Contact Info) Description 07/12/2010 10:32 AM CDT [facility] in [address] [address] Leland Linton MD RETIRED Social History Tobacco Use Types Packs/Day Years [...] Description 07/11/2023 11:00 AM CDT Hospital Encounter [facility] [address] [place] [phone] Justus Reina MD [address] [place] [address] 07/11/2023 11:00 AM CDT - 07/11/2023 12:30 PM CDT Surgery [facility] [address] [place] [address] Justus Reina MD [address] [place] [address] Cystoureteroscopy with left retrograde pyelogram, possible renal pelvis biopsy possible laser fulguration with stent exchange Scheduled Procedures Name Priority Associated Diagnoses Date/Ti me CYSTOURETEROSCOPY, WITH RETROGRADE PYELOGRAM, HOLMIUM LASER LITHOTRIPSY OF URETERAL CALCULUS, AND STENT INSERTION 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
--- OUTSIDE RECORDS SUMMARY | 2023-07-09 09:57 | XMS_ITS | Encounter Summary ---
Author Name Unknown Organization [place] Address [address] [facility] [place] [address] Care Team Providers Care Tractor Mechanic Apprentice Name Role Phone ClaudetteLuis Armando villanueva MD Unavailable [phone] Janki Pace DO Primary Care Provider Leland Linton MD Unavailable Unavailable Yobani Rodriguez MD Unavailable Yael Milton Unavailable Justus Reina MD Unavailable Justus Reina MD Unavailable Encounter Details Date Type Department Care Team (Late st Contact Info) Description 11/14/[address] [facility] [place] [facility] [address] [place] [address] Janki Pace DO [facility] PHYSICIAN [facility] [address] [place], [place] [phone] Social History Tobacco Use Types Packs/Day Years [...] Description 07/11/2023 11:00 AM CDT Hospital Encounter [facility] PeriOp Services [address] [place] [address] Justus Reina MD [address] [place], [place] [address] 07/11/2023 11:00 AM CDT - 07/11/2023 12:30 PM CDT Surgery [facility] Services [address] [place] [phone] Justus Reina MD [address] [place], [place] [address] Cystoureteroscopy with left retrograde pyelogram, possible renal pelvis biopsy possible laser fulguration with stent exchange Scheduled Procedures Name Priority Associated Diagnoses Date/Ti me CYSTOURETEROSCOPY, WITH RETROGRADE PYELOGRAM, HOLMIUM LASER LITHOTRIPSY OF URETERAL CALCULUS, AND STENT INSERTION 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 07/11/2023 11:00 AM CDT documented as of this encounter Visit Diagnoses Not on filedocumented in this encounter Care Teams Tractor Mechanic Apprentice Relationship Specialty Start Date End Date Luis Armando Wilkins MD XXX NO INFO FOUND XXX [place] [address] PCP - Surgery Surgery 08/23/09 02/25/17 Janki Pace DO XXX NO INFO FOUND XXX [place] [address] PCP - General Family Practice 06/19/10 Leland Linton MD RETIRED PCP - Orthopaedics Orthopedics 07/06/10 Yobani Rodriguez MD [address] [address] PCP - Ophthalmology Ophthalmology 11/02/10 Yael Milton [address] [address] PCP - Audiology Audiology 11/14/10 Justus Reina MD [address] [address] Urology 03/01/23 Justus Reina MD [address] [place] [address] [phone] Assigned Surgical Provider 06/14/23 documented as of this encounter
--- OUTSIDE RECORDS SUMMARY | 2023-07-09 09:57 | XMS_ITS | Encounter Summary ---
Author Name Unknown Organization [place] Address [address] [facility] [place] [address] Care Team Providers Care Pilates Instructor Name Role Phone Luis Armando Wilkins MD Unavailable Janki Pace DO Primary Care Provider Leland Linton MD Unavailable Unavailable Yobani Rodriguez MD Unavailable Yael Milton Unavailable Justus Reina MD Unavailable Justus Reina MD Unavailable Reason for Visit * Reason Onset Date Comments MyChart Communication 04/24/2011 Encounter Details Date Type Department Care Team (Late st Contact Info) Description 04/24/2011 MyC Medical Advice [facility] in [place] [facility] [address] [place] [address] Janki Pace DO [facility] [address] [facility] [address] [place] [address] MyChart Communication Social History Tobacco Use Types Packs/Day Years [...] 11:00 AM CDT [facility] [address] [place] [address] Justus Reina MD [address] [place] [address] 07/11/2023 11:00 AM CDT - 07/11/2023 12:30 PM CDT [facility] [address] [place] [address] Justus Reina MD [address] [place] [address] Cystoureteroscopy with left retrograde pyelogram, possible renal pelvis biopsy possible laser fulguration with stent exchange Scheduled Procedures Name Priority Associated Diagnoses Date/Ti me CYSTOURETEROSCOPY, WITH RETROGRADE PYELOGRAM, HOLMIUM LASER LITHOTRIPSY OF URETERAL CALCULUS, AND STENT INSERTION 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 07/11/2023 11:00 AM CDT documented as of this encounter Visit Diagnoses Not on filedocumented in this encounter Care Teams Pilates Instructor Relationship Specialty Start Date End Date Luis Armando Wilkins MD XXX NO INFO FOUND XXX [place] [address] PCP - Surgery Surgery 08/23/09 02/25/17 Janki Pace DO XXX NO INFO FOUND XXX [place] [address] PCP - General Family Practice 06/19/10 Leland Linton MD RETIRED PCP - Orthopaedics Orthopedics 07/06/10 Yobani Rodriguez MD [address] [address] PCP - Ophthalmology Ophthalmology 11/02/10 Yael Milton [address] [address] PCP - Audiology Audiology 11/14/10 Justus Reina MD [address] [place] [address] Urology 03/01/23 Justus Reina MD [address] [place] [phone] Assigned Surgical Provider 06/14/23 documented as of this encounter
--- OUTSIDE RECORDS SUMMARY | 2023-07-09 09:57 | XMS_ITS | Encounter Summary ---
Author Name Unknown Organization [place] Address [address] [facility] [place] [address] Care Team Providers Care Cashier Credit Name Role Phone Davongerman Janki Heidi SAUL Primary Care Provider Leland Linton MD Unavailable Unavailable Yobani Rodriguez MD Unavailable Yael Milton Unavailable Justus Reina MD Unavailable Justus Reina MD Unavailable Reason for Visit * Reason Onset Date Comments Call Back 05/21/2023 Patient is mae ng the clinic back Encounter Details Date Type Department Care Team (Late st Contact Info) Description 05/21/2023 Telephone [facility] [address] [place] [address] Justus Reina MD [address] [place], [place] [address] Call Back (Patient is calling the clinic back) Social History Tobacco Use Types Packs/Day Years [...] encounter Miscellaneous Notes * Telephone Encounter - Neo Denise - 05/21/2023 3:05 PM CST [facility] Call Center Phone Message May a detailed message be left on voicemail: no Reason for Call: Other: Patient called back to find out why the clinic had called him. Office Agent does not see any messages in patients chart about what the call was regarding. Please call patient back to follow up. Action Taken: Other: [facility] Travel Screening: Not Applicable ATRY DOCTOR documented in this encounter Plan of Treatment Upcoming Encounters Date Type Department Care Team (Latest Contact Info) Description 07/11/2023 11:00 AM CDT Hospital Encounter [facility] PeriOp Services [address] [place] [address] Justus Reina MD [address] [place] [phone] 07/11/2023 11:00 AM CDT - 07/11/2023 12:30 PM CDT Surgery [facility] Services [address] [place] [address] Justus Reina MD [address] [place] [phone] Cystoureteroscopy with left retrograde pyelogram, possible renal pelvis biopsy possible laser fulguration with stent exchange Scheduled Procedures Name Priority Associated Diagnoses Date/Ti me CYSTOURETEROSCOPY, WITH RETROGRADE PYELOGRAM, HOLMIUM LASER LITHOTRIPSY OF URETERAL CALCULUS, AND STENT INSERTION 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 07/11/2023 11:00 AM CDT documented as of this encounter Visit Diagnoses Not on filedocumented in this encounter Care Teams Cashier Credit Relationship Specialty Start Date End Date DavondhavalJanki randall DO PCP - General Family Practice 06/19/10 Leland Linton MD RETIRED PCP - Orthopaedics Orthopedics 07/06/10 Yobani Rodriguez MD [address] [address] PCP - Ophthalmology Ophthalmology 11/02/10 Yael Milton [address] [address] PCP - Audiology Audiology 11/14/10 Justus Reina MD [address] [place] [address] Urology 03/01/23 Justus Reina MD [address] [place] [address] Assigned Surgical Provider 06/14/23 documented as of this encounter
--- OUTSIDE RECORDS SUMMARY | 2023-07-09 09:57 | XMS_ITS | Encounter Summary ---
Author Name Unknown Organization [place] Address [address] [facility] [place] [address] Care Team Providers Care Reimbursement Counselor Name Role Phone ClaudetteLuis Armando villanueva MD Unavailable Janki Pace DO Primary Care Provider [phone] Leland Linton MD Unavailable Unavailable Yobani Rodriguez MD Unavailable Yael Milton Unavailable Justus Reina MD Unavailable Justus Reina MD Unavailable Encounter Details Date Type Department Care Team (Late st Contact Info) Description 02/11/2012 MyC Medical Advice [facility] in [place] Family Practice [address] [place] [address] Janki Pace DO [facility] PHYSICIAN SERVICES [address] [place], [place] [phone] Social History Tobacco Use Types Packs/Day Years [...] Description 07/11/2023 11:00 AM CDT Hospital Encounter [facility] PeriOp Services [address] [place] [address] Justus Reina MD [address] [place], [place] [address] 07/11/2023 11:00 AM CDT - 07/11/2023 12:30 PM CDT Surgery [facility] Services [address] [place] [address] Justus Reina MD [address] [place], [place] [address] Cystoureteroscopy with left retrograde pyelogram, possible renal pelvis biopsy possible laser fulguration with stent exchange Scheduled Procedures Name Priority Associated Diagnoses Date/Ti me CYSTOURETEROSCOPY, WITH RETROGRADE PYELOGRAM, HOLMIUM LASER LITHOTRIPSY OF URETERAL CALCULUS, AND STENT INSERTION 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 07/11/2023 11:00 AM CDT documented as of this encounter Visit Diagnoses Not on filedocumented in this encounter Care Teams Reimbursement Counselor Relationship Specialty Start Date End Date Luis Armando Wilkins MD XXX NO INFO FOUND XXX [place] [id number] PCP - Surgery Surgery 08/23/09 02/25/17 Janki Pace DO XXX NO INFO FOUND XXX [place] [address] PCP - General Family Practice 06/19/10 Leland Linton MD RETIRED PCP - Orthopaedics Orthopedics 07/06/10 Yobani Rodriguez MD [address] [address] PCP - Ophthalmology Ophthalmology 11/02/10 Yael Milton [address] [address] PCP - Audiology Audiology 11/14/10 Justus Reina MD [address] [address] Urology 03/01/23 Justus Reina MD [address] [place] [phone] Assigned Surgical Provider 06/14/23 documented as of this encounter
--- OUTSIDE RECORDS SUMMARY | 2023-07-09 09:57 | XMS_ITS | Encounter Summary ---
Author Name Unknown Organization [place] Address [address] [facility] [place] [address] Care Team Providers Care Child Support Case Officer Name Role Phone Luis Armando Wilkins MD Unavailable Janki Pace DO Primary Care Provider Leland Linton MD Unavailable Unavailable Yobani Rodriguez MD Unavailable Yael Milton Unavailable Justus Reina MD Unavailable Justus Reina MD Unavailable Reason for Visit * Reason Onset Date Comments MyChart Communication 05/13/2011 Encounter Details Date Type Department Care Team (Late st Contact Info) Description 05/13/2011 MyC Medical Advice [facility] in [place] Family Practice [address] [place] [phone] Janki Pace DO [facility] PHYSICIAN SERVICES [address] [facility] [address] [place] [address] MyChart Communication Social History Tobacco [...] Description 07/11/2023 11:00 AM CDT [facility] [address] [place] [address] Justus Reina MD [address] [place] [address] 07/11/2023 11:00 AM CDT - 07/11/2023 12:30 PM CDT [facility] [address] [place] [address] Justus Reina MD [address] [place] [address] Cystoureteroscopy with left retrograde pyelogram, possible renal pelvis biopsy possible laser fulguration with stent exchange Scheduled Procedures Name Priority Associated Diagnoses Date/Ti me CYSTOURETEROSCOPY, WITH RETROGRADE PYELOGRAM, HOLMIUM LASER LITHOTRIPSY OF URETERAL CALCULUS, AND STENT INSERTION 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 07/11/2023 11:00 AM CDT documented as of this encounter Visit Diagnoses Not on filedocumented in this encounter Care Teams Child Support Case Officer Relationship Specialty Start Date End Date Luis Armando Wilkins MD XXX NO INFO FOUND XXX [place] [address] PCP - Surgery Surgery 08/23/09 02/25/17 Janki Pace DO XXX NO INFO FOUND XXX [place] [address] PCP - General Family Practice 06/19/10 Leland Linton MD RETIRED PCP - Orthopaedics Orthopedics 07/06/10 Yobani Rodriguez MD [address] [address] PCP - Ophthalmology Ophthalmology 11/02/10 Yael Milton [address] [address] PCP - Audiology Audiology 11/14/10 Justus Reina MD [address] [place] [address] Urology 03/01/23 Justus Reina MD [address] [place] [address] Assigned Surgical Provider 06/14/23 documented as of this encounter
--- OUTSIDE RECORDS SUMMARY | 2023-07-09 09:57 | XMS_ITS | Encounter Summary ---
Author Name Unknown Organization [place] Address [address] [facility] [place] [address] Care Team Providers Care [facility] Lab Technician Name Role Phone Luis Armando Wilkins MD Unavailable Janki Pace DO Primary Care Provider Leland Linton MD Unavailable Unavailable Yobani Rodriguez MD Unavailable Yael Milton Unavailable Justus Reina MD Unavailable Jutsus Reina MD Unavailable Reason for Visit * Reason Onset Date Comments MyChart Communication 01/01/2011 Encounter Details Date Type Department Care Team (Late st Contact Info) Description 01/01/2011 MyC Medical Advice [facility] [place] [facility] [address] [place] [phone] Janki Pace DO [facility] [address] [facility] [address] [place] [address] MyChart Communication Social History Tobacco [...] 07/11/2023 11:00 AM CDT [facility] [address] [place] [address] Justus Reina MD [address] [place] [address] 07/11/2023 11:00 AM CDT - 07/11/2023 12: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 07/11/2023 11:00 AM CDT documented as of this encounter Visit Diagnoses Not on filedocumented in this encounter Care Teams [facility] Lab Technician Relationship Specialty Start Date End Date Luis Armando Wilkins MD XXX NO INFO FOUND XXX [place] [id number] PCP - Surgery Surgery 08/23/09 02/25/17 Janki Pace DO XXX NO INFO FOUND XXX [place] [address] PCP - General Family Practice 06/19/10 Leland Linton MD RETIRED PCP - Orthopaedics Orthopedics 07/06/10 Yobani Rodriguez MD [address] [address] PCP - Ophthalmology Ophthalmology 11/02/10 Yael Milton [address] [address] PCP - Audiology Audiology 11/14/10 Justus Reina MD [address] [place] [address] Urology 03/01/23 Justus Reina MD [address] [place] [address] Assigned Surgical Provider 06/14/23 documented as of this encounter
--- OUTSIDE RECORDS SUMMARY | 2023-07-09 09:57 | XMS_ITS | Encounter Summary ---
Author Name Unknown Organization [place] Address [address] [facility] [place] [address] Care Team Providers Care Director Medical Economics Name Role Phone Luis Armando Wilkins MD Unavailable Janki Pace DO Primary Care Provider Leland Linton MD Unavailable Unavailable Yobani Rodriguez MD Unavailable Yael Milton Unavailable Justus Reina MD Unavailable Justus Reina MD Unavailable Reason for Visit * Reason Onset Date Comments MyChart Communication 10/26/2011 Encounter Details Date Type Department Care Team (Late st Contact Info) Description 10/26/2011 MyC Medical Advice [facility] [place] [facility] [address] [place] [address] Janki Pace DO [facility]IAN SERVICES [address] [facility] [address] [place] [address] MyChart Communication Social History Tobacco [...] Description 07/11/2023 11:00 AM CDT [facility] [address] [place] [address] Justus Reina MD [address] [place] [address] 07/11/2023 11:00 AM CDT - 07/11/2023 12:30 PM CDT [facility] [address] [place] [address] Justus Reina MD [address] [place] [address] Cystoureteroscopy with left retrograde pyelogram, possible renal pelvis biopsy possible laser fulguration with stent exchange Scheduled Procedures Name Priority Associated Diagnoses Date/Ti me CYSTOURETEROSCOPY, WITH RETROGRADE PYELOGRAM, HOLMIUM LASER LITHOTRIPSY OF URETERAL CALCULUS, AND STENT INSERTION 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 07/11/2023 11:00 AM CDT documented as of this encounter Visit Diagnoses Not on filedocumented in this encounter Care Teams Director Medical Economics Relationship Specialty Start Date End Date Luis Armando Wilkins MD XXX NO INFO FOUND XXX [place] [address] PCP - Surgery Surgery 08/23/09 02/25/17 Janki Pace DO XXX NO INFO FOUND XXX [place] [address] PCP - General Family Practice 06/19/10 Leland Linton MD RETIRED PCP - Orthopaedics Orthopedics 07/06/10 Yobani Rodriguez MD [address] [address] PCP - Ophthalmology Ophthalmology 11/02/10 Yael Milton [address] [address] PCP - Audiology Audiology 11/14/10 Justus Reina MD [address] [place] [address] Urology 03/01/23 Justus Reina MD [address] [place] [address] Assigned Surgical Provider 06/14/23 documented as of this encounter
--- OUTSIDE RECORDS SUMMARY | 2023-07-09 09:57 | XMS_ITS | Encounter Summary ---
Author Name Unknown Organization [place] Address [address] [facility] [place] [address] Care Team Providers Care Manager Emergency Name Role Phone ClaudetteLuis Armando villanueva MD Unavailable [phone] Janki Pace DO Primary Care Provider Leland Linton MD Unavailable Unavailable Yobani Rodriguez MD Unavailable Yael Milton Unavailable Justus Reina MD Unavailable Justus Reina MD Unavailable Encounter Details Date Type Department Care Team (Late st Contact Info) Description 05/11/[address] [facility] [place] [facility] [address] [place] [address] Janki Pace DO [facility]IAN SERVICES [address] [place], [place] [phone] Social History Tobacco Use Types Packs/Day Years [...] Description 07/11/2023 11:00 AM CDT Hospital Encounter [facility] PeriOp Services [address] [place] [address] Justus Reina MD [address] [place], [place] [address] 07/11/2023 11:00 AM CDT - 07/11/2023 12:30 PM CDT Surgery [facility] [address] [place] [phone] Justus Reina MD [address] [place], [place] [phone] Cystoureteroscopy with left retrograde pyelogram, possible renal pelvis biopsy possible laser fulguration with stent exchange Scheduled Procedures Name Priority Associated Diagnoses Date/Ti me CYSTOURETEROSCOPY, WITH RETROGRADE PYELOGRAM, HOLMIUM LASER LITHOTRIPSY OF URETERAL CALCULUS, AND STENT INSERTION 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 07/11/2023 11:00 AM CDT documented as of this encounter Visit Diagnoses Not on filedocumented in this encounter Care Teams Manager Emergency Relationship Specialty Start Date End Date Luis Armando Wilkins MD XXX NO INFO FOUND XXX [place] [address] PCP - Surgery Surgery 08/23/09 02/25/17 Janki Pace DO XXX NO INFO FOUND XXX [place] [address] PCP - General Family Practice 06/19/10 Leland Linton MD RETIRED PCP - Orthopaedics Orthopedics 07/06/10 Yobani Rodriguez MD [address] [address] PCP - Ophthalmology Ophthalmology 11/02/10 Yael Milton [address] [address] PCP - Audiology Audiology 11/14/10 Justus Reina MD [address] [address] Urology 03/01/23 Justus Reina MD [address] [place] [id number] Assigned Surgical Provider 06/14/23 documented as of this encounter
--- OUTSIDE RECORDS SUMMARY | 2023-07-09 09:57 | XMS_ITS | Encounter Summary ---
Author Name Unknown Organization [place] Address [address] [facility] [place] [address] Care Team Providers Care Physician Non Invasive Cardiologist Name Role Phone Luis Armando Wilkins MD Unavailable [phone] Encounter Details Date Type Department Care Team (Late st Contact Info) Description 09/27/2009 7:11 PM CDT [facility] in [address] [phone] Aniyah Isabel PA-C XXX [place] [address] Social History Tobacco Use Types Packs/Day Years [...] 07/11/2023 11:00 AM CDT Hospital Encounter [facility] [address] [place] [phone] Justus Reina MD [address] [place] [address] 07/11/2023 11:00 AM CDT - 07/11/2023 12:[address] 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
--- OUTSIDE RECORDS SUMMARY | 2023-07-09 09:57 | XMS_ITS | Encounter Summary ---
Author Name Unknown Organization [place] Address [address] [facility] [place] [address] Care Team Providers Care Makeup Instructor Name Role Phone Luis Armando Wilkins MD Unavailable [phone] Encounter Details Date Type Department Care Team (Late st Contact Info) Description 05/25/2010 8:39 AM [facility] [address] [place] [phone] Janki Pace, [facility] PHYSICIAN SERVICES [address] [facility] [address] [place] [address] Social History Tobacco Use Types Packs/Day Years [...] 11:00 AM CDT Hospital Encounter [facility] [address] [place] [address] Justus Reina MD [address] [place] [address] 07/11/2023 11:00 AM CDT - 07/11/2023 12:30 PM CDT Surgery [facility] [address] [place] [address] Justus Reina MD [address] [place] [address] Cystoureteroscopy with left retrograde pyelogram, possible renal pelvis biopsy possible laser fulguration with stent exchange Scheduled Procedures Name Priority Associated Diagnoses Date/Ti me CYSTOURETEROSCOPY, WITH RETROGRADE PYELOGRAM, HOLMIUM LASER LITHOTRIPSY OF URETERAL CALCULUS, AND STENT INSERTION 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
--- OUTSIDE RECORDS SUMMARY | 2023-07-09 09:57 | XMS_ITS | Encounter Summary ---
Author Name Unknown Organization [place] Address [address] [facility] [place] [address] Care Team Providers Care Implementation Consultant Name Role Phone Luis Armando Wilkins MD Unavailable Janki Pace DO Primary Care Provider Leland Linton MD Unavailable Unavailable Yobani Rodriguez MD Unavailable Yael Milton Unavailable Encounter Details Date Type Department Care Team (Late st Contact Info) Description 05/19/2011 8:00 AM [facility] in [address] [address] Janki Pace, DO [facility] PHYSICIAN SERVICES [address] [facility] 300 [place], [place] [phone] Social History Tobacco Use Types Packs/Day Years [...] Description 07/11/2023 11:00 AM CDT Hospital Encounter [facility] PeriOp Services [address] [place] [address] Justus Reina MD [address] [place] [address] 07/11/2023 11:00 AM CDT - 07/11/2023 12:30 PM CDT Surgery [facility]Op Services [address] [place] [address] Justus Reina MD [address] [place], [place] [address] Cystoureteroscopy with left retrograde pyelogram, possible renal pelvis biopsy possible laser fulguration with stent exchange Scheduled Procedures Name Priority Associated Diagnoses Date/Ti tx CYSTOURETEROSCOPY, WITH RETROGRADE PYELOGRAM, HOLMIUM LASER LITHOTRIPSY OF URETERAL CALCULUS, AND STENT INSERTION 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 07/11/2023 11:00 AM CDT documented as of this encounter Visit Diagnoses Not on filedocumented in this encounter Care Teams Implementation Consultant Relationship Specialty Start Date End Date Luis Armando Wilkins MD [place] [address] PCP - Surgery Surgery 08/23/09 02/25/17 Janki Pace DO [place] [address] PCP - General Family Practice 06/19/10 Leland Linton MD RETIRED PCP - Orthopaedics Orthopedics 07/06/10 Yobani Rodriguez MD [address] [address] PCP - Ophthalmology Ophthalmology 11/02/10 Yael Milton [address] [address] PCP - Audiology Audiology 11/14/10 documented as of this encounter
--- OUTSIDE RECORDS SUMMARY | 2023-07-09 09:57 | XMS_ITS | Encounter Summary ---
Author Name Unknown Organization [place] Address [address] [facility] [place] [address] Care Team Providers Care Regional Transfer Liaison Name Role Phone Luis Armando Wilkins MD Unavailable Janki Pace DO Primary Care Provider Leland Linton MD Unavailable Unavailable Yobani Rodriguez MD Unavailable Yael Milton Unavailable Justus Reina MD Unavailable Justus Reina MD Unavailable Reason for Visit * Reason Onset Date Comments MyChart Communication 01/15/2013 medication question Encounter Details Date Type Department Care Team (Late st Contact Info) Description 01/15/2013 MyC Medical Advice [facility] Practice [address] [place] [address] Janki Pace DO [facility] PHYSICIAN SERVICES [address] [facility] [address] [place] [address] MyChart Communication (medication question) Social History Tobacco Use Types Packs/Day Years [...] Telephone Encounter - Kimberli Glasgow RN - 01/16/2013 2:58 PM CDT Called [facility] and they have prescription. [employer] message sent to patient. Routing to Dr. Pace for review. Kimberli Glasgow RN .......................... 01/16/2013 2:58 PM * Telephone Encounter - Carolina Roa RN - 01/15/2013 8:37 AM CDT Last visit: BP Readings from Last 1 Encounters: 11/14/12 112/68 Prescription approved per RN refill protocol. Hypercholesterolemia Labs: AST 29 08/30/2010 ALT 35 11/14/2012 CHOL 140 11/14/2012 TRIG 55 11/14/2012 HDL 65 11/14/2012 LDL 65 11/14/2012 CAD/HTN and/or CHF labs: CR 1.20 11/14/2012 POTASSIUM 4.3 11/14/2012 documented in this encounter Plan of Treatment Upcoming Encounters Date Type Department Care Team (Latest Contact Info) Description 07/11/2023 11:00 AM CDT Hospital Encounter [facility] PeriOp Services [address] [place] [address] Justus Reina MD [address] [place] [address] 07/11/2023 11:00 AM CDT - 07/11/2023 12:30 PM CDT Surgery [facility] PeriOp Services [address] [place] [address] Justus Reina MD [address] [place] [address] Cystoureteroscopy with left retrograde pyelogram, possible renal pelvis biopsy possible laser fulguration with stent exchange Scheduled Procedures Name Priority Associated Diagnoses Date/Ti me CYSTOURETEROSCOPY, WITH RETROGRADE PYELOGRAM, HOLMIUM LASER LITHOTRIPSY OF URETERAL CALCULUS, AND STENT INSERTION 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 07/11/2023 11:00 AM CDT documented as of this encounter Visit Diagnoses Diagnosis Essential hypertension, benign- Primary 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 documented in this encounter Care Teams Regional Transfer Liaison Relationship Specialty Start Date End Date Luis Armando Wilkins MD [place] [address] PCP - Surgery Surgery 08/23/09 02/25/17 Janki Pace DO [place] [address] PCP - General Family Practice 06/19/10 Leland Linton MD RETIRED PCP - Orthopaedics Orthopedics 07/06/10 Yobani Rodriguez MD [address] [address] PCP - Ophthalmology Ophthalmology 11/02/10 Yael Milton [address] [address] PCP - Audiology Audiology 11/14/10 Justus Reina MD [address] [address] Urology 03/01/23 Justus Reina MD [address] [place] [address] Assigned Surgical Provider 06/14/23 documented as of this encounter
--- OUTSIDE RECORDS SUMMARY | 2023-07-09 09:57 | XMS_ITS | Encounter Summary ---
Author Name Unknown Organization [place] Address [address] [facility] [place] [address] Care Team Providers Care Town Manager Name Role Phone Luis Armando Wilkins MD Unavailable [phone] Janki Pace DO Primary Care Provider Leland Linton MD Unavailable Unavailable Yobani Rodriguez MD Unavailable Yael Milton Unavailable Justus Reina MD Unavailable Justus Reina MD Unavailable Reason for Visit * Reason Onset Date Comments MyChart Communication 01/01/2011 Encounter Details Date Type Department Care Team (Late st Contact Info) Description 01/01/[address] [facility] [place] [facility] [address] [place] [phone] Janki Pace DO [facility] PHYSICIAN SERVICES [address] [facility] [address] [place] [address] MyChart Communication Social History Tobacco [...] Description 07/11/2023 11:00 AM CDT Hospital Encounter [facility] PeriOp Services [address] [place] [address] Justus Reina MD [address] [place] [address] 07/11/2023 11:00 AM CDT - 07/11/2023 12:30 PM CDT Surgery [facility]iOp Services [address] [place] [address] Justus Reina MD [address] [place] [address] Cystoureteroscopy with left retrograde pyelogram, possible renal pelvis biopsy possible laser fulguration with stent exchange Scheduled Procedures Name Priority Associated Diagnoses Date/Ti me CYSTOURETEROSCOPY, WITH RETROGRADE PYELOGRAM, HOLMIUM LASER LITHOTRIPSY OF URETERAL CALCULUS, AND STENT INSERTION 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 07/11/2023 11:00 AM CDT documented as of this encounter Visit Diagnoses Diagnosis Erectile dysfunction- Primary 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 documented in this encounter Care Teams Town Manager Relationship Specialty Start Date End Date Luis Armando Wilkins MD XXX NO INFO FOUND XXX [place] [address] PCP - Surgery Surgery 08/23/09 02/25/17 Janki Pace DO XXX NO INFO FOUND XXX [place] [address] PCP - General Family Practice 06/19/10 Leland Linton MD RETIRED PCP - Orthopaedics Orthopedics 07/06/10 Yobani Rodriguez MD [address] [address] PCP - Ophthalmology Ophthalmology 11/02/10 Yael Milton [address] [address] PCP - Audiology Audiology 11/14/10 Justus Reina MD [address] [address] Urology 03/01/23 Justus Reina MD [address] [place] [address] Assigned Surgical Provider 06/14/23 documented as of this encounter
--- OUTSIDE RECORDS SUMMARY | 2023-07-09 09:57 | XMS_ITS | Encounter Summary ---
Author Name Unknown Organization [place] Address [address] [facility] [address] Care Team Providers Care [employer] Pe Teacher Name Role Phone Luis Armando Wilkins MD Unavailable Janki Pace DO Primary Care Provider Leland Linton MD Unavailable Unavailable Yobani Rodriguez MD Unavailable Yael Milton Unavailable Justus Reina MD Unavailable Justus Reina MD Unavailable Reason for Visit * Reason Onset Date Comments MyChart Communication 05/22/2011 FYI, Ortho appt Encounter Details Date Type Department Care Team (Late st Contact Info) Description 05/22/2011 MyC Medical Advice [facility] in [facility] [address] [place] [address] Janki Pace DO [facility] PHYSICIAN SERVICES [address] [facility] 300 [place] [address] MyChart Communication (FYI, Ortho appt ) Social History Tobacco Use Types Packs/Day [...] 07/11/2023 11:00 AM CDT Hospital Encounter [facility] PeriOp Services [address] [place] [address] Justus Reina MD [address] [place], [place] [address] 07/11/2023 11:00 AM CDT - 07/11/2023 12:[address] 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 07/11/2023 11:00 AM CDT documented as of this encounter Visit Diagnoses Not on filedocumented in this encounter Care Teams Middle [employer] Pe Teacher Relationship Specialty Start Date End Date Luis Armando Wilkins MD XXX NO INFO FOUND XXX [place] [address] PCP - Surgery Surgery 08/23/09 02/25/17 Janki Pace DO XXX NO INFO FOUND XXX [place] [address] PCP - General Family Practice 06/19/10 Leland Linton MD RETIRED PCP - Orthopaedics Orthopedics 07/06/10 Yobani Rodriguez MD [address] [address] PCP - Ophthalmology Ophthalmology 11/02/10 Yael Milton [address] [address] PCP - Audiology Audiology 11/14/10 Justus Reina MD [address] [place] [address] Urology 03/01/23 Justus Reina MD [address] [place] [address] Assigned Surgical Provider 06/14/23 documented as of this encounter
--- OUTSIDE RECORDS SUMMARY | 2023-07-09 09:57 | XMS_ITS | Encounter Summary ---
Author Name Unknown Organization [place] Address [address] [facility] [place] [address] Care Team Providers Care Char Filter Operator Helper Name Role Phone Janki Pace Primary Care Provider Leladn Linton MD Unavailable Unavailable Yobani Rodriguez MD Unavailable Yael Milton Unavailable Justus Reina MD Unavailable [phone] Reason for Visit * Reason Comments Benign Prostatic Hypertrophy Encounter Details Date Type Department Care Team (Late st Contact Info) Description 05/20/2023 9:00 AM NURSES DIRECTOR Office Visit [facility] [address] [place] [address] Justus Reina MD [address] [place] [address] [id number] Benign prostatic hyperplasia with incomplete bladder emptying (Primary Dx); Microscopic hematuria Social History Tobacco Use Types [...] Sign Reading Time Taken Comments Blood Pressure 128/74 05/20/2023 9:16 AM NURSES DIRECTOR Pulse - - Temperature - - Respiratory Rate - - Oxygen Saturation - - Inhaled Oxygen Concentration - - Weight 90.7 kg (200 lb) 05/20/2023 9:16 AM NURSES DIRECTOR Height 188 cm (6' 2) 05/20/2023 9:16 AM NURSES DIRECTOR Body Mass Index 25.68 05/20/2023 9:16 AM NURSES DIRECTOR documented in this encounter Patient Instructions * Patient Instructions* Justus Reina MD - 05/20/2023 9:00 AM NURSES DIRECTOR Continue FLomax start finasteride Follow-up in 1 year or as needed ES DIRECTOR documented in this encounter Progress Notes * Justus Reina MD - 05/20/2023 9:00 AM CST Chief Complaint: LUTS Consult or Referral: Mr. Amanda Angel is a 82 year old male seen at the request of Dr. Deonna cota. provider found. History of Present Illness: Amanda Angel is a 82 year old male being seen for lower urinary tract symptoms. Duration of problem: Few months Previous treatments: History of TURP about 21 years ago accompanied by his spouse Reviewed previous notes from [facility]ANNA Wang presents today with his to have review of his lower urinary tract symptoms He had a prior history of TURP in 2002 in [place] Currently he comes back with similar symptoms and a concern of UTI which was addressed previously at a visit in [place] with primary care He was started on tamsulosin and finasteride but he only continue taking tamsulosin and has stoppedthe finasteride, not sure why. He does not recall any significant improvements despite being on the tamsulosin Past Medical History: Past Medical History: Diagnosis Date Benign neoplasm of colon BPH (benign prostatic hyperplasia) Essential hypertension, benign 08/15/2009 HTN (hypertension) Hyperlipidaemia Hyperlipidaemia LDL goal <100 08/15/2009 IGT (impair glucose tolerance) Murmur, heart TONIA (obstructive sleep apnea) Senile cataract 10/30/2010 Tinnitus 08/15/2009 Unspecified adjustment reaction 03/13/2011 Past Surgical History: Past Surgical History: Procedure Laterality Date CHOLECYSTECTOMY CHOLECYSTECTOMY, LAPOROSCOPIC 12/2007 CYSTOSCOPY, TRANSURETHRAL RESECTION (TUR) PROSTATE, COMBINED 2005 CYSTOSCOPY, TRANSURETHRAL RESECTION (TUR) PROSTATE, COMBINED 2005 HC REMV CATARACT EXTRACAP,INSERT LENS, W/O ECP 07/09/12 right eye TRANSRECTAL ULTRASONIC, TRANSURETHRAL RESECTION (TUR) OF PROSTATE CYST UVULECTOMY UVULECTOMY ZZHC COLONOSCOPY W SNARE REMOVAL TUMOR/POLYP/LESION 05/07/12 Medications Current Outpatient Medications Medication finasteride (PROSCAR) 5 MG tablet losartan (COZAAR) 100 MG tablet magnesium 250 MG tablet simvastatin (ZOCOR) 20 MG tablet tamsulosin (FLOMAX) 0.4 MG capsule ASPIRIN 81 MG PO CHEW cholecalciferol (VITAMIN D) 400 UNIT TABS FISH OIL 1000 MG PO CAPS Kerqgftggsz-Zyeytjmil-Utg C-Mn (GLUCOSAMINE CHONDROITIN 1500 COMPLEX) CAPS IBU OR METAMUCIL SUNRISE OR sildenafil (VIAGRA) 100 MG tablet No current facility-administered medications for this visit. Family History: Family History Problem Relation Age of Onset Heart Disease Mother Hypertension Mother Eye Disorder Father glaucoma Hypertension Father Heart Disease Father congestive heart failure Neurologic Disorder Father Parkinsons Arthritis Father Neurologic Disorder Brother parkinsons Cancer Brother prostate Parkinsonism Father Parkinsonism Brother Social History: Social History Socioeconomic History Marital status: Spouse name: Not on file Number of children: 2 Years of education: Not on file Highest education level: Not on file Occupational History Occupation: retired Employer: RETIRED Tobacco Use Smoking status: Never Smokeless tobacco: Not on file Substance and Sexual Activity Alcohol use: No Alcohol/week: 0.8 - 1.7 standard drinks of alcohol Types: 1 - 2 drink(s) per week Drug use: No Sexual activity: Never Other Topics Concern Service No Blood Transfusions No Caffeine Concern No Occupational Exposure Not Asked Hobby Hazards Not Asked Sleep Concern Not Asked Stress Concern Not Asked Weight Concern Not Asked Special Diet Not Asked Back Care Not Asked Exercise Yes Comment: 6 days per week -stretching Bike Helmet Not Asked Seat Belt Yes Self-Exams Not Asked Social History Narrative Lives with family. Social Determinants of Health Financial Resource Strain: Not on file Food Insecurity: Not on file Transportation Needs: Not on file Physical Activity: Not on file Stress: Not on file Social Connections: Not on file Interpersonal Safety: Not on file Housing Stability: Not on file Allergies: Seasonal allergies Review of Systems: From intake questionnaire Skin: negative Eyes: negative Ears/Nose/Throat: negative Respiratory: No shortness of breath, dyspnea on exertion, cough, or hemoptysis Cardiovascular: No chest pain or palpitations Gastrointestinal: negative; no nausea/vomiting, constipation or diarrhea Genitourinary: as per HPI Musculoskeletal: negative Neurologic: negative Psychiatric: negative Hematologic/Lymphatic/Immunologic: negative Endocrine: negative Physical Exam: Patient is a 82 year old male Vitals: Blood pressure 128/74, height 1.88 m (6' 2), weight 90.7 kg (200 lb). Constitutional: Body mass index is 25.68 kg/m??. Alert, no acute distress, oriented, conversant Eyes: no scleral icterus; extraocular muscles intact, moist conjunctivae Neck: trachea midline, no thyromegaly Ears/nose/mouth: throat/mouth:normal, good dentition Respiratory: no respiratory distress, or pursed lip breathing Cardiovascular: pulses strong and intact; no obvious jugular venous distension present Gastrointestinal: soft, nontender, no organomegaly or masses, Lymphatics: No inguinal adenopathy Musculoskeletal: extremities normal, no peripheral edema Skin: no suspicious lesions or rashes Neuro: Alert, oriented, speech and mentation normal Psych: affect and mood normal, alert and oriented to person, place and time Gait: Normal : ARLETTE anodular, symmetric, enlarged no nodules Labs and Pathology: The following labs were reviewed by me and discussed with the patient: UA: Small blood Significant for Lab Results Component Value Date CR 1.20 11/14/2012 CR 1.23 10/10/2010 CR 1.36 08/30/2010 CR 1.21 08/31/2009 PSA Date Value Ref Range Status 11/14/2012 1.03 0 - 4 ug/L Final 10/11/2011 1.24 0 - 4 ug/L Final 08/30/2010 0.94 0 - 4 ug/L Final 09/20/2009 0.85 0 - 4 ug/L Final Imaging: The following imaging exams were independently viewed and interpreted by me and discussed with patient: PVR: Abnormal: 210 mL Standardized Questionnaire: AUASS: 5, 2, 2, 2, 5, 1, 2 = QOL: 06/04 Assessment and Plan: BPH (benign prostatic hyperplasia) incomplete bladder emptying Discussed about his symptoms and the fact that he he probably has a regrowth of the prostate gland We discussed about possible issues including urethral strictures but unlikely since symptoms just started recently Recommended to add finasteride to the tamsulosin and continue on the same Will order urine for microscopy for the concern of small blood and reach out to me if there are anyissues in that Otherwise we should be okay to continue follow-up in about a year If he does not experience benefit in his symptoms in the next 3 to 4 months give us a call - UA without Microscopic [[id number]]; Future - MEASURE POST-VOID RESIDUAL URINE/BLADDER CAPACITY, US NON-IMAGING - UA without Microscopic [[id number]] - finasteride (PROSCAR) 5 MG tablet; Take 1 tablet (5 mg) by mouth daily for 360 days Microscopic hematuria UA with microscopy sent - UMIC - Urine Micro Only; Future Plan: Follow-up in 1 year Reach out earlier if symptoms do not improve Orders Orders Placed This Encounter Procedures MEASURE POST-VOID RESIDUAL URINE/BLADDER CAPACITY, US NON-IMAGING UA without Microscopic [[id number]] UMIC - Urine Micro Only Justus Reina MD [facility] [place] Additional Billing and Coding Information: Review of external notes as documented above Review of the result(s) of each unique test - UA, PVR, creatinine 20 minutes spent by me on the date of the encounter doing chart review, review of test results, interpretation of tests, patient visit, documentation, and discussion with family ES DIRECTOR documented in this encounter Nursing Notes * Edith Elias, EMT - 05/20/2023 9:00 AM CST Chief Complaint Patient presents with Benign Prostatic Hypertrophy Pt has UTI about a month ago, records from [place] Pt states he had a TURP about 20 years ago in [place] PVR: 213 mL MARIE Álvarez ES DIRECTOR documented in this encounter Plan of Treatment Upcoming Encounters Date Type Department Care Team (Latest Contact Info) Description 07/11/2023 11:00 AM CDT Hospital Encounter [facility] Per[facility]Op Services [address] [place] [address] Justus Reina MD [address] [place] [address] 07/11/2023 11:00 AM CDT - 07/11/2023 12:[address] [facility] [address] [place] [address] Justus Reina MD [address] [place], [place] [phone] Cystoureteroscopy with left retrograde pyelogram, possible renal [...] Associated Diagnosis Comments URINE MICROSCOPIC EXAM Routine 05/20/2023 10:32 AM NURSES DIRECTOR Microscopic hematuria URINALYSIS MACROSCOPIC Routine 05/20/2023 8:44 AM NURSES DIRECTOR Benign prostatic hyperplasia with incomplete bladder emptying [place] MEASURE POST-VOID RESIDUAL URINE/BLADDER CAPACITY, US NON-IMAGING Routine 05/20/2023 Benign prostatic hyperplasia with incomplete bladder emptying documented in this encounter Results * (ABNORMAL) UMIC - Urine Micro Only (05/20/2023 10:32 AM NURSES DIRECTOR) Mucus Urine Present(A) None Seen /LPF 05/20/2023 5:40 PM NURSES DIRECTOR [facility] RBC Urine 8(H) <=2 /HPF 05/20/2023 5:40 PM NURSES DIRECTOR [facility] WBC Urine 2 <=5 /HPF 05/20/2023 5:40 PM NURSES DIRECTOR [facility] Urine MID-STREAM URINE SPECIMEN / Unknown Non-blood Collection / Unknown 05/20/2023 10:32 AM NURSES DIRECTOR 05/20/2023 10:32 AM NURSES DIRECTOR Justus Reina MD LAB - URINE ORDERA BLES [facility] [address] [facility] (1st floor, no room number) [place] [address], [facility] [phone] * (ABNORMAL) UA without Microscopic [[id number]] (05/20/2023 8:44 AM NURSES DIRECTOR) Color Urine Yellow Colorless, Straw, Light Yellow, Yellow 05/20/2023 9:23 AM NURSES DIRECTOR [facility] Appearance Urine Clear Clear 05/20/19 9:23 AM NURSES DIRECTOR [facility] Glucose Urine Negative Negative mg/dL 05/20/2023 9:23 AM NURSES DIRECTOR [facility] Bilirubin Urine Negative Negative 9:23 AM NURSES DIRECTOR [facility] Ketones Urine Negative Negative mg/dL 05/20/2023 9:23 AM NURSES DIRECTOR [facility] Specific Dalton Urine 1.020 1.003 - 1.035 05/20/2023 9:23 AM NURSES DIRECTOR [facility] Blood Urine Small(A) Negative 05/20/2023 9:23 AM NURSES DIRECTOR [facility] pH Urine 6.0 5.0 - 7.0 05/20/2023 9:23 AM NURSES DIRECTOR [facility] Protein Albumin Urine Trace(A) Negative mg/dL 05/20/2023 9:23 AM NURSES DIRECTOR [facility] Urobilinogen Urine 0.2 0.2, 1.0 E.U./dL 05/20/2023 9:23 AM NURSES DIRECTOR [facility] Nitrite Urine Negative Negative 05/20/2023 9:23 AM NURSES DIRECTOR [facility] Leukocyte Esterase Urine Trace(A) Negative 05/20/2023 9:23 AM NURSES DIRECTOR [facility] Urine MID-STREAM URINE SPECIMEN / Unknown Non-blood Collection / Unknown 05/20/2023 8:44 AM NURSES DIRECTOR 05/20/2023 8:44 AM NURSES DIRECTOR Justus Reina MD LAB - URINE ORDERA BLES [facility] 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
--- OUTSIDE RECORDS SUMMARY | 2023-07-09 09:57 | XMS_ITS | Encounter Summary ---
Author Name Unknown Organization [place] Address [facility] [place] [address] Care Team Providers Care Food And Beverage Analyst Name Role Phone ClaudetteLuis Armando villanueva MD Unavailable Janki Pace DO Primary Care Provider Leland Linton MD Unavailable Unavailable Yobani Rodriguez MD Unavailable Yael Milton Unavailable Justus Reina MD Unavailable Justus Reina MD Unavailable Encounter Details Date Type Department Care Team (Late st Contact Info) Description 01/30/2011 Abstract [facility] [address] [place] [address] Frw, None Social History Tobacco Use Types Packs/Day Years [...] Description 07/11/2023 11:00 AM CDT Hospital Encounter [facility] PeriOp Services [address] [place] [address] Justus Reina MD [address] [place] [address] 07/11/2023 11:00 AM CDT - 07/11/2023 12:30 PM [facility] [address] [place] [address] Justus Reina MD [address] [place], [place] [address] Cystoureteroscopy with left retrograde pyelogram, possible renal pelvis biopsy possible laser fulguration with stent exchange Scheduled Procedures Name Priority Associated Diagnoses Date/Ti me CYSTOURETEROSCOPY, WITH RETROGRADE PYELOGRAM, HOLMIUM LASER LITHOTRIPSY OF URETERAL CALCULUS, AND STENT INSERTION 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 07/11/2023 11:00 AM CDT documented as of this encounter Visit Diagnoses Not on filedocumented in this encounter Care Teams Food And Beverage Analyst Relationship Specialty Start Date End Date Luis Armando Wilkins MD XXX [place] [address] PCP - Surgery Surgery 08/23/09 02/25/17 Janki Pace DO XXX NO [place] [address] PCP - General Family Practice 06/19/10 Leland Linton MD RETIRED PCP - Orthopaedics Orthopedics 07/06/10 Yobani Rodriguez MD [address] [address] PCP - Ophthalmology Ophthalmology 11/02/10 Yael Milton [address] [address] PCP - Audiology Audiology 11/14/10 Justus Reina MD [address] [address] Urology 03/01/23 Justus Reina MD [address] [place] [address] Assigned Surgical Provider 06/14/23 documented as of this encounter
--- OUTSIDE RECORDS SUMMARY | 2023-07-09 09:57 | XMS_ITS | Encounter Summary ---
Author Name Unknown Organization [place] Address [address] [facility] [place] [address] Care Team Providers Care Quilt Stuffer Name Role Phone Luis Armando Wilkins MD Unavailable [phone] Janki Pace DO Primary Care Provider [phone] Encounter Details Date Type Department Care Team (Late st Contact Info) Description 06/27/2010 2:02 PM CDT [facility] in [facility] [address] [place] [address] Janki Pace DO [facility]YSICIAN SERVICES [address] [facility] [address] [place], [place] [id number] Social History Tobacco Use Types Packs/Day Years [...] Description 07/11/2023 11:00 AM CDT Hospital Encounter [facility] Services [address] [place] [phone] Justus Reina MD [address] [place] [address] 07/11/2023 11:00 AM CDT - 07/11/2023 12:30 PM CDT Surgery [facility] [address] [place] [address] Justus Reina MD [address] [place] [address] Cystoureteroscopy with left retrograde pyelogram, possible renal pelvis biopsy possible laser fulguration with stent exchange Scheduled Procedures Name Priority Associated Diagnoses Date/Ti me CYSTOURETEROSCOPY, WITH RETROGRADE PYELOGRAM, HOLMIUM LASER LITHOTRIPSY OF URETERAL CALCULUS, AND STENT INSERTION 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
--- OUTSIDE RECORDS SUMMARY | 2023-07-09 09:57 | XMS_ITS | Encounter Summary ---
Author Name Unknown Organization [place] Address [address] [facility] [place] [address] Care Team Providers Care Plastic Mixer Name Role Phone Janki Pace Primary Care Provider [phone] Leland Linton MD Unavailable Unavailable Yobani Rodriguez MD Unavailable Yael Milton Unavailable Justus Reina MD Unavailable [phone] Encounter Details Date Type Department Care Team (Latest Contact Info) Description 05/20/2023 Travel Social History Tobacco Use Types Packs/Day [...] Description 07/11/2023 11:00 AM CDT Hospital Encounter [facility] Services [address] [place] [phone] Justus Reina MD [address] [place] [address] 07/11/2023 11:00 AM CDT - 07/11/2023 12:30 PM CDT Surgery [facility] [address] [place] [address] Justus Reina MD [address] [place] [address] Cystoureteroscopy with left retrograde pyelogram, possible renal pelvis biopsy possible laser fulguration with stent exchange Scheduled Procedures Name Priority Associated Diagnoses Date/Ti me CYSTOURETEROSCOPY, WITH RETROGRADE PYELOGRAM, HOLMIUM LASER LITHOTRIPSY OF URETERAL CALCULUS, AND STENT INSERTION 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
--- OUTSIDE RECORDS SUMMARY | 2023-07-09 09:58 | XMS_ITS | Encounter Summary ---
Author Name Unknown Organization [place] Address [address] [facility] [place] [address] Care Team Providers Care Family Nurse Practitioner Name Role Phone Luis Armando Wilkins MD Unavailable Janki Pace DO Primary Care Provider Leland Linton MD Unavailable Unavailable Yobani Rodriguez MD Unavailable Yael Milton Unavailable Justus Reina MD Unavailable Justus Reina MD Unavailable Encounter Details Date Type Department Care Team (Late st Contact Info) Description 08/02/1997 Records - [facility] CONVERSION Provider, Historical Social History Tobacco Use Types Packs/Day Years [...] Description 07/11/2023 11:00 AM CDT Hospital Encounter [facility] PeriOp Services [address] [place] [address] Justus Reina MD [address] [place] [address] 07/11/2023 11:00 AM CDT - 07/11/2023 12:30 PM CDT Surgery [facility] PeriOp Services [address] [place] [address] Justus Reina MD [address] [place] [address] Cystoureteroscopy with left retrograde pyelogram, possible renal pelvis biopsy possible laser fulguration with stent exchange Scheduled Procedures Name Priority Associated Diagnoses Date/Ti me CYSTOURETEROSCOPY, WITH RETROGRADE PYELOGRAM, HOLMIUM LASER LITHOTRIPSY OF URETERAL CALCULUS, AND STENT INSERTION 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 07/11/2023 11:00 AM CDT documented as of this encounter Visit Diagnoses Not on filedocumented in this encounter Care Teams Family Nurse Practitioner Relationship Specialty Start Date End Date Luis Armando Wilkins MD [place] [address] PCP - Surgery Surgery 08/23/09 02/25/17 Janki Pace DO [place] [address] PCP - General Family Practice 06/19/10 Leland Linton MD RETIRED PCP - Orthopaedics Orthopedics 07/06/10 Yobani Rodriguez MD [address] [address] PCP - Ophthalmology Ophthalmology 11/02/10 Yael Milton [address] [address] PCP - Audiology Audiology 11/14/10 Justus Reina MD [address] [place] [id number] Urology 03/01/23 Justus Reina MD [address] [place] [id number] Assigned Surgical Provider 06/14/23 documented as of this encounter
[2023-07-09 10:12] LABS: Cholesterol* 148 mg/dL (90-199); HDL Cholesterol* 62 mg/dL (>=40); LDL Cholesterol Calculated 74 mg/dL (<100); Triglycerides* 58 mg/dL (40-149)
== END 2023-07-09 09:53 | disposition home or self-care (01) ==
LOC: NPINS 09:52
PROVIDERS: PCP Internal Medicine; Visit Provider Psychiatry & Neurology Neurology
DX: R56.9 Unspecified convulsions (principal); Z79.899 Other long term (current) drug therapy
CPT/HCPCS: 80061

== ENCOUNTER 2024-03-12 07:38 | Outpatient (CLI) | payer MEDICARE, BC, SELFPAY | END 2024-03-12 07:39 | disposition home or self-care (01) | LOC: NFLDREF 11:52 | PROVIDERS: PCP Internal Medicine; Referring Provider Internal Medicine; Visit Provider Internal Medicine | DX: E78.5 Hyperlipidemia, unspecified (principal); I10 Essential (primary) hypertension | CPT/HCPCS: 80048; 80061 ==